=== PATIENT | male | born 1955 | race Caucasian/White ===

== ENCOUNTER 2024-06-29 16:42 | Outpatient (OUT) | payer MEDICARE, SELFPAY ==
[2024-06-29 17:14] LABS: Basophils Absolute Auto 0.1 10^3/uL (0.0-0.1); Basophils Percent Auto 0.6 % (0.2-2.0); Eosinophils Absolute Auto 0.4 10^3/uL (0.0-0.7); Eosinophils Percent Auto 3.9 % (0.9-7.0); Hematocrit 40.7 % (42.0-54.0); Hemoglobin 14.2 g/dL (14.0-18.0); Immature Granulocytes Abs Auto 0.02 10^3/uL (0.00-0.03); Immature Granulocytes Pct Auto 0.2 % (0.0-0.5); Lymphocytes Absolute Auto 2.8 10^3/uL (1.2-3.8); Lymphocytes Percent Auto 25.8 % (20.5-60.0); Mean Corpuscular HGB Conc 34.9 g/dL (29.9-35.2); Mean Corpuscular Hemoglobin 30.3 pg (25.9-34.0); Mean Platelet Volume 8.9 fL (9.5-13.5); Monocytes Absolute Auto 0.5 10^3/uL (0.3-0.8); Monocytes Percent Auto 4.5 % (1.7-12.0); Neutrophils Absolute Auto 7.1 10^3/uL (1.4-6.5); Platelet Count 277 10^3/uL (150-450); Red Blood Count 4.68 10^6/uL (4.70-6.10); Red Cell Distribution Width 13.3 % (11.0-15.0); White Blood Count 10.9 10^3/uL (4.0-11.0)
[2024-06-29 17:24] LABS: Estimated Average Glucose 151 mg/dL; Glycohemoglobin A1C 6.9 % (4.5-6.2)
[2024-06-29 17:35] LABS: Alanine Aminotransferase 19 U/L (16-63); Albumin Level 3.6 g/dL (3.4-5.0); Alkaline Phosphatase 122 U/L (46-116); Anion Gap 9.5; Aspartate Amino Transferase 17 U/L (15-37); BUN Creatinine Ratio 10.7; Bilirubin Total 1.1 mg/dL (0.2-1.0); Calcium 9.4 mg/dL (8.5-10.1); Carbon Dioxide 29.4 mmol/L (21.0-32.0); Chloride 103 mmol/L (98-107); Chol HDL Ratio 4.5; Cholesterol 199 mg/dL (<=200); Estimated GFR (African America >60 (>=60); Estimated GFR (Non-African Ame >60 (>=60); Globulin 3.6 g/dL; Glucose 140 mg/dL (74-106); HDL Cholesterol 44 mg/dL (40-60); Sodium 139 mmol/L (136-145); Total Protein 7.2 g/dL (6.4-8.2); Triglycerides 153 mg/dL (<=150); VLDL CHOLESTEROL 30.6 mg/dL
[2024-06-29 17:59] LABS: Prostate Specific Antigen Scrn 0.59 ng/mL (<=4.00)
[2024-06-29 18:04] LABS: Potassium 2.9 mmol/L (3.5-5.1)
== END 2024-06-29 16:43 | disposition home or self-care (01) ==
PROVIDERS: PCP Family Medicine; Visit Provider Family Medicine
DX: Z01.89 Encounter for other specified special examinations (principal)
CPT/HCPCS: 36415; 80053; 80061; 83036; 85025; G0103

== ENCOUNTER 2024-09-17 17:38 | Emergency (ER) | payer MEDICARE, SELFPAY ==
[2024-09-17] VITALS (8 sets, daily range): BP systolic 148–192; BP diastolic 89–107; PULSE 81–98; TEMP 36.9; O2SAT 96–98; BMI 29.8
--- NOTE | 2024-09-17 17:56 | ECG_ITS ---
[facility] Test Date: 2024-09-17 Pat Name: ESTEFANY SMALL Department: Room: - Gender: Male Inspector Outside Production: : 1955 Requested By: 0929 Order Number: [id number] Reading MD: CASS BOWLING Measurements Intervals Gurley Rate: 82 P: 7 MA: 166 QRS: -6 QRSD: 114 T: 10 QT: 412 QTc: 451 Interpretive Statements 1100 Sinus rhythm 1102 Sinus arrhythmia [address] depression inferiorly 9150 abnormal ECG Electronically Signed On 09-18-2024 6:59:40 EST by CASS BOWLING
--- NOTE | 2024-09-17 17:56 | XR_ITS ---
The [address] [address] Patient Name: ESTEFANY SMALL MRN: [id number] date: 1955 Sex: M Assigned Patient Location: ER Current Patient Location: ED.MAIN Accession/Order Number: [id number] Exam Date: 09/17/2024 18:02 Report Date: 09/17/2024 19:51 At the request of: SHIVAM DUGGAN Procedure: XR chest 1V EXAM: XR chest 1V REASON FOR EXAM: Male, 69 years, Cough. TECHNIQUE: A single AP view of the chest is performed. COMPARISON: None. FINDINGS: There is minimal linear atelectasis or scar at the left lung base. The right lung is clear. Normal pleura. Normal size heart. Normal mediastinum and mae. Normal visualized pulmonary arteries. Normal visualized aortic arch and descending thoracic aorta. Normal visualized thoracic spine. Normal visualized ribs, clavicles, and shoulders. There is no demonstrated abnormality of the visualized soft tissue structures of the upper abdomen. XR/XR chest 1V IMPRESSION: Minimal left basilar atelectasis or scar. Otherwise, no acute process. Electronically authenticated by: NAIMA DILL Date: 09/17/2024 19:51
--- NOTE | 2024-09-17 17:57 | ED.GENADUL1 ---
HPI HPI - General Adult General Chief complaint: Upper Respiratory Infection Stated complaint: Upper Respiratory Infection Time Seen by Provider: 09/17/24 17:39 Source: patient Mode of arrival: walk-in History of Present Illness HPI narrative: Patient is a 69-year-old male with a history of diabetes who presents to the emergency department for cough, chest congestion over the last 4 days. He states he called his doctor's office and a Z-Joseph was called in for him but he does not feel he is getting any better. He has not had any objective fevers, vomiting or diarrhea. He denies any reyna chest pain. He has had some sputum production but no hemoptysis. He states that he used to be on inhalers for his breathing but no longer takes them. No sick contacts in the home. Related Data Home Medications ?Medication ?Instructions ?Recorded ?Confirmed azithromycin 250 mg tablet 250 mg PO DAILY 09/17/24 09/17/24 clopidogrel 75 mg tablet 75 mg PO DAILY 09/17/24 09/17/24 gabapentin 400 mg capsule 400 mg PO TID 09/17/24 09/17/24 insulin degludec 200 unit/mL (3 30 unit subcut QPM 09/17/24 09/17/24 mL) subcutaneous pen (Tresiba FlexTouch U-200 insulin) losartan 25 mg tablet 25 mg PO DAILY 09/17/24 09/17/24 Previous Rx's ?Medication ?Instructions ?Recorded albuterol sulfate 90 mcg/actuation 2 inh inhalation Q4H PRN shortness 09/17/24 aerosol inhaler of breath or wheezing #8.5 grams benzonatate 200 mg capsule 200 mg PO TID PRN cough #14 caps 09/17/24 doxycycline hyclate 100 mg tablet 100 mg PO BID 10 days #20 tabs 09/17/24 prednisone 20 mg tablet 60 mg (3 x 20 mg) PO DAILY 3 days 09/17/24 #9 tabs Allergies Allergy/AdvReac Type Severity Reaction Status Date / Time No Known Drug Allergies Allergy Verified 09/17/24 17:49 Opioid HPI Opioid Management Most Recent Opioid Data: No Data to Display Review of Systems ROS Constitutional Reports: chills; Denies: fever Ears, nose, mouth, and throat Reports: nasal congestion; Denies: throat pain Cardiovascular Denies: chest pain Respiratory Reports: cough, wheezing, change in phlegm color and chest congestion; Denies: shortness of breath or coughing up blood Gastrointestinal Denies: abdominal pain, nausea or vomiting Musculoskeletal Denies: back pain Integumentary/Breast Denies: rash Neurological Denies: numbness in extremities or weakness in extremities Hematologic/Lymphatic Denies: easy bruising or easy bleeding Exam Constitutional Vital Signs, click to edit/add: Last Vital Signs Temp 98.4 F 09/17/24 17:44 Pulse 85 09/17/24 18:40 Resp 13 09/17/24 18:40 BP 148/89 H 09/17/24 19:09 Pulse Ox 96 09/17/24 18:44 O2 Del Method Room Air 09/17/24 18:44 Course Vital Signs Vital signs: Vital Signs Temperature 98.4 F 09/17/24 17:44 Pulse Rate 98 H 09/17/24 17:44 Respiratory Rate 16 09/17/24 17:44 Blood Pressure 192/107 H 09/17/24 17:44 Pulse Oximetry 98 09/17/24 17:44 Oxygen Delivery Method Room Air 09/17/24 17:44 Temperature 98.4 F 09/17/24 17:44 Pulse Rate 85 09/17/24 18:40 Respiratory Rate 13 09/17/24 18:40 Blood Pressure 148/89 H 09/17/24 19:09 Pulse Oximetry 96 09/17/24 18:44 Oxygen Delivery Method Room Air 09/17/24 18:44 Medical Decision Making MDM Narrative Medical decision making narrative: Laboratory studies reviewed and noted within normal limits, respiratory swabs are negative. Patient with controlled blood sugar in the ER, discussed a short course of steroids and diet management for blood sugar at home. Patient does take insulin at nighttime. Chest x-ray is unremarkable. He was given a breathing treatment and Solu-Medrol in the ER. Discharged home with doxycycline, Tessalon Perles, albuterol inhaler and prednisone. Follow-up with PCP and return to the ER if symptoms change or worsen SHARED APC VISIT, PHYSICIAN ATTESTATION: Wyxv-vp-tqly I performed a substantive part of the MDM during the patient?s E/M visit. I personally evaluated and examined the patient. I personally made or approved the documented management plan and acknowledge its risk of complications. Medical Records Medical records reviewed: Yes I reviewed the patient's medical records Lab Data Lab results reviewed: Yes I reviewed the patient's lab results Labs: Lab Results 09/17/24 Range/Units 18:15 WBC 9.3 (4.0-11.0) 10^3/uL RBC 4.97 (4.70-6.10) 10^6/uL Hgb 14.6 (14.0-18.0) g/dL Hct 42.1 (42.0-54.0) % MCV 84.7 (80.0-94.0) fL MCH 29.4 (25.9-34.0) pg MCHC 34.7 (29.9-35.2) g/dL RDW 12.2 (11.0-15.0) % Plt Count 214 (150-450) 10^3/uL MPV 9.0 L (9.5-13.5) fL Neut % (Auto) 67.4 (43.0-75.0) % Lymph % (Auto) 25.9 (20.5-60.0) % [place] % (Auto) 5.3 (1.7-12.0) % Eos % (Auto) 1.0 (0.9-7.0) % Baso % (Auto) 0.2 (0.2-2.0) % Neut # (Auto) 6.3 (1.4-6.5) 10^3/uL Lymph # (Auto) 2.4 (1.2-3.8) 10^3/uL [place] # (Auto) 0.5 (0.3-0.8) 10^3/uL Eos # (Auto) 0.1 (0.0-0.7) 10^3/uL Baso # (Auto) 0.0 (0.0-0.1) 10^3/uL Abs Immat Gran (auto) 0.02 (0.00-0.03) 10^3/uL Imm/Tot Granulo (auto) 0.2 (0.0-0.5) % Sodium 139 (136-145) mmol/L Potassium 3.2 L (3.5-5.1) mmol/L Chloride 102 (98-107) mmol/L Carbon Dioxide 26.6 (21.0-32.0) mmol/L Anion Gap 13.6 BUN 17.0 (7.0-18.0) mg/dL Creatinine 1.02 (0.70-1.30) mg/dL Est GFR ( Amer) >60 (>=60 mL/min/1.73m^2) Est GFR (Non-Af Amer) >60 (>=60 mL/min/1.73m^2) BUN/Creatinine Ratio 16.7 Glucose 92 (74-106) mg/dL Lactate 1.0 (0.4-2.0) mmol/L Calcium 8.8 (8.5-10.1) mg/dL Total Bilirubin 0.8 (0.2-1.0) mg/dL AST 21 (15-37) U/L ALT 24 (16-63) U/L Alkaline Phosphatase 119 H (46-116) U/L Troponin I High Sens 25.1 (4.0-76.1) pg/mL NT-Pro-B Natriuret Pep 570.0 (<=900.0) pg/mL Total Protein 7.1 (6.4-8.2) g/dL Albumin 3.3 L (3.4-5.0) g/dL Globulin 3.8 g/dL Albumin/Globulin Ratio 0.9 Influenza Type A Ag Negative Influenza Type B Ag Negative SARS-CoV-2 Ag (CV2AG) Negative (NEGATIVE) Imaging Data Chest x-ray: Attestation: I have reviewed the pertinent imaging results. ECG Data Attestation: I personally reviewed and interpreted this ECG as follows: (Normal sinus rhythm at a rate of 82, sinus arrhythmia with no acute ST elevation. EKG reviewed by attending physician) Discharge Plan Discharge Chief Complaint: Upper Respiratory Infection Clinical Impression: Upper respiratory infection Patient Disposition: Home, Self-Care Time of Disposition Decision: 19:47 Condition: Good Prescriptions / Home Meds: New prednisone 20 mg tablet 60 mg PO DAILY 3 Days Qty: 9 0RF albuterol sulfate 90 mcg/actuation HFA aerosol inhaler 2 inh inhalation Q4H PRN (Reason: shortness of breath or wheezing) Qty: 8.5 0RF doxycycline hyclate 100 mg tablet 100 mg PO BID 10 Days Qty: 20 0RF benzonatate 200 mg capsule 200 mg PO TID PRN (Reason: cough) Qty: 14 0RF No Action azithromycin 250 mg tablet 250 mg PO DAILY clopidogrel 75 mg tablet 75 mg PO DAILY gabapentin 400 mg capsule 400 mg PO TID insulin degludec [Tresiba FlexTouch U-200] 200 unit/mL (3 mL) insulin pen 30 unit SUBCUT QPM losartan 25 mg tablet 25 mg PO DAILY Print Language: Israeli Instructions: Upper Respiratory Infection (ED), Wheezing (ED) Referrals: KALEY MCCOY [Primary Care Provider] - 1 week
[2024-09-17] MEDS: METHYLPREDNISOLONE SOD SUCC PF 125 MG/2 ML VIAL IVP (18:17)
[2024-09-17] MEDS: ALBUTEROL SULFATE 2.5 MG/3 ML VIAL NEB IH (18:29)
[2024-09-17 18:30] LABS: Basophils Percent Auto 0.2 % (0.2-2.0); Eosinophils Absolute Auto 0.1 10^3/uL (0.0-0.7); Hematocrit 42.1 % (42.0-54.0); Hemoglobin 14.6 g/dL (14.0-18.0); Immature Granulocytes Abs Auto 0.02 10^3/uL (0.00-0.03); Immature Granulocytes Pct Auto 0.2 % (0.0-0.5); Lymphocytes Absolute Auto 2.4 10^3/uL (1.2-3.8); Lymphocytes Percent Auto 25.9 % (20.5-60.0); Mean Corpuscular HGB Conc 34.7 g/dL (29.9-35.2); Mean Corpuscular Hemoglobin 29.4 pg (25.9-34.0); Mean Corpuscular Volume 84.7 fL (80.0-94.0); Monocytes Absolute Auto 0.5 10^3/uL (0.3-0.8); Monocytes Percent Auto 5.3 % (1.7-12.0); Neutrophils Absolute Auto 6.3 10^3/uL (1.4-6.5); Neutrophils Percent Auto 67.4 % (43.0-75.0); Platelet Count 214 10^3/uL (150-450); Red Blood Count 4.97 10^6/uL (4.70-6.10); Red Cell Distribution Width 12.2 % (11.0-15.0); White Blood Count 9.3 10^3/uL (4.0-11.0)
[2024-09-17 18:41] LABS: Influenza Virus A Antigen Negative; Influenza Virus B Antigen Negative; Internal Control Within Normal Limits; SARS-CoV-2 Ag NEGATIVE (NEGATIVE)
[2024-09-17 18:54] LABS: Alanine Aminotransferase 24 U/L (16-63); Albumin Globulin Ratio 0.9; Albumin Level 3.3 g/dL (3.4-5.0); Alkaline Phosphatase 119 U/L (46-116); Anion Gap 13.6; Aspartate Amino Transferase 21 U/L (15-37); BUN Creatinine Ratio 16.7; Bilirubin Total 0.8 mg/dL (0.2-1.0); Calcium 8.8 mg/dL (8.5-10.1); Carbon Dioxide 26.6 mmol/L (21.0-32.0); Chloride 102 mmol/L (98-107); Estimated GFR (African America >60 (>=60 mL/min/1.73m^2); Estimated GFR (Non-African Ame >60 (>=60 mL/min/1.73m^2); Globulin 3.8 g/dL; Glucose 92 mg/dL (74-106); Potassium 3.2 mmol/L (3.5-5.1); Sodium 139 mmol/L (136-145); Total Protein 7.1 g/dL (6.4-8.2); Troponin I High Sensitivity 25.1 pg/mL (4.0-76.1)
== END 2024-09-17 20:00 | disposition home or self-care (01) ==
PROVIDERS: Physician Assistant; Emergency Provider Emergency Medicine; PCP Family Medicine
DX: J06.9 Acute upper respiratory infection, unspecified (principal); E11.9 Type 2 diabetes mellitus without complications; Z79.4 Long term (current) use of insulin
CPT/HCPCS: 36415; 71045; 80053; 83605; 83880; 84484; 85025; 87804; 87811; 93005; 94640; 96374; 99285; J2919

== ENCOUNTER 2024-11-30 16:37 | Outpatient (OUT) | payer MEDICARE, SELFPAY ==
[2024-11-30 17:34] LABS: Thyroid Stimulating Hormone 1.011 uIU/mL (0.358-3.740)
[2024-12-02 02:08] LABS: Vitamin B12 1185 pg/mL (232-1245)
[2024-12-02 16:09] LABS: Albumin 3.5 g/dL (2.9-4.4); Alpha-1-Globulin 0.3 g/dL (0.0-0.4); Alpha-2-Globulin 0.8 g/dL (0.4-1.0); Gamma Globulin 0.8 g/dL (0.4-1.8); Protein, Total 6.8 g/dL (6.0-8.5)
== END 2024-11-30 16:38 | disposition home or self-care (01) ==
LOC: LAB 16:50
PROVIDERS: PCP Family Medicine; Visit Provider Psychiatry & Neurology Neurology
DX: G60.9 Hereditary and idiopathic neuropathy, unspecified (principal)
CPT/HCPCS: 36415; 82607; 82746; 84155; 84165; 84443

== ENCOUNTER 2025-07-23 11:04 | Outpatient (OUT) | payer MEDICARE, SELFPAY ==
--- OUTSIDE RECORDS SUMMARY | 2025-07-22 16:57 | XMS_ITS | Patient Health Record ---
Author Organization [facility] in [place] Address [address] [place] [address] Care Team Providers Care Glaze Carrier Name Role Phone Wilber Ariza DO Primary Care Provider Unavail able Reason For Referral No Information Plan Of Treatment No Information Insurance Providers Payer Name Payer Address Payer Phone Subscriber Number Group Number Insured Name Patient Relationship to Insured Coverage Start Date Coverage End Date SELF PAY ON PATIENT DEMOGRAPHICS Michael Morales - patient is the [id number]/12/2012
--- OUTSIDE RECORDS SUMMARY | 2025-07-22 16:57 | XMS_ITS | Clinical Summary ---
Author Organization [employer] [facility] Address [id number] [address] [place] [address] Care Team Providers Care Associate Professor Of Biblical Studies Name Role Phone Lalo Marshall DO Primary Care Provider [phone] Allergies Active AllergyReactionsCriticalityNoted IgjpDoztiklsVmmrjvirojCyjv33/03/2025 Other Reaction(s): Suicidal ideation Medications MedicationSigDispense QuantityRefillsLast FilledStart DateEnd DateStatus ibuprofen (ADVIL,MOTRIN) 800 mg tablet Take 1 tablet (800 mg total) by mouth every 8 (eight) hours as needed.Active omeprazole (PriLOSEC OTC) 20 mg tablet,delayed release (DR/EC) Take 1 tablet (20 mg total) by mouth as needed.Active aspirin 81 mg Take 325 mg by mouth daily. Active tiZANidine (ZANAFLEX) 4 mg capsule Take 1 capsule (4 mg total) by mouth as needed in the morning and 1 capsule (4 mg total) as needed at noon and 1 capsule (4 mg total) as needed in the evening. Active insulin degludec (TRESIBA FLEXTOUCH U-200) 200 unit/mL (3 mL) insulin pen Inject 50 Units under the skin in the morning.Active HYDROcodone-acetaminophen (NORCO) 7.5-325 mg per tablet Take 2 tablets by mouth every 6 (six) hours as needed.Active clopidogrel (PLAVIX) 75 mg tablet Take 1 tablet (75 mg total) by mouth in the morning.Active albuterol (PROVENTIL HFA;VENTOLIN HFA) 90 mcg/actuation inhaler Inhale 2 puffs every 6 (six) hours as needed for wheezing.Active aspirin 325 mg EC tablet Take 1 tablet (325 mg total) by mouth in the morning.Active gabapentin (NEURONTIN) 100 MG tablet Take 2 tablets (200 mg total) by mouth nightly.5Active potassium chloride (KLOR-CON M 20) 20 MEQ CR tablet Take 1 tablet (20 mEq total) by mouth in the morning.5Active losartan (COZAAR) 25 mg tablet Indications:Primary hypertensionTake 1 tablet (25 mg total) by mouth nightly. 90 tablet 5Active ezetimibe (ZETIA) 10 mg tablet Indications:Coronary artery disease with history of percutaneous transluminal angioplasty (PTCA)Take 1 tablet (10 mg total) by mouth in the morning. 90 tablet 5Active losartan (COZAAR) 25 mg tablet Take 0.5 tablets (12.5 mg total) by mouth nightly.07/06/2025Discontinued (Reorder) ezetimibe (ZETIA) 10 mg tablet Take 1 tablet (10 mg total) by mouth in the morning. 90 tablet Discontinued Active Problems ProblemNoted DateDiagnosed DateCoronary artery disease with history of percutaneous transluminal angioplasty (PTCA)01/01/2025Generalized abdominal pain 02/21/2021erumen debris on tympanic membrane of both ears07/28/2019Middle ear effusion, hpmsphrun55/17/2019Dysfunction of both eustachian tubes01/14/2019 Bilateral hearing loss01/14/2019 Encounters DateTypeDepartmentCare PcrxXcmxlazfwdj58/07/2025 2:00 PM EDTOffice Visit [facility] [address] [place] [phone] Roxanna Diop MD Coronary artery disease with history of percutaneous transluminal angioplasty (PTCA) (Primary Dx); Primary phoiczsfgbul15/07/3764Itghjq70/06/2025Telephone [facility] [address] [place] [phone] Sandra Langston MA from Last 3 Months Family History Medical HistoryRelationNameCommentsHeart diseaseBrotherHeart attackFatherHeart diseaseFatherStrokeMotherHeart diseaseSisterRelationNameStatusCommentsBrother AliveFatherDeceasedMotherDeceasedSisterAlive Social History Tobacco UseTypesPacks/DayYears UsedDateSmoking Tobacco: FormerSmokeless Tobacco: Never Comments:2009 quit Alcohol UseStandard Drinks/WeekCommentsNever0 (1 standard drink = 0.6 oz pure alcohol)AUDIT-CAnswerDate RecordedFrequency of Alcohol ConsumptionNever 01/14/2019Average Number of DrinksNot on file01/14/2019Frequency of Binge DrinkingNot on file01/14/2019ChildcareAnswerDate RecordedChildcareUnknown 03/11/2019EmploymentAnswerDate PnueeickCommpqhbyvDpcetrx40/12/2019Hunger ScreeningAnswerDate RecordedWithin the past 12 months we worried whether our food would run out before we got money to buy more.Never True07/06/2025Within the past 12 months the food we bought just didn't last and we didn't have money to get more.Never True07/06/2025Purpose - LifeAnswerDate RecordedPurpose and direction in fvdyEjjlkmr48/11/2021ex and Gender InformationValueDate Recorded Sex Assigned at BirthNot on fileLegal YxcKrmv9905/05/2015 11:51 AM EDTGender IdentityNot on fileSexual OrientationNot on file Last Filed Vital Signs Vital SignReadingTime TakenCommentsBlood Nyiiybmz708/5569807/06/2025 1:52 PM EDT Fnctz713507/06/2025 1:52 PM YTTUrjrtngtghs94.1 ??C (97 ??F)02/21/2021 12:11 PM EDT Respiratory Wnkx007802/21/2021 1:08 PM EDTOxygen Pgthnswnbq27%07/06/2025 1:52 PM EDTInhaled Oxygen Concentration--Umywzp10 kg (194 lb)07/06/2025 1:52 PM EDT Mmdecv237.2 cm (5' 7 )07/06/2025 1:52 PM EDTBody Mass Index30.381 1:52 PM EDT Plan of Treatment DateTypeDepartmentCare Team (Latest Contact Info)Scwqdcabyaw60/27/2025 2:00 PM EDTAppointment [facility] [address] [place] [phone] Cirilo Banegas MD [address] [place] [address] Health MaintenanceDue DateLast DoneCommentsDiabetic Ophthalmology Exam1955 Statin Use: Ukacndavgpethd1954Statin Use: Hhmnffot1954epression Ipntojhnl59/17/1966Adult BMI Follow Up Plan02/14/1972Diabetic Foot Exam 02/14/1972DTaP,Tdap and Td Vaccines (1 - Tdap)1973Zoster (Shingles) Vaccine (1 of 2)02/14/2004Abdominal Aortic Aneurysm (AAA) Dmyhwi5602/13/2019Fall Risk Ilasmtpua35/17/2019COVID-19 Vaccine ( season)2025 10/10/2021, 12/05/2020Influenza Hslgnif2805/31/2025dult BMI Iqllkxhqo30/07/2026 07/06/2025Tobacco Xairqziyr55 Medical Devices Not on file Insurance Care Teams Team MemberRelationshipSpecialtyStart DateEnd Date Lalo Marshall DO [facility]10/01/19
--- OUTSIDE RECORDS SUMMARY | 2025-07-22 16:57 | XMS_ITS | Clinical Summary ---
Author Organization [facility] Address [address] [facility] [place] [address] Care Team Providers Care Resident Care Technician Name Role Phone Carla Moon DO Unavailable [phone] Kaelyn Good SECURITY CLERK Unavailable [phone] Lalo Marshall MD Primary Care Provider [phone] Allergies Active AllergyReactionsCriticalityNoted YhylSqyfgmicPeepxcuuejRyzd98/03/2025 Other Reaction(s): Suicidal ideation Insulin Aspart (Human Analog) (Yeast)GkrzaYflu84/17/2025 Chest pain Medications MedicationSigDispense QuantityRefillsLast FilledStart DateEnd DateStatus HYDROcodone-acetaminophen (Terrell) 7.5-325 MG tablet Take 1 tablet by mouth in the morning and 1 tablet before bedtime.05/09/2023 Active aspirin 81 MG EC tablet Take 1 tablet by mouth Daily05/09/2023ctive clopidogrel (Plavix) 75 MG tablet Take 1 tablet by mouth Daily05/09/2023ctive cyclobenzaprine (Flexeril) 10 MG tablet Take 1 tablet by mouth in the morning and 1 tablet in the evening and 1 tablet before bedtime.05/09/2023ctive ibuprofen 800 MG tablet 05/09/2023ctive losartan (Cozaar) 25 MG tablet Take 1 tablet by mouth Daily05/09/2023ctive fluticasone (Flonase) 50 MCG/ACT nasal spray Indications:ETD (Eustachian tube dysfunction), bilateralAdminister 2 sprays into each nostril Daily Shake gently. Before first use, prime pump. After use, clean tip and replace cap. 16 g 1104Active gabapentin (Neurontin) 400 MG capsule Take 600 mg by mouth in the morning and 600 mg in the evening and 600 mg before bedtime.Active Cariprazine HCl (Vraylar) 1.5 MG capsule Take by mouthActive insulin degludec (Tresiba FlexTouch) 200 UNIT/ML injection Indications:Type 2 diabetes mellitus with other circulatory complications (HCC) Inject 50 Units under the skin at bedtime 22.5 mL 5Active ezetimibe (Zetia) 10 MG tablet Take 10 mg by mouth in the morning.5Active Xdemvy 0.25 % solution Administer 1 drop into affected eye(s) in the morning and 1 drop before bedtime. 5Active potassium chloride CR (Klor-Con M20) 20 MEQ ER tablet Take 20 mEq by mouth in the morning.5Active Active Problems ProblemNoted DateDiagnosed DateMixed hearing loss, gduumxbeu99/19/2024ETD (Eustachian tube dysfunction), lybwlnpfn17/19/2024Foreign body of both ears 03/18/2024rthritis of left hand3Carpal tunnel fpkfanjr57/11/2023 Bilateral hearing loss01/14/2019Mixed getsjwpllnfwkq83/28/2015Primary pfdbeslultry73/15/2014S/P coronary artery stent yeitqpghx96/29/2013Coronary onmfueamnfkwvpz94/28/2013Heart zfggtly7311/19/2012 Immunizations ImmunizationAdministration DatesNext DueJanssen EDUP-WeF-687/08/2021Pfizer Purple Cap SARS-CoV-2 Aboitbcmhpg67/11/2022 Family History Medical HistoryRelationNameCommentsSkin cancerBrotherx 6, 1 decHeart disease FatherDiabetesMotherMelanomaNeg HxRelationNameStatusCommentsBrotherx 6, 1 dec Daughterx 1AliveFatherDeceasedMotherDeceasedSonx 1Alive Social History Tobacco UseTypesPacks/DayYears UsedDateSmoking Tobacco: FormerCigarettesQuit: 2000 Tobacco Cessation:Counseling Given: Not Answered Alcohol UseStandard Drinks/WeekCommentsNot Currently0 (1 standard drink = 0.6 oz pure alcohol)15 years cleanSex and Gender InformationValueDate RecordedSex Assigned at BirthNot on fileLegal VhtAjda5312/12/2022 7:05 PM EDTGender Identity Not on fileSexual OrientationNot on file Last Filed Vital Signs Vital SignReadingTime TakenCommentsBlood Ibilbuzv987/9007 2:13 PM EDT Njstl086304/12/2025 2:13 PM EDTTemperature--Respiratory Ksbc419804/12/2025 2:13 PM EDTOxygen Zswsggyxgf23%04/12/2025 2:13 PM EDTInhaled Oxygen Concentration-- Gqmzav15.6 kg (202 lb)04/12/2025 2:13 PM YYKEcfain072.2 cm (5' 7 )04/12/2025 2:13 PM EDTBody Mass Index31.6407 2:13 PM EDT Plan of Treatment DateTypeDepartmentCare Team (Latest Contact Info)Kbmxeibroga84/28/2025 1:40 PM EDTOffice Visit [facility] [address] [place] [phone] Claudia Ferreira MD [address] [place] [address] 10/11/2025 2:00 PM ESTOffice Visit [facility] [address] [place] [address] Garo Barbour MD [address] [place] [address] 01/11/2026 2:35 PM EDTOffice Visit [facility] [address] [place] [address] Jessica Sheehan APRN-FIRST AID OFFICER [address] [place] [address] Health MaintenanceDue DateLast DoneCommentsCT Yrojmuydfijd1955Colonoscopy 4Colorectal Cancer Bjhnauycv1954FIT-DNA1954FIT1955 FOBT1955 1670Afnunuvjtifta1954Pneumococcal Vaccine: 65+ Years (1 of 1 - PCV)02/14/2004Influenza Vaccine (#1)2025 Medical Devices ImplantedTypeAreaManufacturerDevice IdentifierShelf Expiration DateModel / Serial / [id number] Implanted:Qty: 11StentN/A: Heart Insurance Care Teams Team MemberRelationshipSpecialtyStart DateEnd Date Lalo Marshall MD [address] [facility] [address] PCP - GeneralFamily Ariwjgwn87/22/25 Carla Moon DO [address] [place] [address] Referring PhysicianNeurolog10/13/24 Kaelyn Good NP [address] [place] [address] Nurse PractitionerNeurolog10/13/24
--- OUTSIDE RECORDS SUMMARY | 2025-07-22 16:58 | XMS_ITS | CCD ---
Author Organization [facility] CliniSypa Care Team Providers Care Banquet Houseperson Name Role Phone PHYSICIAN, DEFAULT Unavailable Unavailable PHYSICIAN, DEFAULT Unavailable Unavailable HOUSE, LALO Unavailable Unavailable TRISHA, DR CARTER White Consulting Unavailabl e TRISHA, DR CARTER White Attending Unavailabl e TRISHA, DR CARTER White Admitting Unavailabl e HOUSE, DR ROCHE Primary Care Unavailable [facility], MARCIO Consulting Unavailable HOUSE, DR ROCHE Primary Care Unavailable HOUSE, DR ROCHE Consulting Unavailable HOUSE, DR ROCHE Attending Unavailable HOUSE, DR ROCHE Admitting Unavailable House Lalo SAMUELS Primary Care Provider Nicole Moon DO Unavailable Florentino CLINICAL REHAB SPECIALIST, Kaelyn Unavailable [phone] House Lalo MOLINA Primary Care Provider House Lalo MOLINA Primary Care Provider Florentino CLINICAL REHAB SPECIALIST, Kaelyn Unavailable GARO BARBOUR Attending Unavailable NICOLE MOON Attending Unavailable CRISTINO MALDONADO Referring Unavailable SHIVAM SHEEHAN Attending Unavailable GARO BARBOUR Attending Unavailable GARO BARBOUR Referring Unavailable KAELYN GOOD Attending Unavailable NICOLE MOON Referring Unavailable ULYSSES OVERTON Attending Unavailable KATHY GARCAI Attending Unavailable HOUSE, LALO Osorio Referring Unavailable HOUSE, LALO Osorio Primary Care Unavailable KATHY GARCIA Attending Unavailable KATHY GARCIA Referring Unavailable HOUSE, LALO Osorio Primary Care Unavailable ROXANNA DIOP Attending Unavailable HOUSE, LALO Osorio Referring Unavailable HOUSE, LALO Osorio Primary Care Unavailable HOUSE, LALO Osorio Primary Care Unavailable HOUSE, DO LALO Osorio Attending Unavailable HOUSE, LALO Osorio Primary Care Unavailable HOUSE, DO LALO Osorio Attending Unavailable HOUSE, LALO Osorio Primary Care Unavailable HOUSE, DO LALO Osorio Attending Unavailable HOUSE, LALO Osorio Primary Care Unavailable HOUSE, DO LALO Osorio Attending Unavailable Allergies Allergy ClassificationReported Allergen(s)Allergy TypeDate of OnsetReaction(s) Facility (1 source)53305,00; Translations: [50946,00]Propensity to adverse reactions (disorder)87-66-8353Fmf [facility] Repository (19 sources)DULoxetine; Translations: [DULOXETINE]Drug Ypnmqgu98-49-6746[facility] (3 sources)insulin aspart, humanDrug Acyxrnk47-52-6820XonooRUFO Healthcare Medications Current Medications MedicationDrug Class(es)DatesSig (Normalized)Sig (Original)acetaminophen 325 mg / HYDROcodone bitartrate 7.5 mg oral tablet (20 sources)Opioid AgonistStart: 81-05-3047jcwt 1 tablet by mouth in the morning HYDROcodone-acetaminophen (Rolla) 7.5-325 MG tablet Take 1 tablet by mouth in the morning and 1 tablet before bedtime. 05/09/2023 Activetake 2 tablets by mouth every six hours as neededHYDROcodone-acetaminophen (NORCO) 7.5-325 mg per tablet Take 2 tablets by mouth every 6 (six) hoursas needed. [id number] 200 actuat albuterol 0.09 mg/actuat metered dose inhaler (7 sources)beta2-Adrenergic Agonisttake 2 puff(s) by inhalation every six hours as needed for wheezingalbuterol (PROVENTIL HFA;VENTOLIN HFA) 90 mcg/actuation inhaler Inhale 2 puffs every 6 (six) hours as needed for wheezing. Activeaspirin 81 mg delayed release oral tablet (20 sources)Platelet Aggregation Inhibitor, Nonsteroidal Anti-inflammatory Drug Start: 89-43-9454nccr 1 tablet by mouth once dailyaspirin 81 MG EC tablet Take 1 tablet by mouth Daily 05/09/2023 Activetake 1 tablet by mouth in the morning aspirin 325 mg EC tablet Take 1 tablet (325 mg total) by mouth in the morning. Activetake 325 mg by mouth once dailyaspirin 81 mg Take 325 mg by mouth daily. Activecariprazine 1.5 mg oral capsule (9 sources)Atypical AntipsychoticCariprazine HCl (Vraylar) 1.5 MG capsule Take by mouth Activeclopidogrel 75 mg oral tablet (20 sources)P2Y12 Platelet InhibitorStart: 11-08-6719mfvz 1 tablet by mouth once dailyclopidogrel (Plavix) 75 MG tablet Take 1 tablet by mouth Daily 05/09/2023 Activecyclobenzaprine hydrochloride 10 mg oral tablet (17 sources)Muscle RelaxantStart: 54-90-9164bqqu 1 tablet by mouth in the morning, then take 1 tablet by mouth in the evening, then take 1 tablet by mouth at bedtimecyclobenzaprine (Flexeril) 10 MG tablet Take 1 tablet by mouth in the morning and 1 tablet in the evening and 1 tablet before bedtime. 05/09/2023 Activeezetimibe 10 mg oral tablet (8 sources)Dietary Cholesterol Absorption InhibitorStart: 01-01-2025 End: 28-94-6326lebk 1 tablet by mouth in the morningezetimibe (ZETIA) 10 mg tablet Indications: Coronary artery disease with history of percutaneous tra nsluminal angioplasty (PTCA) Take 1 tablet (10 mg total) by mouth in the morning. 90 tablet 3 07/06/2025 Activefluticasone propionate 0.05 mg/actuat metered dose nasal spray (16 sources)CorticosteroidStart: 03-18-2024 End: 61-37-6322lnfi 2 spray(s) nasal route once dailyfluticasone (Flonase) 50 MCG/ACT nasal spray Indications: ETD (Eustachian tube dysfunction), bilateral Administer 2 sprays into each nostril Daily Shake gently. Before first use, prime pump. After use, clean tip and replace cap. 16 g 11 03/18/2024 Active gabapentin 100 mg oral capsule (19 sources)Anti-epileptic AgentStart: 60-87-7746hhhz 2 tablets by mouth once dailygabapentin (NEURONTIN) 100 MG tablet Take 2 tablets (200 mg total) by mouth nightly. 12/14/2024 ActiveStart: 50-92-1842ncne 1 tablet by mouth three times dailygabapentin (NEURONTIN) 600 mg tablet Take 1 tablet (600 mg total) by mouth 3 (three) times a day. 12/14/2024 Activegabapentin (Neurontin) 400 MG capsule Take 600 mg by mouth in the morning and 600 mg in the eveningand 600 mg before bedtime. Activetake 1 capsule by mouth in the morning, then take 1 capsule by mouth in the evening, then take 1 capsule by mouth at bedtimegabapentin (Neurontin) 400 MG capsule Take 400 mg by mouth in the morning and 400 mg in the eveningand 400 mg before bedtime. Activeibuprofen 800 mg oral tablet (20 sources)Nonsteroidal Anti-inflammatory DrugStart: 12-60-7525egmbnyvtc 800 MG tablet 05/09/2023 Activetake 1 tablet by mouth every eight hours as needed ibuprofen (ADVIL,MOTRIN) 800 mg tablet Take 1 tablet (800 mg total) by mouth every 8 (eight) hours as needed. Active3 ml insulin degludec 200 unt/ml pen injector (20 sources)Insulin AnalogStart: 12-14-2024 End: 70-80-2752svyvntf degludec (Tresiba FlexTouch) 200 UNIT/ML injection Indications: Type 2 diabetes mellitus with other circulatory complications (HCC) Inject 50 Units under the skin at bedtime 22.5 mL 12/14/2024 ActiveStart: 10-08-2024 End: 49-63-9164txgwew 60 [IU] by subcutaneous injection once daily at bedtime Tresiba FlexTouch 200 UNIT/ML injection Indications: Type 2 diabetes mellitus with other circulatory complications INJECT 60 UNITS SUBCUTANEOUSLY EVERY DAY AT BEDTIME 36 mL 1 10/08/2024 12/14/2024 Discontinued (Reorder)insulin degludec (TRESIBA FLEXTOUCH U-200) 200 unit/mL (3 mL) insulin pen Inject 60 Units under theskin in the morning. Activelosartan potassium 25 mg oral tablet (20 sources)Angiotensin 2 Receptor BlockerStart: 59-12-9788tfka 1 tablet by mouth once dailylosartan (COZAAR) 25 mg tablet Indications: Primary hypertension Take 1 tablet (25 mg total) by mouth nightly. 90 tablet 07/06/2025 ActiveStart: 01-82-9951eqxw 1 tablet by mouth once dailylosartan (Cozaar) 25 MG tablet Take 1 tablet by mouth Daily 05/09/2023 Active End: 49-11-2076gtty 0.5 tablet by mouth once dailylosartan (COZAAR) 25 mg tablet Take 0.5 tablets (12.5 mg total) by mouth nightly. 07/06/2025 Discontinued (Reorder)omeprazole 20 mg delayed release oral tablet (7 sources)Proton Pump Inhibitoromeprazole (PriLOSEC OTC) 20 mg tablet,delayed release (DR/EC) Take 1 tablet (20 mg total) by mouthas needed. Active microencapsulated potassium chloride 20 meq extended release oral tablet (7 sources)Start: 06-49-4330utfr 1 tablet by mouth in the morningpotassium chloride (KLOR-CON M 20) 20 MEQ CR tablet Take 1 tablet (20 mEq total) by mouth in the morning. 10/10/2024 ActivetiZANidine 4 mg oral capsule (7 sources)Central alpha-2 Adrenergic AgonisttiZANidine (ZANAFLEX) 4 mg capsule Take 1 capsule (4 mg total) by mouth as needed in the morning and 1 capsule (4 mg total) as needed at noon and 1 capsule (4 mg total) as needed in the evening. ActiveXdemvy 0.25 % solution (3 sources)Start: 00-37-9484zfcu 1 drop(s) into the eye(s) in the morningXdemvy 0.25 % solution Administer 1 drop into affected eye(s) in the morning and 1 drop before bedtime. 12/17/2024 Active Completed/Discontinued Medications MedicationDrug Class(es)DatesSig (Normalized)Sig (Original)DULoxetine 30 mg delayed release oral capsule (8 sources)Serotonin and Norepinephrine Reuptake InhibitorStart: 10-14-2024 End: 18-34-4122GFPzvkqnvb (Cymbalta) [address] capsule Indications: Idiopathic peripheral neuropathy 1 po daily for2 weeks then bid 60 capsule 2 10/14/2024 11/30/2024 Discontinued (Side effects)Start: 44-37-4954TYDfipztue (Cymbalta) [address] capsule Indications: Idiopathic peripheral neuropathy 1 po daily for2 weeks then bid 60 capsule 2 10/12/2024 Activemetoprolol tartrate 25 mg oral tablet (4 sources)beta-Adrenergic Peyton End: 91-53-0897sodo 1 tablet by mouth once dailymetoprolol tartrate (LOPRESSOR) 25 mg tablet Take 1 tablet (25 mg total) by mouth nightly. 01/01/2025 Discontinued (Therapy completed)omega-3 acid ethyl esters (senior living) 1000 mg oral capsule (4 sources) End: 95-45-6748gqfue-3 acid ethyl esters (LOVAZA) 1 gram capsule Take 1 capsule (1 g total) by mouth in the morning. 01/01/2025 Discontinued (Therapy completed) rosuvastatin calcium 5 mg oral tablet (4 sources)HMG-CoA Reductase InhibitorStart: 01-24-2016 End: 84-57-7694atqe 1 tablet by mouth in the morningrosuvastatin (CRESTOR) 5 mg tablet Take 1 tablet (5 mg total) by mouth in the morning. 01/24/2016 01/01/2025 Discontinued (Therapy completed) Problems Active Problems Problem ClassificationProblemDateDocumented DateEpisodic/Chronic Administrative/social admission (2 sources)Patient encounter status; Translations: [Dietary counseling and surveillance]66-56-0654IlvmlrjxSfkpqiue reactions (2 sources)Atopic dermatitis; Translations: [Other atopic dermatitis]01-12-2025 ChronicCoronary atherosclerosis and other heart disease (20 sources)Atherosclerotic heart disease of [place] coronary artery without angina pectoris; Translations: [Coronary atherosclerosis]Onset: 12-25-2012 18-38-1864FysjebaArjmcozi mellitus with complications (3 sources)Polyneuropathy due to type 2 diabetes mellitus; Translations: [Type 2 diabetes mellitus with diabetic polyneuropathy]43-83-8489KzoqdioYjodvjhu mellitus without complication (4 sources)Type 2 diabetes mellitus without complications; Translations: [TYPE 2 DM WITHOUT COMPLICATIONS]Onset: 26-77-1578JhlfswtLupprquew of lipid metabolism (19 sources)Mixed hyperlipidemia; Translations: [Mixed hyperlipidemia]Onset: 869534-15-7021AybpoxbOqqnqylhf hypertension (20 sources)Essential (primary) hypertension; Translations: [Essential hypertension]Onset: 715725-40-9102WjzwopsTjbbf and electrolyte disorders (1 source)Dehydration; Translations: [DEHYDRATION]Onset: 76-33-8468Fytdulrm Nutritional deficiencies (2 sources)Vitamin D deficiency; Translations: [Vitamin D deficiency, unspecified]37-46-2993QtjxzusFwbvkblonqumrf (17 sources)Primary osteoarthritis, left hand; Translations: [Arthropathy, unspecified, hand]Onset: 302351-46-0166FwfkisgOwndm aftercare (1 source)emt intermediate (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; Translations: [USP CURRENT USE OF ASPIRIN]Onset: 86-69-6346HouzmaxaGivoo aftercare (1 source)Other joint terminal attack controller (current) drug therapy; Translations: [OTH EEO OFFICER CURRENT DRUG THERAPY]Onset: 86-04-7994VixvjfygElyid aftercare (2 sources)Long-term current use of insulin; Translations: [[facility] (current) use of insulin]27-65-1900JxbanpclIgxsb and ill-defined heart disease (17 sources)Heart disease; Translations: [Heart disease, unspecified]Onset: 715151-08-9651SxedpdxGkeca and unspecified benign neoplasm (2 sources)Melanocytic nevus of upper limb; Translations: [Melanocytic nevi of unspecified upper limb, including shoulder]83-42-9933EgnofqwcXjddu and unspecified benign neoplasm (2 sources)Melanocytic nevus of trunk; Translations: [Melanocytic nevi of trunk] 79-69-6739ObswqpqwIsvsf circulatory disease (2 sources)Spider nevus; Translations: [Nevus, non-neoplastic]10-06-5383Oinxzijj Other connective tissue disease (1 source)Inflammatory neuropathy ; Translations: [Neuralgia and neuritis, unspecified]39-42-3471SulataqcXfstt ear and sense organ disorders (20 sources)Bilateral hearing loss; Translations: [Unspecified hearing loss, bilateral]Onset: 636553-97-9997NseprzaXzwtw ear and sense organ disorders (16 sources)Mixed conductive and sensorineural hearing loss, bilateral; Translations: [Mixed conductive and sensorineural hearing loss, bilateral]Onset: 114395-29-3750OemjdwdImzbh lower respiratory disease (3 sources)Dyspnea; Translations: [Shortness of breath]87-31-6200YpddftztArcas nervous system disorders (17 sources)Carpal tunnel syndrome; Translations: [Carpal tunnel syndrome, unspecified upper limb]Onset: 642801-82-2399KoxdgboBokqa nervous system disorders (4 sources)Idiopathic peripheral neuropathy; Translations: [Hereditary and idiopathic neuropathy, unspecified]95-63-6289LvnswxiGycvs nervous system disorders (2 sources)Numbness and tingling sensation of skin; Translations: [Anesthesia of skin]88-61-6576JneogxltXvmkm nutritional; endocrine; and metabolic disorders (4 sources)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; Translations: [Obesity due to disruption of RQ9Gqkdnmxd, unspecified class, unspecified whether serious comorbidity present]35-29-5766BufecttBmvcd skin disorders (2 sources)Lentiginosis; Translations: [Other melanin hyperpigmentation] 85-93-8151ErhiortnVzyrk skin disorders (2 sources)Seborrheic keratosis; Translations: [Other seborrheic keratosis] 88-64-7924PfcfkzzqDamxl skin disorders (2 sources)Actinic keratosis; Translations: [Actinic keratosis]01-12-2025 EpisodicResidual codes; unclassified (11 sources)Obstructive sleep apnea syndrome; Translations: [Obstructive sleep apnea (adult) (pediatric)]14-28-3516PcvpmbyDpqstxwozryt (1 source)New PatientOnset: 01-01-2025 Past or Other Problems Problem ClassificationProblemDateDocumented DateEpisodic/ChronicAbdominal pain (11 sources)Unspecified abdominal pain; Translations: [Generalized abdominal pain]Onset: 12-26-6112IjlavswyUitdkdkafa associated with dizziness or vertigo (1 source)DizzinessOnset: 50-85-0118RruwvzuwUdnazscz atherosclerosis and other heart disease (1 source)Coronary angioplasty status; Translations: [Coronary angioplasty status]Onset: 71-60-7281DwxrqizmSgnba ear and sense organ disorders (7 sources)Excessive cerumen in ear canal ; Translations: [Impacted cerumen, bilateral]Onset: 090667-34-3510IhatdxohHrvnx injuries and conditions due to external causes (16 sources)Foreign body in ear; Translations: [Foreign body in right ear, initial encounter]Onset: 320093-16-7976PfotzlkjBhmwp lower respiratory disease (1 source)Shortness of breath; Translations: [Shortness of breath]Onset: 58-86-5553EunraigjXsblnq media and related conditions (20 sources)Dysfunction of bilateral eustachian tubes; Translations: [Unspecified Eustachian tube disorder, bilateral]Onset: 931442-04-6915 Episodic Results Test NameValueInterpretationReference RangeFacilityControlled Substances Agreementson 48-49-1444Gzgqidjjzu Substances Agreements [id number]#1.00[facility] Glucose (Bld) [Mass/Vol]Ordered By: Damari Baxter on 16-00-8359Glgslgy Blood, FVC833 mg/dLNOKY HealthcareLaboratory - Hematology and Cell countson 04-12-2025 HbA1c (Bld) [Mass fraction]6.8 %[facility] CenterNo Panel InformationOrdered By: Damari Baxter on 52-23-5757FNJK HealthcareNo Panel Informationon 73-61-9644GTCC HealthcareOutside Recordson 43-51-7090Uyszbmm Records [id number]#1.00[facility] HospitalPOCT EKGon 26-35-6858FebTcooog Health SystemOutside Recordson 04-15-8997Vbcjkga [id number]#1.00OTC[facility] THYROID STIM HORMONEon 45-34-6068IVG Qn1.011 m[IU]/[facility] CLINISYNCNOKY HealthcareOutside Recordson 75-22-8872Tbvpmae Records [id number]#1.00[facility] HospitalRad - Other Radiology Reporton 40-51-1941Kum - Other Radiology Report [id number]#1.00[facility] HospitalCBC AUTO DIFFon 63-63-6365WGJF #0.0 103/ulNormal0.0-0.1The [facility] HospitalComment on above:Performed By: #### CBC ####[facility] [address] [place], [place] [address]Rm.Yilan ChangBasophils/100 WBC (Bld)0.4 %Normal 0.2-2.0The [facility] HospitalComment on above:Performed By: #### CBC ####[facility] [address] [place], [place] [address]Dr.Yilan ChangEO # 0.1 103/ulNormal0.0-0.7The [facility] HospitalComment on above:Performed By: #### CBC ####[facility] [address] [place], [place] [address]Dr. Yilan ChangEosinophils/100 WBC (Bld)1.1 %Normal0.9-7.0[facility] Comment on above:Performed By: #### CBC ####[facility] [address] [place], [place] [address]Dr.Yilan ChangErythrocyte distribution width (RBC) [Ratio]12.5 %Swlmdm05.0-15.0The [facility] HospitalComment on above: Performed By: #### CBC ####[facility] [address] [place], [place] [address]Dr.Yilan ChangHematocrit (Bld) [Volume fraction]49.2 % Iheofe24.0-54.0[facility] HospitalComment on above:Performed By: #### CBC ####[facility] Ykgzvqi[address] [place], [place] [address]Dr. Yilan ChangHemoglobin (Bld) [Mass/Vol]17.6 g/nVKiioiy31.0-18.0[facility] HospitalComment on above:Performed By: #### CBC ####[facility] [address] [place], [place] [address]Dr.Yilan ChangIG #0.02 10e3/ulNormal0.00-0.03The [facility] HospitalComment on above:Performed By: #### CBC ####[facility] [address] [place], [place] [address]Dr. Yilan ChangIG %0.3 %Normal0.0-0.5The [facility] HospitalComment on above:Performed By: #### CBC ####[facility] [address] [place] [address]Dr.Ranjith StoverLYMPH #2.8 103/ulNormal1.2-3.8[facility] Comment on above:Performed By: #### CBC ####[facility] [address] [place], [place] [address]Dr.Ranjith StoverLymphocytes/100 WBC (Bld)39.6 %Moluur78.5-60.0[facility] HospitalComment on above:Performed By: #### CBC ####[facility] [address]trc[address] [place], [place] [address]Dr. Ranjith ChangMANUAL DIFF REQNONormalThe [facility] HospitalComment on above: Performed By: #### CBC ####[facility] K[address] [place], [place] [address]Dr.Ranjith StoverMCH (RBC) [Entitic mass]29.7 pgNormal 25.9-34.0The [facility] HospitalComment on above:Performed By: #### CBC ####[facility] [address] [place], [place] [address]Dr. Ranjith StoverMCHC (RBC) [Mass/Vol]35.8 g/dLCritically high29.9-35.2The [facility] HospitalComment on above:Performed By: #### CBC ####[facility] [address] [place], [place] [address]Dr.Ranjith StoverMCV (RBC) [Entitic vol]83.0 yFSfzjgq39.0-94.0The [facility] HospitalComment on above: Performed By: #### CBC ####[facility] [address] [place], [place] [address]Dr.Ranjith StoverMONO #0.4 103/ulNormal0.3-0.8The [facility] HospitalComment on above:Performed By: #### CBC ####[facility] [address]clzb[address] [place], [place] [address]Dr.Ranjith ChangMonocytes/100 WBC (Bld)6.3 %Normal1.7-12.0[facility] HospitalComment on above:Performed By: #### CBC ####[facility] [address] [place] [address]Dr.Ranjith StoverNEUT #3.7 103/ulNormal1.4-6.5The [facility] HospitalComment on above:Performed By: #### CBC ####[facility] [address] [place], [place] [address]Dr.Ranjith StoverNeutrophils/100 WBC (Bld)52.3 %Normal 43.0-75.0The [facility] HospitalComment on above:Performed By: #### CBC ####[facility] [address] [place], [place] [address]Dr. Ranjith StoverPlatelet mean volume (Bld) [Entitic vol]8.9 fLCritically low9.5-13.5 The [facility] HospitalComment on above:Performed By: #### CBC ####[facility] [address] [place], [place] [address]Dr.Ranjith SpkwjREA590 103/ftAcigff869-742Xlt [facility] HospitalComment on above:Performed By: #### CBC ####[facility] [address] [place], [place] [address]Dr. Ranjith ChangRBC5.93 106/ulNormal4.70-6.10The [facility] HospitalComment on above: Performed By: #### CBC ####[facility] [address] [place], [place] [address]Dr.Ranjith StoverWBC7.0 103/ulNormal4.0-11.0The [facility] HospitalComment on above:Performed By: #### CBC ####[facility] [address] [place], [place] [address]Dr.Ranjith ChangCT ABD/PELV W CONon 27-25-1704HS ABD/PELV W CONEXAMINATION: CT ABD/PELV W CON HISTORY: GENERALIZED ABDOMINAL PAIN COMPARISON: None. TECHNIQUE: Axial CT images were obtained of the abdomen and pelvis with intravenous contrast. Multiplanar reconstructions were performed. Dose reduction techniques were achieved by using automated exposure control and/or adjustment of mA and/or kV according to patient size and/or use of iterative reconstruction technique. ABDOMEN/PELVIS FINDINGS: Lower Chest: Unremarkable. Liver: Normal enhancement and contour. Biliary/Gallbladder: Unremarkable. Pancreas: Unremarkable. Spleen: Multiple punctate calcifications are present in the spleen, likely due to remote granulomatous disease. Adrenal Glands: Unremarkable. Kidneys: A punctate nonobstructive calculus is present in the right kidney. There are a couple tiny cysts present in the right kidney as well. Gastrointestinal/Peritoneum: No acute abnormality. The appendix is unremarkable. No free air or free fluid. Vascular: Mild scattered atherosclerotic calcifications are present. There is an area of focal ectasia in the infrarenal aorta measuring 2.6 cm. Lymph Nodes: No enlarged lymph nodes by CT size criteria. Pelvic Organs: Unremarkable. Bladder: Unremarkable. Bones: No acute osseous abnormality. Soft tissues: There is a small fat-containing left inguinal hernia. IMPRESSION: 1. No acute abnormality of the abdomen and pelvis. 2. Punctate nonobstructive calculus in the right kidney. 3. Small fat-containing left inguinal hernia. Electronically authenticated by: MARCIO HILL Date: 2022-11-14 13:28Summa HealthLACTATE/LACTIC ACIDon 13-12-4592Bfhbxuq [Moles/Vol]2.0 mmol/L Critically high0.4-1.9The [facility] Hospitalment on above:Performed By: #### LACT ####[facility] [address] [place] [address]Dr. Ranjith StoverLIPASEon 87-36-9744Szfqlm [Catalytic activity/Vol]44.0 U/L Critically low73.0-393.0The [facility] HospitalComment on above:Performed By: #### HSTROPN, CMP, LIPA #### [facility] [address] [address] [address] Ranjith StoverPROF 14(COMP METB)on 65-10-9938Tlifucl [Mass/Vol]3.0 g/dL Critically low3.4-5.0The [facility] HospitalComment on above:Performed By: #### HSTROPN, CMP, LIPA #### [facility] [address] [address] [address] Ranjith StoverAlbumin/Globulin [Mass ratio]0.9 {ratio}NormalThe Cleveland [facility] HospitalComment on above:Performed By: #### HSTROPN, CMP, LIPA #### [facility] [address] [address] [address] Ranjith HerreraP [Catalytic activity/Vol]139 U/LCritically ezmq14-299Fpt [facility] HospitalComment on above:Performed By: #### HSTROPN, CMP, LIPA #### [facility] [address] [address] [address] Ranjith HerreraT [Catalytic activity/Vol]37 U/YBdyxeg28-10Rkz [facility] HospitalComment on above:Performed By: #### HSTROPN, CMP, LIPA #### [facility] [address] [place] [address] Dr. Ranjith StoverAnion gap [Moles/Vol]12.4 mmol/LNormalThe [facility] Comment on above:Performed By: #### HSTROPN, CMP, LIPA #### [facility] [address] [place] [address] Dr. Ranjith StoverAST [Catalytic activity/Vol]26 U/TPxseqe42-51Von [facility] HospitalComment on above:Performed By: #### HSTROPN, CMP, LIPA #### [facility] [address] [place] [address] Dr. Ranjith StoverBilirubin [Mass/Vol]0.7 mg/dLNormal0.2-1.0The [facility] Comment on above:Performed By: #### HSTROPN, CMP, LIPA #### [facility] [address] [place] [address] Dr. Ranjith StoverCalcium [Mass/Vol]8.6 mg/dLNormal8.5-10.1[facility] Comment on above:Performed By: #### HSTROPN, CMP, LIPA #### [facility] [address] [place] [address] Dr. Ranjith StoverChloride [Moles/Vol]103 mmol/NVfipmv40-820Npv [facility] Comment on above:Performed By: #### HSTROPN, CMP, LIPA #### [facility] [address] [address] [address] Ranjith StoverCO2 [Moles/Vol]27.9 mmol/NUoxrkc60.0-32.0The [facility] Comment on above:Performed By: #### HSTROPN, CMP, LIPA #### [facility] [address] [place] [address] Dr. Ranjith StoverCreatinine [Mass/Vol]0.99 mg/dLNormal0.70-1.30The [facility] HospitalComment on above:Performed By: #### HSTROPN, CMP, LIPA #### [facility] [address] [address] [address] Ranjith JamesGFR-AF NIGERIEN>60Normal>=60The [facility] HospitalComment on above:Performed By: #### HSTROPN, CMP, LIPA #### [facility] [address] [place] [address] Dr. Ranjith JamesGFR-NON AF NIGERIEN>60Normal>=60The [facility] HospitalComment on above:Performed By: #### HSTROPN, CMP, LIPA #### [facility] [address] [place] [address] Dr. Ranjith StoverGlobulin (S) [Mass/Vol]3.5 g/dLNormalThe [facility] HospitalComment on above:Performed By: #### HSTROPN, CMP, LIPA #### [facility] [address] [place] [address] Dr. Ranjith StoverGlucose [Mass/Vol]154 mg/dLCritically dkde12-524Ffz [facility] HospitalComment on above:Performed By: #### HSTROPN, CMP, LIPA #### [facility] [address] [place] [address] Dr. Ranjith StoverPotassium [Moles/Vol]3.2 mmol/LCritically low3.5-5.1The [facility] HospitalComment on above:Performed By: #### HSTROPN, CMP, LIPA #### [facility] [address] [address] [address] Ranjith StoverProtein [Mass/Vol]6.5 g/dLNormal6.4-8.2[facility] Comment on above:Performed By: #### HSTROPN, CMP, LIPA #### [facility] [address] [address] [address] Ranjith StoverSodium [Moles/Vol]140 mmol/YLvbzlj777-149Kkl [facility] Comment on above:Performed By: #### HSTROPN, CMP, LIPA #### [facility] [address] [address] [address] Ranjith StoverUrea nitrogen [Mass/Vol]22.0 mg/dLCritically high7.0-18.0[facility] HospitalComment on above:Performed By: #### HSTROPN, CMP, LIPA #### [facility] [address] [place] [address] Dr. Ranjith Romo nitrogen/Creatinine [Mass ratio]22.0 mg/mgNoMercy Health St. Elizabeth Youngstown HospitalComment on above:Performed By: #### HSTROPN, CMP, LIPA #### [facility] [address] [place] [address] Dr. Ranjith StoverPROTIMEon 31-27-8517CUP Coag (PPP) [Relative time]1.08 {INR} NormalSt. Vincent HospitalComment on above:Performed By: #### PT, PTT #### [facility] [address] [place] [address] Dr. Ranjith Hines GUIDELINESSEE BELOWSumma HealthComment on above:Result Comment: DESIRED INR: 2.0 - 3.0 CONDITIONS NOT LISTED BELOW 2.5 - 3.5 FOR PROSTHETIC HEART VALVE REPLACEMENT 2.5 - 3.5 RECURRENT THROMBOSIS Performed By: #### PT, PTT #### [facility] [address] [place] [address] Dr. Ranjith StoverPT Coag (PPP) [Time]11.4 sNormal9.0-11.6The [facility] Comment on above:Performed By: #### PT, PTT #### [facility] [address] [place] [address] Dr. Ranjith Claros [id number] Coag (Bld) [Time]28.5 kYmervg62.3-36.2St. [facility] HospitalComment on above:Performed By: #### PT, PTT #### [facility] [address] [place] [address] Dr. Ranjith Robison, HIGH SENSITIVITYon [id number] pg/mLNormal 4.0-76.1St. [facility] HospitalComment on above:Result Comment: CUT-OFF POINTS HAVE BEEN ESTABLISHED BASED ON THE FOURTH UNIVERSAL DEFINITIONS OF MYOCARDIAL INFARCTION. THE UPPER REFERENCE LIMIT (URL) OF TROPONIN, DEFINED THE 99TH PERCENTILE OF cTnI DISTRIBUTION IN A REFERENCE POPULATION, HAS BEEN CONFIRMED THE DECISION THRESHOLD FOR IN DIAGNOSIS.Performed By: #### HSTROPN, CMP, LIPA #### [facility] [address] [place] [address] Dr. Ranjith Chan AUTO DIFFon [id number] #0.1 103/ulNormal0.0-0.1St. [facility] HospitalComment on above:Performed By: #### CBC #### [facility] [address] [place] [address] Dr. Ranjith StoverBasophils/100 WBC (Bld)0.6 %Normal0.2-2.0[facility] Comment on above:Performed By: #### CBC #### [facility] [address] [place] [address] Dr. Ranjith Dutta #0.4 103/ulNormal0.0-0.7The [facility] HospitalComment on above: Performed By: #### CBC #### [facility] [address] [place] [address] Dr. Ranjith Jamesosinophils/100 WBC (Bld)3.4 %Normal0.9-7.0[facility] Comment on above:Performed By: #### CBC #### [facility] [address] [place] [address] Dr. Ranjith Jamesrythrocyte distribution width (RBC) [Ratio]12.6 %Lgwzwu56.0-15.[address] [facility] Hospitalment on above:Performed By: #### CBC #### [facility] [address] [place] [address] Dr. Ranjith StoverHematocrit (Bld) [Volume fraction]46.7 %Ttzbww48.0-54.0The [facility] Hospitalment on above:Performed By: #### CBC #### [facility] [address] [place] [address] Dr. Ranjith StoverHemoglobin (Bld) [Mass/Vol]15.7 g/yOQwtdei86.0-18.0The [facility] HospitalComment on above:Performed By: #### CBC #### [facility] [address] [place] [address] Dr. Ranjith Cardenas #0.05 10e3/ulCritically high0.00-0.03The [facility] Comment on above:Performed By: #### CBC #### [facility] [address] [place] [address] Dr. Ranjith Cardenas %0.4 %Normal0.0-0.5The [facility] on above: Performed By: #### CBC #### [facility] [address] [place] [address] Dr. Ranjith GarciaH #2.6 103/ulNormal1.2-3.8The [facility] Hospitalment on above:Performed By: #### CBC #### [facility] [address] [place] [address] Dr. Ranjith Allenmphocytes/100 WBC (Bld)20.5 %Aozdzm05.5-60.0The [facility] Hospitalment on above:Performed By: #### CBC #### [facility] [address] [place] [address] Dr. Ranjith HunterUAL DIFF REQNONormalThe [facility] HospitalComment on above: Performed By: #### CBC #### [facility] [address] [address] [address] Ranjith Kilpatrick (RBC) [Entitic mass]29.3 sdMduvhk94.9-34.0The [facility] HospitalComment on above:Performed By: #### CBC #### [facility] [address] [place] [address] Dr. Ranjith Kilpatrick (RBC) [Mass/Vol]33.6 g/wOFhncyv85.9-35.2The [facility] HospitalComment on above:Performed By: #### CBC #### [facility] [address] [place] [address] Dr. Ranjith Kilpatrick (RBC) [Entitic vol]87.3 cKHybtcd42.0-94.0The [facility] HospitalComment on above:Performed By: #### CBC #### [facility] [address] [place] [address] Dr. Ranjith Mishra #0.5 103/ulNormal0.3-0.8The [facility] HospitalComment on above:Performed By: #### CBC #### [facility] [address] [place] [address] Dr. Ranjith Taylorocytes/100 WBC (Bld)4.0 %Normal1.7-12.0[facility] Comment on above:Performed By: #### CBC #### [facility] [address] [place] [address] Dr. Ranjith VaughanUT #8.9 103/ulCritically high1.4-6.5The [facility] Comment on above:Performed By: #### CBC #### [facility] [address] [place] [address] Dr. Ranjith Vaughanutrophils/100 WBC (Bld)71.1 %Lncwgg60.0-75.0The [facility] HospitalComment on above:Performed By: #### CBC #### [facility] [address] [place] [address] Dr. Ranjith Armstronglet mean volume (Bld) [Entitic vol]8.7 fLCritically low 9.5-13.5The [facility] HospitalComment on above:Performed By: #### CBC #### [facility] [address] [address] [address] Ranjith StoverPLT256 103/dlYvbmuc240-302Svs [facility] HospitalComment on above: Performed By: #### CBC #### [facility] [address] [address] [address] Ranjith StoverRBC5.35 106/ulNormal4.70-6.10The [facility] HospitalComment on above:Performed By: #### CBC #### [facility] [address] [address] [address] Ranjith StoverWBC12.6 103/ulCritically high4.0-11.0The [facility] HospitalComment on above:Performed By: #### CBC #### [facility] [address] [address] [address] Ranjith StoverGLYCOHEMOGLOBIN A1Con 42-51-5162LSL RECOMMENDATIONADA THERAPEUTIC TARGET 6.0 - 7.0 ACTION SUGGESTED > 7.0NoMercy Health St. Elizabeth Young[facility] HospitalComment on above:Performed By: #### A1C #### [facility] [address] [address] [address] Ranjith StoverGlucose [Mass/Vol]280 mg/dLNoMercy Health St. Elizabeth Young[facility] HospitalCompaul [facility]liver [facility] on above:Performed By: #### A1C #### [facility] [address] [address] [address] Ranjith StoverHbA1c (Bld) [Mass fraction]11.4 %Critically high<=6.0The [facility] HospitalComment on above:Performed By: #### A1C #### [facility] [address] [address] [address] Ranjith StoverMICROALBUMIN, RAND URon 25-25-0863sGGD6.8 mg/LNormal<=30.0The [facility] HospitalComment on above:Performed By: #### MALBR ####[facility] [address] [address]. Ranjith StoverPROF 14(COMP METB)on 63-66-3493Ineykzm [Mass/Vol]3.7 g/dLNormal3.4-5.0The [facility] Comment on above:Performed By: #### CMP #### [facility] [address] [place] [address] Dr. Ranjith StoverAlbumin/Globulin [Mass ratio]1.0 {ratio}NormalThe [facility] HospitalComment on above:Performed By: #### CMP #### [facility] [address] [place] [address] Dr. Ranjith HerreraP [Catalytic activity/Vol]167 U/LCritically mnzu00-107Rzy [facility] HospitalComment on above:Performed By: #### CMP #### [facility] [address] [place] [address] Dr. Ranjith HerreraT [Catalytic activity/Vol]40 U/UOmaxgh85-46Hvk [facility] HospitalComment on above:Performed By: #### CMP #### [facility] [address] [place] [address] Dr. Ranjith Benavides gap [Moles/Vol]11.6 mmol/LNormalThe [facility] Comment on above:Performed By: #### CMP #### [facility] [address] [place] [address] Dr. Ranjith StoverAST [Catalytic activity/Vol]24 U/VUwdiwv66-83Pag [facility] HospitalComment on above:Performed By: #### CMP #### [facility] [address] [place] [address] Dr. Ranjith StoverBilirubin [Mass/Vol]1.0 mg/dLNormal0.2-1.3The [facility] Comment on above:Performed By: #### CMP #### [facility] [address] [place] [address] Dr. Ranjith StoverCalcium [Mass/Vol]9.4 mg/dLNormal8.5-10.1The [facility] Comment on above:Performed By: #### CMP #### [facility] [address] [place] [address] Dr. Ranjith StovreChloride [Moles/Vol]99 mmol/NStubrm96-750XisSt. Vincent Hospital Comment on above:Performed By: #### CMP #### [facility] [address] [address] [address] Ranjith StoverCO2 [Moles/Vol]29.3 mmol/HWebyys42.0-30.0The [facility] Comment on above:Performed By: #### CMP #### [facility] [address] [address] [address] Ranjith StoverCreatinine [Mass/Vol]0.74 mg/dLNormal0.66-1.25The [facility] HospitalComment on above:Performed By: #### CMP #### [facility] [address] [place] [address] Dr. Ranjith JamesGFR-AF NIGERIEN>60Normal>=60The [facility] HospitalComment on above:Performed By: #### CMP #### [facility] [address] [address] [address] Ranjith JamesGFR-NON AF NIGERIEN>60Normal>=60The [facility] HospitalComment on above:Performed By: #### CMP #### [facility] [address] [address] [address] Ranjith StoverGlobulin (S) [Mass/Vol]3.8 g/dLNormalThMetroHealth Main Campus Medical CenterComment on above:Performed By: #### CMP #### [facility] [address] [address] [address] Ranjith StoverGlucose [Mass/Vol]295 mg/dLCritically qwor97-036Lrw [facility] HospitalComment on above:Performed By: #### CMP #### [facility] [address] [address] [address] Ranjith StoverPotassium [Moles/Vol]3.9 mmol/LNormal3.4-5.0The [facility] Comment on above:Performed By: #### CMP #### [facility] [address] [address] [address] Ranjith StoverProtein [Mass/Vol]7.5 g/dLNormal6.1-8.2[facility] Comment on above:Performed By: #### CMP #### [facility] [address] [place], [place] [address] Dr. Ranjith StoverSodium [Moles/Vol]136 mmol/LCritically tfd471-101Bjb [facility] HospitalComment on above:Performed By: #### CMP #### [facility] [address] [address] [address] Ranjith StoverUrea nitrogen [Mass/Vol]9.0 mg/dLNormal7.0-18.0The [facility] HospitalComment on above:Performed By: #### CMP #### [facility] [address] [address] [address] Ranjith StoverUrea nitrogen/Creatinine [Mass ratio]12.2 mg/mgNormalThe [facility] HospitalComment on above:Performed By: #### CMP #### [facility] [address] [address] [address] Ranjith Stover Vital Signs Date TimeVital SignValuePerforming JoflzqdhfQjvnutyb17-85-2599 13:52-0400Body snjroe012.2 cmRoxanna Diop MD Work Phone: [phone]10-07-2025 13:52-0400Body mass index (BMI) [Ratio]30.38 kg/g2DfgqtRoxanna Diop MD Work Phone: [phone] [place], [place] [address]10-07-2025 13:52-0400Body gtnejn18 kgRoxanna Diop MD Work Phone: [phone]10-07-2025 13:52-0400Diastolic blood mywzbchm693 mm[Hg]Roxanna Diop MD Work Phone: [phone]10-07-2025 13:52-0400Heart rate 84 /minRoxanna Diop MD Work Phone: [facility]10-07-2025 13:52-7985KrI1% (BldA) [Mass fraction]99 %Roxanna Diop MD Work Phone: [facility]10-07-2025 13:52-0400Systolic blood mm[Hg]Roxanna Diop MD Work Phone: [facility]07-14-2025 14:13-0400Body ddaaxe227.2 Kristine Barbour MD Work Phone: [facility] CenterSbszfogqfg74-88-7634 14:13-0400Body mass index (BMI) [Ratio]31.64 kg/l8AxdllGaro Barbour MD Work Phone: [facility] CenterTtisksmkeo00-03-7412 14:13-0400Body sssphe38.63 kgGaro Barbour MD Work Phone: [phone] CenterWpqefgophw30-94-3541 14:13-0400Diastolic blood ovnofanj85 mm[Hg]Garo Barbour MD Work Phone: [phone] [place], [place] [address]Bbcabnofoh93-77-8609 14:13-0400Heart rate78 /min Garo Barbour MD Work Phone: [phone] [place], [place] [address]Gkfhzlahin56-10-2737 14:13-0400Respiratory rate18 /minGaro Barbour MD Work Phone: [phone] [place], [place] [address]Lhaiwvgxey55-98-6332 14:13-6450OhI9% (BldA) [Mass fraction]99 %Garo Barbour MD Work Phone: [facility] CenterTjgfreuouu42-13-6341 14:13-0400Systolic blood thxvhzno382 mm[Hg]Garo Barbour MD Work Phone: [facility] CenterFfyedgwgzl80-62-7721 13:36-0400Body xuutds695.2 Benji Garcia MD Work Phone: [facility]04-04-2025 13:36-0400Body mass index (BMI) [Ratio]31.95 kg/f7AulazyKathy Garcia MD Work Phone: [facility]04-04-2025 13:36-0400Body ryeqkd53.53 Jewel Garcia MD Work Phone: [facility]04-04-2025 13:36-0400Diastolic blood yddavmlq16 mm[Hg]Kathy Garcia MD Work Phone: [facility]04-04-2025 13:36-0400Heart rate 89 /minKathy Garcia MD Work Phone: [facility]04-04-2025 13:36-3656YtK9% (BldA) [Mass fraction]97 %Kathy Garcia MD Work Phone: [facility]04-04-2025 13:36-0400Systolic blood jcflkihs620 mm[Hg]Kathy Garcia MD Work Phone: [facility]03-03-2025 15:17-0500Body .2 cmAbeatriz Good CLINICAL REHAB SPECIALIST Work Phone: [employer], IncFulton Medical Center- FultonNahjauklnr50-56-9961 15:17-0500Body mass index (BMI) [Ratio]31.95 kg/y5AmqfwsKaelyn Good CLINICAL REHAB SPECIALIST Work Phone: [employer], IncFulton Medical Center- FultonOsphauqrwu40-35-5077 15:17-0500Body upoorl54.53 kgKaelyn Good CLINICAL REHAB SPECIALIST Work Phone: [employer], IncFulton Medical Center- FultonQwzwaicuet85-35-6871 15:17-0500Diastolic blood mm[Hg]Kaelyn Good CLINICAL REHAB SPECIALIST Work Phone: [employer], IncFulton Medical Center- FultonWjfujkvwic89-78-8634 15:17-0500Systolic blood yuruhikh063 mm[Hg]Kaelyn Good CLINICAL REHAB SPECIALIST Work Phone: NOFulton Medical Center- FultonPlkmqqzqgw38-85-8431 14:56-0500Body ieheuv783.2 cmNicole Red DO Work Phone: noFulton Medical Center- FultonQzeiftujjz77-41-7722 14:56-0500Body mass index (BMI) [Ratio]31.89 kg/x6Ujkbfw Red DO Work Phone: [employer], IncFulton Medical Center- FultonByeakozaoy05-39-9242 14:56-0500Body edgyjp91.35 kgNicole Red DO Work Phone: noFulton Medical Center- FultonPdwtpsaygj08-92-9795 14:56-0500Diastolic blood beoeuwzl72 mm[Hg]Nicole Moon DO Work Phone: noFulton Medical Center- FultonIujjtctgab19-33-6337 14:56-0500Heart rate88 /min Nicole Moon DO Work Phone: noFulton Medical Center- FultonJutgtslpan80-82-4584 14:56-0320GxD4% (BldA) [Mass fraction]96 %francheska Moon DO Work Phone: noFulton [facility] Center- FultonUmcghvegoc02-27-2161 14:56-0500Systolic blood ogvztegr102 mm[Hg]Nicole Moon DO Work Phone: noFulton [facility] Center- FultonVsyrkzbejc74-91-2914 14:05-0500Body etihyl858.2 cmAnthomary ann Rusher DPM Work Phone: noFulton Medical Center- FultonVgjepbavqm00-70-3620 14:05-0500Body mass index (BMI) [Ratio]27.88 kg/l4Ckoeesp Rusher DPM Work Phone: noFulton [facility] Center- FultonWxbxwzmyuw85-96-7752 14:05-0500Body fxwuoi44.74 kgAnthony Rusher DPM Work Phone: noKY Healthcare Encounters Encounter DateEncounter TypeCare ProviderFacilityStart: 07-06-2025 End: 02-94-6997Wtesfq outpatient visit 25 minutesRoxanna Diop MD Work Phone: [facility] CardiologyComment on above: Coronary artery disease with history of percutaneous transluminal angioplasty (PTCA) (Primary Dx); Primary hypertensionStart: 07-06-2025 End: 76-45-6478qwzhpaqobePLIHE BOUMEGOUASPJavier Washington Hospitaltart: 07-05-2025 End: 86-69-9027Qsgrupnkc encounterJematty Langston [facility] CENTERJavier Physicians CardiologyStart: 48-96-4888hpflgvibogFZNGHPF P HOUSEFacility:[facility] Start: 04-12-2025 End: 88-33-8399Lysqya Honorio Barbour MD Work Phone: [facility] ENDOCRINOLOGYStart: 04-12-2025 End: 25-64-3576Hotcap flowsheetGaro Barbour MD Work Phone: [facility] ENDOCRINOLOGYStart: 04-12-2025 End: 02-61-3858whxmqgidnpNCNSH F SABBAGHNot AvailableStart: 04-12-2025 End: 51-58-2538Idbinq outpatient visit 25 minutesGaro Barbour MD Work Phone: [facility] ENDOCRINOLOGYComment on above:Type 2 diabetes mellitus with hyperglycemia, with long-term current use of insulin (HCC) (Primary Dx); Encounter for dietary consultation; Vitamin D deficiency; Hyperlipemia, mixed ; Insulin long-term use (HCC); Primary hypertensionStart: 69-64-3924jvvkybxrlrRCRFDFY P ARCADEFacility:[facility] ClinicStart: 01-19-2025 End: 85-46-9883qgmelqxnloOGUQVW D [facility] Hospitaltart: 01-14-2025 End: 19-58-5720Opmssqaoo encounterPamela [facility] Physicians CardiologyStart: 01-12-2025 End: 35-53-7740Tywmhq outpatient new 45 minutesNatalie A Felter SUPPLIER DEVELOPMENT MANAGER-OCCUPATIONAL THERAPIST Work Phone: noms [facility] DERMComment on above:Melanocytic nevus of upper extremity, unspecified laterality (Primary Dx); Melanocytic nevus of trunk; Other atopic dermatitis; Capillary angioma; Lentigines; Seborrheic keratosis; Actinic keratosisStart: 01-12-2025 End: 38-44-4973swzvcbqlevLMMXFYJ A FELTERNot AvailableStart: 01-12-2025 End: 68-18-4925Kipzfi flowsheetNatalie A Felter SUPPLIER DEVELOPMENT MANAGER-OCCUPATIONAL THERAPIST Work Phone: noms [facility] DERMStart: 01-12-2025 End: 63-76-4650Gzqxdt flowsheetNatalie A Felter SUPPLIER DEVELOPMENT MANAGER-OCCUPATIONAL THERAPIST Work Phone: noms [facility] DERMStart: 01-01-2025 End: 91-71-1892Vqntfw outpatient new 45 minutesKathy Garcia MD Work Phone: [facility] CardiologyComment on above: Coronary artery disease with history of percutaneous transluminal angioplasty (PTCA) (Primary Dx); Shortness of breathStart: 01-01-2025 End: 22-30-9187cvhbnlmdhhVSUXEA D GRANDSierra Vista Hospitalricky Dayton HospitalStart: 12-31-2024 End: 31-88-8908Zdrudwozi encounterSandra Delgado [facility]ITALPro[facility]ica Physicians CardiologyStart: 12-18-2024 End: 60-63-0529Bbuql abstractingScanberkshire medical center Provider ExternalCentral Vermont Medical CenterMedica Physicians CardiologyStart: 12-14-2024 End: 28-63-9344pfsuictvflOUJNP F SABBAGHNot AvailableStart: 11-30-2024 End: 16-93-6879xfmbmxvwybFKKYFZ GILLMORNot AvailableStart: 11-30-2024 End: 14-10-8745Lrskdi outpatient visit 25 minutesKaelyn Good NP Work Phone: aNA BELLEVUEComment on above:ANIYA (obstructive sleep apnea) (Primary Dx); Idiopathic peripheral neuropathy; 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, unspecified class, unspecified whether serious comorbidity presentStart: 11-30-2024 End: 60-34-7848Jgmsfc flowsGideon Good CLINICAL REHAB SPECIALIST Work Phone: aNA BELLEVUEStart: 11-30-2024 End: 15-34-6733Qptyny Leticia Good CLINICAL REHAB SPECIALIST Work Phone: aNA BELLEVUEStart: 11-30-2024 End: 55-29-0499Ihpfczguj Result EncounterNicole Red DO Work Phone: [facility] External Department UnsolicitedStart: 11-26-2024 End: 63-66-4980Mwrfejmvi encounterGracy [facility]evnport [facility] Start: 57-34-7442jlfjwvrxsrKDRHUXC P HOUSEFacility:[facility] ClinicStart: 11-02-2024 End: 24-54-7812kpjrsmtsvkKYSEX SABBAGHNot AvailableStart: 10-30-2024 End: 23-88-1095Mupzyso encounter procedureNicole Red DO Work Phone: ana BELLEVUEComment on above:ANIYA (obstructive sleep apnea) (Primary Dx)Start: 10-29-2024 End: 55-72-4553Zshugzas SupportNoms Bsr Neuro TechnicanSIVA BELLEVUEComment on above:ANIYA (obstructive sleep apnea)Start: 10-12-2024 End: 86-33-5858Yeddkt outpatient new 45 minutesNicole Red DO Work Phone: ana BELLEVUEComment on above:ANIYA (obstructive sleep apnea) (Primary Dx); Idiopathic peripheral neuropathy; Numbness and tingling; 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, unspecified class, unspecified whether serious comorbidity presentStart: 10-12-2024 End: 66-05-3943yfsutbufpyUHHBGM DANNERNot AvailableStart: 10-12-2024 End: 29-72-6034Gvawnp flowsheetNicole Red DO Work Phone: ana BELLEVUEStart: 10-12-2024 End: 29-47-3853Owcybm flowsheetNicole Red DO Work Phone: ana BELLEVUEStart: 65-62-6941mcajkgkgkkYCZZLYF P ARCADE Facility:[facility] ClinicStart: 04-28-2024 End: 44-08-0387wrpmzzmiqbCMDFMM H TIMMISNot AvailableStart: 11-11-2023 End: 72-86-9133Owhhpj outpatient visit [address] Work Phone: NODO FH PODIATRYComment on above:Diabetic polyneuropathy associated with type 2 diabetes mellitus (CMS/HCC) (Primary Dx); NeuritisStart: 11-14-2022 End: 42-81-4435vbzzksolfgMX STEPHEN G REINECKFacility:J6Xmchj: 01-15-2022 End: 37-17-4968qucjnzvgmqIT CHARLES HOUSEFacility:E8Ejjkz: 09-18-2018 End: 27-87-8754Nzgbmzb encounter procedureDEFAULT PHYSICIANFacility:[facility] Procedures DateProcedureProcedure DetailPerforming ClinicianStart: 87-94-7844Adruko-up visitFollow-upMANEL BOUMEGOUASStart: 55-11-9207Dqio bld gluc mntr dev cleared fda spec home useChaparromajose Cortes K[address] SAMUELS Work Phone: Start: 54-85-8658POLPUWYABWL SKIN LESIONNatalie Tania Sheehan SUPPLIER DEVELOPMENT MANAGER-OCCUPATIONAL THERAPIST Work Phone: Start: 77-03-5932Nlv routine ecg w/least 12 lds w/i&r Kathy Garcia MD Work Phone: Start: 68-83-7182YMR THYROID STIM HORMONENicole Red DO Work Phone: Start: 28-62-2087YLR screeningDR CARTER RICO Comment on above:Performed By: #### PSAD #### [facility] [address] [place] [address] Dr. Ranjith Michelleart: 42-93-3229Kbkcuui of placement of stent for coronary artery diseaseS/P coronary artery stent placementSapmson Street DPM Work Phone: Plan of Treatment DateCare ActivityDetailAuthorStart: 82-51-1320Wgdwg BMI ScreeningAdult BMI ScreeningProMagruder Memorial Hospitalca Health SystemStart: 81-58-1355Igqdgqu ScreeningTobacco ScreeningMercy Health West Hospitalca Health SystemStart: 68-98-2007Xppjy BMI ScreeningAdult BMI ScreeningProMedica Health SystemStart: 01-11-2026 End: 89-25-1366Fiaeviw encounter dwywqoffg15/14/2026 2:35 PM EDT Office Visit [facility] [address] [place] [address] Shivam Sheehan APRN-OCCUPATIONAL THERAPIST [address] [place] [address] [facility] SWS DERMStart: 39-20-3991Hgcfy BMI ScreeningAdult BMI ScreeningProMagruder Memorial Hospitalca Health SystemStart: 27-59-6282Izrfzaa ScreeningTobacco ScreeningCleveland Clinic [facility] SystemStart: 10-11-2025 End: 47-95-1417Jmqdcss encounter brnmcknev75/12/2026 2:00 PM EST Office Visit [facility] [address] [place] [phone] Garo Barbour MD [address] [place] [address] [facility] ENDOCRINOLOGYStart: 07-26-2025 End: 96-33-5165Xabmxwr encounter aehkmhosx09/27/2025 2:00 PM EDT Appointment [facility] [address] [place] [phone] Kathy Garcia MD [address] [place] [place] [address] [facility]ovascularStart: 07-06-2025 End: 05-63-6686Dpjqpme encounter kdapzjuax42/07/2025 2:00 PM EDT Office Visit [facility] [address] [place] [address] Roxanna Diop MD [address] [place] [address] [facility] CardiologyStart: 49-01-1759CBIHX-19 Vaccine ( season)COVID-19 Vaccine ( season)[facility] SystemStart: 66-11-0540Iarxhwpcz vaccinationCleveland Clinic [facility] SystemStart: 04-12-2025 End: 118705-nqqxzmyfrffdyq D3 [Mass/volume] in Serum or PlasmaVitamin D 25 hydroxy Total Lab Routine Type 2 diabetes mellitus with hyperglycemia, with long-term current use of insulin (HCC) Expected: 04/12/2025 (Approximate), Expires: 04/12/2026[facility] HealthcareComment on above:Expected: 04/12/2025 (Approximate), Expires: 04/12/2026Start: 04-12-2025 End: 45-75-7889M-peptideC-peptide Lab Routine Type 2 diabetes mellitus with hyperglycemia, with long-term current use of insulin (HCC) Expected: 04/12/2025 (Approximate), Expires: 04/12/2026[facility] Work Phone: Comment on above:Expected: 04/12/2025 (Approximate), Expires: 04/12/2026Start: 04-12-2025 End: 41-10-0775Tvqyx 1996 panel - Serum or PlasmaLipid panel Lab Routine Type 2 diabetes mellitus with hyperglycemia, with long-term current use of insulin (HCC) Expected: 04/12/2025 (Approximate), Expires: 04/12/2026[facility] Comment on above:Expected: 04/12/2025 (Approximate), Expires: 04/12/2026Start: 04-12-2025 End: 32-75-4182Pddeygxdyssc/Creatinine panel in random UrineMicroalbumin / creatinine urine ratio Lab Routine Type 2 diabetes mellitus with hyperglycemia, withlong-term current use of insulin (HCC) Expected: 04/12/2025 (Approximate), Expires: 04/12/2026[facility] HealthcareComment on above:Expected: 04/12/2025 (Approximate), Expires: 04/12/2026Start: 04-12-2025 End: 90-16-6149Magcm function panelRenal function panel Lab Routine Type 2 diabetes mellitus with hyperglycemia, with long-term current use of insulin (HCC) Expected: 04/12/2025 (Approximate), Expires: 04/12/2026[facility] Comment on above:Expected: 04/12/2025 (Approximate), Expires: 04/12/2026Start: 04-12-2025 End: 89-46-8807Ehrunbf encounter vklanwaop98/14/2025 1:50 PM EDT Office Visit [facility] [address] [place] [phone] Grao Barbour MD [address] [place] [address] [facility] ENDOCRINOLOGYStart: 03-02-2025 End: 92-12-8590Sjkwflq encounter xkubggxcr68/03/2025 3:40 PM EDT Office Visit [facility] [address] [place] [address] Kaelyn Good NP [address] [place], [place] SIVA MABRYtart: 01-19-2025 End: 66-47-2744Hqfiyjt encounter vgxiqodcn75/22/2025 11:45 AM EDT Appointment [facility] [address] [place] [phone] Kathy Garcia MD [address] [place] [place] [address] [facility] ImagingStart: 01-19-2025 End: 61-30-7275Wesytuw encounter procedureProSt. [facility] - Stress ImagingStart: 01-19-2025 End: 66-55-7085Djpsavk encounter procedureProSt. [facility] - CardiovascularStart: 01-12-2025 End: 97-52-9523Qoygpxn encounter procedureNOMS SWS DERMComment on above:Arrived Start: 01-08-2025 End: 97-78-1511GT Heart Perfusion W stress and W radionuclide IVNuc stress [facility] Routine Coronary Artery Disease With History Of Percutaneous Transluminal Angioplasty (Ptca) Shortness of breath Expected: 01/08/2025, Expires: 01/01/2026[facility] SystemComment on above:Expected: 01/08/2025, Expires: 01/01/2026Start: 01-01-2025 End: 04-65-4827Mdug complete W/O contrastEcho complete W/O contrast Echocardiography Routine Coronary Artery Disease With History Of Percutaneous Transluminal Angioplasty (Ptca) Shortness of breath Expected: 01/01/2025, Expires: 01/01/2026[facility] Work Phone: Comment on above:Expected: 01/01/2025, Expires: 01/01/2026Start: 01-01-2025 End: 93-41-5007Yjbhlxu encounter tlsmyqghd92/04/2025 1:45 PM EDT Office Visit [facility] [address] [place] [address] Kathy Garcia MD [address] [place] [address] [facility] CardiologyStart: 11-30-2024 End: 10-89-5416Bfwxfup encounter sqofhonzv04/03/2025 3:00 PM EST Office Visit [facility] [address] [facility] [place] [address] Kaelyn Good NP [address] [place] SIVA MABRYtart: 10-29-2024 End: 78-50-6720Zhbtdfnf Sdertka7110/29/2024 3:45 PM EST Clinical Support [facility] [address] [place] [phone] aNA [place] Start: 10-12-2024 End: 28-75-2684Gutaqio encounter /13/2025 3:00 PM EST Office Visit [facility] [address] [facility] [place] [phone] Nicole Moon DO [address] [place], [place] [phone] Michaelle CHARLTONComment on above:ArrivedStart: 10-12-2024 End: 36-02-6428Keffgzrkp (Vitamin B12) [Mass/volume] in Serum or PlasmaVitamin B12 Lab Routine Idiopathic peripheral neuropathy Expected: 10/12/2024 (Approximate), Expires: 10/12/2025N[facility] HealthcareComment on above:Expected: 10/12/2024 (Approximate), Expires: 10/12/2025Start: 10-12-2024 End: 72-68-5251Fbdhih [Mass/volume] in Serum or PlasmaFolate Lab Routine Idiopathic peripheral neuropathy Expected: 10/12/2024 (Approximate), Expires: 10/12/2025[facility] HealthcareComment on above:Expected: 10/12/2024 (Approximate), Expires: 10/12/2025Start: 10-12-2024 End: 95-30-9525Znvi sleep testLeonard Morse Hospitale sleep test Sleep Center Routine ANIYA (obstructive sleep apnea) Expected: 10/12/2024 (Approximate), Expires: 10/12/2025[facility] Work Phone: comment on above:Expected: 10/12/2024 (Approximate), Expires: 10/12/2025Start: 10-12-2024 End: 49-95-1081Pmvdsjb electrophoresis, serumProtein electrophoresis, serum Lab Routine Idiopathic peripheral neuropathy Expected: 10/12/2024 (Approximate), Expires: 10/12/2025[facility] HealthcareComment on above:Expected: 10/12/2024 (Approximate), Expires: 10/12/2025Start: 10-12-2024 End: 79-54-3236Rlnyzgesdsj [Units/volume] in Serum or PlasmaTSH Lab Routine Idiopathic peripheral neuropathy Expected: 10/12/2024 (Approximate), Expires: 10/12/2025[facility] HealthcareComment on above:Expected: 10/12/2024 (Approximate), Expires: 10/12/2025Start: 49-01-2821Vufdecvow vaccinationInfluenza Vaccine [facility] SystemStart: 26-63-8131Pkxxcchdq aortic aneurysm screening Abdominal Aortic Aneurysm (AAA) ScreenProAshtabula County Medical Center SystemStart: 2019 Fall Risk ScreeningFall Risk ScreeningProAshtabula County Medical Center SystemStart: 02-14-2004 Administration of varicella zoster vaccineZoster (Shingles) Vaccine (1 of 2) [facility] SystemStart: 62-53-6873Ncypctvptzkn Vaccine: 65+ Years (1 of 1 - PCV)Pneumococcal Vaccine: 65+ Years (1 of 1 - PCV)[facility] HealthcareStart: 70-64-1024NUvR,Tdap and Td Vaccines (1 - Tdap)DTaP,Tdap and Td Vaccines (1 - Tdap)[facility] SystemStart: 62-57-2866Ezzjm BMI Follow Up PlanAdult BMI Follow Up PlanCleveland Clinic [facility] SystemStart: 70-41-7000Bgzsm BMI ScreeningAdult BMI ScreeningCleveland Clinic [facility] SystemStart: 69-58-0161Bhyhtbubvv Screening Depression ScreeningCleveland Clinic [facility] General SystemStart: 36-84-7971Pjqjcoo Screening Tobacco ScreeningCleveland Clinic [facility] General SystemStart: 52-39-6062Vsojymodc for malignant neoplasm of colonACADIA HEALTHCARE HealthcareStart: 90-50-9976Ixdhje Use: Cardiovascular Statin Use[facility]Las [facility] Routine ANIYA (obstructive sleep apnea) 11/05/2024 3:40 PM [facility] Healthcare Work Phone: [facility] sleep testLas [facility]as sleep test [facility] Routine ANIYA (obstructive sleep apnea) Ordered: 01/05/2025[facility] Work Phone: comment on above:Ordered: 01/05/2025 Immunizations Immunization DateImmunizationNotesCare BukbibnkIwymbaiv45-15-1632Adzala Purple Cap SARS-CoV-2 VaccinationGaro Barbour MD Work Phone: [facility] CenterAoanaqjxoz72-80-2042Azcpuvc UTYT-YdP-1Mgrqk Sabbagh MD Work Phone: [facility] Payers DatePayer CategoryPayerPolicy [id number] IndemnityMEDICAL MUTUAL Member Subscriber Plan / Payer (Effective 2019-Present) Name: Jono Morales LMember ID: [id number] Relation to Subscriber: Self Name: Jono Morales Payer ID: Not on file Type: Not on file Address: [place] [id number] 2019Medicare [id number] [id number] 1961 [id number] 2.16.840.1.167868.3.579.2.647 [id number] 2.16.840.1.684499.3.57[id number] 2..840.1.522459.3.57[id number] 2..840.1.669671.3.57[id number] 2..840.1.906346.3.57[id number] 2..840.1.790284.3.57[id number] 2..840.1.039207.3.57[id number] 2.16.840.1.236295.3.57[id number] 2.16.840.1.226614.3.57[id number] 2.16.840.1.412400.3.57[id number] 2.16.840.1.091066.3.579.[id number] 2.16.840.1.500948.3.57[id number] 2.16.840.1.273632.3.579.[id number] 2.16.840.1.858957.3.57[id number] 2.16.840.1.651565.3.57[id number] 2..840.1.373249.3.57[id number] 2.16.840.1.859344.3.57[id number] 2.16.840.1.630378.3.579.2.718Unknown Social History DateTypeDetailFacilityStart: 02-21-2021 End: 83-33-4231Ipuzwlh smoking status NHISEx-smokerNOMS Healthcare End: 13-97-8068Zqhpumo of tobacco useCurrent smokerNOMS Healthcare End: 12-99-1936Umspncq of tobacco useCigarette SmokerNOMS HealthcareStart: 11-11-2023 End: 30-83-9614Laknvcm intakeLifetime non-drinker (finding)[facility] HealthcareStart: 11-10-2020 End: 16-62-1770Pozmeuu of Social functionNOKY HealthcareStart: 11-10-2020 End: 59-90-6375Krirzzf use panelNOKY HealthcareStart: 45-57-7144Zbz Assigned At BirthNot on fileNOKY HealthcareStart: 04-28-2024 End: 78-34-1868Zudpyimrc beverage intakeEx-drinker (finding)[facility] Start: 58-69-0526Jwuriiv Nrifdil29 years cleanNOKY HealthcareStart: 02-21-2021 Tobacco use and exposureSmokeless tobacco non-userProMedica Health System Frequency of Alcohol ConsumptionNeverC[facility] Clinic [facility] SystemStart: 02-21-2021 Tobacco Cvwgtoi6702 quitCleveland Clinic [facility] SystemStart: 90-95-3719YfaFpxo (finding)[facility] Clinical Notes 11-11-2023 to 07-19-2025 Note Date & HgwyUlauCkzzmhpf72-09-4410 Note From: LALO MCCOY DO To: [facility] Clinical Pool ([place]); Sent: 07/19/2025 07:31:50 EDT Subject: FW: Medication Management Due Date/Time: 07/19/2025 10:30:00 EDT Caller Name: JONO MORALES; Caller Number: H From: [id number] To: LALO MCCOY DO Sent: July 17, 2025 9:30:05 AM CDT Subject: Medication Management Due: July 18, 2025 12:27:35 AM CDT On Hold Pending Signature Drug: gabapentin (gabapentin 100 mg oral capsule), TAKE 2 CAPSULES BY MOUTH DAILY Quantity: 60 cap(s) Days Supply: 30 Refills: 0 Substitutions Allowed Notes from Pharmacy: Dispensed Drug: gabapentin (gabapentin 100 mg oral capsule), TAKE 2 CAPSULES BY MOUTH DAILY Quantity: 60 cap(s) Days Supply: 30 Refills: 0 Substitutions Allowed Notes from Pharmacy: From: Fiordaliza Blankenship To: [id number] Sent: 07/19/2025 08:27:27 EDT Subject: FW: Medication Management Not Approved: proposed to provider gabapentin (gabapentin 100 mg capsule) TAKE 2 CAPSULES BY MOUTH DAILY Qty: 60 cap(s) Days Supply: 30 Refills: 0 Substitutions Allowed Route To Pharmacy - [id number] Signed by Pattie [facility]10-07-2025 History of Present illness Narrative* Manel Boumegouas, MD - 07/06/2025 2:00 PM EDT Jono Morales Date of visit: 07/06/2025 Date of : 1955 Age: 70 y.o. Patient Active Problem List Diagnosis Middle ear effusion, bilateral Dysfunction of both eustachian tubes Bilateral hearing loss Cerumen debris on tympanic membrane of both ears Generalized abdominal pain Coronary artery disease with history of percutaneous transluminal angioplasty (PTCA) Allergies Allergen Reactions Duloxetine Other Reaction(s): Suicidal ideation Current Outpatient Medications Medication Sig Dispense Refill albuterol (PROVENTIL HFA;VENTOLIN HFA) 90 mcg/actuation inhaler Inhale 2 puffs every 6 (six) hours as needed for wheezing. aspirin 325 mg EC tablet Take 1 tablet (325 mg total) by mouth in the morning. clopidogrel (PLAVIX) 75 mg tablet Take 1 tablet (75 mg total) by mouth in the morning. gabapentin (NEURONTIN) 100 MG tablet Take 2 tablets (200 mg total) by mouth nightly. HYDROcodone-acetaminophen (NORCO) 7.5-325 mg per tablet Take 2 tablets by mouth every 6 (six) hoursas needed. ibuprofen (ADVIL,MOTRIN) 800 mg tablet Take 1 tablet (800 mg total) by mouth every 8 (eight) hours as needed. insulin degludec (TRESIBA FLEXTOUCH U-200) 200 unit/mL (3 mL) insulin pen Inject 50 Units under theskin in the morning. omeprazole (PriLOSEC OTC) 20 mg tablet,delayed release (DR/EC) Take 1 tablet (20 mg total) by mouthas needed. tiZANidine (ZANAFLEX) 4 mg capsule Take 1 capsule (4 mg total) by mouth as needed in the morning and 1 capsule (4 mg total) as needed at noon and 1 capsule (4 mg total) as needed in the evening. aspirin 81 mg Take 325 mg by mouth daily. (Patient not taking: Reported on 07/06/2025) ezetimibe (ZETIA) 10 mg tablet Take 1 tablet (10 mg total) by mouth in the morning. 90 tablet 3 losartan (COZAAR) 25 mg tablet Take 1 tablet (25 mg total) by mouth nightly. 90 tablet 0 potassium chloride (KLOR-CON M 20) 20 MEQ CR tablet Take 1 tablet (20 mEq total) by mouth in the morning. (Patient not taking: Reported on 07/06/2025) No current facility-administered medications for this visit. Chief Complaint Patient presents with Follow-up OV F/U 6 MO ECHO, STRESS NOT DONE DT COST L/S MARCELLE MARTINEZ W/PT History of Present Illness 70-year-old male here in follow-up. He was last seen by Dr. Garcia. Note reviewed. He does have extensive coronary artery disease with 11 stent previously 1 of his procedures was complicated with RCA dissection he has diabetes uncontrolled hypertension. He has a relatively low functional capacity for age he does walk his dog every day it is less than half a mile he denies chest pain but he does have some shortness of breath, A stress test and an echocardiogram were ordered last visit but he did not do any of those because of cost/insurance issues Past Medical History: Diagnosis Date Arthritis Cardiovascular disease Coronary artery disease Dental disease upper and lower dentures Depression Diabetes mellitus ([facility] Diabetes mellitus type 2, controlled ([facility]) GERD (gastroesophageal reflux disease) Hypertension Obesity Shortness of breath Visual impairment glasses No data recorded No data recorded No data recorded Past Surgical History: Procedure Laterality Date CARDIAC SURGERY 11 stents COLONOSCOPY N/A 02/21/2021 Performed by Abraham Pedersen MD at [facility] HEMORROIDECTOMY HERNIA REPAIR RELEASE CARPAL TUNNEL Left 10/07/2019 Performed by Olu Yen DO at [facility] SKIN SURGERY Family History Problem Relation Age of Onset Stroke Mother Heart disease Father Heart attack Father Heart disease Sister Heart disease Brother Social History Socioeconomic History Marital status: Spouse name: Not on file Number of children: Not on file Years of education: Not on file Highest education level: Not on file Occupational History Not on file Tobacco Use Smoking status: Former Smokeless tobacco: Never Tobacco comments: 2009 quit Vaping Use Vaping status: Never Used Substance and Sexual Activity Alcohol use: Never Drug use: Never Sexual activity: Defer Partners: Female Other Topics Concern Coffee Not Asked Tea Not Asked Carbonated Beverages Not Asked Chocolate Not Asked Caffeine Use Yes Social History Narrative Not on file Social Drivers of Health Financial Resource Strain: Not on file Food Insecurity: No Food Insecurity (07/06/2025) Hunger Screening Food Insecurity - Worry: Never True Food Insecurity - Inability: Never True Transportation Needs: Not on file Physical Activity: Not on file Stress: Not on file Social Connections: Not on file Interpersonal Safety: Not on file Housing Instability: Not on file Review of Systems Review of Systems Constitutional: Negative. HENT: Negative. Eyes: Negative. Cardiovascular: Negative. Respiratory: Negative. Endocrine: Negative. Hematologic/Lymphatic: Bruises/bleeds easily. Skin: Negative. Musculoskeletal: Negative. Gastrointestinal: Negative. Genitourinary: Negative. Neurological: Positive for light-headedness. Psychiatric/Behavioral: Positive for depression. Allergic/Immunologic: Negative. Vascular: Negative. CARDIOVASCULAR: Please review HPI. Physical Examination General appearance: Alert, oriented and cooperative. In no acute distress. Skin: Warm and dry to touch. Head: Normocephalic, without obvious abnormality, atraumatic. Ears, Nose, Mouth, Throat: Throat clear without erythema or exudate. Dentition intact. Eyes: Conjunctivae unremarkable, EOM intact. Neck: No JVD, No carotid bruit. Neck supple, trachea midline. Respiratory: Clear to auscultation bilaterally, no use of accessory muscles. Cardiovascular: RRR with normal S1 and S2 with no murmurs. Gastrointestinal: Soft, non-tender. Bowel sounds normal. Musculoskeletal: No peripheral edema. Neurologic: Oriented to time, person and place, affect appropriate. No focal/major motor defects noted. Psychiatric: Appropriate mood, memory and judgement. VITAL SIGNS: BP (!) 164/100 Pulse 84 Ht 170.2 cm (5' 7 ) Wt 88 kg (194 lb) SpO2 99% BMI 30.38 kg/m Orders Placed or Reconciled This Encounter Medications losartan (COZAAR) 25 mg tablet Sig: Take 1 tablet (25 mg total) by mouth nightly. Dispense: 90 tablet Refill: 0 ezetimibe (ZETIA) 10 mg tablet Sig: Take 1 tablet (10 mg total) by mouth in the morning. Dispense: 90 tablet Refill: 3 Medications Discontinued During This Encounter Medication Reason losartan (COZAAR) 25 mg tablet Reorder ezetimibe (ZETIA) 10 mg tablet IMPRESSIONS/PLAN 1. Coronary artery disease with history of percutaneous transluminal angioplasty (PTCA) - ezetimibe (ZETIA) 10 mg tablet; Take 1 tablet (10 mg total) by mouth in the morning. Dispense: 90tablet; Refill: 3 2. Primary hypertension - losartan (COZAAR) 25 mg tablet; Take 1 tablet (25 mg total) by mouth nightly. Dispense: 90 tablet; Refill: 0 CAD status post PCI of RCA 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 Prior LAD stents. [facility] 12/14/13 with nonobstructiveresidual disease. 11 total stents. Previous angina was different sites of chest pain/pressure. Exertional dyspnea, chronic Hypertension primary DM 2 not on insulin Statin intolerance Prior history of noncompliance He has a uncontrolled essential hypertension his only taking 12.5 mg of losartan. He does not like to take medications after a lot of talking agreed to increase the dose to 25 mg daily which I do notthink is enough to control his blood pressure Per chart review extensive talk last visit about ezetimibe, he agreed and he is not taking it. I did recommended it too , although it does not have mortality benefit and it wont get him near his LDL goal, but he agreed to try it. PSC K9 inhibitor is not an option for him because of his insurance unfortunately Both stress test and echocardiogram not done reportedly he has a insurance issues and he could not afford the cost. He has no angina he has probable diastolic dysfunction and he is not overtly fluid overloaded, I did not appreciate any murmur on exam, we will manage his symptoms without testing - ROXANNA DIOP MD 07/06/25 2:22 PM TODAYS ORDERS No orders of the defined types were placed in this encounter. FOLLOW UP Return in about 6 months (around 01/04/2026). PCP: LALO MCCOY DO Referring Physician: Lalo Mccoy DO [id number] [place] [address] [facility] Miscellaneous Notes* Telephone Encounter - Sandra Langston MA - 07/05/2025 10:59 AM EDT Left message for patient to remind them to bring their most current medication list with them to their appointment. documented [facility] Telephone encounter Note* Telephone Encounter - Sandra Langston MA - 07/05/2025 10:59 AM EDT Left message for patient to remind them to bring their most current medication list with them to their appointment. [facility] NoteEntered by LALO MCCOY DO on June 14, 2025 13:51:53 EDT From: LALO MCCOY DO To: [id number] Sent: 06/14/2025 13:51:53 EDT Subject: Medication Management Approved Order:gabapentin (gabapentin 100 mg oral capsule) TAKE 2 CAPSULES BY MOUTH DAILY Qty: 60 EA Days Supply: 0 Refills: 0 Substitutions Allowed Route To Pharmacy - [id number] Signed by LALO MCCOY DO Cancelled: Discontinue:gabapentin (gabapentin 100 mg oral tablet) Signed by LALO MCCOY DO From: [id number] To: LALO MCCOY DO Sent: June 14, 2025 11:43:44 AM CDT Subject: Medication Management Due: June 15, 2025 11:43:44 AM CDT Originally Prescribed Drug: Drug: gabapentin (Gabarone 100 mg oral tablet), 2 tab(s) Oral Daily Quantity: 60 tab(s) Days Supply: 0 Refills: 0 Substitutions Allowed Notes from Pharmacy: On Hold Pending Signature Preferred Alternative Drug: gabapentin (gabapentin 100 mg oral capsule), TAKE 2 CAPSULES BY MOUTH DAILY Quantity: 60 EA Days Supply: 0 Refills: 0 Substitutions [id number] NoteEntered by LALO MCCOY DO on April 19, 2025 13:17:26 EDT From: LALO MCCOY DO To: [facility] Sent: 04/19/2025 13:17:26 EDT Subject: Medication Management Submitted: Complete:ibuprofen (ibuprofen 800 mg oral tablet) Signed by LALO MCCOY DO 04/19/2025 13:17:00 EDT Approved with modifications: ibuprofen (ibuprofen 800 mg tablet) TAKE 1 TABLET BY MOUTH THREE TIMES DAILY Qty: 90 tab(s) Days Supply: 30 Refills: 1 Substitutions Allowed Route To Pharmacy - [facility] From: [facility] To: LALO MCCOY DO Sent: April 19, 2025 11:07:02 AM CDT Subject: Medication Management Due: April 20, 2025 12:03:58 AM CDT On Hold Pending Signature Drug: ibuprofen (ibuprofen 800 mg oral tablet), 1 tab(s) Oral TID Quantity: 90 tab(s) Days Supply: 0 Refills: 0 Substitutions Allowed Notes from Pharmacy: Dispensed Drug: ibuprofen (ibuprofen 800 mg oral tablet), TAKE 1 TABLET BY MOUTH THREE TIMES DAILY Quantity: 90 tab(s) Days Supply: 30 Refills: 1 Substitutions [id number] History of Present illness Narrative* Garo Barbour MD - 04/12/2025 1:50 PM EDT Jono Morales is a 70 y.o. male No ref. provider found presents with chief complaint of Diabetes and Follow-up HPI: Interim History: 03/2025 Followup visit on 04/12/2025 for type 2 diabetes. A1c 6.8, BG 238 He is on Tresiba 50. Interim History: 11/2024 Followup visit on 12/14/2024 for type 2 diabetes. A1c 7.7, BG 137. He is on Tresiba 60, he lost his due to cancer, he is doing his insulin more consistently, not doing any other medication other than Tresiba. Interim History: 08/2022. Followup visit on 09/20/2022 for type 2 diabetes. A1c 14, BG 348. He is on Tresiba 60, off glimepiride 4 mg bid, did not start actos , H 10 units once only at dinner Interim History: 11/2021. Followup visit on 12/25/2021 for type 2 diabetes. A1c > 13.1, BG 377. He is on Tresiba 60, off glimepiride 4 mg bid, did not start actos unable to afford Interim History: 05/2021. Followup visit on 06/26/2021 for type 2 diabetes. A1c >14.1, BG 555. He is on Tresiba 60, off glimepiride 4 mg bid, did not start actos, yet, had neurothpahy Interim History: 11/2020. Followup visit on 12/22/2020 for type 2 diabetes. A1c 12.1. He is on Tresiba 60, glimepiride 4 mg bid, did not start actos, yet, had neurothpahy Interim History: 08/2020. Followup visit on 09/06/2020 for type 2 diabetes. A1c 10. He is on Tresiba 60, glimepiride 4 mg bid,did not start actos, yet, had neurothpahy and will start him on cymbalta Interim History: 05/2020. Followup visit on 06/15/2020 for type 2 diabetes. A1c 13.8. He is on Tresiba 50, glimepiride 4 mg bid Interim History: 02/2020. Followup visit on 03/17/2020 for type 2 diabetes. A1c greater than 14. He is on Tresiba 50 and he is off glimepiride, off metformin, cannot tolerate it, cannot afford Janumet or Januvia, so mainly Tresiba and he missed once or twice a week. Interim History: 10/2019. Follow-up visit of 11/04/2019. A1c in the office greater than 14, blood sugar 290. He is on Lantus 50 and Janumet only once a day. He did not start the Humalog due to unable to afford and he is not following his diet according to his family. Interim History: 06/2019. Followup visit on 07/15/2019 for type 2 diabetes. A1c in the office is 7.9. Blood sugars 362. Currently, he is on Tresiba, but wants to change 50 since he has a lot of sample and we stopped his glimepiride and started him on Humalog 8,10,12 plus Janumet he is 150/1000 once a day. He is off glimepiride and he think his numbers is getting better. He has a lot of sample of Lantus and Humalog from his friend. Interim History 03/18: Followup visit on 03/11/2019 or type 2 diabetes. Blood sugar 252. He is on Tresiba 50, and Janumet only samples using once a day; supposed to use twice a day. Glimepiride 4 mg twice a day. [facility], and I will send prescription for him. Interim History 01/16: Followup visit on 01/07/2019 for type 2 diabetes. A1c in the office is 9.6, blood sugar 254. He is currently on Tresiba 50 units at bedtime. Janumet mainly does it once a day, supposed to be twice a day. Glimepiride 4 mg once a day, supposed to be twice a day. He will be on Medicare insurance at the beginning of this coming January. Interim history: 09/2018 Follow-up visit 10/28/2018 for type 2 diabetes. A1c still above 14 and blood sugar 297. He is on Tresiba 50 units. Cannot afford meal insulin. Januvia 100 mg once a day. He started back on metformin 500 twice a day. Interim History: 07/17 Followup visit on 07/23/18 for type 2 diabetes, A1c greater than 14 still, blood sugars 420. He is currently on Tresiba 28, and Humalog as needed sliding scale, Januvia 100. Interim History: 06/17 Followup visit on 06/11/18 for type 2 diabetes, and blood sugars in the hospital 534. He is off his NovoLog due to making his chest pain. He is only on Tresiba 28 units, off Januvia since 4 days. He unable to take metformin due to GI symptoms. Albumin over creatinine 28, vitamin D 10.8, C-peptide 6.4. HPI: 04/16 New patient sent from Dr. Tmo Mccoy for uncontrolled diabetes, A1c of 14 in January and in the office today again 14. Blood sugar is 453. Kidney function within normal limits. BUN 14, creatinine 0.5, total cholesterol 187, HDL 28, LDL 90. He is on Januvia 100 mg and Tresiba 22 units daily, unable to afford Invokana he states. He has coronary artery disease with multiple stents, also hasskin breaks in his feet. Due for eye exam. No retinopathy or eye problem from diabetes so far. SUBJECTIVE: MEDICATIONS: Current Outpatient Medications Medication Instructions aspirin 81 MG EC tablet 1 tablet, Daily Cariprazine HCl (Vraylar) 1.5 MG capsule Take by mouth clopidogrel (Plavix) 75 MG tablet 1 tablet, Daily cyclobenzaprine (Flexeril) 10 MG tablet 1 tablet, 3 times daily ezetimibe (ZETIA) 10 mg, Daily RT fluticasone (Flonase) 50 MCG/ACT nasal spray 2 sprays, Each Nostril, Daily, Shake gently. Before first use, prime pump. After use, clean tip and replace cap. gabapentin (NEURONTIN) 600 mg, 3 times daily HYDROcodone-acetaminophen (Rolla) 7.5-325 MG tablet 1 tablet, 2 times daily ibuprofen 800 MG tablet losartan (Cozaar) 25 MG tablet 1 tablet, Daily potassium chloride CR (Klor-Con M20) 20 MEQ ER tablet 20 mEq, Daily RT Tresiba FlexTouch 50 Units, Subcutaneous, Nightly Xdemvy 0.25 % solution 1 drop, 2 times daily ALLERGIES: Allergies Allergen Reactions Duloxetine Other Reaction(s): Suicidal ideation Novolog [Insulin Aspart (Human Analog)] Other Chest pain Past Medical History: Diagnosis Date Coronary artery disease Diabetes (HCC) Dietary counseling and surveillance Essential (primary) hypertension Hyperlipidemia Hypertension emt intermediate (current) use of insulin (HCC) Pneumonia Type 2 diabetes mellitus with other circulatory complications (HCC) Vitamin D deficiency Past Surgical History: Procedure Laterality Date ANGIOPLASTY with stent x 11 CARPAL TUNNEL RELEASE Left 10/07/2019 Dr Yen DENTAL SURGERY all teeth removed HEMORRHOIDECTOMY HERNIA REPAIR abdominal REVIEW OF SYMPTOMS: 14 POINT OF SYSTEM REVIEWED AND NEGATIVE OBJECTIVE: Constitutional: Afebrile @ home; no weakness or night sweats SKIN: No change in skin color; no itching, rash or lesions; no hair loss; HEENT: No HAs or injury; no dizziness; No difficulty with vision; no eye pain, discharge or lesions; no hearing loss or difficulty; no nasal discharge, NECK: No pain, limitation of motion, lumps or swollen glands RESP: No cough, wheezing or difficulty breathing. No CP with breathing; CARDIO: No CP , SOB or fatigue, No edema, palpitations or dyspnea with exertion GI: No N/V/D or abd. pain; good appetite with no recent change. No heart burn, liver or gallbladderdisease; no rectal bleeding or pain : No urinary pain , frequency or odor. MUSCULOSKELETAL: No muscle pain or cramps; no extremity weakness.No joint pain, stiffness, swellingor limitation of movement NEUROLOGY: No H/O seizures, stroke or fainting. No weakness, tremors. Hematology: No bleeding problems or excessive bruising ENDOCRINE: No increase in hunger, thirst or urination; admits compliance to medical management plan Feet: numbness tingling yes , ulcers or skin break no Lab Results Component Value Date HGBA1C 6.8 04/12/2025 HGBA1C 7.7 12/14/2024 Lab Results Component Value Date GLU 238 04/12/2025 GLU 137 12/14/2024 GLU 330 (H) 10/01/2019 Visit Vitals BP 120/90 Pulse 78 Resp 18 Ht 5' 7 Wt 202 lb SpO2 99% BMI 31.64 kg/m Smoking Status Former BSA 2.08 m ASSESSMENT AND PLAN: Assessment/Plan Diagnoses and all orders for this visit: Type 2 diabetes mellitus with hyperglycemia, with long-term current use of insulin (HCC) - POCT glucose manually resulted - POCT glycosylated hemoglobin (Hb A1C) docked device - C-peptide; Future - Vitamin D 25 hydroxy Total; Future - Microalbumin / creatinine urine ratio; Future - Lipid panel; Future - Renal function panel; Future C/o His Tresiba to to 50 units, we will see him in 6 months with new lab. Encounter for dietary consultation Vitamin D deficiency Hyperlipemia, mixed Insulin long-term use (HCC) Primary hypertension Follow up in about 6 months (around 10/13/2025). documented in this encounterMineral Area Regional Medical [id number] NoteEntered by LALO MCCOY DO on January 18, 2025 07:36:06 EDT From: LALO MCCOY DO To: [facility] Sent: 01/18/2025 07:36:06 EDT Subject: Medication Management Submitted: Complete:clopidogrel (clopidogrel 75 mg oral tablet) Signed by LALO MCCOY DO 01/18/2025 07:36:00 EDT Approved with modifications: clopidogrel (clopidogrel 75 mg tablet) TAKE 1 TABLET BY MOUTH DAILY Qty: 90 tab(s) Days Supply: 90 Refills: 1 Substitutions Allowed Route To Pharmacy - [facility] From: [facility] To: NADINELALO Jo MOLINA Sent: January 16, 2025 1:16:15 PM CDT Subject: Medication Management Due: January 17, 2025 12:21:19 AM CDT On Hold Pending Signature Drug: clopidogrel (clopidogrel 75 mg oral tablet), take 1 tablet by mouth once daily Quantity: 90 tab(s) Days Supply: 0 Refills: 0 Substitutions Allowed Notes from Pharmacy: Dispensed Drug: clopidogrel (clopidogrel 75 mg oral tablet), TAKE 1 TABLET BY MOUTH DAILY Quantity: 90 tab(s) Days Supply: 90 Refills: 1 Substitutions [id number] Miscellaneous Notes* Telephone Encounter - Jillian Varner RN - 01/14/2025 10:42 AM EDT Received p/c from pt. States will have to postpone LCTME/ Echo d/t affordability. Informed pt maybe could do one or the other or set -up a payment plan. Informed that testing is needed w/ CAD HX to sort out symptoms. Pt provided w/ central scheduling phone number to change times [facility] Telephone encounter Note* Telephone Encounter - Jillian Varner RN - 01/14/2025 10:42 AM EDT Received p/c from pt. States will have to postpone LCTME/ Echo d/t affordability. Informed pt maybe could do one or the other or set -up a payment plan. Informed that testing is needed w/ CAD HX to sort out symptoms. Pt provided w/ central scheduling phone number to change times [facility] [id number] History of Present illness Narrative* Shivam Sheehan, SUPPLIER DEVELOPMENT MANAGER-OCCUPATIONAL THERAPIST - 01/12/2025 2:40 PM EDT Skin Check Location: Patient requests a skin examination from the waist up Dermatologic history: history of Actinic Keratosis Last visit: 6 months ago New patient Rash Location: hands Duration: 8 years Severity: mild Quality: itchy Modifying Factors: none Associated symptoms: dry skin, rash is not present today Treatments tried: topical steriods (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 Medical release form signed by patient. Wears gloves at work. All pertinent medical history, medications, and allergies were reviewed. General Exam: alert, oriented to person, place, and time, normal affect, well appearing Unaccompanied A complete skin exam was offered, pt declined. Areas not examined despite medical recommendation: From the waist down Scalp, Examined Head, Face Examined Neck Examined Chest Examined Back Examined Abdomen Examined Right arm Examined Left arm Examined Hands Examined Digits,nails: Examined Lymphatics: Skin Exam 1. MELANOCYTIC NEVUS OF UPPER EXTREMITY, UNSPECIFIED LATERALITY Right Arm Scattered benign appearing, regular brown to light brown melanocytic papules and macules with similar morphology Counseled regarding these benign growths. Rarely, a nevus can develop into malignant melanoma, so any changing nevi should be promptly re-evaluated. 2. MELANOCYTIC NEVUS OF TRUNK Torso - Posterior (Back) Scattered benign appearing, regular brown to light brown melanocytic papules and macules with similar morphology Counseled regarding these benign growths. Rarely, a nevus can develop into malignant melanoma, so any changing nevi should be promptly re-evaluated. 3. OTHER ATOPIC DERMATITIS Left Hand - Anterior, Right Hand - Anterior No Scaly erythematous plaques +/- dyspigmentation, lichenification, excoriations. Clear today. Diagnosis based on clinical description. Discussed that atopic dermatitis is a chronic condition that can be controlled but not cured. Encouraged daily moisturizing aquaphor and gentle cleansers to prevent flares, moisturizer and cleanser handout provided to patient. Offer same day appointment when rash is present, biopsy is in reserve. 4. CAPILLARY ANGIOMA Generalized Scattered haines-red papule(s). The patient was informed that angiomas are benign growths on the the skin. No treatment is necessary. 5. LENTIGINES Generalized Scattered briggs macules in sun-exposed areas. The patient was informed that lentigines are benign pigmented lesions that occur on sun-exposed andsun-damaged skin. No treatment is necessary. Recommended regular use of broad spectrum sunscreen SPF 30 or higher 6. SEBORRHEIC KERATOSIS Generalized Stuck on verrucous, briggs-brown papules and plaques. Patient was counseled regarding these benign growths. Removal is normally not necessary, but they may be removed if they are symptomatic or for cosmetic reasons. 7. ACTINIC KERATOSIS (3) Left Moravian, Right Forehead, Right Zygomatic Area Erythematous scaly papules Patient was counseled regarding these sun-induced growths that can develop into squamous cell carcinoma if left untreated. Discussed treatment with cryotherapy. It was emphasized that any treated lesions that fail to resolve should be re- evaluated. Cryotherapy performed today; see procedure note Diagnosis: Actinic keratosis Indication: Precancerous Location: see skin exam Consent: Verbal consent was obtained and risks were discussed, including, but not limited to risks of scarring, darker or postal inspector pigmentary changes, recurrence, incomplete removal and infection. Method: Liquid nitrogen was used to treat the lesion(s) with two 5-10 second freeze-thaw cycles. Number of lesions treated: 3 Post-procedure instructions: Instructions were given orally and in writing. The office will be contacted if the lesion fails to resolve despite treatment, or if a side effect develops such as abnormal crusting, scabbing, redness or tenderness Cryotherapy, skin lesion - Left Moravian, Right Forehead, Right Zygomatic Area Next Visit: Recommended yearly skin exams documented in this encounterMineral Area Regional Medical [id number] History of Present illness Narrative* Kathy Garcia MD - 01/01/2025 1:45 PM EDT Jono Morales Date of visit: 01/01/2025 Date of : 1955 Age: 69 y.o. Patient Active Problem List Diagnosis Middle ear effusion, bilateral Dysfunction of both eustachian tubes Bilateral hearing loss Cerumen debris on tympanic membrane of both ears Generalized abdominal pain Coronary artery disease with history of percutaneous transluminal angioplasty (PTCA) Allergies Allergen Reactions Duloxetine Other Reaction(s): Suicidal ideation Current Outpatient Medications Medication Sig Dispense Refill albuterol (PROVENTIL HFA;VENTOLIN HFA) 90 mcg/actuation inhaler Inhale 2 puffs every 6 (six) hours as needed for wheezing. aspirin 325 mg EC tablet Take 1 tablet (325 mg total) by mouth in the morning. clopidogrel (PLAVIX) 75 mg tablet Take 1 tablet (75 mg total) by mouth in the morning. gabapentin (NEURONTIN) 600 mg tablet Take 1 tablet (600 mg total) by mouth 3 (three) times a day. HYDROcodone-acetaminophen (NORCO) 7.5-325 mg per tablet Take 2 tablets by mouth every 6 (six) hoursas needed. ibuprofen (ADVIL,MOTRIN) 800 mg tablet Take 1 tablet (800 mg total) by mouth every 8 (eight) hours as needed. insulin degludec (TRESIBA FLEXTOUCH U-200) 200 unit/mL (3 mL) insulin pen Inject 60 Units under theskin in the morning. losartan (COZAAR) 25 mg tablet Take 0.5 tablets (12.5 mg total) by mouth nightly. omeprazole (PriLOSEC OTC) 20 mg tablet,delayed release (DR/EC) Take 1 tablet (20 mg total) by mouthas needed. potassium chloride (KLOR-CON M 20) 20 MEQ CR tablet Take 1 tablet (20 mEq total) by mouth in the morning. tiZANidine (ZANAFLEX) 4 mg capsule Take 1 capsule (4 mg total) by mouth 3 (three) times a day as needed. aspirin 81 mg Take 325 mg by mouth daily. ezetimibe (ZETIA) 10 mg tablet Take 1 tablet (10 mg total) by mouth in the morning. 90 tablet 3 No current facility-administered medications for this visit. 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 He was a gentleman who had a complicated cardiac history including intervention in the RCA complicated by dissection. He was 11 total stents. He has been doing well over the last decade, however. His anginal symptom previously with chest pain and pressure. He was not having any chest pain or pressure of any sort now. He does have some chronic shortness of breath when he pushes himself and dyspnea on exertion. This has not substantially changed. No orthopnea. No PND. No regular dizziness or lightheadedness. He had does not check his blood pressure at home. He was not on statins due to intolerance in the past including myalgias. He was not willing to retry this. He was not tried anything else from a lipid standpoint that he knows of. He has been maintained on dual antiplatelet therapy. Past Medical History: Diagnosis Date Arthritis Cardiovascular disease Coronary artery disease Dental disease upper and lower dentures Depression Diabetes mellitus [place] Diabetes mellitus type 2, controlled ([facility] GERD (gastroesophageal reflux disease) Hypertension Obesity Shortness of breath Visual impairment glasses No data recorded No data recorded No data recorded Past Surgical History: Procedure Laterality Date CARDIAC SURGERY 11 stents COLONOSCOPY N/A 02/21/2021 Performed by Abraham Pedersen MD at [facility] HEMORROIDECTOMY HERNIA REPAIR RELEASE CARPAL TUNNEL Left 10/07/2019 Performed by Olu Yen DO at [facility] SKIN SURGERY Family History Problem Relation Age of Onset Stroke Mother Heart disease Father Heart attack Father Heart disease Sister Heart disease Brother Social History Socioeconomic History Marital status: Spouse name: Not on file Number of children: Not on file Years of education: Not on file Highest education level: Not on file Occupational History Not on file Tobacco Use Smoking status: Former Smokeless tobacco: Never Tobacco comments: 2009 quit Vaping Use Vaping status: Never Used Substance and Sexual Activity Alcohol use: Never Drug use: Never Sexual activity: Defer Partners: Female Other Topics Concern Coffee Not Asked Tea Not Asked Carbonated Beverages Not Asked Chocolate Not Asked Caffeine Use Yes Social History Narrative Not on file Social Drivers of Health Financial Resource Strain: Not on file Food Insecurity: No Food Insecurity (01/01/2025) Hunger Screening Food Insecurity - Worry: Never True Food Insecurity - Inability: Never True Transportation Needs: Not on file Physical Activity: Not on file Stress: Not on file Social Connections: Not on file Interpersonal Safety: Not on file Housing Instability: Not on file Review of Systems Review of Systems Constitutional: Positive for malaise/fatigue. HENT: Negative. Eyes: Negative. Respiratory: Negative. Hematologic/Lymphatic: Bruises/bleeds easily. Skin: Negative. Musculoskeletal: Negative. Gastrointestinal: Negative. Neurological: Positive for loss of balance. Psychiatric/Behavioral: Negative. Allergic/Immunologic: Negative. CARDIOVASCULAR: Please review HPI. Physical Examination General appearance: Alert, oriented and cooperative. In no acute distress. Skin: Warm and dry to touch. Head: Normocephalic, without obvious abnormality, atraumatic. Ears, Nose, Mouth, Throat: Throat clear without erythema or exudate. Dentition intact. Eyes: Conjunctivae unremarkable, EOM intact. Neck: No JVD, No carotid bruit. Neck supple, trachea midline. Respiratory: Clear to auscultation bilaterally, no use of accessory muscles. Cardiovascular: RRR with normal S1 and S2 with no murmurs. Gastrointestinal: Soft, non-tender. Bowel sounds normal. Musculoskeletal: No peripheral edema. Neurologic: Oriented to time, person and place, affect appropriate. No focal/major motor defects noted. Psychiatric: Appropriate mood, memory and judgement. VITAL SIGNS: BP 138/80 (BP Site: Left Arm, BP Postition: Sitting) Pulse 89 Ht 170.2 cm (5' 7 ) Wt 92.5 kg (204 lb) SpO2 97% BMI 31.95 kg/m Orders Placed or Reconciled This Encounter Medications aspirin 325 mg EC tablet Sig: Take 1 tablet (325 mg total) by mouth in the morning. gabapentin (NEURONTIN) 600 mg tablet Sig: Take 1 tablet (600 mg total) by mouth 3 (three) times a day. potassium chloride (KLOR-CON M 20) 20 MEQ CR tablet Sig: Take 1 tablet (20 mEq total) by mouth in the morning. ezetimibe (ZETIA) 10 mg tablet Sig: Take 1 tablet (10 mg total) by mouth in the morning. Dispense: 90 tablet Refill: 3 Medications Discontinued During This Encounter Medication Reason rosuvastatin (CRESTOR) 5 mg tablet Therapy completed omega-3 acid ethyl esters (LOVAZA) 1 gram capsule Therapy completed metoprolol tartrate (LOPRESSOR) 25 mg tablet Therapy completed IMPRESSIONS/PLAN 1. Coronary artery disease with history of percutaneous transluminal angioplasty (PTCA) - Ambulatory referral to Cardiology (Non[facility]) - POCT EKG - Echo complete W/O contrast; Future - Nuc stress Lexiscan; Future 2. Shortness of breath - Echo complete W/O contrast; Future - Nuc stress Lexiscan; Future Impression CAD. History of PCI of RCA 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 Prior LAD stents. [facility] 12/14/13 with nonobstructiveresidual disease. 11 total stents. Previous angina was different sites of chest pain/pressure. Hypertension primary DM SOB, chronic Statin intolerance LDL 142 last year Plan EKG today NSR with no significant ST T wave changes With regards to his lipids, he was not been on a statin for some time and he was unwilling to try this again. I told him there is data for zetia and PCSK9 inhibitors/Inclisiran. I do not think he would be willing to try an injectable agent but he is willing to try Zetia after some discussion. We went over that has an excellent side effect profile and it was well tolerated. He was unlikely to get his LDL near goal but certainly better than not being on anything. He has some chronic shortness of breath which I suspect is more deconditioning than anything. Givenhis extensive history, however I am going to repeat an echocardiogram on him as well as get a Lexiscan stress test. If these are unremarkable, I would follow him expectantly. I have asked him to check his blood pressure regularly at home, he very well may need to switch to a combination agent including ARB/thiazide. He is hesitant to make medication changes. We will get the testing and have him follow up routinely unless there is a significant finding TODAYS ORDERS Orders Placed This Encounter Procedures Nuc stress Lexiscan POCT EKG Echo complete W/O contrast FOLLOW UP Return in about 6 months (around 07/03/2025). PCP: LALO MCCOY DO Referring Physician: Lalo Mccoy DO [address] [place] [address] [facility] Miscellaneous Notes* Telephone Encounter - Sandra Delgado CMA - 12/31/2024 11:09 AM EDT Called patient to remind them to bring their most current copy of their medication list with them to their appt. Patient verbalizes understanding. documented in this [facility]25 Telephone encounter Note* Telephone Encounter - Sandra Delgado CMA - 12/31/2024 11:09 AM EDT Called patient to remind them to bring their most current copy of their medication list with them to their appt. Patient verbalizes understanding. [facility] [id number] Note From: Sandra Orozco LPN ([facility] Clinical Pool ([facility])) To: LALO MCCOY DO; Sent: 12/02/2024 08:18:30 EST Subject: Med change Caller Name: JONO MORALES; Caller Number: H Pt called lvm stating that he did see Neurology and was suggested to increase his Gabapentin to help with his Neuropathy, was told by Neurology to contact PCP to have medication increased From: LALO MCCOY DO To: [facility] Clinical [place] ([facility]); Sent: 12/02/2024 09:11:29 EST Subject: RE: Med change Caller Name: JONO MORALES; Caller Number: H on 400 tid now. so i guess we go to 600mg po tid #90 NR proposal sent to Dr Mccoy, pt made aware new rx will be [facility] 11-26-2024 Miscellaneous Notes* Telephone Encounter - Gracy Villa - 11/26/2024 12:55 PM EST 11/26 LMOM TO SCHEDULE NEW PATIENT APPT documented in this encounterMer[facility] HospitalKle[facility] [id number] Telephone encounter Note* Telephone Encounter - Gracy Villa - 11/26/2024 12:55 PM EST 11/26 LMOM TO SCHEDULE NEW PATIENT [facility] [id number] History of Present illness Narrative* Nicole Moon DO - 10/30/2024 10:30 AM EST Images from the original note were not included. Reason for Appointment: HST Patient: Jono Morales : 1955 Reason for Home Sleep Study: Sleep disturbances Ordering Physician: Dr. Nicole Moon Director Operating Room: Yue Khan Pick-up Comments: Procedure was explained to the patient who expressed understanding. Patient was instructed how to use device and informed to return completed questionnaire with device tomorrow morning...... 11/02/24 Director Operating Room: Nicolle Porter CMA Drop-Off Comments: Patient returned HST device. Study data was successfully uploaded and completed questionnaire was imported to patient's chart....... 11/02/24 Resulting Physician: SANDY Patino DO Impression: Mild ANIYA may benefit from CPAP titration versus auto PAP treatment at 5-15 cm of water documented in this [facility]01-30-2025 History of Present illness Narrative* Yue Khan - 10/29/2024 3:45 PM EST Reason for Appointment: HST Patient: Jono Morales : 1955 Reason for Home Sleep Study: Sleep disturbances Ordering Physician: Dr. Nicole Moon Director Operating Room: Yue Khan Pick-up Comments: Procedure was explained to the patient who expressed understanding. Patient was instructed how to use device and informed to return completed questionnaire with device tomorrow morning...... 10/29/24 Director Operating Room: Chris GLEZ(Chey) Drop-Off Comments: Patient returned HST device. Study data was successfully uploaded and completed questionnaire was imported to patient's chart....... Resulting Physician: SANDY Patino DO Impression: mild ANIYA recommend Auto PAP at 5-15 cmH20 documented in this [facility]01-13-2025 History of Present illness Narrative* Nicole Moon DO - 10/12/2024 3:00 PM EST Images from the original note were not included. Chief Complaint Patient presents with hand and foot pain Subjective Jono Morales, 69 y.o., male new patient for bilateral hand and foot pain at the request of Dr Cristino Maldonado DPM HPI Patient is refusing to complete EMG, would like to discuss other options. The patient states that his symptoms started about 2 years ago. His pain started in his feet and then around 6 months later his hands started to hurt. He has pain in bilat feet and the pain is movingup slightly past his ankle. This is worse on the right. He has numbness and tingling. He states that he feels off balance. He denies pain in his arms. He states that his hands are sensitive to touch.He states that his hands and feet are always cold. He is able to feel warm and cold. The patient has type 2 diabetes. He states that he does not check his blood sugar. He is on insulin. He had his blood work done and his sugar was 140. He thinks his HgbA1c was 6.5 He has been as highas 11 in the past. He is following some of a diabetic diet. He has not had any recent falls. He has not had any loss of control of bowel or bladder. He has not had any hypotensive or ups and downs. He states that he does not want to do an EMG. He had one a few years ago. He did not complete it. HE states that he has sleep apnea. Past Medical History: Diagnosis Date Coronary artery disease (CMS/HCC) Diabetes (CMS/HCC) Hyperlipidemia (CMS/HCC) Hypertension (CMS/HCC) Pneumonia Past Surgical History: Procedure Laterality Date ANGIOPLASTY with stent x 11 CARPAL TUNNEL RELEASE Left 10/07/2019 Dr Yen DENTAL SURGERY all teeth removed HEMORRHOIDECTOMY HERNIA REPAIR Family History Problem Relation Name Age of Onset Diabetes Mother Heart disease Father Social History Tobacco Use Smoking status: Former Current packs/day: 0.00 Types: Cigarettes Quit date: 2000 Years since quittin.0 Smokeless tobacco: Not on file Substance Use Topics Alcohol use: Not Currently Comment: 15 years clean Allergies: Patient has no known allergies. General: No fever or chills HEENT: No nasal congestion or runny nose Pulmonary: No shortness of breath or cough Cardiovascular: No chest pain or palpitations GI: No nausea or vomiting : No dysuria or hematuria Musculoskeletal: No new aches or pains or muscle weakness Infectious: no recurrent fevers or infections Dermatologic: No rashes or skin lesions Neurologic: No new headaches or dizziness Vitals: 10/12/24 1456 BP: (!) 136/92 Pulse: 88 SpO2: 96% Body mass index is 31.89 kg/m . weight: 203 lb 9.6 oz The patient was counseled to monitor their blood pressure and to follow up with PCP regarding the same. Neurologic exam: General: Normal body habitus, cooperative, pleasant Mental status: Awake, alert to person, place and time. Recent and remote memory are intact. Attention and concentration are normal. Fund of knowledge is appropriate for level of education. HEENT: NC/AT Cranial nerves: CN II: Visual chavira full to confrontation. No loss of vision CN III, IV, : pupils equal round and reactive to light. Extraocular movements intact. No ptosis present. CN V: Facial sensation is normal. CN VII: Full and symmetric facial movement. CN VIII: Hearing is normal CN IX and X: Palate elevates symmetrically. CN XI: Shoulder shrug is normal bilaterally. CN XII: Tongue is midline without atrophy or fasciculation. Speech: Clear and fluent no aphasia or dysarthria Pronator drift: Negative bilateral upper extremity Coordination: Intact, no signs of dysmetria Good finger to nose and rapid alternating movements Sensory: Sensation is intact to light, temperature and vibratory touch throughout four extremities. Pinprick and vibratory are decreased in a stocking distribution Motor: LUE 5/5 RUE 5/5 LLE 5/5 RLE 5/5 Tone: Physiologic, no tremor, bradykinesia or rigidity DTR: Bilateral Biceps 2/4 Bilateral BR 2/4 Bilateral Patellar 1/4 No spasticity Gait: Normal to casual gait but cannot do tandem gait Romberg's Mildly positive Review and summary of old records: Assessment/Plan Diagnoses and all orders for this visit: ANIYA (obstructive sleep apnea) - Home sleep test; Future Idiopathic peripheral neuropathy - DULoxetine (Cymbalta) [address] capsule; 1 po daily for 2 weeks then bid - Vitamin B12; Future - TSH; Future - Folate; Future - Protein electrophoresis, serum; Future Numbness and tingling 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 Patient refuses to do an EMG as he has had 1 in the past and it was too uncomfortable for him. Stated he did not complete it. I did explain to him that I can not definitively diagnose the neuropathy nor any other contributing factors such as an entrapment neuropathy unless he does the testing and he understands this and still refuses the EMG. Patient is already on Neurontin 400 mg 3 times daily. He is on Rolla which he does not feel is helping. We will go ahead and add in some Cymbalta and work up to 60 mg a day and see if that will help with his discomfort. He was counseled he needs to be very aggressive with the diabetic diet, proper exercise and weight loss. Patient has a previous history of obstructive sleep apnea but was unable to tolerate the CPAP machine. He states this was 15-20 years ago. We will go ahead and get a home sleep study to see how bad his apnea is and then decide if he needs a treatment after that. I am hopeful that new were machines and mass would be more comfortable for him. Patient does have underlying obesity and is not checking his sugars and he needs to try to lose weight and be in control of his sugars. Plan Patient refused EMG and he understands that I can not give him a more definitive diagnosis without it Lab work to look for causes of neuropathy Continue the gabapentin 400 mg 3 times a day Add in Cymbalta 30 mg daily for the next week or 2 and then can go up to twice a day Home sleep study to assess for severity of sleep apnea Be aggressive with diet exercise and diabetes control The patient was counseled on proper sleep hygiene and adequate hours of sleep. The patient was counseled on the risks of stroke, [place], and sudden with ANIYA, along with the need for compliance with the CPAP/BiPAP treatment. The diagnosis was all discussed with the patient. All questions were answered and they agreed with the treatment plan. Patient will call if there are any new issues or questions. Pt has been fully educated on their diagnosis, treatment options, follow up plan, and return instructions Return to clinic: 2 months documented in this encounterMineral Area Regional Medical [id number] Note From: LALO MCCOY DO To: [facility] Clinical Pool ([facility]); Sent: 09/08/2024 15:11:22 EST Subject: FW: Medication Management Due Date/Time: 09/09/2024 12:59:00 EST Caller Name: JONO MORALES; Caller Number: H From: [id number] To: LALO MCCOY DO Sent: September 08, 2024 11:59:47 AM TAPPER BIT Subject: Medication Management Due: September 09, 2024 12:09:00 AM TAPPER BIT On Hold Pending Signature Drug: gabapentin (gabapentin 400 mg oral capsule), 1 cap(s) Oral TID Quantity: 120 cap(s) Days Supply: 0 Refills: 0 Substitutions Allowed Notes from Pharmacy: Dispensed Drug: gabapentin (gabapentin 400 mg oral capsule), TAKE 1 CAPSULE BY MOUTH THREE TIMES DAILY Quantity: 120 cap(s) Days Supply: 40 Refills: 0 Substitutions Allowed Notes from Pharmacy: From: Fiordaliza Cordova To: [id number] Sent: 09/09/2024 09:19:46 EST Subject: FW: Medication Management Not Approved: proposed to provider gabapentin (gabapentin 400 mg capsule) TAKE 1 CAPSULE BY MOUTH THREE TIMES DAILY Qty: 120 cap(s) Days Supply: 40 Refills: 0 Substitutions Allowed Route To Pharmacy - [id number] Signed by Tasha [facility]02-12-2024 History of Present illness Narrative* Sampson Street DPM - 11/11/2023 2:00 PM EST Images from the original note were not included. Subjective Patient ID: Jasen Morales is a 68 y.o. male who presents for Nail Care ( Jasen Morales is a 68yo male patient presents for nail care. Pt relates Metanx has helped with his neuropathy. Dr. Mccoy BS 250 A1C SS 11.5). HPI This is an established patient who returns to clinic for follow up evaluation of Metanx therapy. Overall patient notes improvement with Metanx. Still has some burning sensations mostly on the right foot. Review of Systems Constitutional: Negative for activity change and appetite change. Respiratory: Negative for chest tightness and shortness of breath. Cardiovascular: Negative for chest pain. Endocrine: Negative for cold intolerance and heat intolerance. Musculoskeletal: Positive for arthralgias and gait problem. Skin: Negative for color change and wound. Allergic/Immunologic: Negative for immunocompromised state. Neurological: Positive for numbness. Negative for weakness. Hematological: Does not bruise/bleed easily. Psychiatric/Behavioral: Negative for agitation and behavioral problems. Medications Current Outpatient Medications: aspirin 81 MG EC tablet, Take 1 tablet by mouth in the morning., Disp: , Rfl: clopidogrel (Plavix) 75 MG tablet, Take 1 tablet by mouth in the morning., Disp: , Rfl: cyclobenzaprine (Flexeril) 10 MG tablet, Take 1 tablet by mouth in the morning and 1 tablet in the evening and 1 tablet before bedtime., Disp: , Rfl: HYDROcodone-acetaminophen (Rolla) 7.5-325 MG tablet, Take 1 tablet by mouth in the morning and 1 tablet before bedtime., Disp: , Rfl: ibuprofen 800 MG tablet, Take 1 tablet 3 times a day by oral route as needed., Disp: , Rfl: losartan (Cozaar) 25 MG tablet, Take 1 tablet by mouth in the morning., Disp: , Rfl: Tresiba FlexTouch 200 UNIT/ML injection, INJECT 60 UNITS SUBCUTANEOUSLY ONCE A DAY AT BEDTIME, Disp: , Rfl: Allergies Patient has no known allergies. Past Surgical History Past Surgical History: Procedure Laterality Date ANGIOPLASTY with stent x 11 CARPAL TUNNEL RELEASE Left 10/07/2019 Dr Yen HEMORRHOIDECTOMY HERNIA REPAIR Family History Family History Problem Relation Name Age of Onset Diabetes Mother Heart disease Father Objective Physical Exam Constitutional: General: He is not in acute distress. Appearance: He is obese. Cardiovascular: Comments: DP pulse: 1/4 PT pulse: 1/4 Skin temperature is warm to cool bilaterally Edema: Mild nonpitting edema bilateral lower extremities. Hemosiderin deposition to the anterior legs bilaterally. Pulmonary: Effort: Pulmonary effort is normal. No respiratory distress. Musculoskeletal: Cervical back: Neck supple. No rigidity. Comments: Pedal deformities: Pes planus morphology. Able to perform a double heel rise test bilaterally. Ankle dorsiflexion 0 degrees with the knee extended, flexed bilaterally. Mild hammertoe contractures bilaterally. Skin: Capillary Refill: Capillary refill takes 2 to 3 seconds. Comments: No significant lesions. Mild clinical mycosis bilaterally. Neurological: Mental Status: He is alert. Comments: Protective sensation intact at 5/10 pedal sites Vibratory sensation diminished at the 1st MTP bilaterally. Negative Tinel sign with percussion of the tibial nerves, superficial peroneal nerves, common peroneal nerves, deep peroneal nerves bilaterally. Negative straight leg raise test bilaterally. Psychiatric: Mood and Affect: Mood normal. Behavior: Behavior normal. Assessment/Plan ICD-10-CM 1. Diabetic polyneuropathy associated with type 2 diabetes mellitus (CMS/HCC) E11.42 2. Neuritis M79.2 Patient examined and evaluated. Overall he is made significant strides with Metanx therapy. At thistime I recommend that he continue the Metanx. Stressed the role of diet in diabetic control. Recommended whole food plant Centered diet. Discourage processed food consumption. Provided him with multiple resources regarding this recommendation. For now I will see him back as needed. This note was created with the assistance of a speech recognition program. While intending to generate a timely document that accurately reflects the content of the visit, no guarantee can be provided that every grammatical or spelling mistake has been or will be identified or corrected. Thank you for your understanding. 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, unspecified class, unspecified whether serious comorbidity present documented [facility] this encounter [facility]* Diagnosis ANIYA (obstructive sleep apnea) Obstructive sleep apnea (adult) (pediatric) documented in this encounter [facility]* Diagnosis ANIYA (obstructive sleep apnea)- Primary Obstructive sleep apnea (adult) (pediatric) Idiopathic peripheral neuropathy Unspecified hereditary and idiopathic peripheral neuropathy 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, unspecified class, unspecified whether serious comorbidity present documented [facility] this encounter [facility]* Diagnosis Coronary artery disease with history of percutaneous transluminal angioplasty (PTCA)- Primary Shortness of breath [facility] Diagnosis ANIYA (obstructive sleep apnea)- Primary Obstructive sleep apnea (adult) (pediatric) documented in this encounter [facility]* Diagnosis Melanocytic nevus of upper extremity, unspecified laterality- Primary Melanocytic nevus of trunk Benign neoplasm of skin of trunk, except scrotum Other atopic dermatitis Capillary angioma Nevus, non-neoplastic Lentigines Seborrheic keratosis Actinic keratosis documented in this encounter [facility]* Diagnosis Type 2 diabetes mellitus with hyperglycemia, with long-term current use of insulin (HCC)- Primary Encounter for dietary consultation Vitamin D deficiency Hyperlipemia, mixed Mixed hyperlipidemia Insulin long-term use (HCC) Encounter for long-term (current) use of insulin Primary hypertension Unspecified essential hypertension documented [facility] encounter [facility]* Diagnosis Coronary artery disease with history of percutaneous transluminal angioplasty (PTCA)- Primary Primary hypertension Unspecified essential hypertension documented in this encounter [facility] SystemInstructionsNot on filedocumented in this encounter [facility] SystemInstructionsNot on filedocumented in this encounter [facility] SystemInstructionsNot on filedocumented in this encounter [facility] SystemInstructionsNot on filedocumented in this encounter [facility] SystemInstructionsNot on filedocumented in this encounter [facility] SystemReason for visit Narrative* Other Medical (Routine) - ClosedSpecialtyDiagnoses / ProceduresReferred By ContactReferred To Contact Sleep Medicine / Osteopathic Medicine Diagnoses ANIYA (obstructive sleep apnea) Procedures Home sleep test Nicole Moon DO [address] [place] [address] Phone: tel: fax: Referral IDStatusReasonStart DateExpiration DateVisits RequestedVisits [id number] [facility] Summary Purpose Family History No Family History Records FoundNo Family History Records FoundNo Family History Records FoundNo Family History Records FoundNo Family History Records Found Advance Directives No Advanced Directives Records FoundNo Advanced Directives Records FoundNo Advanced Directives Records FoundNo Advanced Directives Records FoundNo Advanced Directives Records Found Additional Source Comments (unrecognized sect ion and content) No Status Records FoundNo Status Records FoundNo Status Records FoundNo Status Records FoundNo Status Records Found INFORMATION SOURCE (unrecogn ized section and content) DATE CREATED AUTHOR 09/21/2018 [facility] DATE CREATED AUTHOR AUTHOR'S ORGANIZ ATION 11/17/2022 [facility] DATE CREATED AUTHOR AUTHOR'S ORGANIZ ATION 04/16/2025 [facility] DATE CREATED AUTHOR AUTHOR'S ORGANIZ ATION 07/09/2025 [facility] DATE CREATED AUTHOR AUTHOR'S ORGANIZ ATION 07/19/2025 [facility] Reason for Visit (unrecogniz ed section and content) ReasonCommentsNail Paty Morales is a 68yo male patient presents for nail care. Pt relates Metanx has helped with hisneuropathy. Dr. cMcoy BS 250 A1C SS 11.5ReasonCommentshand and foot painSpecialtyDiagnoses / ProceduresReferred By ContactReferred To ContactNeurology Diagnoses Pain in left foot Pain in right foot Type 2 diabetes mellitus with other diabetic neurological complication (CMS/HCC) Plantar fascial fibromatosis Procedures KS NEEDLE EMG EA EXTREMTY W/PARASPINL AREA COMPLETE [place] NERVE CONDUCTION STUDIES 9-10 STUDIES Cristino Maldonado MD [address] [facility] [place] [address] Phone: tel: fax: Boby Betancourt MD [address] [place] [address] Phone: tel: fax: Referral IDStatusReasonStart DateExpiration DateVisits RequestedVisits [id number] Consult and Treat /[id number] Pain/Foot PainSleep ApneaReasonComments New PatientNP REFERRAL DR BrownSpecialtyDiagnoses / ProceduresReferred By ContactReferred To ContactCardiology Diagnoses Coronary artery disease with history of percutaneous transluminal angioplasty (PTCA) Lalo Mccoy, [address] [place] [address] Phone: tel: fax: Bertin Srinivasan MD [address] [address] Phone: tel: fax: Referral IDStatusReasonStart DateExpiration DateVisits RequestedVisits [id number] Review Specialty Services Required /[id number]ShstahpnCofiwingBidqwk-xzIsxhtn CommentsFollow-upOV F/U 6 MO ECHO, STRESS NOT DONE DT COST L/S MAS, SCHED W/PT Care Teams (unrecognized sec tion and content) Team MemberRelationshipSpecialtyStart DateEnd Lalo Mccoy MD [address] [place] [address] PCP - GeneralFamily Fflkytzo09/11/23Team MemberRelationshipSpecialtyStart Date End Date Lalo Mccoy MD [address] [place] [address] PCP - GeneralFamily Bqjtszjx55/11/23Team MemberRelationshipSpecialtyStart Date End Date Lalo Mccoy MD [address] [place] [address] PCP - GeneralFamily Ndhqqfbs15/11/23Team MemberRelationshipSpecialtyStart Date End Lalo Mccoy MD [address] [place] [address] PCP - GeneralFamily Hwgthuyz81/11/23 Nicole Moon DO [address] [place] [address] Referring PhysicianNeurolog10/13/24 Kaelyn Good NP [address] [place], [place] Nurse PractitionerNeurolog10/13/24Team MemberRelationshipSpecialtyStart DateEnd Lalo Mccoy DO PCP - GeneralFamily Medicine10/01/19Team MemberRelationshipSpecialtyStart End Lalo Mccoy MD [address] [place] [address] PCP - GeneralFamily Vhfassmr01/11/23 Nicole Moon DO [address] [place] [address] Referring PhysicianNeurolog10/13/24 Kaelyn Good NP [address] [place], [place] Nurse PractitionerNeurolog10/13/24Team MemberRelationshipSpecialtyStart DateEnd Lalo Mccoy MD [address] [place] [address] PCP - GeneralFamily Feaxvlig37/11/23 Nicole Moon DO [address] [place] [address] Referring PhysicianNeurolog10/13/24 Kaelyn Good NP [address] [place], [place] Nurse PractitionerNeurolog10/13/24Team MemberRelationshipSpecialtyStart Lalo Hughes DO PCP - GeneralFamily Medicine10/01/19Team MemberRelationshipSpecialtyStart Lalo Hughes DO PCP - GeneralFamily Medicine10/01/19Team MemberRelationshipSpecialtyStart Lalo Hughes MD [address] [place] [address] PCP - GeneralFamily Kkpvlrwv39/11/23 Nicole Moon DO [address] [place] [address] Referring PhysicianNeurolog10/13/24 Kaelyn Good NP [address] [place], [place] Nurse PractitionerNeurolog10/13/24Team MemberRelationshipSpecialtyStLalo Ambrose MD [address] [place] [address] PCP - GeneralFamily Zlftoptz14/11/23 Nicole Moon DO [address] [place] [address] Referring PhysicianNeurolog10/13/24 Kaelyn Good NP [address] [place], [place] Nurse PractitionerNeurolog10/13/24Team MemberRelationshipSpecialtyStart Date[facility] Lalo Mccoy MD [address] [place] [address] PCP - GeneralFamily Xwpgmjpa55/11/23 Nicole Moon DO [address] [place] [address] Referring PhysicianNeurolog10/13/24 Kaelyn Good NP [address] Nurse PractitionerNeurolog10/13/24Team MemberRelationshipSpecialtyStart Date[facility] Lalo Bhagat DO PCP - GeneralFamily Medicine10/01/19Team MemberRelationshipSpecialtyStart DateLalo Rai MD [address] [place] [address] PCP - GeneralFamily Tkipcsqe34/11/23 Nicole Moon DO [address] [place] [address] Referring PhysicianNeurolog10/13/24 Kaelyn Good NP [address] [place] [address] Nurse PractitionerNeurology1//25Team MemberRelationshipSpecialtyStart DateEnd Date Lalo Mccoy MD [address] [place] [address] PCP - GeneralFamily Ozxnpzli03/11/23 Nicole Moon DO [address] [place] [address] Referring PhysicianNeurolog10/13/24 Kaelyn Good NP [address] [place] [address] Nurse PractitionerNeurolog10/13/24Te MemberRelationshipSpecialtyStart DateEnd Date Lalo Mccoy DO PCP - GeneralFamily Medicine10/01/19Team MemberRelationshipSpecialtyStart DateEnd Lalo Bhagat DO PCP - Generalmily Medicine10/01/19 FOR RECORDS PERTAINING TO PATIENTS WHO ARE OR HAVE BEEN ENROLLED IN A CHEMICAL DEPENDENCY/SUBSTANCEABUSE PROGRAM, SOME INFORMATION MAY BE OMITTED. This clinical summary was aggregated from multiple sources. Caution should be exercised in using it in the provision of clinical care. This summary normalizes information from multiple sources, and as a consequence, information in this document may materially change the coding, format and clinical context of patient data. In addition, data may be omitted in some cases. CLINICAL DECISIONS SHOULD BE BASED ON THE PRIMARY CLINICAL RECORDS. [employer] provides no warranty or guarantee of the accuracy or completeness of information in this document.
--- OUTSIDE RECORDS SUMMARY | 2025-07-22 16:58 | XMS_ITS | Clinical Summary ---
Author Organization [facility] Address [address] [place] [address] Care Team Providers Care Tree And Shrub Technician Name Role Phone House Sr., Lalo MOLINA Primary Care Provider + Vignesh Lemuel Correia DO Unavailable [phone] Allergies No known active allergies Medications MedicationSigDispense QuantityRefillsLast FilledStart DateEnd DateStatus VITAMIN B COMPLEX ORAL Take by mouth once daily.Active MULTI-VITAMIN ORAL Take by mouth once daily.Active LORazepam (ATIVAN) 0.5 mg tab Take 0.25 mg by mouth at bedtime as needed.Active aspirin, enteric coated 81 mg EC tablet Take 1 tablet by mouth once daily. 90 tablet ctive Blood Pressure Monitor kit 1 Kit once daily. 1 Kit ctive metoprolol succinate ER (TOPROL XL) 50 mg 24 hr tablet Take 1 tablet by mouth daily at bedtime. 90 tablet ctive HYDROCODONE/ACETAMINOPHEN (NORCO ORAL) Take by mouth as needed.Active metFORMIN (GLUCOPHAGE) 500 mg tablet Take 500 mg by mouth daily with breakfast.Active ibuprofen (MOTRIN) 800 mg tablet Take 800 mg by mouth as needed.Active losartan (COZAAR) 50 mg tablet Take 1 tablet by mouth once daily. 90 tablet ctive Additional Information Patient taking differently: 25 mgORAL DAILY, Reported on 01/24/2016 methylPREDNISolone (MEDROL DOSE-PACK) 4 mg Dose-Pack Take by mouth once daily. As Instructed per packageActive rosuvastatin (CRESTOR) 5 mg tablet Take 1 tablet by mouth daily at bedtime. 90 tablet Active amLODIPine (NORVASC) 2.5 mg tablet Take 1 tablet by mouth once daily. 90 tablet Active Active Problems ProblemNoted DateDiagnosed DateIron deficiency anemia due to sideropenic xqgujngjf50/28/2015Mixed tbtojppwgshwpc19/28/2015Coronary artery disease involving paskenta coronary artery of paskenta heart without angina pectoris 09/26/2015OSA (obstructive sleep apnea)12/14/20131975XWQULXA92/15/2014 Overview (12/14/2013): 58M w/ cardiac risk factors of HLD, HTN, obesity (BMI 36), CAD (7 stents) last CHAN to mid/proximal RCA 11/2012, PVD, FHx cardiac disease (CAD, mother, and father [place] age 39, sister, brother), past smoker (1ppd x10y, quit 1997), admitted 12/11/13 for chest pain similar to previous angina, HTN urgency. Rule out recurrent CAD. Primary egpoclptnxch47/15/2014HLD (hyperlipidemia)12/12/2013 Overview (12/14/2013): - continue crestor 5 mg daily (has had intolerance to higher doses in past with muscle aches/pains) CAD (coronary artery disease)07/28/2013 Overview (12/14/2013): - CAD s/p 7 stents - first stent 2008 [facility] x1, subsequent multiple repeat Cs wo intervention (OSH records pending) - 12/17/2012 ([place], [place]) had 2 RCA stents + 4 overlapping stents d/t dissection in proximal RCA ([place], [place]). S/P coronary artery stent /29/2013Metabolic wfjgedlv30/29/2013 Resolved Problems ProblemNoted DateDiagnosed DateResolved DateUnstable agemcx05 Overview (12/14/2013): - no cardiac sx after RCA stent x6 in 11/2012 until 3-4w ago - 3-4w h/o developed exertional retrosternal chest heaviness/pressure similar to CP prior to past stents, improves w/ rest, but relatively constant, 2-3/10, a/w SOB, - 3-4w h/o progressive fatigue/weakness/SOB over past 3-4 weeks, worst over past several days - progressive SOB now with 1 flight of stairs or 200 yards, ankle swelling b/l at end of day, +2-3 pillow orthopnea (past 2 years), +PND (few weeks). - 314 AM, noted worsening retrosternal CP 10/10 with exertion at work, new radiation to jaw and both shoulders/arms (L>R), a/w worsened SOB, diaphoresis, lightheadedness - VSS (BP 114/83, SpO2 97-99) upon transfer to OSH where given SL NTG, ASA, O2, pain moderately improved. - EKG -ve, Antoinette -ve - CXR no acute cardiopulmonary disease, mild scarring vs atelectasis in lateral left lung base. - repeat EKG at [facility] -ve for acute ischemic changes Plan - continue ASA, plavix, heparin gtt, metoprolol, captopril and statin - Titrate captopril for better BP control - [facility] on 12/14 DVT htpmyxkzkhi37 Overview (12/13/2013): - therapeutic heparin Xvajvmypghrp90 Family History Medical HistoryRelationCommentsCoronary Artery DiseaseBrother 6HeartBrother 7 CancerBrother 8Coronary Artery DiseaseFatherHeartFatherdied at age 39 with mi Coronary Artery DiseaseMotherstrokeDiabetesMotherStrokeMotherCoronary Artery DiseaseSister 5HeartSister 6RelationStatusCommentsBrother 1Deceased (Age 52) cancerBrother 2AliveBrother 3AliveBrother 4AliveBrother 5AliveBrother 6Brother 7 Brother 8FatherDeceased (Age 39)MIMotherDeceased (Age 76)strokesSister 1Alive Sister 2AliveSister 3AliveSister 4AliveSister 5Sister 6 Social History Tobacco UseTypesPacks/DayYears UsedDateSmoking Tobacco: BjojzuQegdtircvp228 07/28/1972 - 07/28/1998Alcohol UseStandard Drinks/WeekCommentsNo0 (1 standard drink = 0.6 oz pure alcohol)Sex and Gender InformationValueDate RecordedSex Assigned at BirthNot on fileLegal BspWlai8212/11/2013 12:23 PM EDTGender Identity Not on fileSexual OrientationNot on fileOccupationIndustryJob Start DateJob 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 electricianNot on fileNot on fileNot on file Last Filed Vital Signs Vital SignReadingTime TakenCommentsBlood Usizbkof151/9301/24/2016 10:40 AM EDT Vmpge513701/24/2016 10:40 AM HHUBimgzksbqdc37.4 ??C (97.5 ??F)01/24/2016 10:40 AM EDTRespiratory Oeaw197101/24/2016 10:40 AM EDTOxygen Nzvngohizx18%01/24/2016 10:40 AM EDTInhaled Oxygen Concentration--Wzaggr563.5 kg (237 lb)01/24/2016 10:40 AM DJZXzvmad396.2 cm (5' 7 )01/24/2016 10:40 AM EDTBody Mass Index37.12001/24/2016 10:40 AM EDT Plan of Treatment Health MaintenanceDue DateLast DoneCommentsAbdominal Aortic Aneurysm Screening 4Anxiety Gvxsirjpx37/17/1972Depression Oaqwumbnv56/17/1972Hepatitis C Fauhhrxjz86/17/1972DTaP,Tdap,Td Vaccine (1 - Tdap)1973CT Colonography 1999Cologuard (FIT-DNA)02/13/19995352Llyrjwbsqaf39/17/1999Colorectal Cancer Mfwpdqohs49/17/1999Fecal Occult Blood02/13/19995245Veoxgxvzusypf88/17/1999 Pneumococcal Vaccine: 50+ (1 of 1 - PCV)02/14/2004Shingrix Vaccine (1 of 2) 02/14/2004Diabetes Dvzpeksoj01, 12/13/2013, 12/12/2013, Additional history existsLipid Xykdkjfey76dvance Directive Zvcxuxidtq71/01/2025ovid-19 Vaccine (1 - 2024- season)2025Influenza Vaccine (#1)2025RSV Vaccine (1 - 1-dose 75+ series)2029 Procedures Procedure NamePriorityDate/TimeAssociated DiagnosisCommentsBASIC METABOLIC PANEL Mjwblkh49/ 5:04 AM EDT LIPID PANEL, UPTKNGZYrutabd61/15/2014 5:31 AM EDT from Last 3 Months or Most Recently Relevant to Health Maintenance Results * BASIC METABOLIC PNL (12/14/2013 5:04 AM EDT)ComponentValueRef RangeTest Method Analysis TimePerformed AtPathologist BckewwojvRazzpso8524 - 100 mg/dL[facility] VRWSBSQRUDFXM9743 - 25 mg/dLTHE [facility] Creatinine0.710.70 - 1.40 mg/dL[facility] FRBOLAQWHETzjucc099460 - 146 mmol/LCMERCY [facility] LABORATORYPotassium3.83.5 - 5.0 mmol/L [facility] IJASITKZSVZnhazgpe24522 - 110 mmol/LCMERCY HEALTH [facility]IRFIELD [facility] IVEIGSZFTTHE81779 - 32 mmol/LCMERCY HEALTH FAIRFIELD [facility]ITAL LABORATORYAnion Mvr428 - 15 mmol/LCMERCY [facility]ALTH [facility]IRFIELD [facility] LABORATORYCalcium9.48.5 - 10.5 mg/dLTHE [facility] LABORATORYSpecimen (Source)Anatomical Location / Laterality Collection Method / VolumeCollection TimeReceived TimeBlood specimen (specimen)BLOOD SPECIMEN / Swcpylm2712/14/2013 5:04 AM EDT12/14/2013 5:05 AM EDT Narrative Authorizing ProviderResult TypeResult StatusRichard A KrasuskiLABORATORYFinal ResultPerforming OrganizationAddressCity/State/ZIP CodePhone Number [facility] [address] [address] * (ABNORMAL) LIPID PANEL BASIC (12/12/2013 5:31 AM EDT)ComponentValueRef Range Test MethodAnalysis TimePerformed AtPathologist CdnatbzgvIericrldmbrx897(H)30 - 149 mg/dLTHE [facility] LABORATORYCholesterol, Fprnb195(H)100 - 199 mg/dLTHE [facility] LABORATORYHDL Jqyuapjuyqy10(L)>45 mg/dLTHE [facility] LABORATORYVLDL Ltugypotmxe360 - 40 mg/dLTHE [facility] LABORATORYLDL Cholesterol, Vtxokwqrol135(H)60 - 129 mg/dLTHE [facility] LABORATORYFasting TimeUnknownhrsTHE [facility] LABORATORYTC:HDL Ratio 6.45(H)1.00 - 5.00[facility] LABORATORYLDL:HDL Ratio4.30(H)0.50 - 3.55[facility] LABORATORYNon HDL Pfmnfqszbct355(H)90 - 159 mg/dL [facility] LABORATORYSpecimen (Source)Anatomical Location / LateralityCollection Method / VolumeCollection TimeReceived Time12/12/2013 5:31 AM EDT12/12/2013 5:35 AM EDT Narrative Authorizing ProviderResult TypeResult StatusRichard A KrasuskiLABORATORYFinal ResultPerforming OrganizationAddressCity/State/ZIP CodePhone Number [facility] [address] [place] [address] from Last 3 Months or Most Recently Relevant to Health Maintenance Insurance Care Teams Team MemberRelationshipSpecialtyStart DateEnd Lalo Marshall Sr., DO PCP - GeneralFamily Rmxnnltc67/22/13 Lemuel Medellin DO Primary Staff PhysicianCardiology12/16/18
--- OUTSIDE RECORDS SUMMARY | 2025-07-23 11:06 | XMS_ITS | Clinical Summary ---
Author Organization [facility] Address [address] [place] [address] Care Team Providers Care It Auditor Name Role Phone House Sr., Lalo MOLINA Primary Care Provider + Vignesh Lemuel Correia DO Unavailable [phone] Allergies No known active allergies Medications [...] DateDiagnosed DateIron deficiency anemia due to sideropenic jqzhwolfc02/28/2015Mixed iaezvwxgyovxli56/28/2015Coronary artery disease involving alutiiq coronary artery of alutiiq heart without angina pectoris 09/26/2015OSA (obstructive sleep apnea)12/14/20139223EKMWNHS82/15/2014 Overview (12/14/2013): 58M w/ cardiac risk factors of HLD, HTN, obesity (BMI 36), CAD (7 stents) last CHAN to mid/proximal RCA 11/2012, PVD, FHx cardiac disease (CAD, mother, and father [place] age 39, sister, brother), past smoker (1ppd x10y, quit 1997), admitted 12/11/13 for chest pain similar to previous angina, HTN urgency. Rule out recurrent CAD. Primary qkjrfopqmftl13/15/2014HLD (hyperlipidemia)12/12/2013 Overview (12/14/2013): - continue crestor 5 mg daily (has had intolerance to higher doses in past with muscle aches/pains) CAD (coronary artery disease)07/28/2013 Overview (12/14/2013): - CAD s/p 7 stents - first stent 2008 [facility] x1, subsequent multiple repeat Cs wo intervention (OSH records pending) - 12/17/2012 ([place], [place]) had 2 RCA stents + 4 overlapping stents d/t dissection in proximal RCA ([place], [place]). S/P coronary artery stent uzzcfpral82/29/2013Metabolic ubeyeamz51/29/2013 Resolved Problems ProblemNoted DateDiagnosed DateResolved DateUnstable ntnctu53 Overview (12/14/2013): - no cardiac sx after [...] Titrate captopril for better BP control - [facility] on 12/14 DVT azauakdlvix79 Overview (12/13/2013): - therapeutic heparin Nhyzwrbehhbb75 Family History Medical HistoryRelationCommentsCoronary Artery DiseaseBrother 6HeartBrother 7 CancerBrother 8Coronary Artery DiseaseFatherHeartFatherdied at age 39 with mi Coronary Artery DiseaseMotherstrokeDiabetesMotherStrokeMotherCoronary Artery DiseaseSister 5HeartSister 6RelationStatusCommentsBrother 1Deceased (Age 52) cancerBrother 2AliveBrother 3AliveBrother 4AliveBrother 5AliveBrother 6Brother 7 Brother 8FatherDeceased (Age 39)MIMotherDeceased (Age 76)strokesSister 1Alive Sister 2AliveSister 3AliveSister 4AliveSister 5Sister 6 Social History Tobacco UseTypesPacks/DayYears UsedDateSmoking Tobacco: XxzfhyRjdxruxdpy675 07/28/1972 - 07/28/1998Alcohol UseStandard Drinks/WeekCommentsNo0 (1 standard drink = 0.6 oz pure alcohol)Sex and Gender InformationValueDate RecordedSex Assigned at BirthNot on fileLegal UsyUepq6912/11/2013 12:23 PM EDTGender Identity Not on fileSexual OrientationNot on fileOccupationIndustryJob Start DateJob 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 electricianNot on fileNot on fileNot on file Last Filed Vital Signs Vital SignReadingTime TakenCommentsBlood Eofqyrct506/9301/24/2016 10:40 AM EDT Xjpsi485301/24/2016 10:40 AM SFBWvmowxwkxvd22.4 ??C (97.5 ??F)01/24/2016 10:40 AM EDTRespiratory Jlzx643601/24/2016 10:40 AM EDTOxygen Vtrwyowkkk99%01/24/2016 10:40 AM EDTInhaled Oxygen Concentration--Obllst154.5 kg (237 lb)01/24/2016 10:40 AM AHNRlwqba276.2 cm (5' 7 )01/24/2016 10:40 AM EDTBody Mass Index37.12001/24/2016 10:40 AM EDT Plan of Treatment Health MaintenanceDue DateLast DoneCommentsAbdominal Aortic Aneurysm Screening 4Anxiety Ykmmprycm00/17/1972Depression Oimbgfrfd71/17/1972Hepatitis C Ytpsmxsoy54/17/1972DTaP,Tdap,Td Vaccine (1 - Tdap)1973CT Colonography 1999Cologuard (FIT-DNA)02/13/19995560Ovypixwieho19/17/1999Colorectal Cancer Ebmhkpjbq84/17/1999Fecal Occult Blood02/13/19990940Jsxfclfncodfn58/17/1999 Pneumococcal Vaccine: 50+ (1 of 1 - PCV)02/14/2004Shingrix Vaccine (1 of 2) 02/14/2004Diabetes Ezemcfstb20, 12/13/2013, 12/12/2013, Additional history existsLipid Gckezfeaw22dvance Directive Hnygfznqmd56/01/2025ovid-19 Vaccine (1 - 2024- season)2025Influenza Vaccine (#1)2025RSV Vaccine (1 - 1-dose 75+ series)2029 Procedures Procedure NamePriorityDate/TimeAssociated DiagnosisCommentsBASIC METABOLIC PANEL Tmnsyka28/ 5:04 AM EDT LIPID PANEL, LJCZPYBBbnpgbi68/15/2014 5:31 AM EDT from Last 3 Months or Most Recently Relevant to Health Maintenance Results * BASIC METABOLIC PNL (12/14/2013 5:04 AM EDT)ComponentValueRef RangeTest Method Analysis TimePerformed AtPathologist TpszoxzetZfpniat8485 - 100 mg/dL[facility] CVXFBZGUMGDMZ7486 - 25 mg/dLAD[facility] Creatinine0.710.70 - 1.40 mg/dLAD[facility] HQTJEYFNLEGifyfk449186 - 146 mmol/LCHOLZER HOSPITAL LABORATORYPotassium3.83.5 - 5.0 mmol/L [facility] JTHFCRKCWSAsbduefe54499 - 110 mmol/LCHOLZER [facility] QPFZAPMIEDJG35420 - 32 mmol/LCHOLZER HOSPITAL LABORATORYAnion Myf870 - 15 mmol/LCHOLZER HOSPITAL LABORATORYCalcium9.48.5 - 10.5 mg/dLAD[facility] LABORATORYSpecimen (Source)Anatomical Location / Laterality Collection Method / VolumeCollection TimeReceived TimeBlood specimen (specimen)BLOOD SPECIMEN / Rgqxauy6012/14/2013 5:04 AM EDT12/14/2013 5:05 AM EDT Narrative Authorizing ProviderResult TypeResult StatusRichard A KrasuskiLABORATORYFinal ResultPerforming OrganizationAddressCity/State/ZIP CodePhone Number [facility] [address] [place] [address] * (ABNORMAL) LIPID PANEL BASIC (12/12/2013 5:31 AM EDT)ComponentValueRef Range Test MethodAnalysis TimePerformed AtPathologist XigndgshiViwmlpgiieox602(H)30 - 149 mg/dLAD[facility] LABORATORYCholesterol, Vxmoa280(H)100 - 199 mg/dLAD[facility] LABORATORYHDL Zqfwputrauj55(L)>45 mg/dLAD[facility] LABORATORYVLDL Qnqvcdjiyhq381 - 40 mg/dLAD[facility] LABORATORYLDL Cholesterol, Qnehwliync001(H)60 - 129 mg/dLAD[facility]ET[facility] LABORATORYFasting TimeUnknownhrsAD[facility] LABORATORYTC:HDL Ratio 6.45(H)1.00 - 5.00[facility] LABORATORYLDL:HDL Ratio4.30(H)0.50 - 3.55[facility] LABORATORYNon HDL Ddzeacbdtqp029(H)90 - 159 mg/dL [facility] LABORATORYSpecimen (Source)Anatomical Location / LateralityCollection Method / VolumeCollection TimeReceived Time12/12/2013 5:31 AM EDT12/12/2013 5:35 AM EDT Narrative Authorizing ProviderResult TypeResult StatusRichard A KrasuskiLABORATORYFinal ResultPerforming OrganizationAddressCity/State/ZIP CodePhone Number [facility] [address] [place] [address] from Last 3 Months or Most Recently Relevant to Health Maintenance Insurance Care Teams Team MemberRelationshipSpecialtyStart DateEnd Lalo Marshall Sr., DO PCP - GeneralFamily Aaqellgq71/22/13 Lemuel Medellin DO Primary Staff PhysicianCardiology12/16/18
--- OUTSIDE RECORDS SUMMARY | 2025-07-23 11:06 | XMS_ITS | Clinical Summary ---
Author Organization [facility] Address [id number] [address] [place] [address] Care Team Providers Care Human Resources Project Coordinator Name Role Phone Lalo Marshall DO Primary Care Provider [phone] Allergies Active AllergyReactionsCriticalityNoted BcrfZryschiwXfvnjpmftoTzzr60/03/2025 Other Reaction(s): Suicidal ideation Medications MedicationSigDispense QuantityRefillsLast [...] tympanic membrane of both ears07/28/2019Middle ear effusion, rlxyesmiu87/17/2019Dysfunction of both eustachian tubes01/14/2019 Bilateral hearing loss01/14/2019 Encounters DateTypeDepartmentCare EltwYhxjqpnxmgs71/07/2025 2:00 PM EDTOffice Visit [facility] [address] [place] [phone] Roxanna Diop MD Coronary artery disease with history of percutaneous transluminal angioplasty (PTCA) (Primary Dx); Primary fgchbwfpkusw65/07/3777Pvbclv83/06/2025Telephone [facility] [address] [place] [phone] Sandra Langston MA from Last 3 Months Family History Medical HistoryRelationNameCommentsHeart diseaseBrotherHeart attackFatherHeart diseaseFatherStrokeMotherHeart diseaseSisterRelationNameStatusCommentsBrother AliveFatherDeceasedMotherDeceasedSisterAlive Social History Tobacco UseTypesPacks/DayYears UsedDateSmoking Tobacco: FormerSmokeless Tobacco: Never Comments:2009 quit Alcohol UseStandard Drinks/WeekCommentsNever0 (1 standard drink = 0.6 oz pure alcohol)AUDIT-CAnswerDate RecordedFrequency of Alcohol ConsumptionNever 01/14/2019Average Number of DrinksNot on file01/14/2019Frequency of Binge DrinkingNot on file01/14/2019ChildcareAnswerDate RecordedChildcareUnknown 03/11/2019EmploymentAnswerDate PmzscfiiXctzdarhwaXqtqrbg25/12/2019Hunger ScreeningAnswerDate RecordedWithin the past 12 months we worried whether our food would run out before we got money to buy more.Never True07/06/2025Within the past 12 months the food we bought just didn't last and we didn't have money to get more.Never True07/06/2025Purpose - LifeAnswerDate RecordedPurpose and direction in upqqLwvetip76/11/2021ex and Gender InformationValueDate Recorded Sex Assigned at BirthNot on fileLegal IgiAnsk8905/05/2015 11:51 AM EDTGender IdentityNot on fileSexual OrientationNot on file Last Filed Vital Signs Vital SignReadingTime TakenCommentsBlood Kvaxfaxw293/5977007/06/2025 1:52 PM EDT Jixcn498807/06/2025 1:52 PM ZRVMkfcrqkgxof14.1 ??C (97 ??F)02/21/2021 12:11 PM EDT Respiratory Ymgn173802/21/2021 1:08 PM EDTOxygen Rkvhnwwjcr31%07/06/2025 1:52 PM EDTInhaled Oxygen Concentration--Hoclxi05 kg (194 lb)07/06/2025 1:52 PM EDT Zkotpc085.2 cm (5' 7 )07/06/2025 1:52 PM EDTBody Mass Index30.381 1:52 PM EDT Plan of Treatment DateTypeDepartmentCare Team (Latest Contact Info)Ocphunaaspx48/27/2025 2:00 PM EDTAppointment [facility] [place] [address] [place] [phone] Cirilo Banegas MD [address] [place] [address] Health MaintenanceDue DateLast DoneCommentsDiabetic Ophthalmology Exam1954 Statin Use: Admpgatoqdwxkr1954Statin Use: Xckfguhq1954epression Tfpwsuzbw31/17/1966Adult BMI Follow Up Plan02/14/1972Diabetic Foot Exam 02/14/1972DTaP,Tdap and Td Vaccines (1 - Tdap)1973Zoster (Shingles) Vaccine (1 of 2)02/14/2004Abdominal Aortic Aneurysm (AAA) Abdzkw9202/13/2019Fall Risk Psufgxrov24/17/2019COVID-19 Vaccine ( season)2025 10/10/2021, 12/05/2020Influenza Ptveaqh5005/31/2025dult BMI Sxmhmcqjr69/07/2026 07/06/2025Tobacco Vcrwdapmj28 Medical Devices Not on file Insurance Care Teams Team MemberRelationshipSpecialtyStart DateEnd Date Lalo Marshall DO [facility]10/01/19
--- OUTSIDE RECORDS SUMMARY | 2025-07-23 11:06 | XMS_ITS | Clinical Summary ---
Author Organization [facility] Address [address] [place] [address] Care Team Providers Care Professional Sports Scout Name Role Phone Carla Moon DO Unavailable Kaelyn Good STUDIO TECHNICIAN VIDEO OPERATOR Unavailable [phone] Lalo Marshall MD Primary Care Provider [phone] Allergies Active AllergyReactionsCriticalityNoted KdtmJvzfrjkwZqieggpjpyEmsj94/03/2025 Other Reaction(s): Suicidal ideation Insulin Aspart (Human Analog) (Yeast)DlsetLjqq28/17/2025 Chest pain Medications MedicationSigDispense QuantityRefillsLast FilledStart DateEnd DateStatus HYDROcodone-acetaminophen ([place]) 7.5-325 MG tablet Take 1 tablet by [...] Active Problems ProblemNoted DateDiagnosed DateMixed hearing loss, yblniomda65/19/2024ETD (Eustachian tube dysfunction), wmipdyzfa33/19/2024Foreign body of both ears 03/18/2024rthritis of left hand3Carpal tunnel jkrxdyvo79/11/2023 Bilateral hearing loss01/14/2019Mixed xnyvrwvahphaab94/28/2015Primary myyggotoqytx48/15/2014S/P coronary artery stent plyfvtqkh31/29/2013Coronary zaswdyuwfmhwaxi79/28/2013Heart qlkgday5111/19/2012 Immunizations ImmunizationAdministration DatesNext DueJanssen ABAK-DyA-453/08/2021Pfizer Purple Cap SARS-CoV-2 Gupvhutmuzz40/11/2022 Family History Medical HistoryRelationNameCommentsSkin cancerBrotherx 6, 1 decHeart disease FatherDiabetesMotherMelanomaNeg HxRelationNameStatusCommentsBrotherx 6, 1 dec Daughterx 1AliveFatherDeceasedMotherDeceasedSonx 1Alive Social History Tobacco UseTypesPacks/DayYears UsedDateSmoking Tobacco: FormerCigarettesQuit: 2000 Tobacco Cessation:Counseling Given: Not Answered Alcohol UseStandard Drinks/WeekCommentsNot Currently0 (1 standard drink = 0.6 oz pure alcohol)15 years cleanSex and Gender InformationValueDate RecordedSex Assigned at BirthNot on fileLegal YtyPxxp7212/12/2022 7:05 PM EDTGender Identity Not on fileSexual OrientationNot on file Last Filed Vital Signs Vital SignReadingTime TakenCommentsBlood Mgfgzbgl248/9007 2:13 PM EDT Jlfwk015704/12/2025 2:13 PM EDTTemperature--Respiratory Xvkn390404/12/2025 2:13 PM EDTOxygen Kmzjvtqqcz89%04/12/2025 2:13 PM EDTInhaled Oxygen Concentration-- Znyzkw66.6 kg (202 lb)04/12/2025 2:13 PM RJWHgzgsg622.2 cm (5' 7 )04/12/2025 2:13 PM EDTBody Mass Index31.6407 2:13 PM EDT Plan of Treatment DateTypeDepartmentCare Team (Latest Contact Info)Rslvneupfqc95/28/2025 1:40 PM EDTOffice Visit [facility] [address] [place] [id number] Claudia Ferreira MD [address] [place] [address] 10/11/2025 2:00 PM ESTOffice Visit [facility] [address] [place] [address] Garo Barbour MD [address] [place] [address] 01/11/2026 2:35 PM EDTOffice Visit [facility] [address] [place] [address] Jessica Sheehan APRN-BARREL FINISHER [address] [place] [address] Health MaintenanceDue DateLast DoneCommentsCT Xqgtmgfplisr1954Colonoscopy 4Colorectal Cancer Bweznaaoy1954FIT-DNA1954FIT1954 FOBT1954 9981Ghehqwbbzpbte1954Pneumococcal Vaccine: 65+ Years (1 of 1 - PCV)02/14/2004Influenza Vaccine (#1)2025 Medical Devices ImplantedTypeAreaManufacturerDevice IdentifierShelf Expiration DateModel / Serial / [id number] Implanted:Qty: 11StentN/A: Heart Insurance Care Teams Team MemberRelationshipSpecialtyStart DateEnd Date Lalo Marshall MD [address] [place] [address] PCP - GeneralFamily Xueelmwc42/22/25 Carla Moon DO [address] [place] [address] Referring PhysicianNeurolog10/13/24 Kaelyn Good NP [address] [place] [address] Nurse PractitionerNeurolog10/13/24
--- OUTSIDE RECORDS SUMMARY | 2025-07-23 11:12 | XMS_ITS | CCD ---
Author Organization [facility]iniSyn[facility] Care Team Providers Care Branch Account Executive Name Role Phone PHYSICIAN, DEFAULT Unavailable Unavailable PHYSICIAN, DEFAULT Unavailable Unavailable HOUSE, LALO Unavailable Unavailable TRISHA, DR CARTER White Consulting Unavailabl e TRISHA, DR CARTER White Attending Unavailabl e TRISHA, DR CARTER White Admitting Unavailabl e HOUSE, DR ROCHE Primary Care Unavailable [facility], MARCIO Consulting Unavailable HOUSE, DR ROCHE Primary Care Unavailable HOUSE, DR ROCHE Consulting Unavailable HOUSE, DR ROCHE Attending Unavailable HOUSE, DR ROCHE Admitting Unavailable House Lalo SAMUELS Primary Care Provider Nicole Moon DO Unavailable Florentino FOUR CORNER STAYER MACHINE OPERATOR, Kaelyn Unavailable [phone] House Lalo MOLINA Primary Care Provider House Lalo MOLINA Primary Care Provider Florentino FOUR CORNER STAYER MACHINE OPERATOR, Kaelyn Unavailable GARO BARBOUR Attending Unavailable NICOLE MOON Attending Unavailable CRISTINO MALDONADO Referring Unavailable SHIVAM SHEEHAN Attending Unavailable GARO BARBOUR Attending Unavailable GARO BARBOUR Referring Unavailable KAELYN GOOD Attending Unavailable NICOLE MOON Referring Unavailable ULYSSES OVERTON Attending Unavailable KATHY GARCIA Attending Unavailable HOUSE, LALO Osorio Referring Unavailable [...] ClassificationReported Allergen(s)Allergy TypeDate of OnsetReaction(s) Facility (1 source)98734,00; Translations: [45113,00]Propensity to adverse reactions (disorder)17-40-7037Jxa [facility] Repository (19 sources)DULoxetine; Translations: [DULOXETINE]Drug Duydzda08-28-6084DQRF Healthcare (3 sources)insulin aspart, humanDrug Mzoduea80-21-7951EahtiGLVA Healthcare Medications Current Medications MedicationDrug Class(es)DatesSig (Normalized)Sig (Original)acetaminophen 325 mg / HYDROcodone bitartrate 7.5 mg oral tablet (20 sources)Opioid AgonistStart: 40-91-0053jcmc 1 tablet by mouth in the morning HYDROcodone-acetaminophen ([place]) 7.5-325 MG tablet Take 1 tablet by mouth in the morning and 1 tablet before bedtime. 05/09/2023 Activetake 2 tablets by mouth every six hours as neededHYDROcodone-acetaminophen ([place]) 7.5-325 mg per tablet Take 2 tablets by mouth every 6 (six) hoursas needed. Onhmlcxud313756 200 actuat albuterol 0.09 mg/actuat metered dose inhaler (7 sources)beta2-Adrenergic Agonisttake 2 puff(s) by inhalation every six hours as needed for wheezingalbuterol (PROVENTIL HFA;VENTOLIN HFA) 90 mcg/actuation inhaler Inhale 2 puffs every 6 (six) hours as needed for wheezing. Activeaspirin 81 mg delayed release oral tablet (20 sources)Platelet Aggregation Inhibitor, Nonsteroidal Anti-inflammatory Drug Start: 37-50-7127quzr 1 tablet by mouth once dailyaspirin 81 [...] mg oral tablet (20 sources)P2Y12 Platelet InhibitorStart: 76-98-2577lxre 1 tablet by mouth once dailyclopidogrel (Plavix) 75 MG tablet Take 1 tablet by mouth Daily 05/09/2023 Activecyclobenzaprine hydrochloride 10 mg oral tablet (17 sources)Muscle RelaxantStart: 25-46-1657laft 1 tablet by mouth in the morning, then take 1 tablet by mouth in the evening, then take 1 tablet by mouth at bedtimecyclobenzaprine (Flexeril) 10 MG tablet Take 1 tablet by mouth in the morning and 1 tablet in the evening and 1 tablet before bedtime. 05/09/2023 Activeezetimibe 10 mg oral tablet (8 sources)Dietary Cholesterol Absorption InhibitorStart: 01-01-2025 End: 27-48-2502zxqt 1 tablet by mouth in the morningezetimibe (ZETIA) 10 mg tablet Indications: Coronary artery disease with history of percutaneous tra nsluminal angioplasty (PTCA) Take 1 tablet (10 mg total) by mouth in the morning. 90 tablet 3 07/06/2025 Activefluticasone propionate 0.05 mg/actuat metered dose nasal spray (16 sources)CorticosteroidStart: 03-18-2024 End: 99-35-9988zfgi 2 spray(s) nasal route once dailyfluticasone (Flonase) 50 MCG/ACT nasal spray Indications: ETD (Eustachian tube dysfunction), bilateral Administer 2 sprays into each nostril Daily Shake gently. Before first use, prime pump. After use, clean tip and replace cap. 16 g 11 03/18/2024 Active gabapentin 100 mg oral capsule (19 sources)Anti-epileptic AgentStart: 42-50-3572qfsi 2 tablets by mouth once dailygabapentin (NEURONTIN) 100 MG tablet Take 2 tablets (200 mg total) by mouth nightly. 12/14/2024 ActiveStart: 16-12-5351bibq 1 tablet by mouth three times dailygabapentin [...] mg oral tablet (20 sources)Nonsteroidal Anti-inflammatory DrugStart: 51-85-5273hknzykqap 800 MG tablet 05/09/2023 Activetake 1 tablet by mouth every eight hours as needed ibuprofen (ADVIL,MOTRIN) 800 mg tablet Take 1 tablet (800 mg total) by mouth every 8 (eight) hours as needed. Active3 ml insulin degludec 200 unt/ml pen injector (20 sources)Insulin AnalogStart: 12-14-2024 End: 22-29-2956fswonme degludec (Tresiba FlexTouch) 200 UNIT/ML injection Indications: Type 2 diabetes mellitus with other circulatory complications (HCC) Inject 50 Units under the skin at bedtime 22.5 mL 12/14/2024 ActiveStart: 10-08-2024 End: 40-96-6753tdvyss 60 [IU] by subcutaneous injection once daily [...] oral tablet (20 sources)Angiotensin 2 Receptor BlockerStart: 39-16-9001wdsb 1 tablet by mouth once dailylosartan (COZAAR) 25 mg tablet Indications: Primary hypertension Take 1 tablet (25 mg total) by mouth nightly. 90 tablet 07/06/2025 ActiveStart: 03-40-3752uiwz 1 tablet by mouth once dailylosartan (Cozaar) 25 MG tablet Take 1 tablet by mouth Daily 05/09/2023 Active End: 07-93-3278noic 0.5 tablet by mouth once dailylosartan (COZAAR) 25 mg tablet Take 0.5 tablets (12.5 mg total) by mouth nightly. 07/06/2025 Discontinued (Reorder)omeprazole 20 mg delayed release oral tablet (7 sources)Proton Pump Inhibitoromeprazole (PriLOSEC OTC) 20 mg tablet,delayed release (DR/EC) Take 1 tablet (20 mg total) by mouthas needed. Active microencapsulated potassium chloride 20 meq extended release oral tablet (7 sources)Start: 09-47-1887guao 1 tablet by mouth in the morningpotassium [...] evening. ActiveXdemvy 0.25 % solution (3 sources)Start: 39-00-4698zrzj 1 drop(s) into the eye(s) in the morningXdemvy 0.25 % solution Administer 1 drop into affected eye(s) in the morning and 1 drop before bedtime. 12/17/2024 Active Completed/Discontinued Medications MedicationDrug Class(es)DatesSig (Normalized)Sig (Original)DULoxetine 30 mg delayed release oral capsule (8 sources)Serotonin and Norepinephrine Reuptake InhibitorStart: 10-14-2024 End: 76-24-8229KHKyuqxsxv (Cymbalta) [address] capsule Indications: Idiopathic peripheral neuropathy 1 po daily for2 weeks then bid 60 capsule 2 10/14/2024 11/30/2024 Discontinued (Side effects)Start: 17-98-2656NLBleknlnn (Cymbalta) [address] capsule Indications: Idiopathic peripheral neuropathy 1 po daily for2 weeks then bid 60 capsule 2 10/12/2024 Activemetoprolol tartrate 25 mg oral tablet (4 sources)beta-Adrenergic Peyton End: 43-65-4406ihta 1 tablet by mouth once dailymetoprolol tartrate (LOPRESSOR) 25 mg tablet Take 1 tablet (25 mg total) by mouth nightly. 01/01/2025 Discontinued (Therapy completed)omega-3 acid ethyl esters (mcc) 1000 mg oral capsule (4 sources) End: 80-06-4199hxida-3 acid ethyl esters (LOVAZA) 1 gram capsule Take 1 capsule (1 g total) by mouth in the morning. 01/01/2025 Discontinued (Therapy completed) rosuvastatin calcium 5 mg oral tablet (4 sources)HMG-CoA Reductase InhibitorStart: 01-24-2016 End: 41-62-7318lmwt 1 tablet by mouth in the morningrosuvastatin (CRESTOR) 5 mg tablet Take 1 tablet (5 mg total) by mouth in the morning. 01/24/2016 01/01/2025 Discontinued (Therapy completed) Problems Active Problems Problem ClassificationProblemDateDocumented DateEpisodic/Chronic Administrative/social admission (2 sources)Patient encounter status; Translations: [Dietary counseling and surveillance]99-66-7668ZvcbhzraDfymyekg reactions (2 sources)Atopic dermatitis; Translations: [Other atopic dermatitis]01-12-2025 ChronicCoronary atherosclerosis and other heart disease (20 sources)Atherosclerotic heart disease of [place] coronary artery without angina pectoris; Translations: [Coronary atherosclerosis]Onset: 12-25-2012 39-40-4909LjrgrgqKstvpxwh mellitus with complications (3 sources)Polyneuropathy due to type 2 diabetes mellitus; Translations: [Type 2 diabetes mellitus with diabetic polyneuropathy]69-86-7084VplffxrNanhbejz mellitus without complication (4 sources)Type 2 diabetes mellitus without complications; Translations: [TYPE 2 DM WITHOUT COMPLICATIONS]Onset: 52-92-9128SkrxhrqPvdrlrswx of lipid metabolism (19 sources)Mixed hyperlipidemia; Translations: [Mixed hyperlipidemia]Onset: 650336-03-4816OmclkviUzpynjtfy hypertension (20 sources)Essential (primary) hypertension; Translations: [Essential hypertension]Onset: 508827-36-2378NlrgymqSrtvg and electrolyte disorders (1 source)Dehydration; Translations: [DEHYDRATION]Onset: 14-47-1794Zpatmbtl Nutritional deficiencies (2 sources)Vitamin D deficiency; Translations: [Vitamin D deficiency, unspecified]12-44-7333DhwbxegHojadqrzrwmlhy (17 sources)Primary osteoarthritis, left hand; Translations: [Arthropathy, unspecified, hand]Onset: 881652-70-1207KpnzlvhPldia aftercare (1 source)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; Translations: [NURSING HOME CURRENT USE OF ASPIRIN]Onset: 71-96-9512PlhlflwmFeqgt aftercare (1 source)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; Translations: [OTH MEDICAL PRACTICE MANAGER CURRENT DRUG THERAPY]Onset: 46-32-5733NqwnsgtmEbsga aftercare (2 sources)Long-term current use of insulin; Translations: [residential (current) use of insulin]26-51-8742JypuvenpPsyjv and ill-defined heart disease (17 sources)Heart disease; Translations: [Heart disease, unspecified]Onset: 465048-05-4357YnlgveyBxdls and unspecified benign neoplasm (2 sources)Melanocytic nevus of upper limb; Translations: [Melanocytic nevi of unspecified upper limb, including shoulder]39-72-0098WjgwbdzcNxjrx and unspecified benign neoplasm (2 sources)Melanocytic nevus of trunk; Translations: [Melanocytic nevi of trunk] 73-40-8945YmnuewglUeyie circulatory disease (2 sources)Spider nevus; Translations: [Nevus, non-neoplastic]91-79-0499Oemtigie Other connective tissue disease (1 source)Inflammatory neuropathy ; Translations: [Neuralgia and neuritis, unspecified]05-62-0571UfkmteetYurel ear and sense organ disorders (20 sources)Bilateral hearing loss; Translations: [Unspecified hearing loss, bilateral]Onset: 409215-46-8166BnmmxgzVniat ear and sense organ disorders (16 sources)Mixed conductive and sensorineural hearing loss, bilateral; Translations: [Mixed conductive and sensorineural hearing loss, bilateral]Onset: 593202-34-4928VuqjqfrTgxau lower respiratory disease (3 sources)Dyspnea; Translations: [Shortness of breath]05-02-5280QlcifzzqMhttj nervous system disorders (17 sources)Carpal tunnel syndrome; Translations: [Carpal tunnel syndrome, unspecified upper limb]Onset: 317892-60-1444XgpmccpIzxuw nervous system disorders (4 sources)Idiopathic peripheral neuropathy; Translations: [Hereditary and idiopathic neuropathy, unspecified]35-79-3305OixotkaEljbe nervous system disorders (2 sources)Numbness and tingling sensation of skin; Translations: [Anesthesia of skin]04-77-8972AwtdxmhnEwxrk nutritional; endocrine; and metabolic disorders (4 sources)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; Translations: [Obesity due to disruption of YW0Dneujiuw, unspecified class, unspecified whether serious comorbidity present]52-35-2677KdstgtxMojoh skin disorders (2 sources)Lentiginosis; Translations: [Other melanin hyperpigmentation] 37-42-3045JincpkprLetvv skin disorders (2 sources)Seborrheic keratosis; Translations: [Other seborrheic keratosis] 93-50-9049IjkydlqpVxotw skin disorders (2 sources)Actinic keratosis; Translations: [Actinic keratosis]01-12-2025 EpisodicResidual codes; unclassified (11 sources)Obstructive sleep apnea syndrome; Translations: [Obstructive sleep apnea (adult) (pediatric)]49-62-2941GgtwmoxJhrhpcdwzmdq (1 source)New PatientOnset: 01-01-2025 Past or Other Problems Problem ClassificationProblemDateDocumented DateEpisodic/ChronicAbdominal pain (11 sources)Unspecified abdominal pain; Translations: [Generalized abdominal pain]Onset: 36-12-3804YnjoxzigQycrmrdrps associated with dizziness or vertigo (1 source)DizzinessOnset: 85-31-6779AdfvpyszDnqhwpwu atherosclerosis and other heart disease (1 source)Coronary angioplasty status; Translations: [Coronary angioplasty status]Onset: 54-36-1224UhwipfvjRuimz ear and sense organ disorders (7 sources)Excessive cerumen in ear canal ; Translations: [Impacted cerumen, bilateral]Onset: 236904-46-9534ZckzmaqrFiyom injuries and conditions due to external causes (16 sources)Foreign body in ear; Translations: [Foreign body in right ear, initial encounter]Onset: 409257-12-8313EfkalmgrOzqre lower respiratory disease (1 source)Shortness of breath; Translations: [Shortness of breath]Onset: 50-88-5187WwpystciDjmvxj media and related conditions (20 sources)Dysfunction of bilateral eustachian tubes; Translations: [Unspecified Eustachian tube disorder, bilateral]Onset: 796358-78-7410 Episodic Results Test NameValueInterpretationReference RangeFacilityControlled Substances Agreementson 72-12-8525Drdzsnujal Substances Agreements [id number]#1.00[facility] Glucose (Bld) [Mass/Vol]Ordered By: Damari Baxter on 63-09-2069Vttrxht Blood, OVB218 mg/dLNOWI HealthcareLaboratory - Hematology and Cell countson 04-12-2025 HbA1c (Bld) [Mass fraction]6.8 %[facility]No Panel InformationOrdered By: Damari Baxter on 54-03-2945TSBK HealthcareNo Panel Informationon 47-22-9693FBGR HealthcareOutside Recordson 27-57-3527Sctjwdx Records [id number]#1.00[facility] HospitalPOCT EKGon 99-33-6635PacFfzeak Health SystemOutside Recordson 96-51-7913Audpkdj [id number]#1.00OTAdena [facility] THYROID STIM HORMONEon 04-37-6080IBE Qn1.011 m[IU]/[facility] CLINISYNCNOWI HealthcareOutside Recordson 19-57-0505Koftzuz Records [id number]#1.00[facility] HospitalRad - Other Radiology Reporton 68-35-2575Geo - Other Radiology Report [id number]#1.00[facility] HospitalCBC AUTO DIFFon 57-92-7834USFF #0.0 103/ulNormal0.0-0.1The [facility] MiamisburgComment on above:Performed By: #### CBC ####[facility] [address] [place], [place] [address]Xq.Yilan ChangBasophils/100 WBC (Bld)0.4 %Normal 0.2-2.0The [facility] MiamisburgComment on above:Performed By: #### CBC ####[facility] V[address] [place], [place] [address]Dr.Yilan ChangEO # 0.1 103/ulNormal0.0-0.7The [facility] MiamisburgComment on above:Performed By: #### CBC ####[facility] By[address] [place], [place] [address]Dr. Yilan ChangEosinophils/100 WBC (Bld)1.1 %Normal0.9-7.0The [facility] Comment on above:Performed By: #### CBC ####[facility] [address]vwthup[address] [place], [place] [address]Dr.Yilan ChangErythrocyte distribution width (RBC) [Ratio]12.5 %Yvjlxb51.0-15.0The [facility] MiamisburgComment on above: Performed By: #### CBC ####[facility] Z[address]fr[address] [place], [place] [address]Dr.Yilan ChangHematocrit (Bld) [Volume fraction]49.2 % Tzjlsu39.0-54.0The [facility] MiamisburgComment on above:Performed By: #### CBC ####[facility] [address] [place], [place] [address]Dr. Yilan ChangHemoglobin (Bld) [Mass/Vol]17.6 g/xMLbwwlj87.0-18.0The [facility]amisburgComment on above:Performed By: #### CBC ####[facility] [address]eks[address] [place], [place] [address]Dr.Yilan ChangIG #0.02 10e3/ulNormal0.00-0.03The [facility] MiamisburgComment on above:Performed By: #### CBC ####[facility] Ehdlffymuc[address] [place], [place] [address]Dr. Yilan ChangIG %0.3 %Normal0.0-0.5The [facility] MiamisburgComment on above:Performed By: #### CBC ####[facility] [address] [place] [address]Dr.Ranjith StoverLYMPH #2.8 103/ulNormal1.2-3.8The [facility] Comment on above:Performed By: #### CBC ####[facility] [address]uf[address]aia[address] [place], [place] [address]Dr.Ranjith StoverLymphocytes/100 WBC (Bld)39.6 %Bhvqlm00.5-60.0The [facility] MiamisburgComment on above:Performed By: #### CBC ####[facility] [address]cl[address]bcn[address] [place], [place] [address]Dr. Ranjith ChangMANUAL DIFF REQNONormalThe [facility] MiamisburgComment on above: Performed By: #### CBC ####[facility] [address]veakq[address] [place], [place] [address]Dr.Ranjith StoverMCH (RBC) [Entitic mass]29.7 pgNormal 25.9-34.0The [facility] MiamisburgComment on above:Performed By: #### CBC ####[facility] [address]zkt[address]vl[address] [place], [place] [address]Dr. Ranjith StoverMCHC (RBC) [Mass/Vol]35.8 g/dLCritically high29.9-35.2The [facility]amisburgComment on above:Performed By: #### CBC ####[facility] [address] [place], [place] [address]Dr.Ranjith StoverMCV (RBC) [Entitic vol]83.0 rGEljovv23.0-94.0The [facility] MiamisburgComment on above: Performed By: #### CBC ####[facility] [address] [place], [place] [address]Dr.Ranjith StoverMONO #0.4 103/ulNormal0.3-0.8The [facility] MiamisburgComment on above:Performed By: #### CBC ####[facility] [address]ftiv[address] [place], [place] [address]Dr.Ranjith ChangMonocytes/100 WBC (Bld)6.3 %Normal1.7-12.0The [facility] MiamisburgComment on above:Performed By: #### CBC ####[facility] [address] [place] [address]Dr.Ranjith StoverNEUT #3.7 103/ulNormal1.4-6.5The [facility] HospitalComment on above:Performed By: #### CBC ####[facility] [address] [place], [place] [address]Dr.Ranjith StoverNeutrophils/100 WBC (Bld)52.3 %Normal 43.0-75.0The [facility] HospitalComment on above:Performed By: #### CBC ####[facility] [address]igm[address] [place], [place] [address]Dr. Ranjith StoverPlatelet mean volume (Bld) [Entitic vol]8.9 fLCritically low9.5-13.5 The [facility] HospitalComment on above:Performed By: #### CBC ####[facility] [address] [place], [place] [address]Dr.Ranjith LsdrvTRS571 103/jeZbedhp523-070Dgq [facility] HospitalComment on above:Performed By: #### CBC ####[facility] [address]is[address]orqe[address] [place], [place] [address]Dr. Ranjith ChangRBC5.93 106/ulNormal4.70-6.10The [facility]amisburgComment on above: Performed By: #### CBC ####[facility] [address] [place], [place] [address]Dr.Ranjith StoverWBC7.0 103/ulNormal4.0-11.0The [facility]amisburgComment on above:Performed By: #### CBC ####[facility] [address] [place], [place] [address]Dr.Ranjith ChangCT ABD/PELV W CONon 60-63-3942VY ABD/PELV W CONEXAMINATION: CT ABD/PELV W CON [...] Electronically authenticated by: MARCIO HILL Date: 2022-11-14 13:28[facility] HospitalLACTATE/LACTIC ACIDon 37-27-5899Gspyxkl [Moles/Vol]2.0 mmol/L Critically high0.4-1.9The [facility] Hospitalment on above:Performed By: #### LACT ####[facility] [address] [place] [address]Dr. Ranjith StoverLIPASEon 22-81-9567Dsvign [Catalytic activity/Vol]44.0 U/L Critically low73.0-393.0The [facility]amisburgComment on above:Performed By: #### HSTROPN, CMP, LIPA #### [facility] [address] [address] [address] Ranjith StoverPROF 14(COMP METB)on 80-48-1383Urhdufh [Mass/Vol]3.0 g/dL Critically low3.4-5.0The [facility]amisburgComment on above:Performed By: #### HSTROPN, CMP, LIPA #### [facility] [address] [address] [address] Ranjith StoverAlbumin/Globulin [Mass ratio]0.9 {ratio}NormalThe [facility]amisburgComment on above:Performed By: #### HSTROPN, CMP, LIPA #### [facility] [address] [address] [address] Ranjith HerreraP [Catalytic activity/Vol]139 U/LCritically cryl67-811Btk [facility]burgComment on above:Performed By: #### HSTROPN, CMP, LIPA #### [facility] [address] [address] [address] Ranjith HerreraT [Catalytic activity/Vol]37 U/XVxzsoj09-34Vvh [facility]burgComment on above:Performed By: #### HSTROPN, CMP, LIPA #### [facility] [address] [place] [address] Dr. Ranjith StoverAnion gap [Moles/Vol]12.4 mmol/LNormalThe [facility] Comment on above:Performed By: #### HSTROPN, CMP, LIPA #### [facility] [address] [place] [address] Dr. Ranjith StoverAST [Catalytic activity/Vol]26 U/OQutadt34-15Mpk [facility]burgComment on above:Performed By: #### HSTROPN, CMP, LIPA #### [facility] [address] [place] [address] Dr. Ranjith StoverBilirubin [Mass/Vol]0.7 mg/dLNormal0.2-1.0The [facility] Comment on above:Performed By: #### HSTROPN, CMP, LIPA #### [facility] [address] [place] [address] Dr. Ranjith StoverCalcium [Mass/Vol]8.6 mg/dLNormal8.5-10.1[facility] [place] Comment on above:Performed By: #### HSTROPN, CMP, LIPA #### [facility] [address] [place] [address] Dr. Ranjith StoverChloride [Moles/Vol]103 mmol/VLavwuz48-721Tow [facility] Comment on above:Performed By: #### HSTROPN, CMP, LIPA #### [facility] [address] [address] [address] Ranjith StoverCO2 [Moles/Vol]27.9 mmol/TGehjzw08.0-32.0The [facility] Comment on above:Performed By: #### HSTROPN, CMP, LIPA #### [facility] [address] [place] [address] Dr. Ranjith StoverCreatinine [Mass/Vol]0.99 mg/dLNormal0.70-1.30The [facility]burgComment on above:Performed By: #### HSTROPN, CMP, LIPA #### [facility] [address] [address] [address] Ranjith JamesGFR-AF PALAUAN>60Normal>=60The [facility]amisburgComment on above:Performed By: #### HSTROPN, CMP, LIPA #### [facility] [address] [place] [address] Dr. Ranjith JamesGFR-NON AF PALAUAN>60Normal>=60The [facility]burgComment on above:Performed By: #### HSTROPN, CMP, LIPA #### [facility] [address] [place] [address] Dr. Ranjith StoverGlobulin (S) [Mass/Vol]3.5 g/dLNormalThe [facility]burgComment on above:Performed By: #### HSTROPN, CMP, LIPA #### [facility] [address] [place] [address] Dr. Ranjith StoverGlucose [Mass/Vol]154 mg/dLCritically snib95-502Qiz [facility]burgComment on above:Performed By: #### HSTROPN, CMP, LIPA #### [facility] [address] [place] [address] Dr. Ranjith StoverPotassium [Moles/Vol]3.2 mmol/LCritically low3.5-5.1The [facility]burgComment on above:Performed By: #### HSTROPN, CMP, LIPA #### [facility] [address] [address] [address] Ranjith StoverProtein [Mass/Vol]6.5 g/dLNormal6.4-8.2[facility] [place] Comment on above:Performed By: #### HSTROPN, CMP, LIPA #### [facility] [address] [address] [address] Ranjith StoverSodium [Moles/Vol]140 mmol/NQjqsam417-199Uwr [facility] Comment on above:Performed By: #### HSTROPN, CMP, LIPA #### [facility] [address] [address] [address] Ranjith StoverUrea nitrogen [Mass/Vol]22.0 mg/dLCritically high7.0-18.0[facility] [place]Comment on above:Performed By: #### HSTROPN, CMP, LIPA #### [facility] [address] [place] [address] Dr. Ranjith Romo nitrogen/Creatinine [Mass ratio]22.0 mg/mgNoGeorgetown Behavioral HospitalComment on above:Performed By: #### HSTROPN, CMP, LIPA #### [facility] [address] [place] [address] Dr. Ranjith StoverPROTIMEon 04-90-2945HHZ Coag (PPP) [Relative time]1.08 {INR} NormalKing'S Daughters Medical Center OhioComment on above:Performed By: #### PT, PTT #### [facility] [address] [place] [address] Dr. Ranjith Hines GUIDELINESSEE BELOWCleveland Clinic Medina HospitalComment on above:Result Comment: DESIRED INR: 2.0 - 3.0 CONDITIONS NOT LISTED BELOW 2.5 - 3.5 FOR PROSTHETIC HEART VALVE REPLACEMENT 2.5 - 3.5 RECURRENT THROMBOSIS Performed By: #### PT, PTT #### [facility] [address] [place] [address] Dr. Ranjith StoverPT Coag (PPP) [Time]11.4 sNormal9.0-11.6The [facility] Comment on above:Performed By: #### PT, PTT #### [facility] [address] [place] [address] Dr. Ranjith Claros 38-34-1972cZOX Coag (Bld) [Time]28.5 cAalzyb00.3-36.2King[facility] Center OhioComment on above:Performed By: #### PT, PTT #### [facility] [address] [place] [address] Dr. Ranjith Robison, HIGH SENSITIVITYon 53-74-0708AGSERC2.6 pg/mLNormal 4.0-76.1King[facility] Center OhioComment on above:Result Comment: CUT-OFF POINTS HAVE BEEN ESTABLISHED BASED ON THE FOURTH UNIVERSAL DEFINITIONS OF MYOCARDIAL INFARCTION. THE UPPER REFERENCE LIMIT (URL) OF TROPONIN, DEFINED THE 99TH PERCENTILE OF cTnI DISTRIBUTION IN A REFERENCE POPULATION, HAS BEEN CONFIRMED THE DECISION THRESHOLD FOR CT DIAGNOSIS.Performed By: #### HSTROPN, CMP, LIPA #### [facility] [address] [place] [address] Dr. Ranjith Chan AUTO DIFFon 34-30-3493VDRU #0.1 103/ulNormal0.0-0.1King[facility] Center OhioComment on above:Performed By: #### CBC #### [facility] [address] [place] [address] Dr. Ranjith StoverBasophils/100 WBC (Bld)0.6 %Normal0.2-2.0[facility] [place] Comment on above:Performed By: #### CBC #### [facility] [address] [place] [address] Dr. Ranjith Dutta #0.4 103/ulNormal0.0-0.7The [facility] on above: Performed By: #### CBC #### [facility] [address] [place] [address] Dr. Ranjith Jamesosinophils/100 WBC (Bld)3.4 %Normal0.9-7.0[facility] [place] Comment on above:Performed By: #### CBC #### [facility] [address] [place] [address] Dr. Ranjith Jamesrythrocyte distribution width (RBC) [Ratio]12.6 %Awovgv96.0-15.0 The [facility] Orrville Hospitalment on above:Performed By: #### CBC #### [facility] [address] [place] [address] Dr. Ranjith StoverHematocrit (Bld) [Volume fraction]46.7 %Fmqnjt48.0-54.0The [facility] Hospitalment on above:Performed By: #### CBC #### [facility] [address] [place] [address] Dr. Ranjith StoverHemoglobin (Bld) [Mass/Vol]15.7 g/lQQvkplh40.0-18.0The [facility]burgComment on above:Performed By: #### CBC #### [facility] [address] [place] [address] Dr. Ranjith Cardenas #0.05 10e3/ulCritically high0.00-0.03The [facility] Comment on above:Performed By: #### CBC #### [facility] [address] [place] [address] Dr. Ranjith Cardenas %0.4 %Normal0.0-0.5The [facility] on above: Performed By: #### CBC #### [facility] [address] [place] [address] Dr. Ranjith GarciaH #2.6 103/ulNormal1.2-3.8The [facility] Hospitalment on above:Performed By: #### CBC #### [facility] [address] [place] [address] Dr. Ranjith Allenmphocytes/100 WBC (Bld)20.5 %Jvrogi06.5-60.0The [facility] Hospitalment on above:Performed By: #### CBC #### [facility] [address] [place] [address] Dr. Ranjith HunterUAL DIFF REQNONormalThe [facility]burgComment on above: Performed By: #### CBC #### [facility] [address] [address] [address] Ranjith Kilpatrick (RBC) [Entitic mass]29.3 yyEcctus38.9-34.0The [facility]burgComment on above:Performed By: #### CBC #### [facility] [address] [place] [address] Dr. Ranjith Kilpatrick (RBC) [Mass/Vol]33.6 g/hQHqpikt92.9-35.2The [facility]burgComment on above:Performed By: #### CBC #### [facility] [address] [place] [address] Dr. Ranjith Kilpatrick (RBC) [Entitic vol]87.3 cSWxandl72.0-94.0The [facility]burgComment on above:Performed By: #### CBC #### [facility] [address] [place] [address] Dr. Ranjith Mishra #0.5 103/ulNormal0.3-0.8The [facility]burgComment on above:Performed By: #### CBC #### [facility] [address] [place] [address] Dr. Ranjith Taylorocytes/100 WBC (Bld)4.0 %Normal1.7-12.0[facility] [place] Comment on above:Performed By: #### CBC #### [facility] [address] [place] [address] Dr. Ranjith VaughanUT #8.9 103/ulCritically high1.4-6.5The [facility] Comment on above:Performed By: #### CBC #### [facility] [address] [place] [address] Dr. Ranjith Vaughanutrophils/100 WBC (Bld)71.1 %Vartir05.0-75.0The [facility]burgComment on above:Performed By: #### CBC #### [facility] [address] [place] [address] Dr. Ranjith Armstronglet mean volume (Bld) [Entitic vol]8.7 fLCritically low 9.5-13.5The Anderson HospitalComment on above:Performed By: #### CBC #### [facility] [address] [address] [address] Ranjith StovrePLT256 103/qtFuttjt773-172Egc [facility]burgComment on above: Performed By: #### CBC #### [facility] [address] [address] [address] Ranjith StoverRBC5.35 106/ulNormal4.70-6.10The [facility]burgComment on above:Performed By: #### CBC #### [facility] [address] [address] [address] Ranjith StoverWBC12.6 103/ulCritically high4.0-11.0The [facility]burgComment on above:Performed By: #### CBC #### [facility] [address] [address] [address] Ranjith StoverGLYCOHEMOGLOBIN A1Con 16-26-0784XAS RECOMMENDATIONADA THERAPEUTIC TARGET 6.0 - 7.0 ACTION SUGGESTED > 7.0NoGeorgetown Behavioral HospitalComment on above:Performed By: #### A1C #### [facility] [address] [address] [address] Ranjith StoverGlucose [Mass/Vol]280 mg/dLNoGeorgetown Behavioral HospitalCommemorial healthcare on above:Performed By: #### A1C #### [facility] [address] [address] [address] Ranjith StoverHbA1c (Bld) [Mass fraction]11.4 %Critically high<=6.0The [facility]burgComment on above:Performed By: #### A1C #### [facility] [address] [address] [address] Ranjith StoverMICROALBUMIN, RAND URon 87-25-8038nNHF8.8 mg/LNormal<=30.0The [facility]burgComment on above:Performed By: #### MALBR ####[facility] [address] [address]Dr. Ranjith StoverPROF 14(COMP METB)on 22-78-3839Aeokecz [Mass/Vol]3.7 g/dLNormal3.4-5.0The [facility] Comment on above:Performed By: #### CMP #### [facility] [address] [place] [address] Dr. Ranjith StoverAlbumin/Globulin [Mass ratio]1.0 {ratio}NormalThe [facility]burgComment on above:Performed By: #### CMP #### [facility] [address] [place] [address] Dr. Ranjith HerreraP [Catalytic activity/Vol]167 U/LCritically ljnb75-210Jco [facility]burgComment on above:Performed By: #### CMP #### [facility] [address] [place] [address] Dr. Ranjith HerreraT [Catalytic activity/Vol]40 U/VYvzpwv36-66Kfg [facility]burgComment on above:Performed By: #### CMP #### [facility] [address] [place] [address] Dr. Ranjith Benavides gap [Moles/Vol]11.6 mmol/LNormalThe [facility] Comment on above:Performed By: #### CMP #### [facility] [address] [place] [address] Dr. Ranjith StoverAST [Catalytic activity/Vol]24 U/KYbtfde96-33Vev [facility]burgComment on above:Performed By: #### CMP #### [facility] [address] [place] [address] Dr. Ranjith StoverBilirubin [Mass/Vol]1.0 mg/dLNormal0.2-1.3The [facility] Comment on above:Performed By: #### CMP #### [facility] [address] [place] [address] Dr. Ranjith StoverCalcium [Mass/Vol]9.4 mg/dLNormal8.5-10.1The [facility] Comment on above:Performed By: #### CMP #### [facility] [address] [place] [address] Dr. Ranjith StoverChloride [Moles/Vol]99 mmol/LZgxkoi74-082LxvKing'S Daughters Medical Center [place] Comment on above:Performed By: #### CMP #### [facility] [address] [address] [address] Ranjith StoverCO2 [Moles/Vol]29.3 mmol/EWcsutj46.0-30.0The [facility] Comment on above:Performed By: #### CMP #### [facility] [address] [address] [address] Ranjith StoverCreatinine [Mass/Vol]0.74 mg/dLNormal0.66-1.25The [facility]burgComment on above:Performed By: #### CMP #### [facility] [address] [place] [address] Dr. Ranjith JamesGFR-AF PALAUAN>60Normal>=60The [facility]burgComment on above:Performed By: #### CMP #### [facility] [address] [address] [address] Ranjith JamesGFR-NON AF PALAUAN>60Normal>=60The [facility]burgComment on above:Performed By: #### CMP #### [facility] [address] [address] [address] Ranjith StoverGlobulin (S) [Mass/Vol]3.8 g/dLNormalThNorwalk Memorial HospitalComment on above:Performed By: #### CMP #### [facility] [address] [address] [address] Ranjith StoverGlucose [Mass/Vol]295 mg/dLCritically yspe17-374Hmn [facility]burgComment on above:Performed By: #### CMP #### [facility] [address] [address] [address] Ranjith StoverPotassium [Moles/Vol]3.9 mmol/LNormal3.4-5.0The [facility] Comment on above:Performed By: #### CMP #### [facility] [address] [address] [address] Ranjith StoverProtein [Mass/Vol]7.5 g/dLNormal6.1-8.2[facility] [place] Comment on above:Performed By: #### CMP #### [facility] [address] [place], [place] [address] Dr. Ranjith StoverSodium [Moles/Vol]136 mmol/LCritically ytx052-141Dzo [facility]burgComment on above:Performed By: #### CMP #### [facility] [address] [address] [address] Ranjith StoverUrea nitrogen [Mass/Vol]9.0 mg/dLNormal7.0-18.0The [facility]burgComment on above:Performed By: #### CMP #### [facility] [address] [address] [address] Ranjith StoverUrea nitrogen/Creatinine [Mass ratio]12.2 mg/mgNormalThe [facility]burgComment on above:Performed By: #### CMP #### [facility] [address] [address] [address] Ranjith Stover Vital Signs Date TimeVital SignValuePerforming OovmhogzvAmdztjov94-87-9358 13:52-0400Body bcyqjc134.2 cmRoxanna Diop MD Work Phone: [phone]10-07-2025 13:52-0400Body mass index (BMI) [Ratio]30.38 kg/v9QokbuRoxanna Diop MD Work Phone: [phone] [place], [place] [address]10-07-2025 13:52-0400Body xmyeob80 kgRoxanna Diop MD Work Phone: [phone]10-07-2025 13:52-0400Diastolic blood unhdkibd860 mm[Hg]Roxanna Diop MD Work Phone: [phone]10-07-2025 13:52-0400Heart rate 84 /minRoxanna Diop MD Work Phone: [facility]10-07-2025 13:52-0430UqV1% (BldA) [Mass fraction]99 %Roxanna Diop MD Work Phone: [facility]10-07-2025 13:52-0400Systolic blood evjetynp165 mm[Hg]Roxanna Diop MD Work Phone: [facility]07-14-2025 14:13-0400Body .2 Kristine Barbour MD Work Phone: [facility] HospitalAbkqoadsev86-51-9540 14:13-0400Body mass index (BMI) [Ratio]31.64 kg/s9EofweGaro Barbour MD Work Phone: [facility] HospitalKvbojexwhh03-22-0707 14:13-0400Body usyajm39.63 kgGaro Barbour MD Work Phone: [phone] HospitalTpuiodtkyw06-78-6143 14:13-0400Diastolic blood ckmkifnm18 mm[Hg]Garo Barbour MD Work Phone: [phone] [place], [place] [address]Oowsruhwwb96-45-0892 14:13-0400Heart rate78 /min Garo Barbour MD Work Phone: [phone] [place], [place] [address]Erbzxxjocz31-04-7339 14:13-0400Respiratory rate18 /minGaro Barbour MD Work Phone: [phone] [place], [place] [address]Jvpletsrun85-62-3641 14:13-3866BjD0% (BldA) [Mass fraction]99 %Garo Barbour MD Work Phone: [facility] HospitalFvghnnvjdp56-36-0400 14:13-0400Systolic blood afpggqdd857 mm[Hg]Garo Barbour MD Work Phone: [facility] HospitalOcmuyfvhfi15-37-7800 13:36-0400Body oezbgu907.2 Benji Garcia MD Work Phone: [facility]04-04-2025 13:36-0400Body mass index (BMI) [Ratio]31.95 kg/d9NtqemdKathy Garcia MD Work Phone: [facility]04-04-2025 13:36-0400Body lawnjx05.53 Jewel Garcia MD Work Phone: [facility]04-04-2025 13:36-0400Diastolic blood mm[Hg]Kathy Garcia MD Work Phone: [facility]04-04-2025 13:36-0400Heart rate 89 /minKathy Garcia MD Work Phone: [facility]04-04-2025 13:36-7433IiM8% (BldA) [Mass fraction]97 %Kathy Garcia MD Work Phone: [facility]04-04-2025 13:36-0400Systolic blood ezqsevcx914 mm[Hg]Kathy Garcia MD Work Phone: [facility]03-03-2025 15:17-0500Body .2 cmAbeatriz Godo FOUR CORNER STAYER MACHINE OPERATOR Work Phone: iPinYouI-70 Community HospitalMmvxjueelw29-52-6287 15:17-0500Body mass index (BMI) [Ratio]31.95 kg/i5OxtmkcKaelyn Good FOUR CORNER STAYER MACHINE OPERATOR Work Phone: iPinYouI[facility] HospitalNilzkmlsdm82-46-6739 15:17-0500Body ngcuwm09.53 kgKaelyn Good FOUR CORNER STAYER MACHINE OPERATOR Work Phone: iPinYouI-[facility] HospitalUwgzgceuhy21-74-9123 15:17-0500Diastolic blood xanaxrsa02 mm[Hg]Kaelyn Good FOUR CORNER STAYER MACHINE OPERATOR Work Phone: iPinYouI-70 Community HospitalOgejdallpz41-89-2456 15:17-0500Systolic blood ssszuakg659 mm[Hg]Kaelyn Good FOUR CORNER STAYER MACHINE OPERATOR Work Phone: NOI-[facility] HospitalOtrnazaewd64-30-4740 14:56-0500Body odofpl477.2 cmNicole Red DO Work Phone: noI-70 Community HospitalXrhezvttlt14-49-4574 14:56-0500Body mass index (BMI) [Ratio]31.89 kg/m4Dhagxb Red DO Work Phone: iPinYouI-70 Community HospitalHhbfsvurrz27-00-9630 14:56-0500Body .35 kgNicole Red DO Work Phone: noI-[facility] Community HospitalZvijxahbfr36-27-4231 14:56-0500Diastolic blood pxnjmwus11 mm[Hg]Nicole Moon DO Work Phone: noI-[facility] Community HospitalFbwhbntiem85-01-6720 14:56-0500Heart rate88 /min Nicole Moon DO Work Phone: noI-70 Community HospitalPlbagbtxwt18-48-3147 14:56-7469PzJ4% (BldA) [Mass fraction]96 %francheska Moon DO Work Phone: noI-[facility] HospitalTkzxnhvase48-15-0558 14:56-0500Systolic blood xcecgqfy338 mm[Hg]Nicole Moon DO Work Phone: noI-[facility] Community HospitalCczmomsyqa32-71-0207 14:05-0500Body .2 cmAnthomary ann Rusher DPM Work Phone: noI-[facility] Community HospitalCgjflnkpqy80-10-2030 14:05-0500Body mass index (BMI) [Ratio]27.88 kg/b0Umckfqk Rusher DPM Work Phone: noI-[facility] Community HospitalTjxaaejiuh24-62-8367 14:05-0500Body nfjxyp35.74 kgAnthony Rusher DPM Work Phone: no[facility] Encounters Encounter DateEncounter TypeCare ProviderFacilityStart: 07-06-2025 End: 53-60-0462Uzavko outpatient visit 25 minutesRoxanna Diop MD Work Phone: [facility] CardiologyComment on above: Coronary artery disease with history of percutaneous transluminal angioplasty (PTCA) (Primary Dx); Primary hypertensionStart: 07-06-2025 End: 71-68-6685hvaqpbgupmVBGNX BOUMEGOUASPJavier Ranch[facility] Springs Medical Centertart: 07-05-2025 End: 44-13-5253Kfrkogwqv encounterJematty Langston [facility] CENTERJavier Physicians CardiologyStart: 95-53-7393ncfjregngpXQCYBDV P HOUSEFacility:[facility] Start: 04-12-2025 End: 23-51-0717Kkqpwu Honorio Barbour MD Work Phone: noms ENDOCRINOLOGYStart: 04-12-2025 End: 74-85-6574Akggps flowsheetGaro Barbour MD Work Phone: noms ENDOCRINOLOGYStart: 04-12-2025 End: 21-11-4735iwicwneefcTQTBX F SABBAGHNot AvailableStart: 04-12-2025 End: 32-21-2811Wcvyzr outpatient visit 25 minutesGaro Barbour MD Work Phone: noms ENDOCRINOLOGYComment on above:Type 2 diabetes mellitus with hyperglycemia, with long-term current use of insulin (HCC) (Primary Dx); Encounter for dietary consultation; Vitamin D deficiency; Hyperlipemia, mixed ; Insulin long-term use (HCC); Primary hypertensionStart: 09-19-4606soeccdjjaeBLUSEHK P PLYMOUTHFacility:[facility] ClinicStart: 01-19-2025 End: 71-18-0173cbsomveaizVAKVNA D [facility] Hospitaltart: 01-14-2025 End: 64-78-8837Kjbnptuad encounterPamela [facility] Physicians CardiologyStart: 01-12-2025 End: 01-40-5130Oypfeh outpatient new 45 minutesNatalie A Felter TELEVISION WRITER-SALESPERSON [employer] Work Phone: noms [facility] DERMComment on above:Melanocytic nevus of upper extremity, unspecified laterality (Primary Dx); Melanocytic nevus of trunk; Other atopic dermatitis; Capillary angioma; Lentigines; Seborrheic keratosis; Actinic keratosisStart: 01-12-2025 End: 12-05-6621xwzicovsweCNCUCCS A FELTERNot AvailableStart: 01-12-2025 End: 97-47-8808Msdhxh flowsheetNatalie A Felter TELEVISION WRITER-SALESPERSON [employer] Work Phone: noms [facility] DERMStart: 01-12-2025 End: 11-98-7928Aszret flowsheetNatalie A Felter TELEVISION WRITER-SALESPERSON [employer] Work Phone: noms SWS DERMStart: 01-01-2025 End: 56-36-5970Cysljb outpatient new 45 minutesKathy Garcia MD Work Phone: [facility] CardiologyComment on above: Coronary artery disease with history of percutaneous transluminal angioplasty (PTCA) (Primary Dx); Shortness of breathStart: 01-01-2025 End: 57-15-2924xzhndvtbqcWJHLQH D GRANDKern Valleyricky Island Park HospitalStart: 12-31-2024 End: 14-23-6265Gyzuornta encounterSandra Delgado [facility] AMERICAProMedica Physicians CardiologyStart: 12-18-2024 End: 25-39-9575Ouqwh abstractingScantufts medical center Provider ExternalRockingham Memorial HospitalMedica Physicians CardiologyStart: 12-14-2024 End: 80-60-1812fuepwgasnnUTYTA F SABBAGHNot AvailableStart: 11-30-2024 End: 94-34-4159hhtwslordyZCGLXI GILLMORNot AvailableStart: 11-30-2024 End: 08-48-2704Lcrqaw outpatient visit 25 minutesKaelyn Good NP Work Phone: aNA BELLEVUEComment on above:ANIYA (obstructive sleep apnea) (Primary Dx); Idiopathic peripheral neuropathy; 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, unspecified class, unspecified whether serious comorbidity presentStart: 11-30-2024 End: 72-12-8825Avnbau flowsGideon Good FOUR CORNER STAYER MACHINE OPERATOR Work Phone: aNA BELLEVUEStart: 11-30-2024 End: 71-46-7992Hpvjhv Leticia Good FOUR CORNER STAYER MACHINE OPERATOR Work Phone: aNA BELLEVUEStart: 11-30-2024 End: 88-11-7051Awhmlulpw Result EncounterNicole Red DO Work Phone: [facility] External Department UnsolicitedStart: 11-26-2024 End: 12-02-6173Crqbjklsn encounterGracy Davenport [facility] Start: 97-29-0515piyvxdjsivWKGGBTD P HOUSEFacility:[facility] ClinicStart: 11-02-2024 End: 38-66-2577twmjemdvsfOUZQD SABBAGHNot AvailableStart: 10-30-2024 End: 85-80-0330Ntfamjd encounter procedureNicole Red DO Work Phone: ana BELLEVUEComment on above:ANIYA (obstructive sleep apnea) (Primary Dx)Start: 10-29-2024 End: 16-02-3970Ijekgfep SupportNoms Bsr Neuro TechnicanSIVA BELLEVUEComment on above:ANIYA (obstructive sleep apnea)Start: 10-12-2024 End: 20-26-7624Ymhjog outpatient new 45 minutesNicole Red DO Work Phone: ana BELLEVUEComment on above:ANIYA (obstructive sleep apnea) (Primary Dx); Idiopathic peripheral neuropathy; Numbness and tingling; 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, unspecified class, unspecified whether serious comorbidity presentStart: 10-12-2024 End: 64-89-6429dlwwwmcadpAVRCDW DANNERNot AvailableStart: 10-12-2024 End: 24-58-4103Bdiozk flowsheetNicole Red DO Work Phone: ana BELLEVUEStart: 10-12-2024 End: 60-47-0146Rvwfpe flowsheetNicole Red DO Work Phone: ana BELLEVUEStart: 89-91-1869gesfvdbmcfCPVIDVM P PLYMOUTH Facility:[facility] ClinicStart: 04-28-2024 End: 84-42-4358rjcpzbkevdDKXPXY H TIMMISNot AvailableStart: 11-11-2023 End: 60-50-7542Hbsqkz outpatient visit [address]PM Work Phone: [facility] PODIATRYComment on above:Diabetic polyneuropathy associated with type 2 diabetes mellitus (CMS/HCC) (Primary Dx); NeuritisStart: 11-14-2022 End: 06-34-8720lncknvonesHL STEPHEN G REINECKFacility:I0Enaqg: 01-15-2022 End: 66-23-9837zxlrccdotsWL CHARLES HOUSEFacility:D9Eianw: 09-18-2018 End: 52-27-1516Btgmrcj encounter procedureDEFAULT PHYSICIANFacility:[facility] Procedures DateProcedureProcedure DetailPerforming ClinicianStart: 20-25-5809Bbehlw-up visitFollow-upMANEL BOUMEGOUASStart: 47-22-6402Xqcm bld gluc mntr dev cleared fda spec home useChaparromajose [address]es [address] SAMUELS Work Phone: Start: 36-31-2841UBMZYWRJVEK SKIN LESIONNatalie Tania Sheehan TELEVISION WRITER-SALESPERSON [employer] Work Phone: Start: 91-89-3638Bkp routine ecg w/least 12 lds w/i&r Kathy Garcia MD Work Phone: Start: 60-31-9088RNZ THYROID STIM HORMONENicole Red DO Work Phone: Start: 72-53-7405DRO screeningDR CARTER RICO Comment on above:Performed By: #### PSAD #### [facility] [address] [place] [address] Dr. Ranjith Michelleart: 97-71-8855Ovdfwdo of placement of stent for coronary artery diseaseS/P coronary artery stent placementSampson Street DPM Work Phone: Plan of Treatment DateCare ActivityDetailAuthorStart: 66-89-8826Xsxau BMI ScreeningAdult BMI ScreeningProMercy Health Anderson Hospitalca Health SystemStart: 76-58-1402Fthdanc ScreeningTobacco ScreeningLima Memorial Hospitalca Health SystemStart: 82-34-9704Vncdy BMI ScreeningAdult BMI ScreeningProMedica Health SystemStart: 01-11-2026 End: 75-66-0359Owwbquv encounter owcjhzglt36/14/2026 2:35 PM EDT Office Visit [facility] [address] [place] [address] Shivam Sheehan APRN-SALESPERSON [employer] [address] [place] [address] [facility] SWS DERMStart: 32-41-4393Wxigr BMI ScreeningAdult BMI ScreeningProMercy Health Anderson Hospitalca Health SystemStart: 02-72-8523Wwviomz ScreeningTobacco ScreeningWayne Hospital SystemStart: 10-11-2025 End: 37-87-7230Qnesami encounter wayuqooff19/12/2026 2:00 PM EST Office Visit [facility] [address] [place] [phone] Garo Barbour MD [address] [place] [address] [facility] ENDOCRINOLOGYStart: 07-26-2025 End: 12-24-2453Tbshiln encounter oghatuzti59/27/2025 2:00 PM EDT Appointment [facility] - Cardi[facility] [address] [place] [id number] Kathy Garcia MD [address] [place] [address] [facility] - CardiovascularStart: 07-06-2025 End: 61-75-3825Ltlosgd encounter jntlbekqh24/07/2025 2:00 PM EDT Office Visit [facility] [address] [place] [address] Roxanna Diop MD [address] [place] [address] [facility] CardiologyStart: 48-62-8111VQUCA-19 Vaccine ( season)COVID-19 Vaccine ( season)[facility] SystemStart: 93-69-9466Hhmndspuv vaccinationWayne Hospital SystemStart: 04-12-2025 End: 576245-ltjbdnocmtcoru D3 [Mass/volume] in Serum or PlasmaVitamin D 25 hydroxy Total Lab Routine Type 2 diabetes mellitus with hyperglycemia, with long-term current use of insulin (HCC) Expected: 04/12/2025 (Approximate), Expires: 04/12/2026N[facility] HealthcareComment on above:Expected: 04/12/2025 (Approximate), Expires: 04/12/2026Start: 04-12-2025 End: 23-25-0502X-peptideC-peptide Lab Routine Type 2 diabetes mellitus with hyperglycemia, with long-term current use of insulin (HCC) Expected: 04/12/2025 (Approximate), Expires: 04/12/2026[facility] Work Phone: Comment on above:Expected: 04/12/2025 (Approximate), Expires: 04/12/2026Start: 04-12-2025 End: 67-10-2796Niepn 1996 panel - Serum or PlasmaLipid panel Lab Routine Type 2 diabetes mellitus with hyperglycemia, with long-term current use of insulin (HCC) Expected: 04/12/2025 (Approximate), Expires: 04/12/2026[facility] Comment on above:Expected: 04/12/2025 (Approximate), Expires: 04/12/2026Start: 04-12-2025 End: 18-21-4507Xgrxfvngives/Creatinine panel in random UrineMicroalbumin / creatinine urine ratio Lab Routine Type 2 diabetes mellitus with hyperglycemia, withlong-term current use of insulin (HCC) Expected: 04/12/2025 (Approximate), Expires: 04/12/2026[facility] HealthcareComment on above:Expected: 04/12/2025 (Approximate), Expires: 04/12/2026Start: 04-12-2025 End: 25-10-3153Aqkpp function panelRenal function panel Lab Routine Type 2 diabetes mellitus with hyperglycemia, with long-term current use of insulin (HCC) Expected: 04/12/2025 (Approximate), Expires: 04/12/2026[facility] Comment on above:Expected: 04/12/2025 (Approximate), Expires: 04/12/2026Start: 04-12-2025 End: 63-25-6799Zykdwae encounter swphlitvb09/14/2025 1:50 PM EDT Office Visit [facility] [address] [place] [phone] Garo Barbour MD [address] [place] [address] [facility]YStart: 03-02-2025 End: 95-50-3565Ytjrjju encounter vgzsqdrie99/03/2025 3:40 PM EDT Office Visit [facility] [address] [place] [address] Kaelyn Good NP [address] [place], [place] SIVA MABRYtart: 01-19-2025 End: 64-74-4858Vwxnwnp encounter djjqmrofi51/22/2025 11:45 AM EDT Appointment [facility] [address] [place] [phone] Kathy Garcia MD [address] [place] [address] [facility] - Stress ImagingStart: 01-19-2025 End: 21-28-3128Zqhscrs encounter procedureProPremier Health [facility] - Stress ImagingStart: 01-19-2025 End: 86-79-8140Tfsubnp encounter procedureProPremier Health [facility] - CardiovascularStart: 01-12-2025 End: 96-98-0176Menvcam encounter procedureNOMS SWS DERMComment on above:Arrived Start: 01-08-2025 End: 11-73-6369SX Heart Perfusion W stress and W radionuclide IVNuc stress Lexiscan Cardiac Services Routine Coronary Artery Disease With History Of Percutaneous Transluminal Angioplasty (Ptca) Shortness of breath Expected: 01/08/2025, Expires: 01/01/2026Wayne Hospital SystemComment on above:Expected: 01/08/2025, Expires: 01/01/2026Start: 01-01-2025 End: 07-34-5498Avfb complete W/O contrastEcho complete W/O contrast Echocardiography Routine Coronary Artery Disease With History Of Percutaneous Transluminal Angioplasty (Ptca) Shortness of breath Expected: 01/01/2025, Expires: 01/01/2026[facility] Work Phone: Comment on above:Expected: 01/01/2025, Expires: 01/01/2026Start: 01-01-2025 End: 29-45-6202Sssitey encounter limosgjbs99/04/2025 1:45 PM EDT Office Visit [facility] [address] [place] [address] Kathy Garcia MD [address] [place] [address] [facility] CardiologyStart: 11-30-2024 End: 58-34-5509Sdjoswt encounter gtlksurcd92/03/2025 3:00 PM EST Office Visit [facility] [address] [place] [phone] Kaelyn Good NP [address] [place] SIVA MABRYtart: 10-29-2024 End: 03-79-6653Yuuskdmb Qouyyux0110/29/2024 3:45 PM EST Clinical Support [facility] [address] [place] [phone] aNA [place] Start: 10-12-2024 End: 44-46-3168Lmlcteh encounter exjshscsr81/13/2025 3:00 PM EST Office Visit [facility] [address] [place] [phone] Nicole Moon DO [address] [place], [place] [id number] Michaelle CHARLTONComment on above:ArrivedStart: 10-12-2024 End: 73-52-6518Jcxlqyeqo (Vitamin B12) [Mass/volume] in Serum or PlasmaVitamin B12 Lab Routine Idiopathic peripheral neuropathy Expected: 10/12/2024 (Approximate), Expires: 10/12/2025NOMS HealthcareComment on above:Expected: 10/12/2024 (Approximate), Expires: 10/12/2025Start: 10-12-2024 End: 85-00-2537Gihrnz [Mass/volume] in Serum or PlasmaFolate Lab Routine Idiopathic peripheral neuropathy Expected: 10/12/2024 (Approximate), Expires: 10/12/2025[facility] HealthcareComment on above:Expected: 10/12/2024 (Approximate), Expires: 10/12/2025Start: 10-12-2024 End: 82-56-4256Sfvi sleep testCape Cod And The Islands Mental Health Centere sleep test Sleep Center Routine ANIYA (obstructive sleep apnea) Expected: 10/12/2024 (Approximate), Expires: 10/12/2025[facility] Work Phone: comment on above:Expected: 10/12/2024 (Approximate), Expires: 10/12/2025Start: 10-12-2024 End: 01-50-7710Fcodewq electrophoresis, serumProtein electrophoresis, serum Lab Routine Idiopathic peripheral neuropathy Expected: 10/12/2024 (Approximate), Expires: 10/12/2025[facility] HealthcareComment on above:Expected: 10/12/2024 (Approximate), Expires: 10/12/2025Start: 10-12-2024 End: 77-27-2657Gchspabzfbq [Units/volume] in Serum or PlasmaTSH Lab Routine Idiopathic peripheral neuropathy Expected: 10/12/2024 (Approximate), Expires: 10/12/2025[facility] HealthcareComment on above:Expected: 10/12/2024 (Approximate), Expires: 10/12/2025Start: 39-50-6992Cztivrdnc vaccinationInfluenza Vaccine [facility] SystemStart: 09-75-6698Dmnudmjnz aortic aneurysm screening Abdominal Aortic Aneurysm (AAA) ScreenProSelect Medical Specialty Hospital - Cleveland-Fair[facility] SystemStart: 2019 Fall Risk ScreeningFall Risk ScreeningProSelect Medical Specialty Hospital - [facility] SystemStart: 02-14-2004 Administration of varicella zoster vaccineZoster (Shingles) Vaccine (1 of 2) [facility] SystemStart: 37-87-5344Hahhwqkczjou Vaccine: 65+ Years (1 of 1 - PCV)Pneumococcal Vaccine: 65+ Years (1 of 1 - PCV)[facility] HealthcareStart: 67-13-1677PBeR,Tdap and Td Vaccines (1 - Tdap)DTaP,Tdap and Td Vaccines (1 - Tdap)[facility] SystemStart: 97-04-5217Ffjod BMI Follow Up PlanAdult BMI Follow Up PlanWayne Hospital SystemStart: 43-42-8119Pbnsb BMI ScreeningAdult BMI ScreeningWayne Hospital SystemStart: 74-81-2186Zjllefbnqe Screening Depression ScreeningWayne Hospital SystemStart: 77-54-2429Hmkjpwp Screening Tobacco ScreeningWayne Hospital SystemStart: 27-08-0660Kudffmkjy for malignant neoplasm of colonST. MARK'S HOSPITAL HealthcareStart: 03-77-4877Zyfbog Use: Cardiovascular Statin Use: CardiovascularAs[facility] sleep testUrich sleep test Sleep Center Routine ANIYA (obstructive sleep apnea) 11/05/2024 3:40 PM [facility] Healthcare Work Phone: [facility] Centerk sleep testUrich sleep test Sleep Center Routine ANIYA (obstructive sleep apnea) Ordered: 01/05/2025[facility] Work Phone: comment on above:Ordered: 01/05/2025 Immunizations Immunization DateImmunizationNotesCare QdamtcdpCttkpjlh58-03-2873Vrjwte Purple Cap SARS-CoV-2 VaccinationGaro Barbour MD Work Phone: [facility] HospitalNojzhvqulv91-68-8426Iawqmzw MAXS-AkZ-4Mfljk Sabbagh MD Work Phone: [facility] Payers DatePayer CategoryPayerPolicy [id number] IndemnityMEDICAL MUTUAL Member Subscriber Plan / Payer (Effective 2019-Present) Name: Jono Morales LMember ID: [id number] Relation to Subscriber: Self Name: Jono Morales Payer ID: Not on file Type: Not on file Address: [place] [id number] 2019Medicare [id number] [id number] 1961 [id number] 2.16.840.1.983285.3.579.2.647 [id number] 2.16.840.1.321288.3.57[id number] 2..840.1.200251.3.57[id number] 2..840.1.786434.3.57[id number] 2..840.1.671815.3.57[id number] 2..840.1.963296.3.57[id number] 2..840.1.168368.3.579.[id number] 2.16.840.1.400336.3.57[id number] 2.16.840.1.608646.3.579.[id number] 2.16.840.1.688853.3.579.2.[id number] 2.16.840.1.743205.3.57[id number] 2.16.840.1.170106.3.579.[id number] 2.16.840.1.152608.3.579.[id number] 2.16.840.1.055303.3.579.[id number] 2.16.840.1.430510.3.57[id number] 2..840.1.974792.3.579.[id number] 2.16.840.1.520751.3.579.2.[id number] 2.16.840.1.109519.3.579.2.718Unknown Social History DateTypeDetailFacilityStart: 02-21-2021 End: 23-63-0957Xlhmmmj smoking status NHISEx-smokerNOMS Healthcare End: 35-54-3655Bqmnnuc of tobacco useCurrent smokerNOMS Healthcare End: 89-35-0606Axzfajs of tobacco useCigarette SmokerNOMS HealthcareStart: 11-11-2023 End: 06-45-9475Ooesnpd intakeLifetime non-drinker (finding)[facility] HealthcareStart: 11-10-2020 End: 60-04-9502Vcrrfbf of Social functionNOWI HealthcareStart: 11-10-2020 End: 25-38-0402Zmajdin use panelNOWI HealthcareStart: 31-15-1365Bnq Assigned At BirthNot on fileNOWI HealthcareStart: 04-28-2024 End: 55-65-8271Hukxxffze beverage intakeEx-drinker (finding)[facility] Start: 74-46-9818Jblshct Exovzob66 years cleanNOWI HealthcareStart: 02-21-2021 Tobacco use and exposureSmokeless tobacco non-userProMedica Health System Frequency of Alcohol ConsumptionNeverWayne Hospital SystemStart: 02-21-2021 Tobacco Tgoxcli0242 quitWayne Hospital SystemStart: 49-78-2121TpdThhu (finding)[facility] Clinical Notes 11-11-2023 to 07-19-2025 Note Date & WjckRvgzMxgvdcga93-09-8090 Note From: LALO MCCOY DO To: [facility] Clinical Pool ([facility]); Sent: 07/19/2025 07:31:50 EDT Subject: FW: Medication Management Due Date/Time: 07/19/2025 10:30:00 EDT Caller Name: JONO MORALES; Caller Number: H From: [employer] [id number] To: LALO MCCOY DO Sent: July [...] Notes from Pharmacy: From: Fiordaliza Blankenship To: [employer] [facility] Sent: 07/19/2025 08:27:27 EDT Subject: FW: Medication Management Not Approved: proposed to provider gabapentin (gabapentin 100 mg capsule) TAKE 2 CAPSULES BY MOUTH DAILY Qty: 60 cap(s) Days Supply: 30 Refills: 0 Substitutions Allowed Route To Pharmacy - [employer] [facility] Signed by Pattie [facility]10-07-2025 History of Present illness Narrative* Manel Boumegouas, [...] upper and lower dentures Depression Diabetes mellitus ([facility]) Diabetes mellitus type 2, controlled ([facility]) GERD (gastroesophageal reflux disease) Hypertension Obesity Shortness of breath Visual impairment glasses No data recorded No data recorded No data recorded Past Surgical History: Procedure Laterality Date CARDIAC SURGERY 11 stents COLONOSCOPY N/A 02/21/2021 Performed by Abraham Pedersen MD at [facility] HEMORROIDECTOMY HERNIA REPAIR RELEASE CARPAL TUNNEL Left 10/07/2019 Performed by Olu Yen DO at [facility] SKIN SURGERY Family History Problem Relation Age [...] RCA 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 Prior LAD stents. [facility] 12/14/13 with nonobstructiveresidual disease. 11 total [...] DO Referring Physician: Lalo Mccoy DO [address] [place] [address] documented in this encounterHolzer Health System10-06-2025 Miscellaneous Notes* Telephone Encounter - Sandra Langston MA - 07/05/2025 10:59 AM EDT Left message for patient to remind them to bring their most current medication list with them to their appointment. documented in this encounterHolzer Health System10-06-2025 Telephone encounter Note* Telephone Encounter - Sandra Langston MA - 07/05/2025 10:59 AM EDT Left message for patient to remind them to bring their most current medication list with them to their appointment. [facility]09-15-2025 NoteEntered by LALO MCCOY DO on June 14, 2025 13:51:53 EDT From: LALO MCCOY DO To: [employer] [facility] Sent: 06/14/2025 13:51:53 EDT Subject: Medication Management Approved Order:gabapentin (gabapentin 100 mg oral capsule) TAKE 2 CAPSULES BY MOUTH DAILY Qty: 60 EA Days Supply: 0 Refills: 0 Substitutions Allowed Route To Pharmacy - [employer] [facility] Signed by LALO MCCOY DO Cancelled: Discontinue:gabapentin (gabapentin 100 mg oral tablet) Signed by LALO MCCOY DO From: [employer] [facility] To: LALO MCCOY DO Sent: June [...] 0 Refills: 0 Substitutions Allowed [facility] NoteEntered by LALO MCCOY DO on April 19, 2025 13:17:26 EDT From: LALO MCCOY DO To: [employer] [facility] Sent: 04/19/2025 13:17:26 EDT Subject: Medication Management Submitted: Complete:ibuprofen (ibuprofen 800 mg oral tablet) Signed by LALO MCCOY DO 04/19/2025 13:17:00 EDT Approved with modifications: ibuprofen (ibuprofen 800 mg tablet) TAKE 1 TABLET BY MOUTH THREE TIMES DAILY Qty: 90 tab(s) Days Supply: 30 Refills: 1 Substitutions Allowed Route To Pharmacy - [employer] [facility] From: [employer] [facility] To: LALO MCCOY DO Sent: April [...] Refills: 1 Substitutions Allowed [id number] History of Present illness Narrative* Garo Barbour [...] twice a day. [facility], and I will send prescription for [...] HPI: 04/16 New patient sent from Dr. 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 documented in this encounterWashington County Memorial HospitalRfjirzlqeu81-92-5720 NoteEntered by LALO MCCOY DO on January 18, 2025 07:36:06 EDT From: LALO MCCOY DO To: [employer] [facility] Sent: 01/18/2025 07:36:06 EDT Subject: Medication Management Submitted: Complete:clopidogrel (clopidogrel 75 mg oral tablet) Signed by LALO MCCOY DO 01/18/2025 07:36:00 EDT Approved with modifications: clopidogrel (clopidogrel 75 mg tablet) TAKE 1 TABLET BY MOUTH DAILY Qty: 90 tab(s) Days Supply: 90 Refills: 1 Substitutions Allowed Route To Pharmacy - [employer] [facility] From: [employer] [employer] [facility] To: NADINELALO Jo MOLINA Sent: [...] Refills: 1 Substitutions Allowed Notes from Pharmacy[id number] Miscellaneous Notes* Telephone Encounter - Jillian Varner [...] number to change times documented in this encounterHolzer Health System04-17-2025 Telephone encounter Note* Telephone Encounter - Jillian [...] central scheduling phone number to change times [facility] [employer] Oiqkow75-80-4122 History of Present illness Narrative* Shivam Sheehan, TELEVISION WRITER-SALESPERSON [employer] - 01/12/2025 2:40 PM EDT Skin Check Location: Patient requests a skin examination from the waist up Dermatologic history: history of Actinic Keratosis Last visit: 6 months ago New patient Rash Location: hands Duration: 8 years Severity: mild Quality: itchy Modifying Factors: none Associated symptoms: dry skin, rash is not present today Treatments tried: topical steriods (unable to tell this television writer the names of topicals) and patient reports steroid shots work(last shot 6 months ago) Current treatments: Patient was seen at [facility]. Medical release form signed by patient. [...] cosmetic reasons. 7. ACTINIC KERATOSIS (3) Left Mormon, Right Forehead, Right Zygomatic Area Erythematous scaly [...] limited to risks of scarring, darker or players club representative pigmentary changes, recurrence, incomplete removal and infection. 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 Dizziness History of Present [...] upper and lower dentures Depression Diabetes mellitus ([facility]) Diabetes mellitus type 2, controlled ([facility]) GERD (gastroesophageal reflux disease) Hypertension Obesity Shortness of breath Visual impairment glasses No data recorded No data recorded No data recorded Past Surgical History: Procedure Laterality Date CARDIAC SURGERY 11 stents COLONOSCOPY N/A 02/21/2021 Performed by Abraham Pedersen MD at [facility] HEMORROIDECTOMY HERNIA REPAIR RELEASE CARPAL TUNNEL Left 10/07/2019 Performed by Olu Yen DO at [facility] SK[facility] SURG[facility] Family History Problem Relation Age [...] RCA 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 Prior LAD stents. [facility] 12/14/13 with nonobstructiveresidual disease. 11 total [...] MCCOY DO Referring Physician: Lalo Mccoy DO [address] [place] [address] documented in this encounterHolzer Health System04-03-2025 Miscellaneous Notes* Telephone Encounter - Sandra Delgado CMA - 12/31/2024 11:09 AM EDT Called patient to remind them to bring their most current copy of their medication list with them to their appt. Patient verbalizes understanding. documented in this encounterHolzer Health System04-03-2025 Telephone encounter Note* Telephone Encounter - Sandra Delgado CMA - 12/31/2024 11:09 AM EDT Called patient to remind them to bring their most current copy of their medication list with them to their appt. Patient verbalizes understanding. [facility] CenterDFine Qtsbxj29-00-1642 Note From: Sandra Orozco LPN ([facility] Clinical Pool ([facility])) To: LALO MCCOY DO; Sent: 12/02/2024 08:18:30 EST Subject: Med change Caller Name: JONO MORALES; Caller Number: H Pt called lvm stating that he did see Neurology and was suggested to increase his Gabapentin to help with his Neuropathy, was told by Neurology to contact PCP to have medication increased From: LALO MCCOY DO To: [facility] Clinical [place] ([facility]); Sent: 12/02/2024 09:11:29 EST Subject: RE: Med change Caller Name: JONO MORALES; Caller Number: H on 400 tid now. so i guess we go to 600mg po tid #90 NR proposal sent to Dr Mccoy, pt made aware new rx will be [facility] 11-26-2024 Miscellaneous Notes* Telephone Encounter - Gracy Villa - 11/26/2024 12:55 PM EST 11/26 LMOM TO SCHEDULE NEW PATIENT APPT documented in this encounterLima Memorial HospitalCureVac [facility] Medical CenterGboxvf58-98-3540 Telephone encounter Note* Telephone Encounter - Gracy Villa - 11/26/2024 12:55 PM EST 11/26 LMOM TO SCHEDULE NEW PATIENT [facility]PT [facility] Cposvr59-16-0360 History of Present illness Narrative* Nicole Moon DO - 10/30/2024 10:30 AM EST Images from the original note were not included. Reason for Appointment: HST Patient: Jono Morales : 1955 Reason for Home Sleep Study: Sleep disturbances Ordering Physician: Dr. Nicole Moon Lead Cashier: Yue Khan Pick-up Comments: Procedure was explained to the patient who expressed understanding. Patient was instructed how to use device and informed to return completed questionnaire with device tomorrow morning...... 11/02/24 Lead Cashier: Nicolle Porter CMA Drop-Off Comments: Patient returned HST device. Study data was successfully uploaded and completed questionnaire was imported to patient's chart....... 11/02/24 Resulting Physician: SANDY Patino DO Impression: Mild ANIYA may benefit from CPAP titration versus auto PAP treatment at 5-15 cm of water documented in this [facility]01-30-2025 History of Present illness Narrative* Yue Khan - 10/29/2024 3:45 PM EST Reason for Appointment: HST Patient: Jono Morales : 1955 Reason for Home Sleep Study: Sleep disturbances Ordering Physician: Dr. Nicole Moon Lead Cashier: Yue Khan Pick-up Comments: Procedure was explained to the patient who expressed understanding. Patient was instructed how to use device and informed to return completed questionnaire with device tomorrow morning...... 10/29/24 Lead Cashier: Chris GLEZ(Chey) Drop-Off Comments: Patient returned HST device. Study data was successfully uploaded and completed questionnaire was imported to patient's chart....... Resulting Physician: SANDY Patino DO Impression: mild ANIYA recommend Auto PAP at 5-15 cmH20 documented in this [facility]01-13-2025 History of Present illness Narrative* Nicole Moon [...] mg 3 times daily. He is on [place] which he does not feel is helping. 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 Subject: Medication Management Due: September 09, 2024 12:09:00 AM CAR WORKER On Hold Pending Signature Drug: gabapentin (gabapentin 400 mg oral capsule), 1 cap(s) Oral TID Quantity: 120 cap(s) Days Supply: 0 Refills: 0 Substitutions Allowed Notes from Pharmacy: Dispensed Drug: gabapentin (gabapentin 400 mg oral capsule), TAKE 1 CAPSULE BY MOUTH THREE TIMES DAILY Quantity: 120 cap(s) Days Supply: 40 Refills: 0 Substitutions Allowed Notes from Pharmacy: From: Fiordaliza Cordova To: [employer] [facility] Sent: 09/09/2024 09:19:46 EST Subject: FW: Medication Management Not Approved: proposed to provider gabapentin (gabapentin 400 mg capsule) TAKE 1 CAPSULE BY MOUTH THREE TIMES DAILY Qty: 120 cap(s) Days Supply: 40 Refills: 0 Substitutions Allowed Route To Pharmacy - [employer] [facility] Signed by Tasha [facility]02-12-2024 History of Present illness Narrative* [address] [...] tablet before bedtime., Disp: , Rfl: HYDROcodone-acetaminophen ([place]) 7.5-325 MG tablet, Take 1 tablet by [...] Unspecified essential hypertension documented in this encounter [facility] HealthcareEvaluation note* Diagnosis Coronary artery disease [...] Nicole Moon DO [address] [place] [address] Phone: tel: fax: Referral IDStatusReasonStart DateExpiration DateVisits RequestedVisits [id number] [facility] Summary Purpose Family History No [...] and content) DATE CREATED AUTHOR 09/21/2018 [facility] DATE CREATED AUTHOR AUTHOR'S ORGANIZ ATION 11/17/2022 [facility] DATE CREATED AUTHOR AUTHOR'S ORGANIZ ATION 04/16/2025 [facility] DATE CREATED AUTHOR AUTHOR'S ORGANIZ ATION 07/09/2025 [facility] DATE CREATED AUTHOR AUTHOR'S ORGANIZ ATION 07/19/2025 [facility] Reason for Visit (unrecogniz ed section and content) ReasonCommentsNail Paty Morales is a 68yo male patient presents for nail care. Pt relates [employer] has helped with hisneuropathy. Dr. Mccoy BS 250 A1C SS 11.5ReasonCommentshand and foot painSpecialtyDiagnoses / ProceduresReferred By ContactReferred To ContactNeurology Diagnoses Pain in left foot Pain in right foot Type 2 diabetes mellitus with other diabetic neurological complication (CMS/HCC) Plantar fascial fibromatosis Procedures AR NEEDLE EMG EA EXTREMTY W/PARASPINL AREA COMPLETE AR NERVE CONDUCTION STUDIES 9-10 STUDIES Cristino Maldonado MD [address] [facility] [address] Phone: tel: fax: Boby Betancourt MD [address] [place] [address] Phone: tel: fax: Referral IDStatusReasonStart DateExpiration DateVisits RequestedVisits [id number] Consult and Treat /[id number] Pain/Foot PainSleep ApneaReasonComments New PatientNP REFERRAL DR BrownSpecialtyDiagnoses / ProceduresReferred By ContactReferred To ContactCardiology Diagnoses Coronary artery disease with history of percutaneous transluminal angioplasty (PTCA) Lalo Mccoy, [address] [place] [address] Phone: tel: fax: Bertin Srinivasan MD [address] [address] Phone: tel: fax: Referral IDStatusReasonStart DateExpiration DateVisits RequestedVisits [id number] Review Specialty Services Required /[id number]WqvtcidpBeejuetoOcsrnr-htLuwndp CommentsFollow-upOV F/U 6 MO ECHO, STRESS NOT DONE DT COST L/S MAS, SCHED W/PT Care Teams (unrecognized sec tion and content) Team MemberRelationshipSpecialtyStart DateEnd Lalo Mccoy MD [address] [place] [address] PCP - GeneralFamily Ludjqfqe71/11/23Team MemberRelationshipSpecialtyStart Date End Date Lalo Mccoy MD [address] [place] [address] PCP - GeneralFamily Nqaourqo99/11/23Team MemberRelationshipSpecialtyStart Date End Date Lalo Mccoy MD [address] [place] [address] PCP - GeneralFamily Rhgjumei58/11/23Team MemberRelationshipSpecialtyStart Date End Lalo Mccoy MD [address] [place] [address] PCP - GeneralFamily Zqwqtgfr73/11/23 Nicole Moon DO [address] [place] [address] Referring PhysicianNeurolog10/13/24 Kaelyn Good NP [address] [place], [place] Nurse PractitionerNeurolog10/13/24Team MemberRelationshipSpecialtyStart DateEnd Lalo Mccoy DO PCP - GeneralFamily Medicine10/01/19Team MemberRelationshipSpecialtyStart End Lalo Mccoy MD [address] [place] [address] PCP - GeneralFamily Efbrxpns54/11/23 Nicole Moon DO [address] [place] [address] Referring PhysicianNeurolog10/13/24 Kaelyn Good NP [address] [place], [place] Nurse PractitionerNeurolog10/13/24Team MemberRelationshipSpecialtyStart DateEnd Lalo Mccoy MD [address] [place] [address] PCP - GeneralFamily Qoeadiwl53/11/23 Nicole Moon DO [address] [place] [address] Referring PhysicianNeurolog10/13/24 Kaelyn Good NP [address] [place], [place] Nurse PractitionerNeurolog10/13/24Team MemberRelationshipSpecialtyStart Lalo Hughes DO PCP - GeneralFamily Medicine10/01/19Team MemberRelationshipSpecialtyStart Lalo Hughes DO PCP - GeneralFamily Medicine10/01/19Team MemberRelationshipSpecialtyStart Lalo Hughes MD [address] [place] [address] PCP - GeneralFamily Qjqvkfpm20/11/23 Nicole Moon DO [address] [place] [address] Referring PhysicianNeurolog10/13/24 Kaelyn Good NP [address] [place] Nurse PractitionerNeurolog10/13/24Team MemberRelationshipSpecialtyStLalo Ambrose MD [address] [place] [address] PCP - GeneralFamily Qmflgmmf53/11/23 Nicole Moon DO [address] [place] [address] Referring PhysicianNeurolog10/13/24 Kaelyn Good NP [address] [place], [place] Nurse PractitionerNeurolog10/13/24Team MemberRelationshipSpecialtyStart Date[facility] MD [address] [place] [address] PCP - GeneralFamily Kcprvjde94/11/23 Nicole Moon DO [address] [place] [address] Referring PhysicianNeurolog10/13/24 Kaelyn Good NP [address] Nurse PractitionerNeurolog10/13/24Team MemberRelationshipSpecialtyStart Date[facility] PCP - GeneralFamily Medicine10/01/19Team MemberRelationshipSpecialtyStart DateLalo Rai MD [address] [place] [address] PCP - GeneralFamily Qutovfzq42/11/23 Nicole Moon DO [address] [place] [address] Referring PhysicianNeurolog10/13/24 Kaelyn Good NP [address] [place] [address] Nurse PractitionerNeurology1//25Team MemberRelationshipSpecialtyStart DateEnd Date Lalo Mccoy MD [address] [place] [address] PCP - GeneralFamily Ioozklqv33/11/23 Nicole Moon DO [address] [place] [address] Referring PhysicianNeurolog10/13/24 Kaelyn Good NP [address] [place] [address] Nurse PractitionerNeurolog10/13/24Te MemberRelationshipSpecialtyStart DateEnd Date Lalo Mccoy [...] BE BASED ON THE PRIMARY CLINICAL RECORDS. [facility] [employer] provides no warranty or guarantee of the accuracy or completeness of information in this document.
[2025-07-23 11:37] LABS: Hematocrit 43.7 % (42.0-54.0); Hemoglobin 15.5 g/dL (14.0-18.0); Immature Granulocytes Abs Auto 0.06 10^3/uL (0.00-0.03); Immature Granulocytes Pct Auto 0.4 % (0.0-0.5); Lymphocytes Absolute Auto 3.1 10^3/uL (1.2-3.8); Mean Corpuscular HGB Conc 35.5 g/dL (29.9-35.2); Mean Corpuscular Hemoglobin 31.4 pg (25.9-34.0); Mean Corpuscular Volume 88.6 fL (80.0-94.0); Platelet Count 239 10^3/uL (150-450); Red Blood Count 4.93 10^6/uL (4.70-6.10); White Blood Count 14.4 10^3/uL (4.0-11.0)
[2025-07-23 12:29] LABS: Alanine Aminotransferase 30 U/L (16-63); Albumin Globulin Ratio 1.1; Albumin Level 3.4 g/dL (3.4-5.0); Alkaline Phosphatase 133 U/L (46-116); Anion Gap 14.2; Aspartate Amino Transferase 11 U/L (15-37); Blood Urea Nitrogen 19.0 mg/dL (7.0-18.0); Calcium 9.2 mg/dL (8.5-10.1); Carbon Dioxide 24.9 mmol/L (21.0-32.0); Chloride 102 mmol/L (98-107); Cholesterol 163 mg/dL (<=200); Estimated GFR (African America >60 (>=60 mL/min/1.73m^2); Estimated GFR (Non-African Ame >60 (>=60 mL/min/1.73m^2); Globulin 3.2 g/dL; Glucose 105 mg/dL (74-106); HDL Cholesterol 52 mg/dL (40-60); Potassium 4.1 mmol/L (3.5-5.1); Sodium 137 mmol/L (136-145); Total Protein 6.6 g/dL (6.4-8.2); Triglycerides 142 mg/dL (<=150); VLDL CHOLESTEROL 28.4 mg/dL
== END 2025-07-23 11:05 | disposition home or self-care (01) ==
LOC: LAB 11:04
PROVIDERS: PCP Family Medicine; Visit Provider Family Medicine
DX: Z12.5 Encounter for screening for malignant neoplasm of prostate (principal); Z01.89 Encounter for other specified special examinations; I25.10 Atherosclerotic heart disease of native coronary artery without angina pectoris; Z98.61 Coronary angioplasty status; F32.A Depression, unspecified; E11.9 Type 2 diabetes mellitus without complications; I10 Essential (primary) hypertension; G62.9 Polyneuropathy, unspecified
CPT/HCPCS: 36415; 80053; 80061; 83036; 85025; G0103

== ENCOUNTER 2025-08-25 11:37 | Outpatient (OUT) | payer MEDICARE, SELFPAY ==
--- OUTSIDE RECORDS SUMMARY | 2025-08-16 15:48 | XMS_ITS | Continuity of Care Document ---
Author Organization [facility] Address Unknown Care Team Providers Care Soft Drink Powder Mixer Name Role Phone KALEY MCCOY Primary Care Physician Encounter [facility] [id number] Date(s): 08/16/25 - 08/16/[address] [address] Discharge Disposition: Home Attending Physician: KALEY MCCOY DO Admitting Physician: KALEY MCCOY DO Encounter Type: OP Allergies, Adverse Reactions, Alerts SubstanceCriticalitySeverityReactionReaction SeverityStatusDULoxetineHigh criticalitySevereSuicidal ideationActive Treatment Plan Future Appointments Future Scheduled Tests Laboratory* Hemoglobin A1c Standard 07/21/25 * Comprehensive Metabolic Panel Standard 07/21/25 * Lipid Panel Standard 07/21/25 * PSA Screen 07/21/25 * PSA Screen 02/16/25 * CBC w/ Auto Diff 07/21/25 Radiology* MRI Face Neck Orbit w/o Contrast 08/11/25 Medications acetaminophen-hydrocodone 325 mg-7.5 mg oral tablet 1 tab(s), Oral, TID, # 90 tab(s), 0 Refill(s), Pharmacy: [facility], 1 tab(s) Oral TID, 175, cm, 05/27/25 14:00:00 EDT, Height, 88.9, kg, 05/27/25 14:12:00 EDT, Weight Dosing Start Date: 05/27/25 Status: Ordered Medication Dispense Status: Completed Quantity: 90.0 Unit: tab(s) Total Allowed Fills: 1 Fills Dispensed: 0 Indications: Polyneuropathy, unspecified; aspirin 81 mg oral delayed release tablet 1 tab(s) ( 81 mg ), PO, Daily, # 30 tab(s), 11 Refill(s) Start Date: 05/09/23 Status: Ordered Medication Dispense Status: Completed Quantity: 30.0 Unit: tab(s) Total Allowed Fills: 12 Fills Dispensed: 0 Indications: Atherosclerotic heart disease of [place] coronary artery without angina pectoris; clopidogrel 75 mg oral tablet 1 tab(s), Oral, Daily, # 90 tab(s), 1 Refill(s), Pharmacy: [facility], 1 tab(s) Oral Daily, 175, cm, 05/27/25 14:00:00 EDT, Height, 88.9, kg, 05/27/25 14:12:00 EDT, Weight Dosing Start Date: 07/19/25 Status: Ordered Medication Dispense Status: Completed Quantity: 90.0 Unit: tab(s) Total Allowed Fills: 2 Fills Dispensed: 0 Detrol LA 4 mg oral capsule, extended release 1 cap(s) ( 4 mg ), Oral, Daily, # 30 cap(s), 2 Refill(s), Pharmacy: [facility], 1 cap(s) Oral Daily, 175, cm, 08/04/25 15:21:00 EST, Height, 87, kg, 08/04/25 15:30:00 EST, Weight Dosing Start Date: 08/04/25 Status: Ordered Medication Dispense Status: Completed Quantity: 30.0 Unit: cap(s) Total Allowed Fills: 3 Fills Dispensed: 0 gabapentin 100 mg oral capsule 2 cap(s) ( 200 mg ), Oral, Daily, Instructions: TAKE 2 CAPSULES BY MOUTH DAILY, # 60 cap(s), 0 Refill(s), Pharmacy: [facility], 2 cap(s) Oral Daily,x30 day(s),Instr:TAKE 2 CAPSULES BYMOUTH DAILY, 175, cm, 05/27/25 14:00:00 EDT, Height, 88.9, kg, 05/27/25 14:12:00 EDT, Weight Dosing Start Date: 07/19/25 Stop Date: 08/18/25 Status: Ordered Medication Dispense Status: Completed Quantity: 60.0 Unit: cap(s) Total Allowed Fills: 1 Fills Dispensed: 0 ibuprofen 800 mg oral tablet 1 tab(s), Oral, TID, # 90 tab(s), 1 Refill(s), Pharmacy: [facility], 1 tab(s) Oral TID, 175, cm, 05/27/25 14:00:00 EDT, Height, 88.9, kg, 05/27/25 14:12:00 EDT, Weight Dosing Start Date: 08/02/25 Status: Ordered Medication Dispense Status: Completed Quantity: 90.0 Unit: tab(s) Total Allowed Fills: 2 Fills Dispensed: 0 losartan 25 mg oral tablet See Instructions, Instructions: take 1 tablet by mouth once daily, # 90 tab(s), 1 Refill(s), Pharmacy: [facility], take 1 tablet by mouth once daily, 175, cm, 07/07/24 15:52:00 EDT, Height, 92.4, kg, 07/07/24 15:57:00 EDT, Weight Dosing Start Date: 07/21/24 Status: Ordered Medication Dispense Status: Completed Quantity: 90.0 Unit: tab(s) Total Allowed Fills: 2 Fills Dispensed: 0 tadalafil 20 mg oral tablet 1 tab(s) ( 20 mg ), Oral, Daily, # 10 tab(s), 2 Refill(s), Pharmacy: [facility], 1 tab(s) Oral Daily, 175, cm, 02/23/25 14:19:00 EDT, Height, 89.7, kg, 02/23/25 14:30:00 EDT, Weight Dosing Start Date: 02/23/25 Status: Ordered Medication Dispense Status: Completed Quantity: 10.0 Unit: tab(s) Total Allowed Fills: 3 Fills Dispensed: 0 Trileptal 150 mg oral tablet 1 tab(s) ( 150 mg ), Oral, BID, # 60 tab(s), 1 Refill(s), Pharmacy: [facility], 1 tab(s) Oral BID, 175, cm, 08/04/25 15:21:00 EST, Height, 87, kg, 08/04/25 15:30:00 EST, Weight Dosing Start Date: 08/04/25 Status: Ordered Medication Dispense Status: Completed Quantity: 60.0 Unit: tab(s) Total Allowed Fills: 2 Fills Dispensed: 0 Indications: Trigeminal neuralgia; Problem List ConditionConfirmationCourseEffective DatesStatusHealth StatusInformantAllergic blepharitisConfirmedActiveAtaxiaConfirmedActiveBronchitisConfirmedActiveChronic serous otitis mediaConfirmedActiveCAD (coronary artery disease)ConfirmedActive DepressionConfirmedActiveDiabetesConfirmedActiveErectile dysfunctionConfirmed ActiveHypertensionConfirmedActiveHypokalemiaConfirmedActiveMetatarsalgia ConfirmedActiveMood disorderConfirmedActiveNeuropathyConfirmedActiveSecond degree burn of legConfirmedActiveCoronary angioplasty statusConfirmedActive Subungual hematoma of toenail of right footConfirmedActiveSuicidal ideation ConfirmedActiveTrigeminal neuralgiaConfirmedActiveUrinary urgencyConfirmedActive Urinary incontinenceConfirmedActive Social History Social History TypeResponseTobaccoFormer tobacco user Tobacco Use:. SexSex RepresentationMale (finding) Patient Care team information Care Team Personnel Name: KALEY MCCOY DO Position: [facility] Physician Acute/ED/Clinic/Care Member Role: Primary Care Physician [address]: [address] [place] [address] Telecom: Care Team Related Persons Name: INES DRAKE Insurance Providers Guarantor name: ESTEFANY CHASE [place] [email or web address] Plan Information #: 1 Payer: MEDICARE Payer Identifier: NA Member Number: [id number] Group Number: NA Subscriber Identifier: [id number] Relationship to Subscriber: self Coverage Type: MEDICARE Coverage Verification Date: 25 Telecom: [phone] Address: [facility] [id number] [place] [address]
--- NOTE | 2025-08-25 11:40 | MR_ITS ---
The [address] [address] Patient Name: ESTEFANY SMALL MRN: [id number] date: 1955 Sex: M Assigned Patient Location: MRI Current Patient Location: MRI Accession/Order Number: [id number] Exam Date: 08/25/2025 11:50 Report Date: 08/25/2025 13:38 At the request of: KALEY MCCOY Procedure: MR TMJ wo con MR TMJ wo con 08/25/2025 1:05 PM SIGN AND SYMPTOMS: ^Trigeminal Neuralgia , Jaw Pain, Joint Pain PROTOCOL: Multiplanar multisequence MR images of the temporal mandibular joints without IV contrast COMPARISON: None. FINDINGS: Extra axial spaces: Age appropriate. Hemorrhage: None. Ventricular system: Within normal limits. Basal cisterns: Within normal limits and not effaced. Cerebral parenchyma: The visualized brain parenchyma demonstrates infarcts in the thalamus bilaterally. Midline shift: None.. Cerebellum: There is a remote lacunar infarct in the right cerebellar folia. Brainstem: Within normal limits. OTHER: Calvarium: Normal marrow signal. Vascular system: Satisfactory flow voids within the anterior and posterior circulation. Visualized Paranasal sinuses: Mild polypoid mucosal thickening is noted in the right maxillary sinus. Visualized Orbits: Within normal limits. Visualized upper cervical spine: Within normal limits. Sella and skull base: Within normal limits. Temporal mandibular joints: There is slight anterior subluxation of the head of the mandibular condyle bilaterally without anterior dislocation. There is also mild anterior translation of the disc ultrasound open-mouth views with successful recapture on closed mouth views. Minimal subcortical edema is noted along the head of the mandibular ramus bilaterally suggesting mild degenerative changes in the temporomandibular joints. MR/MR TMJ wo con IMPRESSION: No acute pathology. Mild degenerative changes are noted in the temporomandibular joints as above. There is slight anterior subluxation (normal physiologic movement) of the head of the mandibular condyle bilaterally without anterior dislocation. There is also mild anterior translation of the disc (normal physiologic movement) on open-mouth views with successful recapture on closed mouth views. Remote lacunar infarcts are noted in the thalami bilaterally and right cerebellar folia. If there is ongoing clinical concern for trigeminal neuralgia, follow-up with contrast-enhanced MRI of the brain with cranial nerve V protocol is recommended. Impression dictated by: Mika Matthew M.D. 08/25/2025 1:38 PM Dictation Location: [place] [address] Electronically authenticated by: [id number] Date: 08/25/2025 13:38
--- OUTSIDE RECORDS SUMMARY | 2025-08-25 11:40 | XMS_ITS | CCD ---
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 By: #### HSTROPN, CMP, LIPA #### [facility] [address] [place] [address] Dr. Ranjith StoverBilirubin [Mass/Vol]0.7 mg/dLNormal0.2-1.0[facility] Comment on above:Performed By: #### HSTROPN, CMP, LIPA #### [facility] [address] [place] [address] Dr. Ranjith StoverCalcium [Mass/Vol]8.6 mg/dLNormal8.5-10.1[facility] Comment on above:Performed By: #### HSTROPN, CMP, LIPA #### [facility] [address] [place] [address] Dr. Ranjith StoverChloride [Moles/Vol]103 mmol/EDjutex03-341Zaa [facility] Comment on above:Performed By: #### HSTROPN, CMP, LIPA #### [facility] [address] [place] [address] Dr. Ranjith StoverCO2 [Moles/Vol]27.9 mmol/UKagcxu32.0-32.0The [facility] Comment on above:Performed By: #### HSTROPN, CMP, LIPA #### [facility] [address] [place] [address] Dr. Ranjith StoverCreatinine [Mass/Vol]0.99 mg/dLNormal0.70-1.30The [place] [facility] HospitalComment on above:Performed By: #### HSTROPN, CMP, LIPA #### [facility] [address] [place] [address] Dr. Ranjith Guzmán-AF [place]ONG [place]ER>60Normal>=60The [place] [facility] HospitalComment on above:Performed By: #### HSTROPN, CMP, LIPA #### [facility] [address] [place] [address] Dr. Ranjith JamesGFR-NON AF [place]ER>60Normal>=60The [place] [facility] HospitalComment on above:Performed By: #### HSTROPN, CMP, LIPA #### [facility] [address] [place] [address] Dr. Ranjith StoverGlobulin (S) [Mass/Vol]3.5 g/dLNormalThe [place] [facility] HospitalComment on above:Performed By: #### HSTROPN, CMP, LIPA #### [facility] [address] [place] [address] Dr. Ranjith StoverGlucose [Mass/Vol]154 mg/dLCritically hqkv57-527Zdv [facility] HospitalComment on above:Performed By: #### HSTROPN, CMP, LIPA #### [facility] [address] [place] [address] Dr. Ranjith StoverPotassium [Moles/Vol]3.2 mmol/LCritically low3.5-5.1The [place] [facility] HospitalComment on above:Performed By: #### HSTROPN, CMP, LIPA #### [facility] [address] [place] [address] Dr. Ranjith StoverProtein [Mass/Vol]6.5 g/dLNormal6.4-8.2The [facility] Comment on above:Performed By: #### HSTROPN, CMP, LIPA #### [facility] [address] [place] [address] Dr. Ranjith StoverSodium [Moles/Vol]140 mmol/NPotdcg376-289Kgx [facility] Comment on above:Performed By: #### HSTROPN, CMP, LIPA #### [facility] [address] [address] [address] Ranjith Romo nitrogen [Mass/Vol]22.0 mg/dLCritically high7.0-18.0The [place] [facility] HospitalComment on above:Performed By: #### HSTROPN, CMP, LIPA #### [facility] [address] [place] [address] Dr. Ranjith Romo nitrogen/Creatinine [Mass ratio]22.0 mg/mgNoWestern Reserve HospitalComment on above:Performed By: #### HSTROPN, CMP, LIPA #### [facility] [address] [place] [address] Dr. Ranjith StoverPROTIMEon 48-50-8151KSQ Coag (PPP) [Relative time]1.08 {INR} NormalThe [place] [facility] HospitalComment on above:Performed By: #### PT, PTT #### [facility] [address] [place] [address] Dr. Ranjith Hines GUIDELINESSEE BELOWSt. Mary's Medical CenterComment on above:Result Comment: DESIRED INR: 2.0 - 3.0 CONDITIONS NOT LISTED BELOW 2.5 - 3.5 FOR PROSTHETIC HEART VALVE REPLACEMENT 2.5 - 3.5 RECURRENT THROMBOSIS Performed By: #### PT, PTT #### [facility] [address] [place] [address] Dr. Ranjith StoverPT Coag (PPP) [Time]11.4 sNormal9.0-11.6The [facility] Comment on above:Performed By: #### PT, PTT #### [facility] [address] [place] [address] Dr. Ranjith Claros 35-01-2329zWSF Coag (Bld) [Time]28.5 oVmsmyl96.3-36.2The [place] [facility] HospitalComment on above:Performed By: #### PT, PTT #### [facility] [address] [place] [address] Dr. Ranjith Robison, [facility] SENSITIVITYon 45-37-9948EVNHBJ2.6 pg/mLNormal 4.0-76.1The [place] [facility] HospitalComment on above:Result Comment: CUT-OFF POINTS HAVE BEEN ESTABLISHED BASED ON THE FOURTH UNIVERSAL DEFINITIONS OF MYOCARDIAL INFARCTION. THE UPPER REFERENCE LIMIT (URL) OF TROPONIN, DEFINED THE 99TH PERCENTILE OF cTnI DISTRIBUTION IN A REFERENCE POPULATION, HAS BEEN CONFIRMED THE DECISION THRESHOLD FOR CT DIAGNOSIS.Performed By: #### HSTROPN, CMP, LIPA #### [facility] [address] [place] [address] Dr. Ranjith Chan AUTO DIFFon 30-91-7094PFYZ #0.1 103/ulNormal0.0-0.1The [place] [facility] HospitalComment on above:Performed By: #### CBC #### [facility] [address] [place] [address] Dr. Ranjith StoverBasophils/100 WBC (Bld)0.6 %Normal0.2-2.0[facility] Comment on above:Performed By: #### CBC #### [facility] [address] [place] [address] Dr. Ranjith Dutta #0.4 103/ulNormal0.0-0.7The [place] [facility] HospitalComment on above: Performed By: #### CBC #### [facility] [address] [place] [address] Dr. Ranjith Jamesosinophils/100 WBC (Bld)3.4 %Normal0.9-7.0The [facility] Comment on above:Performed By: #### CBC #### [facility] [address] [place] [address] Dr. Ranjith Jamesrythrocyte distribution width (RBC) [Ratio]12.6 %Tsyqyk01.0-15.0 The [place] [facility] HospitalComment on above:Performed By: #### CBC #### [facility] [address] [place] [address] Dr. Ranjith StoverHematocrit (Bld) [Volume fraction]46.7 %Jrvtps69.0-54.0The [place] [facility] HospitalComment on above:Performed By: #### CBC #### [facility] [address] [address] [address] Ranjith StoverHemoglobin (Bld) [Mass/Vol]15.7 g/dUCtviwd40.0-18.0The [place] [facility] HospitalComment on above:Performed By: #### CBC #### [facility] [address] [address] [address] Ranjith Cardenas #0.05 10e3/ulCritically high0.00-0.03The [facility] Comment on above:Performed By: #### CBC #### [facility] [address] [place] [address] Dr. Ranjith Cardenas %0.4 %Normal0.0-0.5The [place] [facility] HospitalComment on above: Performed By: #### CBC #### [facility] [address] [place] [address] Dr. Ranjith López #2.6 103/ulNormal1.2-3.8The [place] [facility] HospitalComment on above:Performed By: #### CBC #### [facility] [address] [place] [address] Dr. Ranjith Bertrandhocytes/100 WBC (Bld)20.5 %Uelibk78.5-60.0The [place] [facility] HospitalComment on above:Performed By: #### CBC #### [facility] [address] [place] [address] Dr. Ranjith HunterUAL DIFF REQNONormalThe [place] [facility]ing HospitalComment on above: Performed By: #### CBC #### [facility] [address] [place] [address] Dr. Ranjith Kilpatrick (RBC) [Entitic mass]29.3 fzQhvckg76.9-34.0The [place] [facility] HospitalComment on above:Performed By: #### CBC #### [facility] [address] [place] [address] Dr. Ranjith Kilpatrick (RBC) [Mass/Vol]33.6 g/uNSfucus87.9-35.2The [place] [facility] HospitalComment on above:Performed By: #### CBC #### [facility] [address] [address] [address] Ranjith KilpatrickV (RBC) [Entitic vol]87.3 mYZdfhle32.0-94.0The [place] [facility] HospitalComment on above:Performed By: #### CBC #### [facility] [address] [place] [address] Dr. Ranjith Mishra #0.5 103/ulNormal0.3-0.8The [place] [facility] HospitalComment on above:Performed By: #### CBC #### [facility] [address] [place] [address] Dr. Ranjith Taylorocytes/100 WBC (Bld)4.0 %Normal1.7-12.0[facility] Comment on above:Performed By: #### CBC #### [facility] [address] [place] [address] Dr. Ranjith Cheek #8.9 103/ulCritically high1.4-6.5The [facility] Comment on above:Performed By: #### CBC #### [facility] [address] [place] [address] Dr. Ranjith Wanutrophils/100 WBC (Bld)71.1 %Zpqeet21.0-75.0The [place] [facility] HospitalComment on above:Performed By: #### CBC #### [facility] [address] [place] [address] Dr. Ranjith Pyle mean volume (Bld) [Entitic vol]8.7 fLCritically low 9.5-13.5The [place] [facility] HospitalComment on above:Performed By: #### CBC #### [facility] [address] [place] [address] Dr. Ranjith StoverPLT256 103/mrBsxhao407-915Sga [place] [facility] HospitalComment on above: Performed By: #### CBC #### [facility] [address] [place] [address] Dr. Ranjith StoverRBC5.35 106/ulNormal4.70-6.10The [place] [facility] HospitalComment on above:Performed By: #### CBC #### [facility] [address] [address] [address] Ranjith StoverWBC12.6 103/ulCritically high4.0-11.0The [place] [facility] HospitalComment on above:Performed By: #### CBC #### [facility] [address] [address] [address] Ranjith StoverGLYCOHEMOGLOBIN A1Con 50-53-4668RCG RECOMMENDATIONADA THERAPEUTIC TARGET 6.0 - 7.0 ACTION SUGGESTED > 7.0NormSt. Rita's HospitalComment on above:Performed By: #### A1C #### [facility] [address] [address] [address] Ranjith StoverGlucose [Mass/Vol]280 mg/dLNormSt. Rita's HospitalComment on above:Performed By: #### A1C #### [facility] [address] [address] [address] Ranjith StoverHbA1c (Bld) [Mass fraction]11.4 %Critically high<=6.0The [place] [facility] HospitalComment on above:Performed By: #### A1C #### [facility] [address] [address] [address] Ranjith LozanoROALBUMIN, RAND URon 35-00-3019dUUY8.8 mg/LNormal<=30.0The [place] [facility] HospitalComment on above:Performed By: #### MALBR ####[facility] [address] [address]. Ranjith StoverPROF 14(COMP METB)on 56-58-1284Uwvxhsu [Mass/Vol]3.7 g/dLNormal3.4-5.0The [facility] Comment on above:Performed By: #### CMP #### [facility] [address] [address] [address] Ranjith StoverAlbumin/Globulin [Mass ratio]1.0 {ratio}NormalThe [place] [facility] HospitalComment on above:Performed By: #### CMP #### [facility] [address] [address] [address] Ranjith HerreraP [Catalytic activity/Vol]167 U/LCritically dwnx75-267Hnq [facility] HospitalComment on above:Performed By: #### CMP #### [facility] [address] [address] [address] Ranjith Alcocer [Catalytic activity/Vol]40 U/HHpgomj12-98Uxv [facility] HospitalComment on above:Performed By: #### CMP #### [facility] [address] [address] [address] Ranjith Thompsonon gap [Moles/Vol]11.6 mmol/LNormalA[facility] Comment on above:Performed By: #### CMP #### [facility] [address] [address] [address] Ranjith StoverAST [Catalytic activity/Vol]24 U/UWkpzvq50-79Imh [facility] HospitalComment on above:Performed By: #### CMP #### [facility] [address] [address] [address] Ranjith StoverBilirubin [Mass/Vol]1.0 mg/dLNormal0.2-1.3TMercy Health [facility] Comment on above:Performed By: #### CMP #### [facility] [address] [address] [address] Ranjith StoverCalcium [Mass/Vol]9.4 mg/dLNormal8.5-10.1[facility] Comment on above:Performed By: #### CMP #### [facility] [address] [address] [address] Ranjith StoverChloride [Moles/Vol]99 mmol/WRjlzvj75-252Ueh [facility] Comment on above:Performed By: #### CMP #### [facility] [address] [address] [address] Ranjith StoverCO2 [Moles/Vol]29.3 mmol/STxlssq34.0-30.0[facility] Comment on above:Performed By: #### CMP #### [facility] [address] [address] [address] Ranjith StoverCreatinine [Mass/Vol]0.74 mg/dLNormal0.66-1.25The [place] [facility] HospitalComment on above:Performed By: #### CMP #### [facility] [address] [address] [address] Ranjith JamesGFR-AF [place]ER>60Normal>=60The [place] [facility] HospitalComment on above:Performed By: #### CMP #### [facility] [address] [address] [address] Ranjith JaemsGFR-NON AF [place]ER>60Normal>=60The [place] [facility] HospitalComment on above:Performed By: #### CMP #### [facility] [address] [address] [address] Ranjith StoverGlobulin (S) [Mass/Vol]3.8 g/dLNormalThUniversity Hospitals Health SystemComment on above:Performed By: #### CMP #### [facility] [address] [address] [address] Ranjith StoverGlucose [Mass/Vol]295 mg/dLCritically dzfj97-972Pvr [facility] on above:Performed By: #### CMP #### [facility] [address] [address] [address] Ranjith StoverPotassium [Moles/Vol]3.9 mmol/LNormal3.4-5.0The [facility] Comment on above:Performed By: #### CMP #### [facility] [address] [address] [address] Ranjith StoverProtein [Mass/Vol]7.5 g/dLNormal6.1-8.2The [facility] Comment on above:Performed By: #### CMP #### [facility] [address] [address] [address] Ranjith StoverSodium [Moles/Vol]136 mmol/LCritically vow983-436Qhj [facility] on above:Performed By: #### CMP #### [facility] [address] [address] [address] Ranjith StoverUrea nitrogen [Mass/Vol]9.0 mg/dLNormal7.0-18.0The [place] [facility] HospitalComment on above:Performed By: #### CMP #### [facility] [address] [place], [place] [address] Dr. Ranjith StoverUrea nitrogen/Creatinine [Mass ratio]12.2 mg/mgSt. Mary's Medical CenterComment on above:Performed By: #### CMP #### [facility] [address] [place], [place] [address] Dr. Ranjith Stover Vital Signs Date TimeVital SignValuePerforming AudkkoktbFmendgxf81-66-1742 13:42-0400Body .2 cmUlysses Overton MD Work Phone: [phone] [place], [place] 5954010-28-2025 13:42-0400Body mass index (BMI) [Ratio]29.76 kg/x1NpsvjwUlysses Overton MD Work Phone: [phone] [place], [place] 5954010-28-2025 13:42-0400Body gvygvo82.18 kgUlysses Overton MD Work Phone: [phone] [place], [place] 5954010-28-2025 13:42-0400Diastolic blood kjefjase98 mm[Hg]Ulysses Overton MD Work Phone: [phone] [place], [place] 5954010-28-2025 13:42-0400Heart rate87 /min Ulysses Overton MD Work Phone: [phone] [place], [place] 5954010-28-2025 13:42-0400Systolic blood zwmrriys622 mm[Hg]Ulysses Overton MD Work Phone: [phone] [place], [place] 5954010-07-2025 13:52-0400Body .2 cmRoxanna Diop MD Work Phone: [phone] [place], [place] 6484310-07-2025 13:52-0400Body mass index (BMI) [Ratio]30.38 kg/e2JbntpRoxanna Diop MD Work Phone: [phone] IntelligenceT[facility]10-07-2025 13:52-0400Body xorobg28 kgRoxanna Diop MD Work Phone: [phone] IntelligenceToledo Hospital10-07-2025 13:52-0400Diastolic blood texdpaai367 mm[Hg]Roxanna Diop MD Work Phone: [phone] [place], [place] [address]484310-07-2025 13:52-0400Heart rate 84 /minRoxanna Diop MD Work Phone: [phone]10-07-2025 13:52-1115QyD7% (BldA) [Mass fraction]99 %Roxanna Diop MD Work Phone: [phone] [place], [place] [address]484310-07-2025 13:52-0400Systolic blood uqdfktpy445 mm[Hg]Roxanna Diop MD Work Phone: [phone]07-14-2025 14:13-0400Body avugap422.2 Kristine Barbour MD Work Phone: [phone]07-14-2025 14:13-0400Body mass index (BMI) [Ratio]31.64 kg/j2YkwjtGaro Barbour MD Work Phone: [phone] [place], [place] [address]Gdzoajvdui93-31-0194 14:13-0400Body ehrjoz88.63 kgGaro Barbour MD Work Phone: [phone] [place], [place] [address]Zpqfvozyya38-69-4398 14:13-0400Diastolic blood mumfasal14 mm[Hg]Garo Barbour MD Work Phone: [phone] [place], [place] [address]Bigswcvxcb39-13-3559 14:13-0400Heart rate78 /min Garo Barbour MD Work Phone: [phone] [place], [place] [address]Iwipjbpczn27-98-7641 14:13-0400Respiratory rate18 /minGaro Barbour MD Work Phone: [phone] [place], [place] [address]Sxgtyhztmp64-83-1485 14:13-6124HoG5% (BldA) [Mass fraction]99 %Garo Barbour MD Work Phone: [phone] [place], [place] [address]Gpuyvhzffy98-99-7983 14:13-0400Systolic blood xjemyoto951 mm[Hg]Garo Barbour MD Work Phone: NOCox MonettEekfohyoxu75-67-5534 13:36-0400Body .2 Benji Garcia MD Work Phone: [facility]04-04-2025 13:36-0400Body mass index (BMI) [Ratio]31.95 kg/o8FcyffiKathy Garcia MD Work Phone: [facility]04-04-2025 13:36-0400Body slqagw59.53 kgKathy Garcia MD Work Phone: [facility]04-04-2025 13:36-0400Diastolic blood ivaopepx17 mm[Hg]Kathy Garcia MD Work Phone: [facility]04-04-2025 13:36-0400Heart rate 89 /minKathy Garcia MD Work Phone: [facility]04-04-2025 13:36-1435YeA7% (BldA) [Mass fraction]97 %Kathy Garcia MD Work Phone: [facility]04-04-2025 13:36-0400Systolic blood tirxezmy834 mm[Hg]Kathy Garcia MD Work Phone: [facility]03-03-2025 15:17-0500Body wlwoyw636.2 cmAbeatriz Good VICTORIAN LITERATURE PROFESSOR Work Phone: noCox MonettIesndxuxkz91-15-9346 15:17-0500Body mass index (BMI) [Ratio]31.95 kg/s6MnttpaKaelyn Good VICTORIAN LITERATURE PROFESSOR Work Phone: NOCox MonettZmpaacczzp05-76-1246 15:17-0500Body empfzp63.53 kgKaelyn Good VICTORIAN LITERATURE PROFESSOR Work Phone: noCox MonettUyxvthcudj31-17-5291 15:17-0500Diastolic blood hmykonwv39 mm[Hg]Kaelyn Good VICTORIAN LITERATURE PROFESSOR Work Phone: noCox MonettMcxlqettyn51-73-2113 15:17-0500Systolic blood rmkkeisj717 mm[Hg]Kaelyn Good VICTORIAN LITERATURE PROFESSOR Work Phone: noMS Tgnsnepmrc54-42-7802 14:56-0500Body oqmsgv841.2 cmNicole Red DO Work Phone: [facility] HealthLqrwfwsqdd50-48-9683 14:56-0500Body mass index (BMI) [Ratio]31.89 kg/m8Qqokxn Red DO Work Phone: [facility] HealthJnqazlcpga65-01-3087 14:56-0500Body aeoeqi98.35 kgNicole Red DO Work Phone: [facility] HealthLjalpmadgp49-73-5730 14:56-0500Diastolic blood hlgxrhiu20 mm[Hg] Red DO Work Phone: [facility] HealthLpcourekwi18-83-8044 14:56-0500Heart rate88 /min Red DO Work Phone: [facility] HealthCkypycipvx89-67-5784 14:56-0299JeE1% (BldA) [Mass fraction]96 % Red DO Work Phone: [facility] HealthWvppgrsppu13-77-1875 14:56-0500Systolic blood zvtlexld618 mm[Hg] Red DO Work Phone: noCox MonettRcmwdttbgy63-79-4517 14:05-0500Body .2 cmAnthony Rusher DPM Work Phone: NOCox MonettXykgkbgvln21-38-5540 14:05-0500Body mass index (BMI) [Ratio]27.88 kg/q8Txdlmei Rusher DPM Work Phone: [facility] HealthYnmwnnadjo95-41-6055 14:05-0500Body .74 kgAnthony Rusher DPM Work Phone: [facility] Healthcare Encounters Encounter DateEncounter TypeCare ProviderFacilityStart: 08-04-2025 End: 23-70-6262vdkzefidpsXV CHARLES P HOUSEFacility:[facility] ClinicStart: 07-27-2025 End: 80-50-3378Loztey kevheetUlysses Overton MD Work Phone: noms [facility] OtolaryngologyStart: 07-27-2025 End: 27-58-4892Owlodm Yara Overton MD Work Phone: NOKU Joseph OtolaryngologyStart: 07-27-2025 End: 87-03-5435mmcwhbotocOWIYKI H TIMMISNot AvailableStart: 07-27-2025 End: 26-68-2714Ngsxfw outpatient visit 25 minutesUlysses Overton MD Work Phone: noms Joseph OtolaryngologyComment on above:ETD (Eustachian tube dysfunction), left (Primary Dx); Referred otalgia of both earsStart: 07-06-2025 End: 52-30-7557Dyspli outpatient visit 25 minutesRoxanna Diop MD Work Phone: [facility] CardiologyComment on above: Coronary artery disease with history of percutaneous transluminal angioplasty (PTCA) (Primary Dx); Primary hypertensionStart: 07-06-2025 End: 54-89-8270nrfktmrmdpEDNFP [facility] HOSPITALSPProtestant Hospitaltart: 07-05-2025 End: 41-85-6957Xgvmtrmdd encounterJematty Bernstein [facility] Physicians CardiologyStart: 06-66-7489fscrtlddfsVSYBPAM P HOUSEFacility:[facility] Start: 04-12-2025 End: 55-29-8869Zydwfa Honorio Barbour MD Work Phone: noms ENDOCRINOLOGYStart: 04-12-2025 End: 33-25-7218Uekgft flowsMaryana Barbour MD Work Phone: noms ENDOCRINOLOGYStart: 04-12-2025 End: 75-61-3770xbimfxjhnaHBNKX F SABBAGHNot AvailableStart: 04-12-2025 End: 71-85-9410Sxpfny outpatient visit 25 minutesGaro Barbour MD Work Phone: noms ENDOCRINOLOGYComment on above:Type 2 diabetes mellitus with hyperglycemia, with long-term current use of insulin (HCC) (Primary Dx); Encounter for dietary consultation; Vitamin D deficiency; Hyperlipemia, mixed ; Insulin long-term use (HCC); Primary hypertensionStart: 89-42-8579xbnazwugtmFDZMLBD P QUAKERTOWNFacility:[facility] ClinicStart: 01-19-2025 End: 45-36-6113ukrtwxwrzxXFJGULVencor Hospitaltart: 01-14-2025 End: 47-74-3268Iultzunkp encounterJillian Varner [facility] [place] [facility] CardiologyStart: 01-12-2025 End: 64-36-5257Uruuan outpatient new 45 minutesNatalie A Felter CUT OUT AND MARKING MACHINE OPERATOR-WARP HAULER Work Phone: noms [facility] DERMComment on above:Melanocytic nevus of upper extremity, unspecified laterality (Primary Dx); Melanocytic nevus of trunk; Other atopic dermatitis; Capillary angioma; Lentigines; Seborrheic keratosis; Actinic keratosisStart: 01-12-2025 End: 36-34-7086itnvbxjlyuXLPHVRO A FELTERNot AvailableStart: 01-12-2025 End: 01-71-0798Nihawa flowsheetNatalie A Felter CUT OUT AND MARKING MACHINE OPERATOR-WARP HAULER Work Phone: noms [facility] DERMStart: 01-12-2025 End: 24-57-7112Sanydm flowsheetNatalie A Felter CUT OUT AND MARKING MACHINE OPERATOR-WARP HAULER Work Phone: noms [facility] DERMStart: 01-01-2025 End: 33-06-5476Oeheit outpatient new 45 minutesRobert America Garcia MD Work Phone: [facility] CardiologyComment on above: Coronary artery disease with history of percutaneous transluminal angioplasty (PTCA) (Primary Dx); Shortness of breathStart: 01-01-2025 End: 80-59-6270hfrclpzsxfOQVELJVencor Hospitaltart: 12-31-2024 End: 73-35-1456Xdazyyqaq encounterSandra Delgado CMAGifford Medical CenterMedica Physicians CardiologyStart: 12-18-2024 End: 31-16-7771Bixtm abstractingScanning Provider ExternalProMedica Physicians CardiologyStart: 12-14-2024 End: 51-33-4393jlrgpemdsySKAOV F SABBAGHNot AvailableStart: 11-30-2024 End: 19-05-2914fnunssjgnsRPCCUV GILLMORNot AvailableStart: 11-30-2024 End: 82-39-5512Kbkgun outpatient visit 25 minutesKaelyn Good VICTORIAN LITERATURE PROFESSOR Work Phone: aNA BELLEVUEComment on above:ANIYA (obstructive sleep apnea) (Primary Dx); Idiopathic peripheral neuropathy; 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, unspecified class, unspecified whether serious comorbidity presentStart: 11-30-2024 End: 66-63-2073Kjauuy Leticia Good VICTORIAN LITERATURE PROFESSOR Work Phone: aNA BELLEVUEStart: 11-30-2024 End: 00-24-3669Hlzjdr Leticia Good VICTORIAN LITERATURE PROFESSOR Work Phone: ana BELLEVUEStart: 11-30-2024 End: 02-58-2522Kecirulsu Result EncounterNicole Rde DO Work Phone: [facility] External Department UnsolicitedStart: 11-26-2024 End: 96-09-2571Tqvxznrgc encounterGracy [facility]en[facility] Start: 65-30-1335kqdzrmznmiWH CHARLES P HOUSEFacility:[facility] ClinicStart: 11-02-2024 End: 47-98-5929gwnayyaeacNHSGTQ DANNERNot AvailableStart: 10-30-2024 End: 36-16-9294Qtwckpy encounter procedureNicole Red DO Work Phone: aNA BELLEVUEComment on above:ANIYA (obstructive sleep apnea) (Primary Dx)Start: 10-29-2024 End: 12-86-6766Kmqubljv SupportNoms Bsr Neuro TechnicanANA BELLEVUEComment on above:ANIYA (obstructive sleep apnea)Start: 10-12-2024 End: 83-52-9478Hmzirb outpatient new 45 minutesNicole Red DO Work Phone: aNA BELLEVUEComment on above:ANIYA (obstructive sleep apnea) (Primary Dx); Idiopathic peripheral neuropathy; Numbness and tingling; 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, unspecified class, unspecified whether serious comorbidity presentStart: 10-12-2024 End: 84-38-3934vmilwphhntIXPUPH DANNERNot AvailableStart: 10-12-2024 End: 76-07-5821Hmpkwu flowsheetNicole Red DO Work Phone: aNA BELLEVUEStart: 10-12-2024 End: 87-53-4889Rbclpy flowsheetNicole Red DO Work Phone: aNA BELLEVUEStart: 85-72-8289hegfojrwrgABMODNR P [place] Facility:[facility] ClinicStart: 11-11-2023 End: 05-99-5832Bfyezh outpatient visit [address]PM Work Phone: [facility] PODIATRYComment on above:Diabetic polyneuropathy associated with type 2 diabetes mellitus (CMS/HCC) (Primary Dx); NeuritisStart: 11-14-2022 End: 30-19-1586yboldgyrzeVD CARTER RICOFacility:M0Xvscy: 01-15-2022 End: 98-75-7029mgznilvheyZXDawood MCCOYFacility:M8Gqxcx: 09-18-2018 End: 31-12-5431Cjlzipg encounter procedureDEFAULT PHYSICIANFacility:[facility] Procedures DateProcedureProcedure DetailPerforming ClinicianStart: 57-26-4054Zqxlzv-up visitFollow-upMANEL BOUMEGOUASStart: 27-76-9326Xzlo bld gluc mntr dev cleared fda spec home useGaro Barbour MD Work Phone: Start: 92-93-9719MCELWCBTILH SKIN LESIONNatalie A Felter CUT OUT AND MARKING MACHINE OPERATOR-WARP HAULER Work Phone: Start: 50-39-3842Fam routine ecg w/least 12 lds w/i&r Kathy Garcia MD Work Phone: Start: 92-79-0646KOO THYROID STIM HORMONENicole Red DO Work Phone: Start: 91-41-6104XZO screeningDR CARTER RICO Comment on above:Performed By: #### PSAD #### [facility] [address] [place] [address] Dr. Ranjith StoverStart: 80-58-8637Frywqmk of placement of stent for coronary artery diseaseS/P coronary artery stent placementSampson Street DPM Work Phone: Plan of Treatment DateCare ActivityDetailAuthorStart: 87-55-6223Zinoz BMI ScreeningAdult BMI ScreeningProBryan [facility]field [facility] Hospital Health SystemStart: 92-95-4863Yggkfbm ScreeningTobacco ScreeningProBryan [facility]field [facility] Hospital Health SystemStart: 31-02-6975Saiau BMI ScreeningAdult BMI ScreeningProSelect [facility] SystemStart: 01-11-2026 End: 61-02-6996Ppuhuio encounter procedureNOMS SWS DERMStart: 81-56-7822Flokd BMI ScreeningAdult BMI ScreeningProBryan Whitfield Memorial Hospital Health SystemStart: 92-29-4611Vorsqop ScreeningTobacco ScreeningProBryan [facility]field [facility] Hospital Health SystemStart: 10-11-2025 End: 49-22-6653Dsqvvcm encounter procedureNOMS SH ENDOCRINOLOGYStart: 07-26-2025 End: 62-19-8917Wzrpqax encounter frlvadjki95/27/2025 2:00 PM EDT Appointment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 ([facility])) To: LALO MCCOY DO; Sent: 12/02/2024 08:18:30 EST Subject: Med change Caller Name: JONO MORALES; Caller Number: H Pt called lvm stating that he did see Neurology and was suggested to increase his Gabapentin to help with his Neuropathy, was told by Neurology to contact PCP to have medication increased From: LALO MCCOY DO To: [facility] Clinical [place] ([facility]); Sent: 12/02/2024 09:11:29 EST Subject: RE: Med change Caller Name: JONO MORALES; Caller Number: H on 400 tid now. so i guess we go to 600mg po tid #[address] NR proposal sent to Dr Mccoy, pt made aware new rx will be [facility] 11-26-2024 Miscellaneous Notes* Telephone Encounter - Gracy Villa - 11/26/2024 12:55 PM EST 11/26 LMOM TO SCHEDULE NEW PATIENT APPT documented in this encounterMercy Health Clermont HospitalThinkGrid Mclaren [id number] Telephone encounter Note* Telephone Encounter - Gracy Villa - 11/26/2024 12:55 PM EST 11/26 LMOM TO SCHEDULE NEW PATIENT [facility]PT [facility] [id number] History of Present illness Narrative* Nicole Moon DO - 10/30/2024 10:30 AM EST Images from the original note were not included. Reason for Appointment: HST Patient: Jono Morales : 1955 Reason for Home Sleep Study: Sleep disturbances Ordering Physician: Dr. Nicole Moon Business Intelligence Architect: Yue Khan Pick-up Comments: Procedure was explained to the patient who expressed understanding. Patient was instructed how to use device and informed to return completed questionnaire with device tomorrow morning...... 11/02/24 Business Intelligence Architect: Nicolle Porter CMA Drop-Off Comments: Patient returned HST device. Study data was successfully uploaded and completed questionnaire was imported to patient's chart....... 11/02/24 Resulting Physician: SANDY Patino DO Impression: Mild ANIYA may benefit from CPAP titration versus auto PAP treatment at 5-15 cm of water documented in this [facility]01-30-2025 History of Present illness Narrative* Yue Khan - 10/29/2024 3:45 PM EST Reason for Appointment: HST Patient: Jono Morales : 1955 Reason for Home Sleep Study: Sleep disturbances Ordering Physician: Dr. Nicole Moon Business Intelligence Architect: Yue Khan Pick-up Comments: Procedure was explained to the patient who expressed understanding. Patient was instructed how to use device and informed to return completed questionnaire with device tomorrow morning...... 10/29/24 Business Intelligence Architect: Chris GLEZ(Chey) Drop-Off Comments: Patient returned HST device. Study data was successfully uploaded and completed questionnaire was imported to patient's chart....... Resulting Physician: SANDY Patino DO Impression: mild ANIYA recommend Auto PAP at 5-15 cmH20 documented in this [facility]01-13-2025 History of Present illness Narrative* Nicole Moon [...] mg 3 times daily. He is on [place] which he does not feel is helping. [...] to clinic: 2 months documented in this encounterPhelps [id number] Note From: LALO MCCOY DO To: [facility] Clinical Pool ([facility]); Sent: 09/08/2024 15:11:22 EST Subject: FW: Medication Management Due Date/Time: 09/09/2024 12:59:00 EST Caller Name: JONO MORALES; Caller Number: H From: [facility] To: LALO MCCOY DO Sent: September 08, 2024 11:59:47 AM CLIENT SERVICE EXECUTIVE Subject: Medication Management Due: September 09, 2024 12:09:00 AM CLIENT SERVICE EXECUTIVE On Hold Pending Signature Drug: gabapentin (gabapentin 400 mg oral capsule), 1 cap(s) Oral TID Quantity: 120 cap(s) Days Supply: 0 Refills: 0 Substitutions Allowed Notes from Pharmacy: Dispensed Drug: gabapentin (gabapentin 400 mg oral capsule), TAKE 1 CAPSULE BY MOUTH THREE TIMES DAILY Quantity: 120 cap(s) Days Supply: 40 Refills: 0 Substitutions Allowed Notes from Pharmacy: From: Fiordaliza Cordova To: [facility] Sent: 09/09/2024 09:19:46 EST Subject: FW: Medication Management Not Approved: proposed to provider gabapentin (gabapentin 400 mg capsule) TAKE 1 CAPSULE BY MOUTH THREE TIMES DAILY Qty: 120 cap(s) Days Supply: 40 Refills: 0 Substitutions Allowed Route To Pharmacy - [facility] [facility]02-12-2024 History of Present illness Narrative* [address] [...] tablet before bedtime., Disp: , Rfl: HYDROcodone-acetaminophen ([place]) 7.5-325 MG tablet, Take 1 tablet by [...] serious comorbidity present documented in this encounter [facility] HealthcareEvaluation note* Diagnosis ANIYA (obstructive sleep apnea) Obstructive sleep apnea (adult) (pediatric) documented in this encounter [facility] HealthcareEvaluation note* Diagnosis ANIYA (obstructive sleep apnea)- Primary Obstructive sleep apnea (adult) (pediatric) Idiopathic peripheral neuropathy Unspecified hereditary and idiopathic peripheral neuropathy 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, unspecified class, unspecified whether serious comorbidity present documented in this encounter [facility] HealthcareEvaluation note* Diagnosis Coronary artery disease with history of percutaneous transluminal angioplasty (PTCA)- Primary Shortness of breath documented in this encounter [facility] SystemEvaluation note* Diagnosis ANIYA (obstructive sleep apnea)- Primary Obstructive sleep apnea (adult) (pediatric) documented in this encounter [facility] HealthcareEvaluation note* Diagnosis Melanocytic nevus of upper extremity, unspecified laterality- Primary Melanocytic nevus of trunk Benign neoplasm of skin of trunk, except scrotum Other atopic dermatitis Capillary angioma Nevus, non-neoplastic Lentigines Seborrheic keratosis Actinic keratosis documented in this encounter [facility] HealthcareEvaluation note* Diagnosis Type 2 diabetes mellitus with hyperglycemia, with long-term current use of insulin (HCC)- Primary Encounter for dietary consultation Vitamin D deficiency Hyperlipemia, mixed Mixed hyperlipidemia Insulin long-term use (HCC) Encounter for long-term (current) use of insulin Primary hypertension Unspecified essential hypertension documented in this encounter [facility] HealthcareEvaluation note* Diagnosis Coronary artery disease with history of percutaneous transluminal angioplasty (PTCA)- Primary Primary hypertension Unspecified essential hypertension documented in this encounter [facility] SystemEvaluation note* Diagnosis ETD (Eustachian tube dysfunction), left- Primary Referred otalgia of both ears documented in this encounter [facility] HealthcareInstructionsNot on filedocumented in this encounterProBryan Whitfield [facility] Health SystemInstructionsNot on filedocumented in this encounterProSelect [facility] SystemInstructionsNot on filedocumented in this encounterProBryan Whitfield [facility] [employer] System InstructionsNot on filedocumented in this encounterProSelect [facility] System InstructionsNot on filedocumented in this encounterProSelect [facility] [place] SystemReason for visit Narrative* Other Medical (Routine) - ClosedSpecialtyDiagnoses / ProceduresReferred By ContactReferred To ContactSle Medicine / Osteopathic Medicine Diagnoses ANIYA (obstructive sleep apnea) Procedures Home sleep test Nicole Moon DO [address] [place] [address] Phone: tel: fax: Referral IDStatusReasonStart DateExpiration DateVisits RequestedVisits [id number]/ [facility] Summary Purpose Family History No [...] section and content) DATE CREATED AUTHOR 09/21/2018 [facility] DATE CREATED AUTHOR AUTHOR'S ORGANIZ ATION 11/17/2022 [facility] DATE CREATED AUTHOR AUTHOR'S ORGANIZ ATION 07/09/2025 [facility] DATE CREATED AUTHOR AUTHOR'S ORGANIZ ATION 07/28/2025 [facility] DATE CREATED AUTHOR AUTHOR'S ORGANIZ ATION 08/06/2025 [facility] Reason for Visit (unrecogniz ed section [...] neurological complication (CMS/HCC) Plantar fascial fibromatosis Procedures CT NEEDLE EMG EA EXTREMTY W/PARASPINL AREA COMPLETE CT NERVE CONDUCTION STUDIES 9-10 STUDIES Cristino Maldonado MD [address] [place] [address] Phone: tel: fax: Boby Betancourt MD [address] [place] [address] Phone: tel: fax: Referral IDStatusReasonStart DateExpiration DateVisits RequestedVisits [id number] Consult and Treat /[id number] Pain/Foot PainSleep ApneaReasonComments New PatientNP REFERRAL DR BrownSpecialtyDiagnoses / ProceduresReferred By ContactReferred To ContactCardiology Diagnoses Coronary artery disease with history of percutaneous transluminal angioplasty (PTCA) Lalo Mccoy, DO [address] [place] [address] Phone: tel: fax: Bertin Srinivasan MD [address] [facility], [address] [address] Phone: tel: fax: Referral IDStatusReasonStart DateExpiration DateVisits RequestedVisits [id number] Review Specialty Services Required /[id number]TyhwfqlkXrnmesziVhimny-vbDahflz CommentsFollow-upOV F/U 6 MO ECHO, STRESS NOT DONE DT COST L/S MAS, SCHED W/PT ReasonCommentsEar ProblemBil ear pain/Lt ear worse Care Teams (unrecognized sec tion and content) Team MemberRelationshipSpecialtyStart DateEnd Lalo Mccoy MD [address] [place] [address] PCP - GeneralFamily Explhtyt80/11/23Team MemberRelationshipSpecialtyStart Date End Date Lalo Mccoy MD [address] [place] [address] PCP - GeneralFamily Iwxijmuf26/11/23Team MemberRelationshipSpecialtyStart Date End Date Lalo Mccoy MD [address] [place] [facility] [place] [place] [address] PCP - GeneralFamily Ppjzudyt05/11/23Team MemberRelationshipSpecialtyStart Date [facility] Lalo Bhagat MD [address] [place] [facility] [place] [place] [address] PCP - GeneralFamily Klarfqmr86/11/23 Nicole Moon DO [address] [place] [address] Referring PhysicianNeurolog10/13/24 Kaelyn Good NP [address] [place], [place] Nurse PractitionerNeurolog10/13/24Team MemberRelationshipSpecialtyStart DateEnd Lalo Bhagat DO PCP - GeneralFamily Medicine10/01/19Team MemberRelationshipSpecialtyStart Date[facility] Lalo [facility]agat MD [address] [place] [facility] [place] [address] PCP - GeneralFamily Kdwuqrrx04/11/23 Nicole Moon DO [address] [place] [address] Referring PhysicianNeurolog10/13/24 Kaelyn Good NP [address] [place], [place] Nurse PractitionerNeurolog10/13/24Team MemberRelationshipSpecialtyStart DateEnd Lalo Bhagat MD [address] [place] [facility] [place] [facility] [address] PCP - GeneralFamily Jsjnzqra97/11/23 Nicole Moon DO [address] [place] [address] Referring PhysicianNeurolog10/13/24 Kaelyn Good, FAUSTO [address] [place] [address] Nurse PractitionerNeurolog10/13/24Team MemberRelationshipSpecialtyStart Lalo Hughes DO PCP - GeneralFamily Medicine10/01/19Team MemberRelationshipSpecialtyStart Lalo Hughes DO PCP - GeneralFamily Medicine10/01/19Team MemberRelationshipSpecialtyStart Lalo Hughes MD [address] [place] [address] PCP - GeneralFamily Chalquwv53/11/23 Nicole Moon DO [address] [place] [address] Referring PhysicianNeurolog10/13/24 Kaelyn Good NP [address] Nurse PractitionerNeurolog10/13/24Team MemberRelationshipSpecialtyStart Lalo Hughes MD [address] [place] [address] PCP - GeneralFamily Nrdvgjeq21/11/23 Nicole Moon DO [address] [place] [address] Referring PhysicianNeurolog10/13/24 Kaelyn Good NP [address] [place], [place] Nurse PractitionerNeurolog10/13/24Team MemberRelationshipSpecialtyStart DateEnd Date Lalo Mccoy MD [address] [place] [address] PCP - GeneralFamily Boyillmi18/11/23 Nicole Moon DO [address] [place] [address] Referring PhysicianNeurolog10/13/24 Kaelyn Good NP [address] [place] [address] Nurse PractitionerNeurolog10/13/24Team MemberRelationshipSpecialtyStart DateEnd Date Lalo Mccoy DO PCP - GeneralFamily Medicine10/01/19Team MemberRelationshipSpecialtyStart DateEnd Date Lalo Mccoy MD [address] [place] [address] PCP - Generalmily Rvydhqks39/11/23 Nicole Moon DO [address] [place] [address] Referring PhysicianNeurology1 Kaelyn Good NP [address] [place] [address] Nurse PractitionerNeurolog10/13/24Team MemberRelationshipSpecialtyStart Lalo Hughes MD [address] [place] [address] PCP - GeneralFamily Mpsxznwg65/11/23 Nicole Moon DO [address] [place] [address] Referring PhysicianNeurolog10/13/24 Kaelyn Good NP [address] [place] [address] Nurse PractitionerNeurolog10/13/24Team MemberRelationshipSpecialtyStart Lalo Hughes DO PCP - GeneralFamily Medicine10/01/19Team MemberRelationshipSpecialtyStart Lalo Hughes DO PCP - GeneralFamily Medicine10/01/19Team MemberRelationshipSpecialtyStart Lalo Hughes MD [address] [place] [address] PCP - GeneralFamily Fdasscke79/22/25 Nicole Moon DO [address] [place] [address] Referring PhysicianNeurolog10/13/24 Kaelyn Good NP [address] [place] [address] Nurse PractitionerNeurolog10/13/24Team MemberRelationshipSpecialtyStart DateEnd Lalo Mccoy MD [address] [facility] [place] [address] PCP - GeneralFamily Orzszoqs80/22/25 Nicole Moon DO [address] [place] [address] Referring PhysicianNeurolog10/13/24 Kaelyn Good NP [address] [place], [place] [address] Nurse PractitionerNeurolog10/13/24 FOR RECORDS PERTAINING TO PATIENTS WHO ARE [...] BE BASED ON THE PRIMARY CLINICAL RECORDS. [facility]. provides no warranty or guarantee of the accuracy or completeness of information in this document.
--- OUTSIDE RECORDS SUMMARY | 2025-08-25 11:41 | XMS_ITS | Clinical Summary ---
Author Organization [facility] Address [address] [facility] [place] [address] Care Team Providers Care Curator Of Manuscripts Name Role Phone Carla Moon DO Unavailable [phone] Kaelyn Good DORMITORY COUNSELOR Unavailable [phone] Lalo Marshall MD Primary Care Provider [phone] Allergies Active AllergyReactionsCriticalityNoted VoltKjnlyqkdFfmtvgcpphIwez64/03/2025 Other Reaction(s): Suicidal ideation Insulin Aspart (Human Analog) (Yeast)EvzsnZktl34/17/2025 Chest pain Medications MedicationSigDispense QuantityRefillsLast FilledStart DateEnd DateStatus HYDROcodone-acetaminophen (Lodi) 7.5-325 MG tablet Take 1 tablet by [...] tablet Take 1 tablet by mouth Daily05/09/2023ctive gabapentin (Neurontin) 400 MG capsule Take 600 mg by mouth in the morning and 600 mg in the evening and 600 mg before bedtime.Active Cariprazine HCl (Vraylar) 1.5 MG capsule Take by mouthActive insulin degludec (Tresiba FlexTouch) 200 UNIT/ML injection Indications:Type 2 diabetes mellitus with other circulatory complications (HCC) Inject 50 Units under the skin at bedtime 22.5 mL 12/14/2024tive ezetimibe (Zetia) 10 MG tablet Take 10 mg by mouth in the morning.01/01/2025tive Xdemvy 0.25 % solution Administer 1 drop into affected eye(s) in the morning and 1 drop before bedtime. 12/17/2024tive potassium chloride CR (Klor-Con M20) 20 MEQ ER tablet Take 20 mEq by mouth in the morning.10/10/2024tive fluticasone (Flonase) 50 MCG/ACT nasal spray Indications:ETD (Eustachian tube dysfunction), leftAdminister 2 sprays into each nostril Daily Shake gently. Before first use, prime pump. After use, clean tip and replace cap. 48 g 310/0277386Active fluticasone (Flonase) 50 MCG/ACT nasal spray Indications:ETD (Eustachian tube dysfunction), bilateralAdminister 2 sprays into each nostril Daily Shake gently. Before first use, prime pump. After use, clean tip and replace cap. 16 g 1106/450235Discontinued Active Problems ProblemNoted DateDiagnosed DateAllergic htozhuzfmdt49/27/2661Cprpxt76/27/2025 Ggttvmihqj03/27/2025hronic serous otitis media07/26/2025oronary angioplasty nbrqil5507/26/20258237Zkbhdnhp62/27/2025Erectile yydtkvlqejk14/27/2025Hypokalemia 07/26/20251229Rutrxrnwizrbq22/27/2025Depressive gnzuhjxe93/27/2025Neuropathy 07/26/2025Second degree burn of leg07/26/2025Subungual hematoma of toenail of right foot07/26/2025Suicidal yudfyzvn04/27/2025Mixed hearing loss, bilateral 03/18/2024ETD (Eustachian tube dysfunction), xwwyvmjdd28/19/2024Foreign body of both ears4Arthritis of left hand07/10/2023arpal tunnel syndrome 07/10/2023eneralized abdominal pain1Cerumen debris on tympanic membrane of both ears07/28/2019Bilateral hearing loss01/14/2019Middle ear effusion, bpagafysl77/17/2019Mixed srxvxikgeqjuxj97/28/2015Iron deficiency anemia due to sideropenic nktvtajpx00/28/2015OSA (obstructive sleep apnea) 12/14/2013Primary zrruqykcllsw04/15/2014S/P coronary artery stent placement 07/28/2013Metabolic hetckcao00/29/2013Coronary ffcyxgswldqpuxt15/28/2013Heart bxzlduc2911/19/2012 Encounters DateTypeDepartmentCare MsugOvyabkbnhuz53/28/2025 1:40 PM EDTOffice Visit [facility] [address] [place] [phone] Claudia Ferreira MD ETD (Eustachian tube dysfunction), left (Primary Dx); Referred otalgia of both ears07/27/2025amboo flowsheet [facility] [address] [place] [address] Claudia Ferreira MD 07/27/2025Travelfrom Last 3 Months Immunizations ImmunizationAdministration DatesNext DueJanssen XXDK-HkZ-406/08/2021Pfizer Purple Cap SARS-CoV-2 Jetzvkjjzhd98/11/2022 Family History Medical HistoryRelationNameCommentsSkin cancerBrotherx 6, 1 decHeart disease FatherDiabetesMotherMelanomaNeg HxRelationNameStatusCommentsBrotherx 6, 1 dec Daughterx 1AliveFatherDeceasedMotherDeceasedSonx 1Alive Social History Tobacco UseTypesPacks/DayYears UsedDateSmoking Tobacco: FormerCigarettesQuit: 2000 Tobacco Cessation:Counseling Given: Not Answered Alcohol UseStandard Drinks/WeekCommentsNot Currently0 (1 standard drink = 0.6 oz pure alcohol)15 years cleanSex and Gender InformationValueDate RecordedSex Assigned at BirthNot on fileLegal HqvIprr8312/12/2022 7:05 PM EDTGender Identity Not on fileSexual OrientationNot on file Last Filed Vital Signs Vital SignReadingTime TakenCommentsBlood Cdanlnfg386/8710 1:42 PM EDT Xyovy094507/27/2025 1:42 PM EDTTemperature--Respiratory Vxci148804/12/2025 2:13 PM EDTOxygen Ezaafmgfmg64%04/12/2025 2:13 PM EDTInhaled Oxygen Concentration-- Qifmwk83.2 kg (190 lb)07/27/2025 1:42 PM PCDObwahf968.2 cm (5' 7 )07/27/2025 1:42 PM EDTBody Mass Index29.7607/27/2025 1:42 PM EDT Plan of Treatment DateTypeDepartmentCare Team (Latest Contact Info)Htkyjkeyfcg44/12/2026 2:00 PM ESTOffice Visit [facility] [address] [place] [address] Garo Barbour MD [address] [place] [address] 01/11/2026 2:35 PM EDTOffice Visit [facility] [address] [place] [address] Jessica Sheehan, CAN DRAGGER-LEAD DATABASE ADMINISTRATOR [address] [place] [address] Health MaintenanceDue DateLast DoneCommentsCT Lglnlysbgajj1954Colonoscopy 4Colorectal Cancer Ynjdhbrjj1954FIT-DNA1954FIT1955 FOBT1955 6633Zuqtiksfhijfs1954Pneumococcal Vaccine: 65+ Years (1 of 1 - PCV)02/14/2004COVID-19 Vaccine ( - 2024- season)5010/10/2021, 12/05/2020Influenza Vaccine (#1)2025 Medical Devices ImplantedTypeAreaManufacturerDevice IdentifierShelf Expiration DateModel / Serial / MsySqsgdh27 Implanted:Qty: 11StentN/A: Heart Insurance MemberSubscriberPlan / Payer (Effective 2019-Present)Name:Jono Morales Member ID:[id number] Relation to Subscriber:SelfName:Jono Morales Subscriber ID:[id number] Payer ID:[facility] Group ID:Not on file Type:Medicare Address: [address] Care Teams Team MemberRelationshipSpecialtyStart DateEnd Lalo Marshall MD [address] [place] [address] PCP - GeneralFamily Hubeifoq27/22/25 Carla Moon DO [address] [place] [address] Referring PhysicianNeurolog10/13/24 Kaelyn Good NP Nurse PractitionerNeurolog10/13/24
--- OUTSIDE RECORDS SUMMARY | 2025-08-25 11:41 | XMS_ITS | Clinical Summary ---
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 Name Role Phone House Sr., Lalo MOLINA Primary Care Provider + Vignesh Lemuel Correia DO Unavailable [phone] Allergies No known active allergies Medications [...] DateDiagnosed DateIron deficiency anemia due to sideropenic xjfbpwdyw62/28/2015Mixed dceyqgctkbelqa03/28/2015Coronary artery disease involving robinson coronary artery of robinson heart without angina pectoris 09/26/2015OSA (obstructive sleep apnea)12/14/20139822MNUKVTB72/15/2014 Overview (12/14/2013): 58M w/ cardiac risk factors of HLD, HTN, obesity (BMI 36), CAD (7 stents) last CHAN to mid/proximal RCA 11/2012, PVD, FHx cardiac disease (CAD, mother, and father PR age 39, sister, brother), past smoker (1ppd x10y, quit 1997), admitted 12/11/13 for chest pain similar to previous angina, HTN urgency. Rule out recurrent CAD. Primary uegrfylxekza09/15/2014HLD (hyperlipidemia)12/12/2013 Overview (12/14/2013): - continue crestor 5 mg daily (has had intolerance to higher doses in past with muscle aches/pains) CAD (coronary artery disease)07/28/2013 Overview (12/14/2013): - CAD s/p 7 stents - first stent 2008 [facility] x1, subsequent multiple repeat Cs wo intervention (OSH records pending) - 12/17/2012 ([place], [place]) had 2 RCA stents + 4 overlapping stents d/t dissection in proximal RCA ([place], [place]). S/P coronary artery stent pyzoudyqb87/29/2013Metabolic /29/2013 Resolved Problems ProblemNoted DateDiagnosed DateResolved DateUnstable ipramz73 Overview (12/14/2013): - no cardiac sx after [...] Titrate captopril for better BP control - [facility] on 12/14 DVT zalcupowrvd08 Overview (12/13/2013): - therapeutic heparin Utyoanykommg80 Family History Medical HistoryRelationCommentsCoronary Artery DiseaseBrother 6HeartBrother 7 CancerBrother 8Coronary Artery DiseaseFatherHeartFatherdied at age 39 with mi Coronary Artery DiseaseMotherstrokeDiabetesMotherStrokeMotherCoronary Artery DiseaseSister 5HeartSister 6RelationStatusCommentsBrother 1Deceased (Age 52) cancerBrother 2AliveBrother 3AliveBrother 4AliveBrother 5AliveBrother 6Brother 7 Brother 8FatherDeceased (Age 39)MIMotherDeceased (Age 76)strokesSister 1Alive Sister 2AliveSister 3AliveSister 4AliveSister 5Sister 6 Social History Tobacco UseTypesPacks/DayYears UsedDateSmoking Tobacco: RdoodoBtmzaximuc427 07/28/1972 - 07/28/1998Alcohol UseStandard Drinks/WeekCommentsNo0 (1 standard drink = 0.6 oz pure alcohol)Sex and Gender InformationValueDate RecordedSex Assigned at BirthNot on fileLegal OlbTyie4612/11/2013 12:23 PM EDTGender Identity Not on fileSexual OrientationNot on fileOccupationIndustryJob Start DateJob 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 electricianNot on fileNot on fileNot on file Last Filed Vital Signs Vital SignReadingTime TakenCommentsBlood Olqdelun596/9301/24/2016 10:40 AM EDT Lvpim632001/24/2016 10:40 AM DPRIfzotylqsph52.4 ??C (97.5 ??F)01/24/2016 10:40 AM EDTRespiratory Chtn868801/24/2016 10:40 AM EDTOxygen Rpvuqanglp21%01/24/2016 10:40 AM EDTInhaled Oxygen Concentration--Kfsuwd811.5 kg (237 lb)01/24/2016 10:40 AM UDWJvvyhm943.2 cm (5' 7 )01/24/2016 10:40 AM EDTBody Mass Index37.12001/24/2016 10:40 AM EDT Plan of Treatment Health MaintenanceDue DateLast DoneCommentsAbdominal Aortic Aneurysm Screening 4Anxiety Vmvwfgtyj01/17/1972Depression Pjuhyubhc29/17/1972Hepatitis C Zodikmzlv92/17/1972DTaP,Tdap,Td Vaccine (1 - Tdap)1973CT Colonography 1999Cologuard (FIT-DNA)02/13/19996995Mhlwsdjwcgk99/17/1999Colorectal Cancer Aaesafknn31/17/1999Fecal Occult Blood02/13/19991764Lkkmevahonwty08/17/1999 Pneumococcal Vaccine: 50+ (1 of 1 - PCV)02/14/2004Shingrix Vaccine (1 of 2) 02/14/2004Diabetes Odeihximi48, 12/13/2013, 12/12/2013, Additional history existsLipid Xitsvwigk73dvance Directive Ftaqfqxgdn29/01/2025ovid-19 Vaccine (1 - 2024- season)2025Influenza Vaccine (#1)2025RSV Vaccine (1 - 1-dose 75+ series)2029 Procedures Procedure NamePriorityDate/TimeAssociated DiagnosisCommentsBASIC METABOLIC PANEL Uxmtbfb90/ 5:04 AM EDT LIPID PANEL, CUHDHMGIejgbfy09/15/2014 5:31 AM EDT from Last 3 Months or Most Recently Relevant to Health Maintenance Results * BASIC METABOLIC PNL (12/14/2013 5:04 AM EDT)ComponentValueRef RangeTest Method Analysis TimePerformed AtPathologist CgvgahzjjTmlpuno6465 - 100 mg/dLCLEVEL[facility] JBTIENTRUASKH7809 - 25 mg/dLCLEVELAND [facility] LABORATORY Creatinine0.710.70 - 1.40 mg/dLCLEVELAND CLINIC [facility]OSPITAL UEXDESPUAHGlsrcf825981 - 146 mmol/LCFAYETTE [facility] LABORATORYPotassium3.83.5 - 5.0 mmol/L [facility] QKIQICLQLXDtiblyum58061 - 110 mmol/LCFAYET[facility] QRVYTMGMCYEC06593 - 32 mmol/LCFAYETTE [facility] LABORATORYAnion Wdy018 - 15 mmol/LCFAYETTE [facility] LABORATORYCalcium9.48.5 - 10.5 mg/dLCLEVELAND CLINIC AV[facility] HOSPITAL LABORATORYSpecimen (Source)Anatomical Location / Laterality Collection Method / VolumeCollection TimeReceived TimeBlood specimen (specimen)BLOOD SPECIMEN / Mrwlhkk4112/14/2013 5:04 AM EDT12/14/2013 5:05 AM EDT Narrative Authorizing ProviderResult TypeResult StatusRichard A KrasuskiLABORATORYFinal ResultPerforming OrganizationAddressCity/State/ZIP CodePhone Number [facility] [address] [place] [address] * (ABNORMAL) LIPID PANEL BASIC (12/12/2013 5:31 AM EDT)ComponentValueRef Range Test MethodAnalysis TimePerformed AtPathologist MlmvrkzyrQpgoizggxryk663(H)30 - 149 mg/dLCLEVELAND CLINIC [facility] LABORATORYCholesterol, Dkzsf309(H)100 - 199 mg/dLCLEVELAND CL[facility]IC [facility] LABORATORYHDL Mrdsrdsesmw99(L)>45 mg/dLCLEVELAND [facility]IC [facility] LABORATORYVLDL Exijyfjbtcg204 - 40 mg/dLCLEVELAND [facility] LABORATORYLDL Cholesterol, Vprhwjcxtb440(H)60 - 129 mg/dLCLEVELAND CLINIC [facility]PITAL LABORATORYFasting TimeUnknownhrsC[facility] LABORATORYTC:HDL Ratio 6.45(H)1.00 - 5.00[facility] LABORATORYLDL:HDL Ratio4.30(H)0.50 - 3.55[facility] LABORATORYNon HDL Ujkcwlbkqqi560(H)90 - 159 mg/dL [facility] LABORATORYSpecimen (Source)Anatomical Location / LateralityCollection Method / VolumeCollection TimeReceived Time12/12/2013 5:31 AM EDT12/12/2013 5:35 AM EDT Narrative Authorizing ProviderResult TypeResult StatusRichard A KrasuskiLABORATORYFinal ResultPerforming OrganizationAddressCity/State/ZIP CodePhone Number [facility] [address] [place] [address] from Last 3 Months or Most Recently Relevant to Health Maintenance Insurance Care Teams Team MemberRelationshipSpecialtyStart DateEnd Lalo Marshall Sr., DO PCP - GeneralFamily Uedxnwnb80/22/13 Lemuel Medellin DO Primary Staff PhysicianCardiology12/16/18
--- OUTSIDE RECORDS SUMMARY | 2025-08-25 11:41 | XMS_ITS | Clinical Summary ---
Author Organization [facility] Address [id number] [place] [address] Care Team Providers Care Meat Butcher Name Role Phone Lalo Marshall DO Primary Care Provider [phone] Allergies Active AllergyReactionsCriticalityNoted KnozLdstkgdiTvwwoofhogTixw86/03/2025 Other Reaction(s): Suicidal ideation Medications MedicationSigDispense QuantityRefillsLast [...] mouth in the morning. 90 tablet 5Active Active Problems ProblemNoted DateDiagnosed DateCoronary artery disease with history of percutaneous transluminal angioplasty (PTCA)01/01/2025Generalized abdominal pain 02/21/2021erumen debris on tympanic membrane of both ears07/28/2019Middle ear effusion, zwzvruskj86/17/2019Dysfunction of both eustachian tubes01/14/2019 Bilateral hearing loss01/14/2019 Encounters DateTypeDepartmentCare BrxnJiwvjqtkywn24/07/2025 2:00 PM EDTOffice Visit [facility] [address] [place] [phone] Roxanna Diop MD Coronary artery disease with history of percutaneous transluminal angioplasty (PTCA) (Primary Dx); Primary xphbnkidncwq50/07/9734Wsehdx42/06/2025Telephone [facility] [address] [place] [address] Sandra Langston MA from Last 3 Months Family History Medical HistoryRelationNameCommentsHeart diseaseBrotherHeart attackFatherHeart diseaseFatherStrokeMotherHeart diseaseSisterRelationNameStatusCommentsBrother AliveFatherDeceasedMotherDeceasedSisterAlive Social History Tobacco UseTypesPacks/DayYears UsedDateSmoking Tobacco: FormerSmokeless Tobacco: Never Comments:2009 quit Alcohol UseStandard Drinks/WeekCommentsNever0 (1 standard drink = 0.6 oz pure alcohol)AUDIT-CAnswerDate RecordedFrequency of Alcohol ConsumptionNever 01/14/2019Average Number of DrinksNot on file01/14/2019Frequency of Binge DrinkingNot on file01/14/2019ChildcareAnswerDate RecordedChildcareUnknown 03/11/2019EmploymentAnswerDate JbczkcphRhprbzcgozMtfdhbu00/12/2019Hunger ScreeningAnswerDate RecordedWithin the past 12 months we worried whether our food would run out before we got money to buy more.Never True07/06/2025Within the past 12 months the food we bought just didn't last and we didn't have money to get more.Never True07/06/2025Purpose - LifeAnswerDate RecordedPurpose and direction in wqdtBhtrdhe12/11/2021ex and Gender InformationValueDate Recorded Sex Assigned at BirthNot on fileLegal VnqCqxw8705/05/2015 11:51 AM EDTGender IdentityNot on fileSexual OrientationNot on file Last Filed Vital Signs Vital SignReadingTime TakenCommentsBlood Gwxbtqtf734/7980607/06/2025 1:52 PM EDT Pzopj559807/06/2025 1:52 PM WYHFblgwlcvawy96.1 ??C (97 ??F)02/21/2021 12:11 PM EDT Respiratory Hjty620702/21/2021 1:08 PM EDTOxygen Lpmxytcurm53%07/06/2025 1:52 PM EDTInhaled Oxygen Concentration--Bvyakz42 kg (194 lb)07/06/2025 1:52 PM EDT Jxnzaf928.2 cm (5' 7 )07/06/2025 1:52 PM EDTBody Mass Index30.3810 1:52 PM EDT Plan of Treatment Health MaintenanceDue DateLast DoneCommentsDiabetic Ophthalmology Exam1954 Statin Use: Gsmkvdnmbvqosf1954Statin Use: Bndgaqbz1954epression Untselixq12/17/1966Adult BMI Follow Up Plan02/14/1972Diabetic Foot Exam 02/14/1972DTaP,Tdap and Td Vaccines (1 - Tdap)1973Zoster (Shingles) Vaccine (1 of 2)02/14/2004Abdominal Aortic Aneurysm (AAA) Wmhrdt6902/13/2019Fall Risk Wtsajrwut52/17/2019COVID-19 Vaccine ( season)2025 10/10/2021, 12/05/2020Influenza Dbqilcw2605/31/2025dult BMI Sbhmgqoqh69/07/2026 07/06/2025Tobacco Kowntsewt57RSV ( or age 60+ yrs) (1 - 1-dose 75+ series)2029 Medical Devices Not on file Insurance Care Teams Team MemberRelationshipSpecialtyStart DateEnd Date Lalo Marshall DO PCP - GeneralFamily Medicine10/01/19
== END 2025-08-25 11:38 | disposition home or self-care (01) ==
LOC: MRI 11:37
PROVIDERS: PCP Family Medicine; Visit Provider Family Medicine
DX: R68.84 Jaw pain (principal); M25.50 Pain in unspecified joint; G50.0 Trigeminal neuralgia
CPT/HCPCS: 70540

== ENCOUNTER 2025-09-07 17:05 | Inpatient (IN) | payer MEDICARE, SELFPAY ==
[2025-09-07] VITALS (34 sets, daily range): BP systolic 178–202; BP diastolic 98–129; PULSE 90–117; TEMP 36.8–37; O2SAT 16–98; BMI 29.8
--- NOTE | 2025-09-07 17:09 | ECG_ITS ---
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 Measurements Intervals [place] Rate: 98 P: 21 CA: 140 QRS: -4 QRSD: 102 T: 70 QT: 352 QTc: 407 Interpretive Statements 1100 Sinus rhythm [address] depression 9130 borderline ECG Compared to ECG 09/17/2024 18:30:29 Sinus arrhythmia no longer present ST (T wave) deviation still present Electronically Signed On 09-07-2025 20:04:59 EST by DANYA FERRER M.D.
--- NOTE | 2025-09-07 17:18 | CT_ITS ---
The [address] [address] Patient Name: ESTEFANY SMALL MRN: [id number] date: 1955 Sex: M Assigned Patient Location: ED.MAIN Current Patient Location: ED.MAIN Accession/Order Number: [id number] Exam Date: 09/07/2025 17:12 Report Date: 09/07/2025 17:29 At the request of: GEM ZAMORANO MD Procedure: CT stroke head/brain wo con CT BRAIN WITHOUT CONTRAST: CLINICAL HISTORY: stroke like COMPARISON: None TECHNIQUE: Contiguous axial unenhanced images were obtained through the brain. This CT exam was performed using one or more following dose reduction techniques: Automated exposure control, adjustment of the mA and/or kV according to patient size, or use of iterative reconstruction technique. FINDINGS: There is no evidence of midline shift, intra or extra-axial fluid collection, hemorrhage or CT evidence of acute large vascular distribution stroke. Minimal central involutional changes and chronic small vessel ischemic disease. Chronic left caudate head lacunar stroke. There are intracranial vascular calcification. Visualized intraorbital contents appear unremarkable. Visualized paranasal sinuses are clear. The surrounding soft tissues are normal. CT/CT stroke head/brain wo con IMPRESSION: NO ACUTE INTRACRANIAL ABNORMALITY. CHRONIC SMALL VESSEL CHANGE. FINDINGS WERE DISCUSSED WITH THE ER PHYSICIAN JAUN TELEPHONE 1729 HOURS ON 09/07/2025 Impression dictated by: Bird Sarah M.D. 09/07/2025 5:29 PM Dictation Location: [place] [address] Electronically authenticated by: [id number] Y Date: 09/07/2025 17:29
[2025-09-07 17:25] LABS: Hematocrit 43.7 % (42.0-54.0); Hemoglobin 15.5 g/dL (14.0-18.0); Immature Granulocytes Abs Auto 0.07 10^3/uL (0.00-0.03); Immature Granulocytes Pct Auto 0.7 % (0.0-0.5); Lymphocytes Absolute Auto 2.1 10^3/uL (1.2-3.8); Mean Corpuscular HGB Conc 35.5 g/dL (29.9-35.2); Mean Corpuscular Hemoglobin 30.9 pg (25.9-34.0); Mean Corpuscular Volume 87.1 fL (80.0-94.0); Platelet Count 266 10^3/uL (150-450); Red Blood Count 5.02 10^6/uL (4.70-6.10); White Blood Count 10.6 10^3/uL (4.0-11.0)
--- NOTE | 2025-09-07 17:27 | ED.NEUROSD1 ---
HPI - Neuro Symptoms/Deficit General Chief Complaint: Neuro Symptoms/Deficit Stated Complaint: Stroke symptoms Time Seen by Provider: 09/07/25 17:08 Source: patient Mode of arrival: walk-in Limitations: no limitations History of Present Illness HPI Narrative: 70 years old male presenting to the ER concern of stroke, the patient last known well almost at 3:30 which is 1 hour and 45 minutes before arrival, the patient apparently was making a cup of coffee when he noted that his right hand is weak and he spilling the coffee, he also noted that he had his walking is different than his baseline as it was hard to walk and he is walking slowly The patient after that almost an hour after that the patient called his son and his son told him that his speech was different, the patient mentioned that he feels that his tongue is heavy and is not easy to speak The patient drove himself here to the ER he walked in here also but he mentioned that he was walking slowly Related Data Home Medications ?Medication ?Instructions ?Recorded ?Confirmed clopidogrel 75 mg tablet 75 mg PO DAILY 09/17/24 09/07/25 gabapentin 400 mg capsule 400 mg PO TID 09/17/24 09/17/24 insulin degludec 200 unit/mL (3 30 unit subcut QPM 09/17/24 09/17/24 mL) subcutaneous pen (Tresiba FlexTouch U-200 insulin) losartan 25 mg tablet 25 mg PO DAILY 09/17/24 09/07/25 Allergies Allergy/AdvReac Type Severity Reaction Status Date / Time No Known Drug Allergies Allergy Verified 09/17/24 17:49 Review of Systems ROS Status of ROS 10 or more systems reviewed and unremarkable except as noted in history and below [facility] Social History Little interest or pleasure in doing things: not at all Feeling down, depressed, or hopeless: not at all Exam Narrative Exam Narrative: Nurses notes and vital signs reviewed and patient is not hypoxic. General: Well-appearing and in no apparent distress. Skin: Warm, dry, no pallor noted. No rash. Head: Normocephalic, atraumatic. Neck: Supple, non-tender. Cardiovascular: Regular Rate and Rhythm without murmur, gallop or rub. Respiratory: No accessory muscle use or respiratory distress. Lungs are clear to auscultation, no wheezing, rales or rhonchi Chest Wall: no tenderness Back: No midline thoracic or lumbar vertebral tenderness. No CVA tenderness Musculoskeletal: normal ROM, no calf or popliteal tenderness, no lower extremity edema/swelling GI: Abdomen is soft, non-distended. Normal bowel sounds. No masses appreciated. No tenderness to palpation. No rebound, guarding, or rigidity noted. Neurological: A&O x4. 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 Normal mood and affect. Constitutional Vital Signs, click to edit/add: Last Vital Signs Temp 98.3 F 09/07/25 17:10 Pulse 91 H 09/07/25 18:20 Resp 21 H 09/07/25 18:20 BP 180/98 H 09/07/25 18:28 Pulse Ox 96 09/07/25 18:20 Course Vital Signs Vital signs: Vital Signs Temperature 98.3 F 09/07/25 17:10 Pulse Rate 98 H 09/07/25 17:10 Respiratory Rate 15 09/07/25 17:10 Blood Pressure 202/120 H 09/07/25 17:10 Pulse Oximetry 16 L 09/07/25 17:10 Temperature 98.3 F 09/07/25 17:10 Pulse Rate 91 H 09/07/25 18:20 Respiratory Rate 21 H 09/07/25 18:20 Blood Pressure 180/98 H 09/07/25 18:28 Pulse Oximetry 96 09/07/25 18:20 MDM - Neuro Symptoms/Deficit MDM Narrative Medical decision making narrative: EKG showing sinus rhythm with a heart rate of [address] elevation or depression pt blood pressure is 180/110 The patient CBC and chemistry showed no acute pathology with the troponin being negative I did discuss the case with teleneurology after the CAT scan without contrast showed no acute pathology and spoke with Dr. Allen , Patient last known well is at 3:30 PM and although the patient was within the window for tPA but he is not a tPA candidate with his low NIH score that would be exposing him to the risk of tPA for mild weakness The patient will continue the Plavix and we are getting CT angio head and neck the plan to admit him for MRI of the brain CT angio head and neck showed no large vessel occlusion and the patient will be admitted for MRI The patient care will be transferred to Dr. Houser awaiting discussion with the hospitalist Lab Data Labs: Lab Results 09/07/25 09/07/25 Range/Units 17:10 17:17 WBC 10.6 (4.0-11.0) 10^3/uL RBC 5.02 (4.70-6.10) 10^6/uL Hgb 15.5 (14.0-18.0) g/dL Hct 43.7 (42.0-54.0) % MCV 87.1 (80.0-94.0) fL MCH 30.9 (25.9-34.0) pg MCHC 35.5 H (29.9-35.2) g/dL RDW 12.3 (11.0-15.0) % Plt Count 266 (150-450) 10^3/uL MPV 8.4 L (9.5-13.5) fL Neut % (Auto) 71.4 (43.0-75.0) % Lymph % (Auto) 19.6 L (20.5-60.0) % [place] % (Auto) 5.3 (1.7-12.0) % Eos % (Auto) 2.4 (0.9-7.0) % Baso % (Auto) 0.6 (0.2-2.0) % Neut # (Auto) 7.6 H (1.4-6.5) 10^3/uL Lymph # (Auto) 2.1 (1.2-3.8) 10^3/uL [place] # (Auto) 0.6 (0.3-0.8) 10^3/uL Eos # (Auto) 0.3 (0.0-0.7) 10^3/uL Baso # (Auto) 0.1 (0.0-0.1) 10^3/uL Abs Immat Gran (auto) 0.07 H (0.00-0.03) 10^3/uL Imm/Tot Granulo (auto) 0.7 H (0.0-0.5) % Sodium 138 (136-145) mmol/L Potassium 3.7 (3.5-5.1) mmol/L Chloride 103 (98-107) mmol/L Carbon Dioxide 27.5 (21.0-32.0) mmol/L Anion Gap 11.2 BUN 10.0 (7.0-18.0) mg/dL Creatinine 0.85 (0.70-1.30) mg/dL Est GFR ( Amer) >60 (>=60 mL/min/1.73m^2) Est GFR (Non-Af Amer) >60 (>=60 mL/min/1.73m^2) BUN/Creatinine Ratio 11.8 Glucose 150 H (74-106) mg/dL Calcium 9.4 (8.5-10.1) mg/dL Total Bilirubin 0.6 (0.2-1.0) mg/dL AST 15 (15-37) U/L ALT 23 (16-63) U/L Alkaline Phosphatase 121 H (46-116) U/L Troponin I High Sens 10.5 (4.0-76.1) pg/mL Total Protein 6.8 (6.4-8.2) g/dL Albumin 3.6 (3.4-5.0) g/dL Globulin 3.2 g/dL Albumin/Globulin Ratio 1.1 Ethanol Quant <3 mg/dL POC Glucose 154 H (74-106) mg/dL Discharge Plan Discharge Chief Complaint: Neuro Symptoms/Deficit Clinical Impression: Stroke-like symptom, Hypertensive emergency Prescriptions / Home Meds: No Action clopidogrel 75 mg tablet 75 mg PO DAILY gabapentin 400 mg capsule 400 mg PO TID insulin degludec [Tresiba FlexTouch U-200] 200 unit/mL (3 mL) insulin pen 30 unit SUBCUT QPM losartan 25 mg tablet 25 mg PO DAILY Print Language: Gabonese Referrals: KALEY MCCOY [Primary Care Provider, Family Practice] - 1 week
[2025-09-07 17:40] LABS: Alanine Aminotransferase 23 U/L (16-63); Albumin Globulin Ratio 1.1; Albumin Level 3.6 g/dL (3.4-5.0); Alkaline Phosphatase 121 U/L (46-116); Anion Gap 11.2; Aspartate Amino Transferase 15 U/L (15-37); Blood Urea Nitrogen 10.0 mg/dL (7.0-18.0); Calcium 9.4 mg/dL (8.5-10.1); Carbon Dioxide 27.5 mmol/L (21.0-32.0); Chloride 103 mmol/L (98-107); Estimated GFR (African America >60 (>=60 mL/min/1.73m^2); Estimated GFR (Non-African Ame >60 (>=60 mL/min/1.73m^2); Globulin 3.2 g/dL; Glucose 150 mg/dL (74-106); Potassium 3.7 mmol/L (3.5-5.1); Sodium 138 mmol/L (136-145); Total Protein 6.8 g/dL (6.4-8.2)
--- OUTSIDE RECORDS SUMMARY | 2025-09-07 17:40 | XMS_ITS | CCD ---
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 [facility] HealthComment on above:Performed By: #### HSTROPN, CMP, LIPA #### [facility] [address] [place] [address] Dr. Ranjith StoverPotassium [Moles/Vol]3.2 mmol/LCritically low3.5-5.1The [facility] HealthComment on above:Performed By: #### HSTROPN, CMP, LIPA #### [facility] [address] [place] [address] Dr. Ranjith StoverProtein [Mass/Vol]6.5 g/dLNormal6.4-8.2The [facility] Comment on above:Performed By: #### HSTROPN, CMP, LIPA #### [facility] [address] [place] [address] Dr. Ranjith StoverSodium [Moles/Vol]140 mmol/LXeobmc380-883Tdo [facility] Comment on above:Performed By: #### HSTROPN, CMP, LIPA #### [facility] [address] [address] [address] Ranjith Romo nitrogen [Mass/Vol]22.0 mg/dLCritically high7.0-18.0The [facility]cy HealthComment on above:Performed By: #### HSTROPN, CMP, LIPA #### [facility] [address] [place] [address] Dr. Ranjith Romo nitrogen/Creatinine [Mass ratio]22.0 mg/mgNoGood Samaritan HospitalComment on above:Performed By: #### HSTROPN, CMP, LIPA #### [facility] [address] [place] [address] Dr. Ranjith StoverPROTIMEon 38-33-3822GTD Coag (PPP) [Relative time]1.08 {INR} NormalThe Mercy HealthComment on above:Performed By: #### PT, PTT #### [facility] [address] [place] [address] Dr. Ranjith Hines GUIDELINESSEE BELOWLicking Memorial HospitalComment on above:Result Comment: DESIRED INR: 2.0 - 3.0 CONDITIONS NOT LISTED BELOW 2.5 - 3.5 FOR PROSTHETIC HEART VALVE REPLACEMENT 2.5 - 3.5 RECURRENT THROMBOSIS Performed By: #### PT, PTT #### [facility] [address] [place] [address] Dr. Ranjith StoverPT Coag (PPP) [Time]11.4 sNormal9.0-11.6The [facility] Comment on above:Performed By: #### PT, PTT #### [facility] [address] [place] [address] Dr. Ranjith Claros 54-84-8294sYCN Coag (Bld) [Time]28.5 gSxpita51.3-36.2The [facility] HealthComment on above:Performed By: #### PT, PTT #### [facility] [address] [place] [address] Dr. Ranjith Robison, [facility] SENSITIVITYon 78-59-8842EZHQBB6.6 pg/mLNormal 4.0-76.1The [facility]cy HealthComment on above:Result Comment: CUT-OFF POINTS HAVE BEEN ESTABLISHED BASED ON THE FOURTH UNIVERSAL DEFINITIONS OF MYOCARDIAL INFARCTION. THE UPPER REFERENCE LIMIT (URL) OF TROPONIN, DEFINED THE 99TH PERCENTILE OF cTnI DISTRIBUTION IN A REFERENCE POPULATION, HAS BEEN CONFIRMED THE DECISION THRESHOLD FOR MO DIAGNOSIS.Performed By: #### HSTROPN, CMP, LIPA #### [facility] [address] [place] [address] Dr. Ranjith Chan AUTO DIFFon 09-16-1421QLXG #0.1 103/ulNormal0.0-0.1The [facility]cy HealthComment on above:Performed By: #### CBC #### [facility] [address] [place] [address] Dr. Ranjith StoverBasophils/100 WBC (Bld)0.6 %Normal0.2-2.0[facility] Comment on above:Performed By: #### CBC #### [facility] [address] [place] [address] Dr. Ranjith Dutta #0.4 103/ulNormal0.0-0.7The [facility]cy HealthComment on above: Performed By: #### CBC #### [facility] [address] [place] [address] Dr. Ranjith Jamesosinophils/100 WBC (Bld)3.4 %Normal0.9-7.0The [facility] Comment on above:Performed By: #### CBC #### [facility] [address] [place] [address] Dr. Ranjith Jamesrythrocyte distribution width (RBC) [Ratio]12.6 %Soclox59.0-15.0 The Mercy HealthComment on above:Performed By: #### CBC #### [facility] [address] [place] [address] Dr. Ranjith StoverHematocrit (Bld) [Volume fraction]46.7 %Ehvrcb94.0-54.0The [facility]cy HealthComment on above:Performed By: #### CBC #### [facility] [address] [address] [address] Ranjith StoverHemoglobin (Bld) [Mass/Vol]15.7 g/qTXmgzid92.0-18.0The [facility]cy HealthComment on above:Performed By: #### CBC #### [facility] [address] [address] [address] Ranjith Cardenas #0.05 10e3/ulCritically high0.00-0.03The [facility] Comment on above:Performed By: #### CBC #### [facility] [address] [place] [address] Dr. Ranjith Cardenas %0.4 %Normal0.0-0.5The [facility]cy HealthComment on above: Performed By: #### CBC #### [facility] [address] [place] [address] Dr. Ranjith López #2.6 103/ulNormal1.2-3.8The [facility]cy HealthComment on above:Performed By: #### CBC #### [facility] [address] [place] [address] Dr. Ranjith Bertrandhocytes/100 WBC (Bld)20.5 %Xdeohm44.5-60.0The [facility]cy HealthComment on above:Performed By: #### CBC #### [facility] [address] [place] [address] Dr. Ranjith HunterUAL DIFF REQNONormalThe [facility]cy HealthComment on above: Performed By: #### CBC #### [facility] [address] [place] [address] Dr. Ranjith Kilpatrick (RBC) [Entitic mass]29.3 qdMvbwtq31.9-34.0The [facility]cy HealthComment on above:Performed By: #### CBC #### [facility] [address] [place] [address] Dr. Ranjith Kilpatrick (RBC) [Mass/Vol]33.6 g/cGLtnssp70.9-35.2The [facility]cy HealthComment on above:Performed By: #### CBC #### [facility] [address] [address] [address] Ranjith KilpatrickV (RBC) [Entitic vol]87.3 eQUyeuye38.0-94.0The [facility] HealthComment on above:Performed By: #### CBC #### [facility] [address] [place] [address] Dr. Ranjith Mishra #0.5 103/ulNormal0.3-0.8The [facility] HealthComment on above:Performed By: #### CBC #### [facility] [address] [place] [address] Dr. Ranjith Taylorocytes/100 WBC (Bld)4.0 %Normal1.7-12.0[facility] Comment on above:Performed By: #### CBC #### [facility] [address] [place] [address] Dr. Ranjith Cheek #8.9 103/ulCritically high1.4-6.5[facility] Comment on above:Performed By: #### CBC #### [facility] [address] [place] [address] Dr. Ranjith Wanutrophils/100 WBC (Bld)71.1 %Yhkoiu72.0-75.0The [facility] HealthComment on above:Performed By: #### CBC #### [facility] [address] [place] [address] Dr. Ranjith Pyle mean volume (Bld) [Entitic vol]8.7 fLCritically low 9.5-13.5The [facility] HealthComment on above:Performed By: #### CBC #### [facility] [address] [place] [address] Dr. Ranjith StoverPLT256 103/jwWdheiq257-045Gui [facility] HealthComment on above: Performed By: #### CBC #### [facility] [address] [place] [address] Dr. Ranjith StoverRBC5.35 106/ulNormal4.70-6.10The [facility]cy HealthComment on above:Performed By: #### CBC #### [facility] [address] [address] [address] Ranjith StoverWBC12.6 103/ulCritically high4.0-11.0The [facility]cy HealthComment on above:Performed By: #### CBC #### [facility] [address] [address] [address] Ranjith StoverGLYCOHEMOGLOBIN A1Con 39-38-0718SWR RECOMMENDATIONADA THERAPEUTIC TARGET 6.0 - 7.0 ACTION SUGGESTED > 7.0NormCleveland Clinic Medina HospitalComment on above:Performed By: #### A1C #### [facility] [address] [address] [address] Ranjith StoverGlucose [Mass/Vol]280 mg/dLNormCleveland Clinic Medina HospitalComment on above:Performed By: #### A1C #### [facility] [address] [address] [address] Ranjith StoverHbA1c (Bld) [Mass fraction]11.4 %Critically high<=6.0The [facility] HealthComment on above:Performed By: #### A1C #### [facility] [address] [address] [address] Ranjith LozanoROALBUMIN, RAND URon 77-02-2022jVFL3.8 mg/LNormal<=30.0The [facility] HealthComment on above:Performed By: #### MALBR ####[facility] [address] [address]Dr. Ranjith StoverPROF 14(COMP METB)on 99-61-7106Yclhqzk [Mass/Vol]3.7 g/dLNormal3.4-5.0[facility] Comment on above:Performed By: #### CMP #### [facility] [address] [address] [address] Ranjith StoverAlbumin/Globulin [Mass ratio]1.0 {ratio}NormalThe Mercy HealthComment on above:Performed By: #### CMP #### [facility] [address] [address] [address] Ranjith HerreraP [Catalytic activity/Vol]167 U/LCritically qzbw28-912Kpi [facility]cy HealthComment on above:Performed By: #### CMP #### [facility] [address] [address] [address] Ranjith Alcocer [Catalytic activity/Vol]40 U/ONpmccr03-74Wcw [facility] HealthComment on above:Performed By: #### CMP #### [facility] [address] [address] [address] Ranjith Thompsonon gap [Moles/Vol]11.6 mmol/LNormalOhio State [facility] Comment on above:Performed By: #### CMP #### [facility] [address] [address] [address] Ranjith StoverAST [Catalytic activity/Vol]24 U/KWlgfle18-47Wqh [facility] HealthComment on above:Performed By: #### CMP #### [facility] [address] [address] [address] Ranjith StoverBilirubin [Mass/Vol]1.0 mg/dLNormal0.2-1.3TLake [facility] Comment on above:Performed By: #### CMP #### [facility] [address] [address] [address] Ranjith StoverCalcium [Mass/Vol]9.4 mg/dLNormal8.5-10.1[facility] Comment on above:Performed By: #### CMP #### [facility] [address] [address] [address] Ranjith StoverChloride [Moles/Vol]99 mmol/PAlqxbb34-401Ztp [facility] Comment on above:Performed By: #### CMP #### [facility] [address] [address] [address] Ranjith StoverCO2 [Moles/Vol]29.3 mmol/TLwsbve91.0-30.0[facility] Comment on above:Performed By: #### CMP #### [facility] [address] [address] [address] Ranjith StoverCreatinine [Mass/Vol]0.74 mg/dLNormal0.66-1.25The [facility] HealthComment on above:Performed By: #### CMP #### [facility] [address] [address] [address] Ranjith JamesGFR-AF MEXICAN>60Normal>=60The [facility] HealthComment on above:Performed By: #### CMP #### [facility] [address] [address] [address] Ranjith JamesGFR-NON AF MEXICAN>60Normal>=60The [facility] HealthComment on above:Performed By: #### CMP #### [facility] [address] [address] [address] Ranjith StoverGlobulin (S) [Mass/Vol]3.8 g/dLNormalThCleveland Clinic Akron GeneralComment on above:Performed By: #### CMP #### [facility] [address] [address] [address] Ranjith StoverGlucose [Mass/Vol]295 mg/dLCritically sfzv95-067Rcn [facility] on above:Performed By: #### CMP #### [facility] [address] [address] [address] Ranjith StoverPotassium [Moles/Vol]3.9 mmol/LNormal3.4-5.0[facility] Comment on above:Performed By: #### CMP #### [facility] [address] [address] [address] Ranjith StoverProtein [Mass/Vol]7.5 g/dLNormal6.1-8.2The [facility] Comment on above:Performed By: #### CMP #### [facility] [address] [address] [address] Ranjith StoverSodium [Moles/Vol]136 mmol/LCritically tso669-403Zwn [facility] on above:Performed By: #### CMP #### [facility] [address] [address] [address] Ranjith StoverUrea nitrogen [Mass/Vol]9.0 mg/dLNormal7.0-18.0The [facility] HealthComment on above:Performed By: #### CMP #### [facility] [address] [place], [place] [address] Dr. Ranjith StoverUrea nitrogen/Creatinine [Mass ratio]12.2 mg/mgLicking Memorial HospitalComment on above:Performed By: #### CMP #### [facility] [address] [place], [place] [address] Dr. Ranjith Stover Vital Signs Date TimeVital SignValuePerforming LjzqerraoBmcdmhvx37-67-2588 13:42-0400Body .2 cmUlysses Overton MD Work Phone: [phone] [place], [place] [address]2010-28-2025 13:42-0400Body mass index (BMI) [Ratio]29.76 kg/e1BtlruhUlysses Overton MD Work Phone: [phone])[address] [place], [place] [address]2010-28-2025 13:42-0400Body zepbex79.18 kgUlysses Overton MD Work Phone: [phone])[address] [place], [place] [address]2010-28-2025 13:42-0400Diastolic blood esqocnrz40 mm[Hg]Ulysses Overton MD Work Phone: [phone])[address] [place], [place] [address]2010-28-2025 13:42-0400Heart rate87 /min Ulysses Overton MD Work Phone: [phone])[address] [place], [place] [address]2010-28-2025 13:42-0400Systolic blood kcwtkekj316 mm[Hg]Ulysses Overton MD Work Phone: [phone])[address] [place], [place] [address]2010-07-2025 13:52-0400Body ehvlpk930.2 cmRoxanna Diop MD Work Phone: [phone] [place], [place] [address]7110-07-2025 13:52-0400Body mass index (BMI) [Ratio]30.38 kg/m5HgccwRoxanna Diop MD Work Phone: [phone]10-07-2025 13:52-0400Body kgRoxanna Diop MD Work Phone: [phone] [facility]als [facility]10-07-2025 13:52-0400Diastolic blood jeejcihd642 mm[Hg]Roxanna Diop MD Work Phone: 1(419)776-[address] [place], [place] [address]10-07-2025 13:52-0400Heart rate 84 /minRoxanna Diop MD Work Phone: [phone]10-07-2025 13:52-4720HtH2% (BldA) [Mass fraction]99 %Roxanna Diop MD Work Phone: 1(419)216-[address] [place], [place] [address]7110-07-2025 13:52-0400Systolic blood jqwlistb936 mm[Hg]Roxanna Diop MD Work Phone: [phone]07-14-2025 14:13-0400Body .2 Kristine Barbour MD Work Phone: [phone]07-14-2025 14:13-0400Body mass index (BMI) [Ratio]31.64 kg/q5SvjdxGaro Barbour MD Work Phone: [phone] [place], [place] [address]Plmnvrcvwc70-90-5393 14:13-0400Body pphosk74.63 kgGaro Barbour MD Work Phone: [phone] [place], [place] [address]Grjfithkkm07-38-3037 14:13-0400Diastolic blood qrerpmhb01 mm[Hg]Garo Barbour MD Work Phone: [phone] [place], [place] [address]Ggeidkirwe39-59-6350 14:13-0400Heart rate78 /min Garo Barbour MD Work Phone: [phone] [place], [place] [address]Empaqpfgcg45-09-3601 14:13-0400Respiratory rate18 /minGaro Barbour MD Work Phone: [phone] [place], [place] [address]Nacompunhc01-19-2944 14:13-4823XrO2% (BldA) [Mass fraction]99 %Garo Barbour MD Work Phone: [phone] [place], [place] [address]Clbcejxfxx98-42-7871 14:13-0400Systolic blood smwgordm720 mm[Hg]Garo Barbour MD Work Phone: NOSt. Louis Behavioral Medicine InstituteYsoxpptlsn18-85-3591 13:36-0400Body uslvsk740.2 Benji Garcia MD Work Phone: [facility]04-04-2025 13:36-0400Body mass index (BMI) [Ratio]31.95 kg/j1ZjgduzKathy Garcia MD Work Phone: [facility]04-04-2025 13:36-0400Body syvnii86.53 kgKathy Garcia MD Work Phone: [facility]04-04-2025 13:36-0400Diastolic blood xwnydvut39 mm[Hg]Kathy Garcia MD Work Phone: [facility]04-04-2025 13:36-0400Heart rate 89 /minKathy Garcia MD Work Phone: [facility]04-04-2025 13:36-0281EiK2% (BldA) [Mass fraction]97 %Kathy Garcia MD Work Phone: [facility]04-04-2025 13:36-0400Systolic blood irwzkmxo448 mm[Hg]Kathy Garcia MD Work Phone: [facility]03-03-2025 15:17-0500Body .2 cmAbeatriz Good ENERGY SALES CONSULTANT Work Phone: noSt. Louis Behavioral Medicine InstituteYlimocosne51-27-5850 15:17-0500Body mass index (BMI) [Ratio]31.95 kg/l7TjqicvKaelyn Good ENERGY SALES CONSULTANT Work Phone: NOSt. Louis Behavior[facility] Medicine InstituteZwckkcacfc36-99-3696 15:17-0500Body qaxmwv37.53 kgKaelyn Good ENERGY SALES CONSULTANT Work Phone: noSt. Louis Behavior[facility] Medicine InstitutePiyvzapwkz18-16-0029 15:17-0500Diastolic blood axouoetw41 mm[Hg]Kaelyn Good ENERGY SALES CONSULTANT Work Phone: noSt. Louis Behavioral Medicine InstituteBdlbhpjoow62-29-6327 15:17-0500Systolic blood gupoekyi268 mm[Hg]Kaelyn Good ENERGY SALES CONSULTANT Work Phone: noMS Ixqpxdnptd12-91-2352 14:56-0500Body yfyuuj119.2 cmNicole Red DO Work Phone: [facility] HospitalYdwovahudc90-74-5398 14:56-0500Body mass index (BMI) [Ratio]31.89 kg/g5Vknfsj Red DO Work Phone: [facility] HospitalOoixftoncn26-16-8980 14:56-0500Body tbpyjp41.35 kgNicole Red DO Work Phone: [facility] HospitalFdwwixwkss12-09-8520 14:56-0500Diastolic blood jjchygwe00 mm[Hg] Red DO Work Phone: [facility] HospitalOvavvvyuor08-85-1998 14:56-0500Heart rate88 /min Red DO Work Phone: [facility] HospitalQgllzubjlg49-45-8756 14:56-6339QaH7% (BldA) [Mass fraction]96 % Red DO Work Phone: [facility] HospitalJarxhgjmen74-86-2049 14:56-0500Systolic blood mm[Hg] Red DO Work Phone: noSt. Louis Behavior[facility] Medicine InstituteHttbqzxtrn56-55-4182 14:05-0500Body aumegg403.2 cmAnthony Rusher DPM Work Phone: NOSt. Louis Behavior[facility] Medicine InstitutePflllnuxbv01-72-3485 14:05-0500Body mass index (BMI) [Ratio]27.88 kg/e6Ycjzkmp Rusher DPM Work Phone: [facility] HospitalWbitpkolzl92-09-4599 14:05-0500Body lxkiib55.74 kgAnthony Rusher DPM Work Phone: [facility] Healthcare Encounters Encounter DateEncounter TypeCare ProviderFacilityStart: 08-04-2025 End: 32-14-6512qcfczftgbiHV CHARLES P HOUSEFacility:[facility] ClinicStart: 07-27-2025 End: 15-41-8836Lxytrf kevheetUlysses Overton MD Work Phone: noms [facility] OtolaryngologyStart: 07-27-2025 End: 99-16-5933Ptputc Yara Overton MD Work Phone: NOGM Joseph OtolaryngologyStart: 07-27-2025 End: 46-75-6592nxpdywwdhcSRSYUU H TIMMISNot AvailableStart: 07-27-2025 End: 87-39-4135Rnzrma outpatient visit 25 minutesUlysses Overton MD Work Phone: noms Joseph OtolaryngologyComment on above:ETD (Eustachian tube dysfunction), left (Primary Dx); Referred otalgia of both earsStart: 07-06-2025 End: 59-94-0846Yyazqg outpatient visit 25 minutesRoxanna Diop MD Work Phone: [facility] CardiologyComment on above: Coronary artery disease with history of percutaneous transluminal angioplasty (PTCA) (Primary Dx); Primary hypertensionStart: 07-06-2025 End: 41-31-8177cjtqlfezhhJILHP YANIVWORCESTER STATE HOSPITALSPSycamore Medical Centertart: 07-05-2025 End: 70-32-4589Kukydckfs encounterJematty Bernstein [facility] Physicians CardiologyStart: 03-91-4599czibfgahmdIRHAKPL P HOUSEFacility:[facility] Start: 04-12-2025 End: 49-45-1160Vxapyj Honorio Barbour MD Work Phone: noms ENDOCRINOLOGYStart: 04-12-2025 End: 01-66-2014Uialnu flowsMaryana Barbour MD Work Phone: noms ENDOCRINOLOGYStart: 04-12-2025 End: 69-08-6442orfocqclovUPLIV F SABBAGHNot AvailableStart: 04-12-2025 End: 12-92-9447Gzxqri outpatient visit 25 minutesGaro Barbour MD Work Phone: noms ENDOCRINOLOGYComment on above:Type 2 diabetes mellitus with hyperglycemia, with long-term current use of insulin (HCC) (Primary Dx); Encounter for dietary consultation; Vitamin D deficiency; Hyperlipemia, mixed ; Insulin long-term use (HCC); Primary hypertensionStart: 25-10-9323pxtxeakhywGBPOYIH P DANVILLEFacility:[facility] ClinicStart: 01-19-2025 End: 19-24-4404yoigevonbdOPCEOATemecula Valley Hospitaltart: 01-14-2025 End: 93-82-2863Qdipexrqs encounterJillian Varner [facility] Physicians CardiologyStart: 01-12-2025 End: 38-84-7580Fusrnw outpatient new 45 minutesNatalie A Felter LAUNDRY ROOM ATTENDANT-PHLEBOTOMY DIRECTOR Work Phone: noms [facility] DERMComment on above:Melanocytic nevus of upper extremity, unspecified laterality (Primary Dx); Melanocytic nevus of trunk; Other atopic dermatitis; Capillary angioma; Lentigines; Seborrheic keratosis; Actinic keratosisStart: 01-12-2025 End: 32-24-8414jlmqxcqwpnERWQJRW A FELTERNot AvailableStart: 01-12-2025 End: 47-98-4966Nhfqln flowsheetNatalie A Felter LAUNDRY ROOM ATTENDANT-PHLEBOTOMY DIRECTOR Work Phone: noms [facility] DERMStart: 01-12-2025 End: 39-11-2471Ycoyof flowsheetNatalie A Felter LAUNDRY ROOM ATTENDANT-PHLEBOTOMY DIRECTOR Work Phone: noms [facility] DERMStart: 01-01-2025 End: 30-68-1447Zirtyb outpatient new 45 minutesRobert America Garcia MD Work Phone: [facility] CardiologyComment on above: Coronary artery disease with history of percutaneous transluminal angioplasty (PTCA) (Primary Dx); Shortness of breathStart: 01-01-2025 End: 71-99-1806fqeldxtreoENGZMXTemecula Valley Hospitaltart: 12-31-2024 End: 46-55-2504Ihpoakxdv encounterSandra Delgado CMARutland Regional Medical CenterMedica Physicians CardiologyStart: 12-18-2024 End: 89-71-2446Zngpi abstractingScanning Provider ExternalProMedica Physicians CardiologyStart: 12-14-2024 End: 33-91-1253smmrsvgsldPMWSB F SABBAGHNot AvailableStart: 11-30-2024 End: 10-54-5569tsyswvxdecIWGLWH GILLMORNot AvailableStart: 11-30-2024 End: 34-82-8163Cfahob outpatient visit 25 minutesKaelyn Good ENERGY SALES CONSULTANT Work Phone: aNA BELLEVUEComment on above:ANIYA (obstructive sleep apnea) (Primary Dx); Idiopathic peripheral neuropathy; 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, unspecified class, unspecified whether serious comorbidity presentStart: 11-30-2024 End: 83-19-8574Lpdcqh Leticia Good ENERGY SALES CONSULTANT Work Phone: aNA BELLEVUEStart: 11-30-2024 End: 02-56-9039Fvktfa Leticia Good ENERGY SALES CONSULTANT Work Phone: ana BELLEVUEStart: 11-30-2024 End: 37-77-0596Lilsalxgp Result EncounterNicole Red DO Work Phone: [facility] External Department UnsolicitedStart: 11-26-2024 End: 78-43-0804Trzqlkpdg encounterGracy Davenport [facility] Card[facility] Start: 62-15-6299wfoegfltprNQ CHARLES P HOUSEFacility:[facility] ClinicStart: 11-02-2024 End: 48-15-4405euinzovyipNISOAH DANNERNot AvailableStart: 10-30-2024 End: 05-50-3527Qxbqdsu encounter procedureNicole Red DO Work Phone: aNA BELLEVUEComment on above:ANIYA (obstructive sleep apnea) (Primary Dx)Start: 10-29-2024 End: 60-61-6859Bghmcokc SupportNoms Bsr Neuro TechnicanANA BELLEVUEComment on above:ANIYA (obstructive sleep apnea)Start: 10-12-2024 End: 15-39-1417Rjcvjs outpatient new 45 minutesNicole Red DO Work Phone: aNA BELLEVUEComment on above:ANIYA (obstructive sleep apnea) (Primary Dx); Idiopathic peripheral neuropathy; Numbness and tingling; 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, unspecified class, unspecified whether serious comorbidity presentStart: 10-12-2024 End: 59-22-1298ikebmwuklfMCOQRH DANNERNot AvailableStart: 10-12-2024 End: 94-15-0901Ernbae flowsheetNicole Red DO Work Phone: aNA BELLEVUEStart: 10-12-2024 End: 59-11-0505Acvzds flowsheetNicole Red DO Work Phone: aNA BELLEVUEStart: 96-06-3414mlqmtlnsfrOGZXDWI P [place] Facility:[facility] ClinicStart: 11-11-2023 End: 72-67-9215Vybyof outpatient visit [address] Work Phone: [facility] PODIATRYComment on above:Diabetic polyneuropathy associated with type 2 diabetes mellitus (CMS/HCC) (Primary Dx); NeuritisStart: 11-14-2022 End: 17-03-2820mlqryhikrpJY CARTER RICOFacility:J4Fmkxh: 01-15-2022 End: 03-10-2606yxglmwapfjHEDawood MCCOYFacility:Q2Dlbce: 09-18-2018 End: 12-57-7839Xlwqdri encounter procedureDEFAULT PHYSICIANFacility:[facility] Procedures DateProcedureProcedure DetailPerforming ClinicianStart: 35-76-3942Kenaqr-up visitFollow-upMANEL BOUMEGOUASStart: 65-58-7009Yauc bld gluc mntr dev cleared fda spec home useGaro Barbour MD Work Phone: Start: 47-55-4648HECVAEGICEK SKIN LESIONNatalie A Felter LAUNDRY ROOM ATTENDANT-PHLEBOTOMY DIRECTOR Work Phone: Start: 89-97-5345Njg routine ecg w/least 12 lds w/i&r Kathy Garcia MD Work Phone: Start: 09-07-3873FQI THYROID STIM HORMONENicole Red DO Work Phone: Start: 87-30-9075OIS screeningDR CARTER RICO Comment on above:Performed By: #### PSAD #### [facility] [address] [place] [address] Dr. Ranjith StoverStart: 35-96-0898Bzadjvr of placement of stent for coronary artery diseaseS/P coronary artery stent placementSampson Street DPM Work Phone: Plan of Treatment DateCare ActivityDetailAuthorStart: 13-05-9547Tiwzy BMI ScreeningAdult BMI ScreeningProBryce Hospital Health SystemStart: 10-40-0575Shebhmm ScreeningTobacco ScreeningProBryce Hospital Health SystemStart: 86-79-2847Zmpxl BMI ScreeningAdult BMI ScreeningProMiddletown Hospital SystemStart: 01-11-2026 End: 48-64-8405Fyzuaxu encounter procedureNOMS SWS DERMStart: 43-03-3032Dvmab BMI ScreeningAdult BMI ScreeningProBryce Hospital Health SystemStart: 52-02-3584Rglpvkn ScreeningTobacco ScreeningProBryce Hospital Health SystemStart: 10-11-2025 End: 58-05-1672Sfrghyz encounter procedureNOMS SH ENDOCRINOLOGYStart: 07-26-2025 End: 96-31-9510Fhgdwji encounter qqgldzyfm90/27/2025 2:00 PM EDT Appointment [facility] - Cardiovascular [address] [place] [address] Kathy Garcia MD [address] [place] [address] [facility] - CardiovascularStart: 07-06-2025 End: 11-04-0448Boiqqxk encounter caslgijzp74/07/2025 2:00 PM EDT Office Visit [facility] [address] [place] [phone] Roxanna Diop MD [address] [place] [address] [facility] CardiologyStart: 97-92-7671JYYPR-19 Vaccine ( season)COVID-19 Vaccine ()[facility] SystemStart: 70-80-3647Rtrnxomfm vaccinationFulton County Health Center SystemStart: 04-12-2025 End: 087894-kblsgfgzivdnre D3 [Mass/volume] in Serum or PlasmaVitamin D 25 hydroxy Total Lab Routine Type 2 diabetes mellitus with hyperglycemia, with long-term current use of insulin (HCC) Expected: 04/12/2025 (Approximate), Expires: 04/12/2026[facility] HealthcareComment on above:Expected: 04/12/2025 (Approximate), Expires: 04/12/2026Start: 04-12-2025 End: 70-12-5477O-peptideC-peptide Lab Routine Type 2 diabetes mellitus with hyperglycemia, with long-term current use of insulin (HCC) Expected: 04/12/2025 (Approximate), Expires: 04/12/2026[facility] Work Phone: Comment on above:Expected: 04/12/2025 (Approximate), Expires: 04/12/2026Start: 04-12-2025 End: 05-99-5137Efrwl 1996 panel - Serum or PlasmaLipid panel Lab Routine Type 2 diabetes mellitus with hyperglycemia, with long-term current use of insulin (HCC) Expected: 04/12/2025 (Approximate), Expires: 04/12/2026[facility] Comment on above:Expected: 04/12/2025 (Approximate), Expires: 04/12/2026Start: 04-12-2025 End: 73-47-0728Xwbmawuntveb/Creatinine panel in random UrineMicroalbumin / creatinine urine ratio Lab Routine Type 2 diabetes mellitus with hyperglycemia, withlong-term current use of insulin (HCC) Expected: 04/12/2025 (Approximate), Expires: 04/12/2026[facility] HealthcareComment on above:Expected: 04/12/2025 (Approximate), Expires: 04/12/2026Start: 04-12-2025 End: 37-29-8645Mgmsj function panelRenal function panel Lab Routine Type 2 diabetes mellitus with hyperglycemia, with long-term current use of insulin (HCC) Expected: 04/12/2025 (Approximate), Expires: 04/12/2026[facility] Comment on above:Expected: 04/12/2025 (Approximate), Expires: 04/12/2026Start: 04-12-2025 End: 76-20-8616Pqldain encounter paxfakmvb75/14/2025 1:50 PM EDT Office Visit [facility] [address] [place] [phone] Garo Barbour MD [address] [place] [address] [facility] ENDOCRINOLOGYStart: 03-02-2025 End: 08-58-9335Pvirowv encounter mivlnupox59/03/2025 3:40 PM EDT Office Visit [facility] [address] [place] [address] Kaelyn Good NP [address] [place], [place] SIVA MABRYtart: 01-19-2025 End: 05-46-6874Yhqwtqy encounter /22/2025 11:45 AM EDT Appointment [facility] - Stress Imaging [address] [place] [phone] Kathy Garcia MD [address] [place] [address] [facility] - Stress ImagingStart: 01-19-2025 End: 01-53-2764Hjezkno encounter procedureProPromedica [facility] Hospital - Stress ImagingStart: 01-19-2025 End: 00-60-1041Zanzmwr encounter procedureProPromedica Bay Park Hospital - CardiovascularStart: 01-12-2025 End: 36-85-4487Kdjhwju encounter procedureNOSONOMA VALLEY HOSPITAL DERMComment on above:Arrived Start: 01-08-2025 End: 16-60-5921SB Heart Perfusion W stress and W radionuclide IVNuc stress Lexiscan Cardiac Services Routine Coronary Artery Disease With History Of Percutaneous Transluminal Angioplasty (Ptca) Shortness of breath Expected: 01/08/2025, Expires: 01/01/2026[facility] SystemComment on above:Expected: 01/08/2025, Expires: 01/01/2026Start: 01-01-2025 End: 83-13-3980Fvhf complete W/O contrastEcho complete W/O contrast Echocardiography Routine Coronary Artery Disease With History Of Percutaneous Transluminal Angioplasty (Ptca) Shortness of breath Expected: 01/01/2025, Expires: 01/01/2026[facility] Work Phone: Comment on above:Expected: 01/01/2025, Expires: 01/01/2026Start: 01-01-2025 End: 26-74-2005Qfzeeax encounter jixwoacgc76/04/2025 1:45 PM EDT Office Visit [facility] [address] [place] [address] Kathy Garcia MD [address] [place] [address] [facility] CardiologyStart: 11-30-2024 End: 14-07-2522Yvhnhmm encounter odfxnqqdv64/03/2025 3:00 PM EST Office Visit [facility] CHARLTON [address] [place] [phone] Kaelyn Good NP [address] [place] [address] SIVA MABRYtart: 10-29-2024 End: 25-22-8956Sypkjime Zgpkbgb4110/29/2024 3:45 PM EST Clinical Support [facility] CHARLTON [address] [place] [phone] aSAM HAINESLATESHA Start: 10-12-2024 End: 71-05-7965Zrtcnpo encounter /13/2025 3:00 PM EST Office Visit [facility] CHARL[facility] [address] [place] [phone] Nicole Moon DO [address] [place] [address] Michaelle CHARLTONComment on above:ArrivedStart: 10-12-2024 End: 77-12-2390Bfmsnlthm (Vitamin B12) [Mass/volume] in Serum or PlasmaVitamin B12 Lab Routine Idiopathic peripheral neuropathy Expected: 10/12/2024 (Approximate), Expires: 10/12/2025[facility] HealthcareComment on above:Expected: 10/12/2024 (Approximate), Expires: 10/12/2025Start: 10-12-2024 End: 96-02-6344Xknhem [Mass/volume] in Serum or PlasmaFolate Lab Routine Idiopathic peripheral neuropathy Expected: 10/12/2024 (Approximate), Expires: 10/12/2025[facility] HealthcareComment on above:Expected: 10/12/2024 (Approximate), Expires: 10/12/2025Start: 10-12-2024 End: 01-69-5134Xgtg sleep testHome sleep test Sleep Center Routine ANIYA (obstructive sleep apnea) Expected: 10/12/2024 (Approximate), Expires: 10/12/2025[facility] Work Phone: comment on above:Expected: 10/12/2024 (Approximate), Expires: 10/12/2025Start: 10-12-2024 End: 73-03-6711Aodrqed electrophoresis, serumProtein electrophoresis, serum Lab Routine Idiopathic peripheral neuropathy Expected: 10/12/2024 (Approximate), Expires: 10/12/2025[facility] HealthcareComment on above:Expected: 10/12/2024 (Approximate), Expires: 10/12/2025Start: 10-12-2024 End: 96-75-5536Yntkxyjjucl [Units/volume] in Serum or PlasmaTSH Lab Routine Idiopathic peripheral neuropathy Expected: 10/12/2024 (Approximate), Expires: 10/12/2025[facility] HealthcareComment on above:Expected: 10/12/2024 (Approximate), Expires: 10/12/2025Start: 51-25-1016Revphoeuf vaccinationInfluenza Vaccine [facility] SystemStart: 49-54-4472Eczoedfrw aortic aneurysm screening Abdominal Aortic Aneurysm (AAA) ScreenAtrium Health Kannapolistart: 2019 Fall Risk ScreeningFall Risk ScreeningAtrium Health Kannapolistart: 02-14-2004 Administration of varicella zoster vaccineZoster (Shingles) Vaccine (1 of 2) [facility] SystemStart: 55-12-7555Eyxvvjwocmhd Vaccine: 65+ Years (1 of 1 - PCV)Pneumococcal Vaccine: 65+ Years (1 of 1 - PCV)[facility] HealthcareStart: 01-29-5632RYjK,Tdap and Td Vaccines (1 - Tdap)DTaP,Tdap and Td Vaccines (1 - Tdap)[facility] Kannapolistart: 06-47-7423Ytimk BMI Follow Up PlanAdult BMI Follow Up PlanFulton County Health Center SystemStart: 11-84-8771Kdwna BMI ScreeningAdult BMI ScreeningFulton County Health Center SystemStart: 63-50-6326Nqhyzprdfc Screening Depression ScreeningAtrium Health Kannapolistart: 75-03-7609Lcnrpsz Screening Tobacco ScreeningAtrium Health Kannapolistart: 48-86-4026JXeD/Tdap/Td Vaccines (1 - Tdap)DTaP/Tdap/Td Vaccines (1 - Tdap)[facility] HealthcareStart: 1955 Screening for malignant neoplasm of colonINTERMOUNTAIN HEALTHCARE HealthcareStart: 30-33-2490Gfdlaf Use: CardiovascularStatin Use: CardiovascularOhioHealth sleep testPal[place] sleep test Sleep Center Routine ANIYA (obstructive sleep apnea) 11/05/2024 3:40 PM [facility] Healthcare Work Phone: [facility] sleep testPalmdale sleep test Sleep Center Routine ANIYA (obstructive sleep apnea) Ordered: 01/05/2025[facility] Work Phone: comment on above:Ordered: 01/05/2025 Immunizations Immunization DateImmunizationNotesCare OvgvuhjnOafkjirl08-55-9261Gmfqhw Purple Cap SARS-CoV-2 VaccinationGaro Barbour MD Work Phone: [facility] HospitalAdacswcuvm16-75-8545Qkxgxyr AQUD-PgP-7Rwqbw Sabbagh MD Work Phone: [facility] Healthcare Payers DatePayer CategoryPayerPolicy [id number] IndemnityMEDICAL MUTUAL Member Subscriber Plan / Payer (Effective 2019-Present) Name: Jono Morales LMember ID: [id number] Relation to Subscriber: Self Name: Jono Morales Payer ID: Not on file Type: Not on file Address: [place] [id number] 2019Medicare [id number] [id number] 1961 [id number] 2.0.1.616296.3.579.2.647 [id number] 2.0.1.221551.3.57[id number] 2.0.1.174262.3.57[id number] 2.840.1.491766.3.57[id number] 2.0.1.162512.3.57[id number] 2.840.1.848591.3.57[id number] 2.840.1.581956.3.57[id number] 2.16.840.1.953279.3.57[id number] 2.16.840.1.234772.3.57[id number] 2.16.840.1.056760.3.57[id number] 2.16.840.1.683302.3.57[id number] 2..840.1.402910.3.57[id number] 2..840.1.834846.3.57[id number] 2.840.1.081498.3.57[id number] 2..840.1.671082.3.57[id number] 2..840.1.139249.3.57[id number] 2.840.1.519504.3.57[id number] 2.840.1.551889.3.579.[id number] 2.840.1.125159.3.579.2.718Unknown Social History DateTypeDetailFacilityStart: 07-10-2023 End: 82-94-1312Cijcjxe smoking status NHISEx-smokerSaint Luke's Hospital End: 47-69-2459Bdagihs of tobacco useCurrent smokerSaint Luke's Hospital End: 59-44-6065Nxcxefn of tobacco useCigarette SmokerNOMS HealthcareStart: 11-11-2023 End: 86-62-0074Vwhgnsk intakeLifetime non-drinker (finding)[facility] HealthcareStart: 11-11-2023 End: 89-43-2202Kkvvear of Social functionNOMS HealthcareStart: 11-11-2023 End: 17-91-4804Utddusa use panelNOPR HealthcareStart: 51-26-5732Nmj Assigned At BirthNot on fileNOPR HealthcareStart: 04-28-2024 End: 53-20-5172Kztwbdaoh beverage intakeEx-drinker (finding)[facility] Healthcare Start: 98-01-3207Dfkbija Jysnytu20 years cleanINTER[facility]OUNTAIN [facility]ALTH[facility]ARE HealthcareStart: 02-21-2021 Tobacco use and exposureSmokeless tobacco non-userFulton County Health Center SystemStart: 72-35-1648Hdaovkinn of Alcohol ConsumptionNeverFulton County Health Center SystemStart: 48-76-0943Vzprgur Adqwgfv9064 quitFulton County Health Center SystemStart: 00-67-5421Uyi Male (finding)[facility] Clinical Notes 11-11-2023 to 08-02-2025 Note Date & MnkhWqnvVwaffvvm64-75-4296 NoteEntered by LALO MCCOY DO on August 02, 2025 12:41:24 EST From: LALO MCCOY DO To: [employer] [facility] Sent: 08/02/2025 12:41:24 EST Subject: Medication Management Submitted: Complete:ibuprofen (ibuprofen 800 mg oral tablet) Signed by LALO MCCOY DO 08/02/2025 12:41:00 EST Approved with modifications: ibuprofen (ibuprofen 800 mg tablet) TAKE 1 TABLET BY MOUTH THREE TIMES DAILY Qty: 90 tab(s) Days Supply: 30 Refills: 1 Substitutions Allowed Route To Pharmacy - [employer] [facility] From: [employer] [facility] To: LALO MCCOY DO Sent: August 02, 2025 11:29:25 AM INTEGRATED MARKETING SPECIALIST Subject: Medication Management Due: August 03, 2025 12:03:05 AM INTEGRATED MARKETING SPECIALIST On Hold Pending Signature Drug: ibuprofen (ibuprofen 800 mg oral tablet), TAKE 1 TABLET BY MOUTH THREE TIMES DAILY Quantity: 90 tab(s) Days Supply: 30 Refills: 1 Substitutions Allowed Notes from Pharmacy: Dispensed Drug: ibuprofen (ibuprofen 800 mg oral tablet), TAKE 1 TABLET BY MOUTH THREE TIMES DAILY Quantity: 90 tab(s) Days Supply: 30 Refills: 1 Substitutions [facility] History of Present illness Narrative* Ulysses Overton [...] Ear problems Essential (primary) hypertension Hyperlipidemia Hypertension 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 documented in this [facility]10-20-2025 Note From: LALO MCCOY DO To: [facility] Clinical Pool ([facility]); Sent: 07/19/2025 07:31:50 EDT Subject: FW: Medication Management Due Date/Time: 07/19/2025 10:30:00 EDT Caller Name: JONO MORALES; Caller Number: H From: [employer] [facility] To: LALO MCCOY DO Sent: July [...] Notes from Pharmacy: From: Fiordaliza Blankenship To: [employer] [facility] Sent: 07/19/2025 08:27:27 EDT Subject: FW: Medication Management Not Approved: proposed to provider gabapentin (gabapentin 100 mg capsule) TAKE 2 CAPSULES BY MOUTH DAILY Qty: 60 cap(s) Days Supply: 30 Refills: 0 Substitutions Allowed Route To Pharmacy - [employer] [facility] Signed by Pattie [facility]10-07-2025 History of Present illness Narrative* Manel [...] upper and lower dentures Depression Diabetes mellitus ([facility]) Diabetes mellitus type 2, controlled ([facility]) GERD (gastroesophageal reflux disease) Hypertension Obesity Shortness of breath Visual impairment glasses No data recorded No data recorded No data recorded Past Surgical History: Procedure Laterality Date CARDIAC SURGERY 11 stents COLONOSCOPY N/A 02/21/2021 Performed by Abraham Pedersen MD at [facility] HEMORROIDECTOMY HERNIA REPAIR RELEASE CARPAL TUNNEL Left 10/07/2019 Performed by Olu Yen DO at [facility] SKIN SURGERY Family History Problem Relation Age [...] 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 Prior LAD stents. [facility] 12/14/13 with nonobstructiveresidual disease. 11 total stents. [...] DO Referring Physician: Lalo Mccoy DO [address] [place] [address] documented in this encounterUniversity Hospitals [facility]10-06-2025 Miscellaneous Notes* Telephone Encounter - Sandra Langston MA - 07/05/2025 10:59 AM EDT Left message for patient to remind them to bring their most current medication list with them to their appointment. documented in this encounterUniversity Hospitals Lake West Medical Center10-06-2025 Telephone encounter Note* Telephone Encounter - Sandra Langston MA - 07/05/2025 10:59 AM EDT Left message for patient to remind them to bring their most current medication list with them to their appointment. [facility]09-15-2025 NoteEntered by LALO MCCOY DO on June 14, 2025 13:51:53 EDT From: LALO MCCOY DO To: [employer] [facility] Sent: 06/14/2025 13:51:53 EDT Subject: Medication Management Approved Order:gabapentin (gabapentin 100 mg oral capsule) TAKE 2 CAPSULES BY MOUTH DAILY Qty: 60 EA Days Supply: 0 Refills: 0 Substitutions Allowed Route To Pharmacy - [employer] [facility] Signed by LALO MCCOY DO Cancelled: Discontinue:gabapentin (gabapentin 100 mg oral tablet) Signed by LALO MCCOY DO From: [employer] [facility] To: LALO MCCOY DO Sent: June [...] 0 Refills: 0 Substitutions Allowed [id number] NoteEntered by LALO MCCOY DO on April 19, 2025 13:17:26 EDT From: LALO MCCOY DO To: [employer] [facility] Sent: 04/19/2025 13:17:26 EDT Subject: Medication Management Submitted: Complete:ibuprofen (ibuprofen 800 mg oral tablet) Signed by LALO MCCOY DO 04/19/2025 13:17:00 EDT Approved with modifications: ibuprofen (ibuprofen 800 mg tablet) TAKE 1 TABLET BY MOUTH THREE TIMES DAILY Qty: 90 tab(s) Days Supply: 30 Refills: 1 Substitutions Allowed Route To Pharmacy - [employer] [facility] From: [employer] [facility] To: LALO MCCOY DO Sent: April [...] Refills: 1 Substitutions Allowed [facility]cfoajvb31-38-8311 History of Present illness Narrative* Garo Barbour [...] twice a day. 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 documented in this encounterSaint Luke's HospitalAlvhwhgzlr32-10-1454 NoteEntered by LALO MCCOY DO on January 18, 2025 07:36:06 EDT From: LALO MCCOY DO To: [employer] [facility] Sent: 01/18/2025 07:36:06 EDT Subject: Medication Management Submitted: Complete:clopidogrel (clopidogrel 75 mg oral tablet) Signed by LALO MCCOY DO 01/18/2025 07:36:00 EDT Approved with modifications: clopidogrel (clopidogrel 75 mg tablet) TAKE 1 TABLET BY MOUTH DAILY Qty: 90 tab(s) Days Supply: 90 Refills: 1 Substitutions Allowed Route To Pharmacy - [employer] [facility] From: [facility] [employer] #72 To: NADINELALO Jo MOLINA Sent: [...] Refills: 1 Substitutions Allowed Notes from Pharmacy[facility]Rcqvbkxr51-70-3069 Miscellaneous Notes* Telephone Encounter - Jillian Varner [...] number to change times documented in this encounterUniversity Hospitals Lake [facility] Center04-17-2025 Telephone encounter Note* Telephone Encounter - Jillian [...] central scheduling phone number to change times [facility] CohBar [phone] History of Present illness Narrative* Shivam Sheehan, LAUNDRY ROOM ATTENDANT-PHLEBOTOMY DIRECTOR - 01/12/2025 2:40 PM EDT Skin Check Location: Patient requests a skin examination from the waist up Dermatologic history: history of Actinic Keratosis Last visit: 6 months ago New patient Rash Location: hands Duration: 8 years Severity: mild Quality: itchy Modifying Factors: none Associated symptoms: dry skin, rash is not present today Treatments tried: topical steriods (unable to tell this pattern chart writer the names of topicals) and patient reports steroid shots work(last shot 6 months ago) Current treatments: Patient was seen at [facility]. Medical release form signed by patient. [...] treatment is necessary. 5. LENTIGINES Generalized Scattered rbiggs macules in sun-exposed areas. The patient was [...] cosmetic reasons. 7. ACTINIC KERATOSIS (3) Left Sikhism, Right Forehead, Right Zygomatic Area Erythematous scaly [...] limited to risks of scarring, darker or order editor pigmentary changes, recurrence, incomplete removal and infection. 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 Dizziness History of Present [...] upper and lower dentures Depression Diabetes mellitus ([facility]) Diabetes mellitus type 2, controlled ([facility]) GERD (gastroesophageal reflux disease) Hypertension Obesity Shortness of breath Visual impairment glasses No data recorded No data recorded No data recorded Past Surgical History: Procedure Laterality Date CARDIAC SURGERY 11 stents COLONOSCOPY N/A 02/21/2021 Performed by Abraham Pedersen MD at [facility] HEMORROIDECTOMY HERNIA REPAIR RELEASE CARPAL TUNNEL Left 10/07/2019 Performed by Olu Yen DO at [facility] SKIN SURGERY Family History Problem Relation Age [...] 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 Prior LAD stents. [facility] 12/14/13 with nonobstructiveresidual disease. 11 total stents. [...] MCCOY DO Referring Physician: Lalo Mccoy DO [address] [place] [address] documented in this encounterUniversity Hospitals Lake West Medical Center04-03-2025 Miscellaneous Notes* Telephone Encounter - Sandra Delgado CMA - 12/31/2024 11:09 AM EDT Called patient to remind them to bring their most current copy of their medication list with them to their appt. Patient verbalizes understanding. documented in this encounterUniversity Hospitals Lake West Medical Center04-03-2025 Telephone encounter Note* Telephone Encounter - Sandra Delgado CMA - 12/31/2024 11:09 AM EDT Called patient to remind them to bring their most current copy of their medication list with them to their appt. Patient verbalizes understanding. [facility] SystemUp[facility] Chromatography [id number] Note From: Sandra Orozco LPN ([facility] Clinical Pool ([facility])) To: LALO MCCOY DO; Sent: 12/02/2024 08:18:30 EST Subject: Med change Caller Name: JONO MORALES; Caller Number: H Pt called lvm stating that he did see Neurology and was suggested to increase his Gabapentin to help with his Neuropathy, was told by Neurology to contact PCP to have medication increased From: LALO MCCOY DO To: [facility] Clinical [place] ([facility]); Sent: 12/02/2024 09:11:29 EST Subject: RE: Med change Caller Name: JONO MORALES; Caller Number: H on 400 tid now. so i guess we go to 600mg po tid #90 NR proposal sent to Dr Mccoy, pt made aware new rx will be [facility] 11-26-2024 Miscellaneous Notes* Telephone Encounter - Gracy Villa - 11/26/2024 12:55 PM EST 11/26 LMOM TO SCHEDULE NEW PATIENT APPT documented in this encounterSt. Mary's Medical CenterMegvii Inc [facility]la[facility] HospitalJvnkzj05-01-2843 Telephone encounter Note* Telephone Encounter - Gracy Villa - 11/26/2024 12:55 PM EST 11/26 LMOM TO SCHEDULE NEW PATIENT [facility]PT [facility] [id number] History of Present illness Narrative* Nicole Moon DO - 10/30/2024 10:30 AM EST Images from the original note were not included. Reason for Appointment: HST Patient: Jono Morales : 1955 Reason for Home Sleep Study: Sleep disturbances Ordering Physician: Dr. Nicole Moon Systems Project Manager: Yue Khan Pick-up Comments: Procedure was explained to the patient who expressed understanding. Patient was instructed how to use device and informed to return completed questionnaire with device tomorrow morning...... 11/02/24 Systems Project Manager: Nicolle Porter CMA Drop-Off Comments: Patient returned HST device. Study data was successfully uploaded and completed questionnaire was imported to patient's chart....... 11/02/24 Resulting Physician: SANDY Patino DO Impression: Mild ANIYA may benefit from CPAP titration versus auto PAP treatment at 5-15 cm of water documented in this [facility]01-30-2025 History of Present illness Narrative* Yue Khan - 10/29/2024 3:45 PM EST Reason for Appointment: HST Patient: Jono Morales : 1955 Reason for Home Sleep Study: Sleep disturbances Ordering Physician: Dr. Nicole Moon Systems Project Manager: Yue Khan Pick-up Comments: Procedure was explained to the patient who expressed understanding. Patient was instructed how to use device and informed to return completed questionnaire with device tomorrow morning...... 10/29/24 Systems Project Manager: Chris GLEZ(Chey) Drop-Off Comments: Patient returned HST device. Study data was successfully uploaded and completed questionnaire was imported to patient's chart....... Resulting Physician: SANDY Patino DO Impression: mild ANIYA recommend Auto PAP at 5-15 cmH20 documented in this [facility]01-13-2025 History of Present illness Narrative* Nicole Moon DO - 10/12/2024 3:00 PM EST Images from the original note were not included. Chief Complaint Patient presents with hand and foot pain Subjective Joon Morales, 69 y.o., male new patient for [...] mg 3 times daily. He is on [place] which he does not feel is helping. [...] was counseled on the risks of stroke, [place], and sudden with ANIYA, along with the [...] to clinic: 2 months documented in [facility] encounter[facility] [id number] Note From: LALO MCCOY DO To: [facility] Clinical Pool ([facility]); Sent: 09/08/2024 15:11:22 EST Subject: FW: Medication Management Due Date/Time: 09/09/2024 12:59:00 EST Caller Name: JONO MORALES; Caller Number: H From: [employer] [id number] To: LALO MCCOY DO Sent: September 08, 2024 11:59:47 AM [employer]TEGRATED MARKETING SPECIALIST Subject: Medication Management Due: September 09, 2024 12:09:00 AM [employer]TEGRATED MARKETING SPECIALIST On Hold Pending Signature Drug: gabapentin (gabapentin 400 mg oral capsule), 1 cap(s) Oral TID Quantity: 120 cap(s) Days Supply: 0 Refills: 0 Substitutions Allowed Notes from Pharmacy: Dispensed Drug: gabapentin (gabapentin 400 mg oral capsule), TAKE 1 CAPSULE BY MOUTH THREE TIMES DAILY Quantity: 120 cap(s) Days Supply: 40 Refills: 0 Substitutions Allowed Notes from Pharmacy: From: Fiordaliza Cordova To: [employer] [id number] Sent: 09/09/2024 09:19:46 EST Subject: FW: Medication Management Not Approved: proposed to provider gabapentin (gabapentin 400 mg capsule) TAKE 1 CAPSULE BY MOUTH THREE TIMES DAILY Qty: 120 cap(s) Days Supply: 40 Refills: 0 Substitutions Allowed Route To Pharmacy - [employer] [id number] Signed by Tasha [facility]02-12-2024 History of Present illness Narrative* Sampson [...] tablet before bedtime., Disp: , Rfl: HYDROcodone-acetaminophen ([place]) 7.5-325 MG tablet, Take 1 tablet by [...] serious comorbidity present documented in this encounter [facility]Evaluation [facility]* Diagnosis ANIYA (obstructive sleep apnea) Obstructive sleep apnea (adult) (pediatric) documented in this encounter [facility]Evaluation note* Diagnosis ANIYA (obstructive sleep apnea)- Primary Obstructive sleep apnea (adult) (pediatric) Idiopathic peripheral neuropathy Unspecified hereditary and idiopathic peripheral neuropathy 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, unspecified class, unspecified whether serious comorbidity present documented in this encounter [facility] HealthcareEvaluation note* Diagnosis Coronary artery disease with history of percutaneous transluminal angioplasty (PTCA)- Primary Shortness of breath documented in this encounter [facility]* Diagnosis ANIYA (obstructive sleep apnea)- Primary Obstructive sleep apnea (adult) (pediatric) documented in this encounter [facility] HealthcareEvaluation note* Diagnosis Melanocytic nevus of upper extremity, unspecified laterality- Primary Melanocytic nevus of trunk Benign neoplasm of skin of trunk, except scrotum Other atopic dermatitis Capillary angioma Nevus, non-neoplastic Lentigines Seborrheic keratosis Actinic keratosis documented in this encounter [facility] HealthcareEvaluation note* Diagnosis Type 2 diabetes mellitus with hyperglycemia, with long-term current use of insulin (HCC)- Primary Encounter for dietary consultation Vitamin D deficiency Hyperlipemia, mixed Mixed hyperlipidemia Insulin long-term use (HCC) Encounter for long-term (current) use of insulin Primary hypertension Unspecified essential hypertension documented in this encounter [facility] note* Diagnosis Coronary artery disease with history of percutaneous transluminal angioplasty (PTCA)- Primary Primary hypertension Unspecified essential hypertension documented in this encounter [facility]* Diagnosis ETD (Eustachian tube dysfunction), left- Primary Referred otalgia of both ears documented in this encounter [facility] HealthcareInstructionsNot on filedocumented in this encounterProBryce Hospital Health SystemInstructionsNot on filedocumented in this encounterProMiddlet[facility] SystemInstructionsNot on filedocumented in this encounterProBryce Hospital CohBar System InstructionsNot on filedocumented in this encounterProMiddletown Hospital System InstructionsNot on filedocumented in this encounterProMiddletown Hospital SystemReason for visit Narrative* Other Medical (Routine) - ClosedSpecialtyDiagnoses / ProceduresReferred By ContactReferred To ContactSle Medicine / Osteopathic Medicine Diagnoses ANIYA (obstructive sleep apnea) Procedures Home sleep test Nicole Moon DO [address] [place] [address] Phone: tel: fax: Referral IDStatusReasonStart DateExpiration DateVisits RequestedVisits [id number]/[id number]/ [facility] Summary Purpose Family History No [...] section and content) DATE CREATED AUTHOR 09/21/2018 [facility] DATE CREATED AUTHOR AUTHOR'S ORGANIZ ATION 11/17/2022 [facility] DATE CREATED AUTHOR AUTHOR'S ORGANIZ ATION 07/09/2025 [facility] DATE CREATED AUTHOR AUTHOR'S ORGANIZ ATION 07/28/2025 [facility] DATE CREATED AUTHOR AUTHOR'S ORGANIZ ATION 08/06/2025 [facility] Reason for Visit (unrecogniz ed section [...] neurological complication (CMS/HCC) Plantar fascial fibromatosis Procedures VA NEEDLE EMG EA EXTREMTY W/PARASPINL AREA COMPLETE VA NERVE CONDUCTION STUDIES 9-10 STUDIES Cristino Maldonado MD [address] [facility] [place] [address] Phone: tel: fax: Boby Betancourt MD [address] [place] [address] Phone: tel: fax: Referral IDStatusReasonStart DateExpiration DateVisits RequestedVisits [id number] Consult and Treat /[id number] Pain/Foot PainSleep ApneaReasonComments New PatientNP REFERRAL DR BrownSpecialtyDiagnoses / ProceduresReferred By ContactReferred To ContactCardiology Diagnoses Coronary artery disease with history of percutaneous transluminal angioplasty (PTCA) Lalo Mccoy, DO [address] [place] [address] Phone: tel: fax: Bertin Srinivasan MD [address] [facility], [address] [address] Phone: tel: fax: Referral IDStatusReasonStart DateExpiration DateVisits RequestedVisits [id number] Review Specialty Services Required /[id number]-vtEvmain CommentsFollow-upOV F/U 6 MO ECHO, STRESS NOT DONE DT COST L/S MAS, SCHED W/PT ReasonCommentsEar ProblemBil ear pain/Lt ear worse Care Teams (unrecognized sec tion and content) Team MemberRelationshipSpecialtyStart DateEnd Lalo Mccoy MD [address] [place] [address] PCP - GeneralFamily Jxuueflh87/11/23Team MemberRelationshipSpecialtyStart Date End Date Lalo Mccoy MD [address] [place] [address] PCP - GeneralFamily Uzolzhkt41/11/23Team MemberRelationshipSpecialtyStart Date End Date Lalo Mccoy MD [address] [place] [facility] [address] PCP - GeneralFamily Monupzem25/11/23Team MemberRelationshipSpecialtyStart Date [facility] Lalo Bhagat MD [address] [place] [facility] [place] [address] PCP - GeneralFamily Lnstfcho49/11/23 Nicole Moon DO [address] [place] [address] Referring PhysicianNeurolog10/13/24 Kaelyn Good NP [address] [place], [place] Nurse PractitionerNeurolog10/13/24Team MemberRelationshipSpecialtyStart DateEnd Lalo Bhagat DO PCP - GeneralFamily Medicine10/01/19Team MemberRelationshipSpecialtyStart Date[facility] Lalo [facility]agat MD [address] [place] [facility] [address] PCP - GeneralFamily Wrjlsyyr03/11/23 Nicole Moon DO [address] [place] [address] Referring PhysicianNeurolog10/13/24 Kaelyn Good NP [address] [place], [place] Nurse PractitionerNeurolog10/13/24Team MemberRelationshipSpecialtyStart DateEnd Lalo Bhagat MD [address] [place] [facility] [place] [address] PCP - GeneralFamily Gzfduqsd10/11/23 Nicole Moon DO [address] [place] [address] Referring PhysicianNeurolog10/13/24 Kaelyn Good, FAUSTO [address] [place] [address] Nurse PractitionerNeurolog10/13/24Team MemberRelationshipSpecialtyStart Lalo Hughes DO PCP - GeneralFamily Medicine10/01/19Team MemberRelationshipSpecialtyStart Lalo Hughes DO PCP - GeneralFamily Medicine10/01/19Team MemberRelationshipSpecialtyStart Lalo Hughes MD [address] [place] [address] PCP - GeneralFamily Xnkgxcwk29/11/23 Nicole Moon DO [address] [place] [address] Referring PhysicianNeurolog10/13/24 Kaelyn Good NP [address] Nurse PractitionerNeurolog10/13/24Team MemberRelationshipSpecialtyStart Lalo Hughes MD [address] [place] [address] PCP - GeneralFamily Aybvmmad84/11/23 Nicole Moon DO [address] [place] [address] Referring PhysicianNeurolog10/13/24 Kaelyn Good NP [address] [place], [place] Nurse PractitionerNeurolog10/13/24Team MemberRelationshipSpecialtyStart DateEnd Date Lalo Mccoy MD [address] [place] [address] PCP - GeneralFamily Tfzndkiw40/11/23 Nicole Moon DO [address] [place] [address] Referring PhysicianNeurolog10/13/24 Kaelyn Good NP [address] [place] [address] Nurse PractitionerNeurolog10/13/24Team MemberRelationshipSpecialtyStart DateEnd Date Lalo Mccoy DO PCP - GeneralFamily Medicine10/01/19Team MemberRelationshipSpecialtyStart DateEnd Date Lalo Mccoy MD [address] [place] [address] PCP - Generalmily Ifiolkcg30/11/23 Nicole Moon DO [address] [place] [address] Referring PhysicianNeurology1 Kaelyn Good NP [address] [place] [address] Nurse PractitionerNeurolog10/13/24Team MemberRelationshipSpecialtyStart Lalo Hughes MD [address] [place] [address] PCP - GeneralFamily Dizsglzo62/11/23 Nicole Moon DO [address] [place] [address] Referring PhysicianNeurolog10/13/24 Kaelyn Good NP [address] [place] [address] Nurse PractitionerNeurolog10/13/24Team MemberRelationshipSpecialtyStart Lalo Hughes DO PCP - GeneralFamily Medicine10/01/19Team MemberRelationshipSpecialtyStart Lalo Hughes DO PCP - GeneralFamily Medicine10/01/19Team MemberRelationshipSpecialtyStart Lalo Hughes MD [address] [place] [address] PCP - GeneralFamily Rwgyfkae99/22/25 Nicole Moon DO [address] [place] [address] Referring PhysicianNeurolog10/13/24 Kaelyn Good NP [address] [place] [address] Nurse PractitionerNeurolog10/13/24Team MemberRelationshipSpecialtyStart DateEnd Lalo Mccoy MD [address] [facility] [place] [address] PCP - GeneralFamily Sddaikls11/22/25 Nicole Moon DO [address] [place] [address] Referring PhysicianNeurolog10/13/24 Kaelyn Good NP [address] [place], [place] [id number] Nurse PractitionerNeurolog10/13/24 FOR RECORDS PERTAINING TO PATIENTS [...] BE BASED ON THE PRIMARY CLINICAL RECORDS. [facility] [employer] [facility]. provides no warranty or guarantee of the accuracy or completeness of information in this document.
--- NOTE | 2025-09-07 18:00 | CT_ITS ---
The [address] [address] Patient Name: ESTEFANY SMALL MRN: [id number] date: 1955 Sex: M Assigned Patient Location: ER Current Patient Location: ER Accession/Order Number: [id number] Exam Date: 09/07/2025 17:50 Report Date: 09/07/2025 18:35 At the request of: GEM ZAMORANO MD Procedure: CT angio head CT BRAIN WITHOUT CONTRAST: CLINICAL HISTORY: stroke like COMPARISON: None TECHNIQUE: CT angiogram images obtained through the head and neck with coronal and sagittal reformats. 3-D reconstructions of the cervical and intracranial arterial vessels were performed. ICA narrowing was performed utilizing NASCET criteria. This CT exam was performed using one or more following dose reduction techniques: Automated exposure control, adjustment of the mA and/or kV according to patient size, or use of iterative reconstruction technique. FINDINGS: Bovine arch. Mild plaque. Common carotid arteries are patent. Carotid bifurcation are patent. There is whty-hi-dgmbwyon plaque identified both ICAs cervical course. No hemodynamically significant stenosis involving the proximal ICAs. Left dominant vertebral artery. Hypoplastic right vertebral artery. There is mild plaque left vertebral artery ostium. Otherwise vertebral vertebral arteries are patent throughout their course.. There is moderate disease identified involving the intracranial ICAs. There is moderate narrowing left petrous segment ICA. Suspect 50% narrowing. Right petrous ICA grossly patent. There is mild mural plaque identified involving the cavernous internal supraclinoid ICAs with mild narrowing. Anterior cerebral arteries are are patent. Middle cerebral arteries are patent. There is moderate narrowing involving the right MCA inferior division best seen on the sagittal images. Vertebral arteries, basilar artery, basilar tip and posterior cerebral arteries are patent. Moderate short segment narrowing right P1 P2 junction. Otherwise no large vessel occlusion. No saccular aneurysm identified. Heterogeneous appearance of thyroid gland with multifocal nodularity and calcifications identified. Lung apices are grossly clear. CT/CT angio head IMPRESSION: Negative for large vessel occlusion or hemodynamically significant stenosis. Moderate scattered areas of narrowing notably left petrous segment ICA, right M2 inferior division. Moderate short segment narrowing left cavernous ICA and right P1 P2 segment. Impression dictated by: Bird Sarah M.D. 09/07/2025 6:35 PM Dictation Location: [place] [address] Electronically authenticated by: [id number] Y Date: 09/07/2025 18:35
--- NOTE | 2025-09-07 18:00 | CT_ITS ---
The [address] [address] Patient Name: ESTEFANY SMALL MRN: [id number] date: 1955 Sex: M Assigned Patient Location: ER Current Patient Location: ER Accession/Order Number: [id number] Exam Date: 09/07/2025 17:50 Report Date: 09/07/2025 18:35 At the request of: GEM ZAMORANO MD Procedure: CT angio head CT BRAIN WITHOUT CONTRAST: CLINICAL HISTORY: stroke like COMPARISON: None TECHNIQUE: CT angiogram images obtained through the head and neck with coronal and sagittal reformats. 3-D reconstructions of the cervical and intracranial arterial vessels were performed. ICA narrowing was performed utilizing NASCET criteria. This CT exam was performed using one or more following dose reduction techniques: Automated exposure control, adjustment of the mA and/or kV according to patient size, or use of iterative reconstruction technique. FINDINGS: Bovine arch. Mild plaque. Common carotid arteries are patent. Carotid bifurcation are patent. There is hfxb-le-crwavecg plaque identified both ICAs cervical course. No hemodynamically significant stenosis involving the proximal ICAs. Left dominant vertebral artery. Hypoplastic right vertebral artery. There is mild plaque left vertebral artery ostium. Otherwise vertebral vertebral arteries are patent throughout their course.. There is moderate disease identified involving the intracranial ICAs. There is moderate narrowing left petrous segment ICA. Suspect 50% narrowing. Right petrous ICA grossly patent. There is mild mural plaque identified involving the cavernous internal supraclinoid ICAs with mild narrowing. Anterior cerebral arteries are are patent. Middle cerebral arteries are patent. There is moderate narrowing involving the right MCA inferior division best seen on the sagittal images. Vertebral arteries, basilar artery, basilar tip and posterior cerebral arteries are patent. Moderate short segment narrowing right P1 P2 junction. Otherwise no large vessel occlusion. No saccular aneurysm identified. Heterogeneous appearance of thyroid gland with multifocal nodularity and calcifications identified. Lung apices are grossly clear. CT/CT angio neck IMPRESSION: Negative for large vessel occlusion or hemodynamically significant stenosis. Moderate scattered areas of narrowing notably left petrous segment ICA, right M2 inferior division. Moderate short segment narrowing left cavernous ICA and right P1 P2 segment. Impression dictated by: Bird Sarah M.D. 09/07/2025 6:35 PM Dictation Location: [place] [address] Electronically authenticated by: [id number] Y Date: 09/07/2025 18:35
--- OUTSIDE RECORDS SUMMARY | 2025-09-07 21:13 | XMS_ITS | CCD ---
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 StoverGlucose [Mass/Vol]154 mg/dLCritically uzli96-698Pwj [facility] HospitalComment on above:Performed By: #### HSTROPN, CMP, LIPA #### [facility] [address] [place] [address] Dr. Ranjith StoverPotassium [Moles/Vol]3.2 mmol/LCritically low3.5-5.1The [facility] HospitalComment on above:Performed By: #### HSTROPN, CMP, LIPA #### [facility] [address] [place] [address] Dr. Ranjith StoverProtein [Mass/Vol]6.5 g/dLNormal6.4-8.2The [facility] Comment on above:Performed By: #### HSTROPN, CMP, LIPA #### [facility] [address] [place] [address] Dr. Ranjith StoverSodium [Moles/Vol]140 mmol/HDmqnly155-799Wtu [facility] Comment on above:Performed By: #### HSTROPN, CMP, LIPA #### [facility] [address] [address] [address] Ranjith Romo nitrogen [Mass/Vol]22.0 mg/dLCritically high7.0-18.0The [facility] HospitalComment on above:Performed By: #### HSTROPN, CMP, LIPA #### [facility] [address] [place] [address] Dr. Ranjith Romo nitrogen/Creatinine [Mass ratio]22.0 mg/mgNoParkview HealthComment on above:Performed By: #### HSTROPN, CMP, LIPA #### [facility] [address] [place] [address] Dr. Ranjith StoverPROTIMEon 10-64-2048YTH Coag (PPP) [Relative time]1.08 {INR} NormalThe [facility] HospitalComment on above:Performed By: #### PT, PTT #### [facility] [address] [place] [address] Dr. Ranjith Hines GUIDELINESSEE BELOWCleveland Clinic Marymount HospitalComment on above:Result Comment: DESIRED INR: 2.0 - 3.0 CONDITIONS NOT LISTED BELOW 2.5 - 3.5 FOR PROSTHETIC HEART VALVE REPLACEMENT 2.5 - 3.5 RECURRENT THROMBOSIS Performed By: #### PT, PTT #### [facility] [address] [place] [address] Dr. Ranjith StoverPT Coag (PPP) [Time]11.4 sNormal9.0-11.6The [facility] Comment on above:Performed By: #### PT, PTT #### [facility] [address] [place] [address] Dr. Ranjith Claros 43-66-1926dEOV Coag (Bld) [Time]28.5 oCexbdn60.3-36.2The [facility] HospitalComment on above:Performed By: #### PT, PTT #### [facility] [address] [place] [address] Dr. Ranjith Robison, [facility] SENSITIVITYon 78-03-8920WKXPLE7.6 pg/mLNormal 4.0-76.1The [facility] HospitalComment on above:Result Comment: CUT-OFF POINTS HAVE BEEN ESTABLISHED BASED ON THE FOURTH UNIVERSAL DEFINITIONS OF MYOCARDIAL INFARCTION. THE UPPER REFERENCE LIMIT (URL) OF TROPONIN, DEFINED THE 99TH PERCENTILE OF cTnI DISTRIBUTION IN A REFERENCE POPULATION, HAS BEEN CONFIRMED THE DECISION THRESHOLD FOR [place] DIAGNOSIS.Performed By: #### HSTROPN, CMP, LIPA #### [facility] [address] [place] [address] Dr. Ranjith Chan AUTO DIFFon 99-16-1364BIFK #0.1 103/ulNormal0.0-0.1The [facility] HospitalComment on above:Performed By: #### CBC #### [facility] [address] [place] [address] Dr. Ranjith StoverBasophils/100 WBC (Bld)0.6 %Normal0.2-2.0[facility] Comment on above:Performed By: #### CBC #### [facility] [address] [place] [address] Dr. Ranjith Dutta #0.4 103/ulNormal0.0-0.7The [facility] HospitalComment on above: Performed By: #### CBC #### [facility] [address] [place] [address] Dr. Ranjith Jamesosinophils/100 WBC (Bld)3.4 %Normal0.9-7.0The [facility] Comment on above:Performed By: #### CBC #### [facility] [address] [place] [address] Dr. Ranjith Jamesrythrocyte distribution width (RBC) [Ratio]12.6 %Sfarqq52.0-15.0 The [facility] HospitalComment on above:Performed By: #### CBC #### [facility] [address] [place] [address] Dr. Ranjith StoverHematocrit (Bld) [Volume fraction]46.7 %Vsrgfz72.0-54.0The [facility] HospitalComment on above:Performed By: #### CBC #### [facility] [address] [address] [address] Ranjith StoverHemoglobin (Bld) [Mass/Vol]15.7 g/tKSkpwtq22.0-18.0The [facility] HospitalComment on above:Performed By: #### CBC #### [facility] [address] [address] [address] Ranjith Cardenas #0.05 10e3/ulCritically high0.00-0.03The [facility] Comment on above:Performed By: #### CBC #### [facility] [address] [place] [address] Dr. Ranjith Cardenas %0.4 %Normal0.0-0.5The [facility] HospitalComment on above: Performed By: #### CBC #### [facility] [address] [place] [address] Dr. Ranjith López #2.6 103/ulNormal1.2-3.8The [facility] HospitalComment on above:Performed By: #### CBC #### [facility] [address] [place] [address] Dr. Ranjith Bertrandhocytes/100 WBC (Bld)20.5 %Viebxr82.5-60.0The [facility] HospitalComment on above:Performed By: #### CBC #### [facility] [address] [place] [address] Dr. Ranjith HunterUAL DIFF REQNONormalThe [facility] HospitalComment on above: Performed By: #### CBC #### [facility] [address] [place] [address] Dr. Ranjith Kilpatrick (RBC) [Entitic mass]29.3 vwUihwnz09.9-34.0The [facility] HospitalComment on above:Performed By: #### CBC #### [facility] [address] [place] [address] Dr. Ranjith Kilpatrick (RBC) [Mass/Vol]33.6 g/iQRzqyzp99.9-35.2The [facility] HospitalComment on above:Performed By: #### CBC #### [facility] [address] [address] [address] Ranjith KilpatrickV (RBC) [Entitic vol]87.3 uOFspfvl93.0-94.0The [facility] HospitalComment on above:Performed By: #### CBC #### [facility] [address] [place] [address] Dr. Ranjith Mishra #0.5 103/ulNormal0.3-0.8The [facility] HospitalComment on above:Performed By: #### CBC #### [facility] [address] [place] [address] Dr. Ranjith Taylorocytes/100 WBC (Bld)4.0 %Normal1.7-12.0[facility] Comment on above:Performed By: #### CBC #### [facility] [address] [place] [address] Dr. Ranjith Cheek #8.9 103/ulCritically high1.4-6.5The [facility] Comment on above:Performed By: #### CBC #### [facility] [address] [place] [address] Dr. Ranjith Wanutrophils/100 WBC (Bld)71.1 %Heitgk41.0-75.0The [facility] HospitalComment on above:Performed By: #### CBC #### [facility] [address] [place] [address] Dr. Ranjith Pyle mean volume (Bld) [Entitic vol]8.7 fLCritically low 9.5-13.5The [facility] HospitalComment on above:Performed By: #### CBC #### [facility] [address] [place] [address] Dr. Ranjith StoverPLT256 103/pdZxkgjg352-790Ifi [facility] HospitalComment on above: Performed By: #### CBC #### [facility] [address] [place] [address] Dr. Ranjith StoverRBC5.35 106/ulNormal4.70-6.10The [facility] HospitalComment on above:Performed By: #### CBC #### [facility] [address] [address] [address] Ranjith StoverWBC12.6 103/ulCritically high4.0-11.0The [facility] HospitalComment on above:Performed By: #### CBC #### [facility] [address] [address] [address] Ranjith StoverGLYCOHEMOGLOBIN A1Con 56-71-8650KFM RECOMMENDATIONADA THERAPEUTIC TARGET 6.0 - 7.0 ACTION SUGGESTED > 7.0NormHighland District HospitalComment on above:Performed By: #### A1C #### [facility] [address] [address] [address] Ranjith StoverGlucose [Mass/Vol]280 mg/dLNormHighland District HospitalComment on above:Performed By: #### A1C #### [facility] [address] [address] [address] Ranjith StoverHbA1c (Bld) [Mass fraction]11.4 %Critically high<=6.0The [facility] HospitalComment on above:Performed By: #### A1C #### [facility] [address] [address] [address] Ranjith LozanoROALBUMIN, RAND URon 18-87-4627qGRL7.8 mg/LNormal<=30.0The [facility] HospitalComment on above:Performed By: #### MALBR ####[facility] [address] [address]Dr. Ranjith StoverPROF 14(COMP METB)on 32-31-6100Sypaumc [Mass/Vol]3.7 g/dLNormal3.4-5.0The [facility] Comment on above:Performed By: #### CMP #### [facility] [address] [address] [address] Ranjith StoverAlbumin/Globulin [Mass ratio]1.0 {ratio}NormalThe [facility] HospitalComment on above:Performed By: #### CMP #### [facility] [address] [address] [address] Ranjith HerreraP [Catalytic activity/Vol]167 U/LCritically pjjd89-455Bti [facility] HospitalComment on above:Performed By: #### CMP #### [facility] [address] [address] [address] Ranjith Alcocer [Catalytic activity/Vol]40 U/QBarxqi51-47Rsp [facility] HospitalComment on above:Performed By: #### CMP #### [facility] [address] [address] [address] Ranjith Thompsonon gap [Moles/Vol]11.6 mmol/LNormalPark[facility] Comment on above:Performed By: #### CMP #### [facility] [address] [address] [address] Ranjith StoverAST [Catalytic activity/Vol]24 U/CIoyuoo47-20Nqa [facility] HospitalComment on above:Performed By: #### CMP #### [facility] [address] [address] [address] Ranjith StoverBilirubin [Mass/Vol]1.0 mg/dLNormal0.2-1.3TAdena Health System Comment on above:Performed By: #### CMP #### [facility] [address] [address] [address] Ranjith StoverCalcium [Mass/Vol]9.4 mg/dLNormal8.5-10.1[facility] Comment on above:Performed By: #### CMP #### [facility] [address] [address] [address] Ranjith StoverChloride [Moles/Vol]99 mmol/TCltllx23-427Otv [facility] Comment on above:Performed By: #### CMP #### [facility] [address] [address] [address] Ranjith StoverCO2 [Moles/Vol]29.3 mmol/KFbvdog58.0-30.0[facility] Comment on above:Performed By: #### CMP #### [facility] [address] [address] [address] Ranjith StoverCreatinine [Mass/Vol]0.74 mg/dLNormal0.66-1.25The [facility] HospitalComment on above:Performed By: #### CMP #### [facility] [address] [address] [address] Ranjith JamesGFR-AF CAMBODIAN>60Normal>=60The [facility] HospitalComment on above:Performed By: #### CMP #### [facility] [address] [address] [address] Ranjith JamesGFR-NON AF CAMBODIAN>60Normal>=60The [facility] HospitalComment on above:Performed By: #### CMP #### [facility] [address] [address] [address] Ranjith StoverGlobulin (S) [Mass/Vol]3.8 g/dLNormalThChillicothe VA Medical CenterComment on above:Performed By: #### CMP #### [facility] [address] [address] [address] Ranjith StoverGlucose [Mass/Vol]295 mg/dLCritically hddz22-013Hhe [facility] on above:Performed By: #### CMP #### [facility] [address] [address] [address] Ranjith StoverPotassium [Moles/Vol]3.9 mmol/LNormal3.4-5.0The [facility] Comment on above:Performed By: #### CMP #### [facility] [address] [address] [address] Ranjith StoverProtein [Mass/Vol]7.5 g/dLNormal6.1-8.2The [facility] Comment on above:Performed By: #### CMP #### [facility] [address] [address] [address] Ranjith StoverSodium [Moles/Vol]136 mmol/LCritically aij330-661Lfi [facility] on above:Performed By: #### CMP #### [facility] [address] [address] [address] Ranjith StoverUrea nitrogen [Mass/Vol]9.0 mg/dLNormal7.0-18.0The [facility] HospitalComment on above:Performed By: #### CMP #### [facility] [address] [place], [place] [address] Dr. Ranjith StoverUrea nitrogen/Creatinine [Mass ratio]12.2 mg/mgCleveland Clinic Marymount HospitalComment on above:Performed By: #### CMP #### [facility] [address] [place], [place] [address] Dr. Ranjith Stover Vital Signs Date TimeVital SignValuePerforming FpzszbgwgBsggubxq76-10-1503 13:42-0400Body kzvqot528.2 cmUlysses Overton MD Work Phone: [phone] [place], [place] 026[address]10-28-2025 13:42-0400Body mass index (BMI) [Ratio]29.76 kg/h1XjpuqgUlysses Overton MD Work Phone: [phone] [place], [place] 0266310-28-2025 13:42-0400Body qrqyik73.18 kgUlysses Overton MD Work Phone: [phone] [place], [place] [address]10-28-2025 13:42-0400Diastolic blood qegcjthf29 mm[Hg]Ulysses Overton MD Work Phone: [phone] [place], [place] [address]10-28-2025 13:42-0400Heart rate87 /min Ulysses Overton MD Work Phone: [phone] [place], [place] [address]10-28-2025 13:42-0400Systolic blood xlcjkuap472 mm[Hg]Ulysses Overton MD Work Phone: [phone] [place], [place] [address]26[address]10-07-2025 13:52-0400Body sojhvb810.2 cmRoxanna Diop MD Work Phone: [phone] [place], [place] [address]10-07-2025 13:52-0400Body mass index (BMI) [Ratio]30.38 kg/m3VmjoaRoxanna Diop MD Work Phone: [phone]10-07-2025 13:52-0400Body sqadvq19 kgRoxanna Diop MD Work Phone: [phone]10-07-2025 13:52-0400Diastolic blood nvugdkiq505 mm[Hg]Roxanna Diop MD Work Phone: [phone] [place], [place] [address]10-07-2025 13:52-0400Heart rate 84 /minRoxanna Diop MD Work Phone: [phone]10-07-2025 13:52-7660OvH1% (BldA) [Mass fraction]99 %Roxanna Diop MD Work Phone: [phone] [place], [place] [address]10-07-2025 13:52-0400Systolic blood azyindjc875 mm[Hg]Roxanna Diop MD Work Phone: [phone]07-14-2025 14:13-0400Body moexjc233.2 Kristine Barbour MD Work Phone: [phone]07-14-2025 14:13-0400Body mass index (BMI) [Ratio]31.64 kg/f2KrgwdGaro Barbour MD Work Phone: [phone] [place], [place] [address]Irzyaueavj64-48-5211 14:13-0400Body nyzslb07.63 kgGaro Barbour MD Work Phone: [phone] [place], [place] [address]Zkqbijpxlt76-05-3475 14:13-0400Diastolic blood yrlcllxm05 mm[Hg]Garo Barbour MD Work Phone: [phone] [place], [place] [address]Awxwwwhyga73-16-4849 14:13-0400Heart rate78 /min Garo Barbour MD Work Phone: [phone] [place], [place] [address]Ybmigidohs47-68-8363 14:13-0400Respiratory rate18 /minGaro Barbour MD Work Phone: [phone] [place], [place] [address]Klzwtyncor88-24-1243 14:13-5741IyY6% (BldA) [Mass fraction]99 %Garo Barbour MD Work Phone: [phone] [place], [place] [address]Uknudwtxlq44-99-0026 14:13-0400Systolic blood bcrukwvs543 mm[Hg]Garo Barbour MD Work Phone: NOUniversity Health Truman Medical CenterMhkzccfcmo47-52-5221 13:36-0400Body thzlwa721.2 Benji Garcia MD Work Phone: [facility]04-04-2025 13:36-0400Body mass index (BMI) [Ratio]31.95 kg/h5PwexbeKathy Garcia MD Work Phone: [facility]04-04-2025 13:36-0400Body nwybro50.53 kgKathy Garcia MD Work Phone: [facility]04-04-2025 13:36-0400Diastolic blood hlmrwugq67 mm[Hg]Kathy Garcia MD Work Phone: [facility]04-04-2025 13:36-0400Heart rate 89 /minKathy Garcia MD Work Phone: [facility]04-04-2025 13:36-7536CgA0% (BldA) [Mass fraction]97 %Kathy Garcia MD Work Phone: [facility]04-04-2025 13:36-0400Systolic blood vjgodbdy035 mm[Hg]Kathy Garcia MD Work Phone: [facility]03-03-2025 15:17-0500Body iornsh130.2 cmAbeatriz Good CUSTOMS COLLECTOR Work Phone: noUniversity [facility] Medical CenterLdkgrnennl19-96-1294 15:17-0500Body mass index (BMI) [Ratio]31.95 kg/w5RiscueKaelyn Good CUSTOMS COLLECTOR Work Phone: NOUniversity Health [facility] Medical CenterYrjeahmsfb87-00-2716 15:17-0500Body lodpek92.53 kgKaelyn Good CUSTOMS COLLECTOR Work Phone: noUniversity [facility] CenterXobzdgfisv34-03-3157 15:17-0500Diastolic blood ctxfnucr04 mm[Hg]Kaelyn Good CUSTOMS COLLECTOR Work Phone: noUniversity Health [facility] Medical CenterFqfkojlbbu62-60-8061 15:17-0500Systolic blood auhntmfa672 mm[Hg]Kaelyn Good CUSTOMS COLLECTOR Work Phone: noMS Ktofturnav40-66-6641 14:56-0500Body wudvhh243.2 cmNicole Red DO Work Phone: [facility] HospitalHwksvywbco64-26-7620 14:56-0500Body mass index (BMI) [Ratio]31.89 kg/x9Wdstun Red DO Work Phone: [facility] HospitalGlctsmpafy34-11-2197 14:56-0500Body tcpojy83.35 kgNicole Red DO Work Phone: [facility] HospitalZxzceypysd79-24-6129 14:56-0500Diastolic blood mm[Hg] Red DO Work Phone: [facility] HospitalSgvfqcgpjx79-72-8210 14:56-0500Heart rate88 /min Red DO Work Phone: [facility] HospitalTwrfqneiep53-44-6249 14:56-9668UeZ7% (BldA) [Mass fraction]96 % Red DO Work Phone: [facility] HospitalKtthvdwsfi82-38-1662 14:56-0500Systolic blood kywevidf502 mm[Hg] Red DO Work Phone: noUniversity Health [facility] Medical CenterNxkopsuino50-62-8241 14:05-0500Body uwydov788.2 cmAnthony Rusher DPM Work Phone: NOUniversity Health Truman Medical CenterAswmjttcsh95-72-3787 14:05-0500Body mass index (BMI) [Ratio]27.88 kg/y1Fbhbcvb Rusher DPM Work Phone: [facility] HospitalAbgcrqworj44-20-7884 14:05-0500Body .74 kgAnthony Rusher DPM Work Phone: [facility] Healthcare Encounters Encounter DateEncounter TypeCare ProviderFacilityStart: 08-04-2025 End: 08-12-2622sacgzoqsqmIK CHARLES P HOUSEFacility:[facility] ClinicStart: 07-27-2025 End: 08-21-3641Pxdenc kevheetUlysses Overton MD Work Phone: noms [facility] OtolaryngologyStart: 07-27-2025 End: 57-04-3663Wizamr Yara Overton MD Work Phone: NOEB [facility] OtolaryngologyStart: 07-27-2025 End: 92-88-2155zigldlgosbFAQQCP H TIMMISNot AvailableStart: 07-27-2025 End: 15-18-8380Lmuuuy outpatient visit 25 minutesUlysses Overton MD Work Phone: [facility] Joseph OtolaryngologyComment on above:ETD (Eustachian tube dysfunction), left (Primary Dx); Referred otalgia of both earsStart: 07-06-2025 End: 97-61-7573Ablckk outpatient visit 25 minutesRoxanna Diop MD Work Phone: [facility] CardiologyComment on above: Coronary artery disease with history of percutaneous transluminal angioplasty (PTCA) (Primary Dx); Primary hypertensionStart: 07-06-2025 End: 59-52-9863kcjtgunxdbSHXJH YANIVBOSTON DISPENSARYSPSelect Medical [facility]ty [facility] Northtart: 07-05-2025 End: 67-16-2021Dxvaeoeya encounterJematty Bernstein [facility] Physicians CardiologyStart: 76-39-4743iysywjbczjRDAUDBP P HOUSEFacility:[facility] Clinic Start: 04-12-2025 End: 18-97-5409Zweoeo Honorio Barbour MD Work Phone: noms ENDOCRINOLOGYStart: 04-12-2025 End: 82-67-6776Eqlqhb flowsMaryana Barbour MD Work Phone: noms ENDOCRINOLOGYStart: 04-12-2025 End: 82-32-2634iksjfdfvrmEXKFU F SABBAGHNot AvailableStart: 04-12-2025 End: 63-36-6692Hwvrei outpatient visit 25 minutesGaro Barbour MD Work Phone: noms ENDOCRINOLOGYComment on above:Type 2 diabetes mellitus with hyperglycemia, with long-term current use of insulin (HCC) (Primary Dx); Encounter for dietary consultation; Vitamin D deficiency; Hyperlipemia, mixed ; Insulin long-term use (HCC); Primary hypertensionStart: 53-55-7955thyzwwwcijJKGNXJK P ARGYLEFacility:[facility] ClinicStart: 01-19-2025 End: 32-60-7071mgbmrdjxslUENPFKEisenhower Medical Centertart: 01-14-2025 End: 40-56-2820Wstqpuzxc encounterJillian Varner [facility] Physicians CardiologyStart: 01-12-2025 End: 37-59-0625Aeonik outpatient new 45 minutesNatalie A Felter ADVANCED MANUFACTURING TECHNICIAN-POKER IN Work Phone: noms [facility] DERMComment on above:Melanocytic nevus of upper extremity, unspecified laterality (Primary Dx); Melanocytic nevus of trunk; Other atopic dermatitis; Capillary angioma; Lentigines; Seborrheic keratosis; Actinic keratosisStart: 01-12-2025 End: 31-44-0893faxlzzddgjYZNCKIW A FELTERNot AvailableStart: 01-12-2025 End: 67-00-0845Aygysf flowsheetNatalie A Felter ADVANCED MANUFACTURING TECHNICIAN-POKER IN Work Phone: noms [facility] DERMStart: 01-12-2025 End: 72-46-3547Unuiai flowsheetNatalie A Felter ADVANCED MANUFACTURING TECHNICIAN-POKER IN Work Phone: noms [facility] DERMStart: 01-01-2025 End: 00-91-8887Ndifae outpatient new 45 minutesRobert America Garcia MD Work Phone: [facility] CardiologyComment on above: Coronary artery disease with history of percutaneous transluminal angioplasty (PTCA) (Primary Dx); Shortness of breathStart: 01-01-2025 End: 90-21-7481wiunbitjbzNGNDVIEisenhower Medical Centertart: 12-31-2024 End: 15-17-6684Ydhwexxvn encounterSandra Delgado CMAGrace Cottage HospitalMedica Physicians CardiologyStart: 12-18-2024 End: 90-65-2090Yyoyv abstractingScanning Provider ExternalProMedica Physicians CardiologyStart: 12-14-2024 End: 79-88-6702ihiybqtdgwHKWRM F SABBAGHNot AvailableStart: 11-30-2024 End: 94-44-7516udhyroklebDYOSJR GILLMORNot AvailableStart: 11-30-2024 End: 43-97-3365Qhxfdl outpatient visit 25 minutesKaelyn Good CUSTOMS COLLECTOR Work Phone: aNA BELLEVUEComment on above:ANIYA (obstructive sleep apnea) (Primary Dx); Idiopathic peripheral neuropathy; 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, unspecified class, unspecified whether serious comorbidity presentStart: 11-30-2024 End: 77-07-8196Xvlbom Leticia Good CUSTOMS COLLECTOR Work Phone: aNA BELLEVUEStart: 11-30-2024 End: 36-68-9371Nrbqoy Leticia Good CUSTOMS COLLECTOR Work Phone: ana BELLEVUEStart: 11-30-2024 End: 31-21-0451Luabyocld Result EncounterNicole Red DO Work Phone: [facility] External Department UnsolicitedStart: 11-26-2024 End: 44-91-2640Lbpqdtvcu encounterGracy Daven[facility] Start: 82-98-4437muklgpclnvHM CHARLES P HOUSEFacility:[facility] ClinicStart: 11-02-2024 End: 01-82-1880ctknwmuwqeGLXDUG DANNERNot AvailableStart: 10-30-2024 End: 88-35-9166Pevocng encounter procedureNicole Red DO Work Phone: aNA BELLEVUEComment on above:ANIYA (obstructive sleep apnea) (Primary Dx)Start: 10-29-2024 End: 78-02-6837Jpeuwuyp SupportNoms Bsr Neuro TechnicanANA BELLEVUEComment on above:ANIYA (obstructive sleep apnea)Start: 10-12-2024 End: 61-26-8669Hhwhjg outpatient new 45 minutesNicole Red DO Work Phone: aNA BELLEVUEComment on above:ANIYA (obstructive sleep apnea) (Primary Dx); Idiopathic peripheral neuropathy; Numbness and tingling; 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, unspecified class, unspecified whether serious comorbidity presentStart: 10-12-2024 End: 80-03-8229lvomwwrskyLMCFPQ DANNERNot AvailableStart: 10-12-2024 End: 38-39-8290Wqtxqq flowsheetNicole Red DO Work Phone: aNA BELLEVUEStart: 10-12-2024 End: 90-48-9045Dulhbj flowsheetNicole Red DO Work Phone: aNA BELLEVUEStart: 62-76-8802erkxjopjpcBUQIAVZ P ARGYLE Facility:[facility] ClinicStart: 11-11-2023 End: 42-39-9216Wrptow outpatient visit [address] Work Phone: N[facility]S PODIATRYComment on above:Diabetic polyneuropathy associated with type 2 diabetes mellitus (CMS/HCC) (Primary Dx); NeuritisStart: 11-14-2022 End: 03-63-1837icgypchcdqWY CARTER RICOFacility:F4Xbwll: 01-15-2022 End: 36-42-4509woshdmwbuqUYDawood MCCOYFacility:L7Cydfg: 09-18-2018 End: 08-63-5328Syeokym encounter procedureDEFAULT PHYSICIANFacility:[facility] Procedures DateProcedureProcedure DetailPerforming ClinicianStart: 81-43-9844Tvinqm-up visitFollow-upMANEL BOUMEGOUASStart: 02-02-7477Drlj bld gluc mntr dev cleared fda spec home useGaro Barbour MD Work Phone: Start: 05-61-9684TJCYQENMBSM SKIN LESIONNatalie A Felter ADVANCED MANUFACTURING TECHNICIAN-POKER IN Work Phone: Start: 13-15-3724Qzv routine ecg w/least 12 lds w/i&r Kathy Garcia MD Work Phone: Start: 04-01-7022ZQC THYROID STIM HORMONENicole Red DO Work Phone: Start: 96-42-0249KXB screeningDR CARTER RICO Comment on above:Performed By: #### PSAD #### [facility] [address] [place] [address] Dr. Ranjith StoverStart: 56-07-6535Eyfomog of placement of stent for coronary artery diseaseS/P coronary artery stent placementSampson Street DPM Work Phone: Plan of Treatment DateCare ActivityDetailAuthorStart: 05-63-0322Yrmfa BMI ScreeningAdult BMI ScreeningProEncompass Health [facility] Health SystemStart: 96-52-9370Almrijm ScreeningTobacco ScreeningProEncompass Health [facility] Health SystemStart: 73-75-9524Ybbit BMI ScreeningAdult BMI ScreeningProMer[facility] SystemStart: 01-11-2026 End: 77-34-7127Jgsdvza encounter procedureNOMS SWS DERMStart: 44-80-3478Xgujj BMI ScreeningAdult BMI ScreeningProEncompass Health [facility] Health SystemStart: 34-45-4001Qcylyzc ScreeningTobacco ScreeningProEncompass [facility] Health SystemStart: 10-11-2025 End: 01-03-8731Qvcjabn encounter procedureNOMS SH ENDOCRINOLOGYStart: 07-26-2025 End: 78-16-4469Xwozrhb encounter tpahrhres04/27/2025 2:00 PM EDT Appointment [facility] - Cardiovascular [address] [place] [address] Kathy Garcia MD [address] [place] [address] [facility] - CardiovascularStart: 07-06-2025 End: 99-99-2522Opybloy encounter pcoacfegb95/07/2025 2:00 PM EDT Office Visit [facility] [address] [place] [phone] Roxanna Diop MD [address] [place] [address] [facility] CardiologyStart: 63-78-1667OHJFN-19 Vaccine ( season)COVID-19 Vaccine ()[facility] SystemStart: 38-18-9969Zupkqufar vaccinationAultman Orrville Hospital SystemStart: 04-12-2025 End: 763227-drbvubuzwvjbbr D3 [Mass/volume] in Serum or PlasmaVitamin D 25 hydroxy Total Lab Routine Type 2 diabetes mellitus with hyperglycemia, with long-term current use of insulin (HCC) Expected: 04/12/2025 (Approximate), Expires: 04/12/2026[facility] HealthcareComment on above:Expected: 04/12/2025 (Approximate), Expires: 04/12/2026Start: 04-12-2025 End: 19-82-0379C-peptideC-peptide Lab Routine Type 2 diabetes mellitus with hyperglycemia, with long-term current use of insulin (HCC) Expected: 04/12/2025 (Approximate), Expires: 04/12/2026[facility] Work Phone: Comment on above:Expected: 04/12/2025 (Approximate), Expires: 04/12/2026Start: 04-12-2025 End: 18-26-9044Rbgjj 1996 panel - Serum or PlasmaLipid panel Lab Routine Type 2 diabetes mellitus with hyperglycemia, with long-term current use of insulin (HCC) Expected: 04/12/2025 (Approximate), Expires: 04/12/2026[facility] Comment on above:Expected: 04/12/2025 (Approximate), Expires: 04/12/2026Start: 04-12-2025 End: 67-73-3411Bzbtriepkkvc/Creatinine panel in random UrineMicroalbumin / creatinine urine ratio Lab Routine Type 2 diabetes mellitus with hyperglycemia, withlong-term current use of insulin (HCC) Expected: 04/12/2025 (Approximate), Expires: 04/12/2026[facility] HealthcareComment on above:Expected: 04/12/2025 (Approximate), Expires: 04/12/2026Start: 04-12-2025 End: 02-56-6318Swaeo function panelRenal function panel Lab Routine Type 2 diabetes mellitus with hyperglycemia, with long-term current use of insulin (HCC) Expected: 04/12/2025 (Approximate), Expires: 04/12/2026[facility] Comment on above:Expected: 04/12/2025 (Approximate), Expires: 04/12/2026Start: 04-12-2025 End: 54-48-2964Smtggdf encounter nretgyayz11/14/2025 1:50 PM EDT Office Visit [facility] ENDOCRINOLOGY [address] [place] [phone] Garo Barbour MD [address] [place] [address] [facility] ENDOCRINOLOGYStart: 03-02-2025 End: 89-13-1274Aaoxfjy encounter awtnzshmo64/03/2025 3:40 PM EDT Office Visit [facility] [address] [place] [address] Kaelyn Good NP [address] [place], [place] SIVA MABRYtart: 01-19-2025 End: 19-04-9800Pvxqiio encounter gfjvxieuy44/22/2025 11:45 AM EDT Appointment [facility] - Stress Imaging [address] [place] [phone] Kathy Garcia MD [address] [place] [address] [facility] - Stress ImagingStart: 01-19-2025 End: 19-76-2687Llgzpmx encounter procedureProAdena Health System - Stress ImagingStart: 01-19-2025 End: 91-00-5919Pelkpmc encounter procedureProAdena Health System - CardiovascularStart: 01-12-2025 End: 63-82-7254Bpfcquu encounter procedureNOMISSION HOSPITAL OF [facility]ARK DERMComment on above:Arrived Start: 01-08-2025 End: 78-96-0908CI Heart Perfusion W stress and W radionuclide IVNuc stress Lexiscan Cardiac Services Routine Coronary Artery Disease With History Of Percutaneous Transluminal Angioplasty (Ptca) Shortness of breath Expected: 01/08/2025, Expires: 01/01/2026[facility] SystemComment on above:Expected: 01/08/2025, Expires: 01/01/2026Start: 01-01-2025 End: 34-86-0787Ckuw complete W/O contrastEcho complete W/O contrast Echocardiography Routine Coronary Artery Disease With History Of Percutaneous Transluminal Angioplasty (Ptca) Shortness of breath Expected: 01/01/2025, Expires: 01/01/2026ProEn[facility] Work Phone: Comment on above:Expected: 01/01/2025, Expires: 01/01/2026Start: 01-01-2025 End: 81-04-2127Vggevrd encounter ebapofpiy86/04/2025 1:45 PM EDT Office Visit [facility] [address] [place] [address] Kathy Garcia MD [address] [place] [address] [facility] CardiologyStart: 11-30-2024 End: 79-60-8896Ulsuawp encounter bvohkejch17/03/2025 3:00 PM EST Office Visit [facility] [address] [place] [phone] Kaelyn Good NP [address] [place] [address] SIVA MABRYtart: 10-29-2024 End: 87-26-7897Jivcmmqp Fxxapwb2410/29/2024 3:45 PM EST Clinical Support [facility] [address] [place] [phone] aSAM HAINESLATESHA Start: 10-12-2024 End: 98-83-5368Xmeoxyy encounter aehzjrada78/13/2025 3:00 PM EST Office Visit [facility] [address] [place] [phone] Nicole Moon DO [address] [place] [address] Michaelle CHARLTONComment on above:ArrivedStart: 10-12-2024 End: 69-65-2241Lociycvrw (Vitamin B12) [Mass/volume] in Serum or PlasmaVitamin B12 Lab Routine Idiopathic peripheral neuropathy Expected: 10/12/2024 (Approximate), Expires: 10/12/2025[facility] HealthcareComment on above:Expected: 10/12/2024 (Approximate), Expires: 10/12/2025Start: 10-12-2024 End: 72-73-5529Kssntf [Mass/volume] in Serum or PlasmaFolate Lab Routine Idiopathic peripheral neuropathy Expected: 10/12/2024 (Approximate), Expires: 10/12/2025N[facility] HealthcareComment on above:Expected: 10/12/2024 (Approximate), Expires: 10/12/2025Start: 10-12-2024 End: 56-53-9149Rfya sleep testHome sleep test Sleep Center Routine ANIYA (obstructive sleep apnea) Expected: 10/12/2024 (Approximate), Expires: 10/12/2025[facility] Work Phone: comment on above:Expected: 10/12/2024 (Approximate), Expires: 10/12/2025Start: 10-12-2024 End: 65-26-8382Txucpsx electrophoresis, serumProtein electrophoresis, serum Lab Routine Idiopathic peripheral neuropathy Expected: 10/12/2024 (Approximate), Expires: 10/12/2025N[facility] HealthcareComment on above:Expected: 10/12/2024 (Approximate), Expires: 10/12/2025Start: 10-12-2024 End: 06-94-0347Ginuegamjft [Units/volume] in Serum or PlasmaTSH Lab Routine Idiopathic peripheral neuropathy Expected: 10/12/2024 (Approximate), Expires: 10/12/2025N[facility] HealthcareComment on above:Expected: 10/12/2024 (Approximate), Expires: 10/12/2025Start: 32-79-3371Ghculjgck vaccinationInfluenza Vaccine [facility] SystemStart: 74-62-3057Tflyyhiax aortic aneurysm screening Abdominal Aortic Aneurysm (AAA) ScreenScionHealthtart: 2019 Fall Risk ScreeningFall Risk ScreeningScionHealthtart: 02-14-2004 Administration of varicella zoster vaccineZoster (Shingles) Vaccine (1 of 2) [facility] SystemStart: 61-68-7457Tnhlbfynecjz Vaccine: 65+ Years (1 of 1 - PCV)Pneumococcal Vaccine: 65+ Years (1 of 1 - PCV)[facility] HealthcareStart: 26-50-9346RMwE,Tdap and Td Vaccines (1 - Tdap)DTaP,Tdap and Td Vaccines (1 - Tdap)[facility]: 26-16-7832Yisoi BMI Follow Up PlanAdult BMI Follow Up PlanAultman Orrville Hospital SystemStart: 62-89-5036Vtocg BMI ScreeningAdult BMI ScreeningAultman Orrville Hospital SystemStart: 11-36-0076Mokppafmnp Screening Depression ScreeningScionHealthtart: 46-42-0961Svnixce Screening Tobacco ScreeningScionHealthtart: 34-98-1908GPyL/Tdap/Td Vaccines (1 - Tdap)DTaP/Tdap/Td Vaccines (1 - Tdap)[facility] HealthcareStart: 1954 Screening for malignant neoplasm of colonSPANISH FORK HOSPITAL HealthcareStart: 63-70-7871Njhxwu Use: CardiovascularStatin Use: [facility] testKen[facility] sleep test [facility] Routine ANIYA (obstructive sleep apnea) 11/05/2024 3:40 PM [facility] Healthcare Work Phone: [facility] testKen[facility] test [facility] Routine ANIYA (obstructive sleep apnea) Ordered: 01/05/2025[facility] Work Phone: comment on above:Ordered: 01/05/2025 Immunizations Immunization DateImmunizationNotesCare UigpafvfCbikutdu29-67-7105Yltxap Purple Cap SARS-CoV-2 VaccinationGaro Barbour MD Work Phone: [facility] HospitalVioqxgyuqw67-56-7312Pahbwqm TZJI-HyI-8Ftrlh Sabbagh MD Work Phone: [facility] Healthcare Payers DatePayer CategoryPayerPolicy [id number] IndemnityMEDICAL MUTUAL Member Subscriber Plan / Payer (Effective 2019-Present) Name: Jono Morales LMember ID: [id number] Relation to Subscriber: Self Name: Jono Morales Payer ID: Not on file Type: Not on file Address: [place] [id number] 2019Medicare [id number] [id number] 1960 [id number] 2.0.1.395580.3.579.2.647 [id number] 2.0.1.937817.3.57[id number] 2.0.1.148802.3.57[id number] 2.840.1.711016.3.57[id number] 2.0.1.814234.3.57[id number] 2.840.1.390612.3.57[id number] 2.840.1.609893.3.57[id number] 2.16.840.1.175738.3.57[id number] 2.16.840.1.949952.3.57[id number] 2.16.840.1.899375.3.57[id number] 2.16.840.1.365305.3.57[id number] 2..840.1.217903.3.57[id number] 2..840.1.387790.3.57[id number] 2.840.1.112071.3.57[id number] 2..840.1.140533.3.57[id number] 2..840.1.490057.3.57[id number] 2.840.1.179534.3.57[id number] 2.840.1.683907.3.57[id number] 2.840.1.908484.3.579.2.718Unknown Social History DateTypeDetailFacilityStart: 07-10-2023 End: 14-87-2980Ifwldzb smoking status NHISEx-smokerFre[facility]osho Hospital End: 45-47-4953Cknxvyv of tobacco useCurrent smokerFreeman Neosho Hospital End: 38-93-7476Fwnczsl of tobacco useCigarette SmokerNOMS HealthcareStart: 11-11-2023 End: 27-94-6166Gdrathf intakeLifetime non-drinker (finding)[facility] HealthcareStart: 11-11-2023 End: 55-47-8803Ulzqaiq of Social functionNOMS HealthcareStart: 11-11-2023 End: 33-96-9538Zohqbvs use panelNOVT HealthcareStart: 05-83-7284Gfj Assigned At BirthNot on fileNOVT HealthcareStart: 04-28-2024 End: 97-14-3470Ihcjrbqzz beverage intakeEx-drinker (finding)[facility] Healthcare Start: 53-45-4009Vdlevbj Sxzexqp88 years cleanSPANISH FORK HOSPITAL HealthcareStart: 02-21-2021 Tobacco use and exposureSmokeless tobacco non-userAultman Orrville Hospital SystemStart: 01-76-8828Kzqebvvsc of Alcohol ConsumptionNeverA[facility]man [facility] Hospital SystemStart: 03-96-9702Obowbou Hbbkwrb7684 quitAultman Orrville Hospital SystemStart: 18-85-3537Qfj Male (finding)[facility] Clinical Notes 11-11-2023 to 08-02-2025 Note Date & YmbdPpajQrxzufwp21-77-0072 NoteEntered by LALO MCCOY DO on August 02, 2025 12:41:24 EST From: LALO MCCOY DO To: [facility] Sent: 08/02/2025 12:41:24 EST Subject: Medication Management Submitted: Complete:ibuprofen (ibuprofen 800 mg oral tablet) Signed by LALO MCCOY DO 08/02/2025 12:41:00 EST Approved with modifications: ibuprofen (ibuprofen 800 mg tablet) TAKE 1 TABLET BY MOUTH THREE TIMES DAILY Qty: 90 tab(s) Days Supply: 30 Refills: 1 Substitutions Allowed Route To Pharmacy - [facility] From: [facility] To: LALO MCCOY DO Sent: August 02, 2025 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: Medication Management Due: August 03, 2025 12:03:05 AM 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 On 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 Pending Signature Drug: ibuprofen (ibuprofen 800 mg oral tablet), TAKE 1 TABLET BY MOUTH THREE TIMES DAILY Quantity: 90 tab(s) Days Supply: 30 Refills: 1 Substitutions Allowed Notes from Pharmacy: Dispensed Drug: ibuprofen (ibuprofen 800 mg oral tablet), TAKE 1 TABLET BY MOUTH THREE TIMES DAILY Quantity: 90 tab(s) Days Supply: 30 Refills: 1 Substitutions [facility]owed [facility]33[facility] History of Present illness Narrative* Ulysses Overton [...] Ear problems Essential (primary) hypertension Hyperlipidemia Hypertension 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 documented in this [facility]10-20-2025 Note From: LALO MCCOY DO To: [facility] Clinical Pool ([place]); Sent: 07/19/2025 07:31:50 EDT Subject: FW: Medication Management Due Date/Time: 07/19/2025 10:30:00 EDT Caller Name: JONO MORALES; Caller Number: H From: [facility] To: LALO MCCOY DO Sent: July [...] Notes from Pharmacy: From: Fiordaliza Blankenship To: [facility] Sent: 07/19/2025 08:27:27 EDT Subject: FW: Medication Management Not Approved: proposed to provider gabapentin (gabapentin 100 mg capsule) TAKE 2 CAPSULES BY MOUTH DAILY Qty: 60 cap(s) Days Supply: 30 Refills: 0 Substitutions Allowed Route To Pharmacy - [facility] Signed by Pattie [facility]10-07-2025 History of Present illness Narrative* Manel [...] upper and lower dentures Depression Diabetes mellitus ([facility]) Diabetes mellitus type 2, controlled ([facility]) GERD (gastroesophageal reflux disease) Hypertension Obesity Shortness of breath Visual impairment glasses No data recorded No data recorded No data recorded Past Surgical History: Procedure Laterality Date CARDIAC SURGERY 11 stents COLONOSCOPY N/A 02/21/2021 Performed by Abraham Pedersen MD at [facility] HEMORROIDECTOMY HERNIA REPAIR RELEASE CARPAL TUNNEL Left 10/07/2019 Performed by Olu Yen DO at [facility] SKIN SURGERY Family History Problem Relation [...] RCA 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 Prior LAD stents. [facility] 12/14/13 with nonobstructiveresidual disease. 11 total stents. [...] DO Referring Physician: Lalo Mccoy DO [address] [place] [address] documented in this encounterM[facility]10-[facility]-2025 Miscellaneous Notes* Telephone Encounter - Sandra Langston MA - 07/05/2025 10:59 AM EDT Left message for patient to remind them to bring their most current medication list with them to their appointment. documented in this encounterMiddletown Hospital10-06-2025 Telephone encounter Note* Telephone Encounter - Sandra Langston MA - 07/05/2025 10:59 AM EDT Left message for patient to remind them to bring their most current medication list with them to their appointment. [facility]09-15-2025 NoteEntered by LALO MCCOY DO on June 14, 2025 13:51:53 EDT From: LALO MCCOY DO To: [facility] Sent: 06/14/2025 13:51:53 EDT Subject: Medication Management Approved Order:gabapentin (gabapentin 100 mg oral capsule) TAKE 2 CAPSULES BY MOUTH DAILY Qty: 60 EA Days Supply: 0 Refills: 0 Substitutions Allowed Route To Pharmacy - [facility] Signed by LALO MCCOY DO Cancelled: Discontinue:gabapentin (gabapentin 100 mg oral tablet) Signed by LALO MCCOY DO From: [facility] To: LALO MCCOY DO Sent: June [...] 0 Refills: 0 Substitutions Allowed [facility]ckhtcon01-28-1234 NoteEntered by LALO MCCOY DO on April 19, 2025 13:17:26 EDT From: LALO MCCOY DO To: [facility] Sent: 04/19/2025 13:17:26 EDT Subject: Medication Management Submitted: Complete:ibuprofen (ibuprofen 800 mg oral tablet) Signed by LALO MCCOY DO 04/19/2025 13:17:00 EDT Approved with modifications: ibuprofen (ibuprofen 800 mg tablet) TAKE 1 TABLET BY MOUTH THREE TIMES DAILY Qty: 90 tab(s) Days Supply: 30 Refills: 1 Substitutions Allowed Route To Pharmacy - [facility] From: [facility] To: LALO MCCOY DO Sent: April [...] Refills: 1 Substitutions Allowed [facility]Cnpyizoq79-70-0039 History of Present illness Narrative* Garo Barbour [...] twice a day. [facility], and I will send prescription for him. 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 documented in this encounterFreeman Neosho HospitalNiurbaeqaq00-92-4348 NoteEntered by LALO MCCOY DO on January 18, 2025 07:36:06 EDT From: LALO MCCOY DO To: [facility] Sent: 01/18/2025 07:36:06 EDT Subject: Medication Management Submitted: Complete:clopidogrel (clopidogrel 75 mg oral tablet) Signed by LALO MCCOY DO 01/18/2025 07:36:00 EDT Approved with modifications: clopidogrel (clopidogrel 75 mg tablet) TAKE 1 TABLET BY MOUTH DAILY Qty: 90 tab(s) Days Supply: 90 Refills: 1 Substitutions Allowed Route To Pharmacy - [facility] To: NADINELALO Jo MOLINA Sent: [...] Refills: 1 Substitutions Allowed [facility]Bvgqlndm34-56-3395 Miscellaneous Notes* Telephone Encounter - Jillian Varner [...] number to change times documented in this encounterMiddletown Hospital04-17-2025 Telephone encounter Note* Telephone Encounter - [...] central scheduling phone number to change times [facility] PeopleGoal [id number] History of Present illness Narrative* Shivam Sheehan, ADVANCED MANUFACTURING TECHNICIAN-POKER IN - 01/12/2025 2:40 PM EDT Skin Check Location: Patient requests a skin examination from the waist up Dermatologic history: history of Actinic Keratosis Last visit: 6 months ago New patient Rash Location: hands Duration: 8 years Severity: mild Quality: itchy Modifying Factors: none Associated symptoms: dry skin, rash is not present today Treatments tried: topical steriods (unable to tell this brief writer the names of topicals) and patient reports steroid shots work(last shot 6 months ago) Current treatments: [facility]. Medical release form signed [...] cosmetic reasons. 7. ACTINIC KERATOSIS (3) Left Islam, Right Forehead, Right Zygomatic Area Erythematous scaly [...] limited to risks of scarring, darker or intervention analyst pigmentary changes, recurrence, incomplete removal and infection. 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 Dizziness History of Present [...] upper and lower dentures Depression Diabetes mellitus ([facility]) Diabetes mellitus type 2, controlled ([facility]) GERD (gastroesophageal reflux disease) Hypertension Obesity Shortness of breath Visual impairment glasses No data recorded No data recorded No data recorded Past Surgical History: Procedure Laterality Date CARDIAC SURGERY 11 stents COLONOSCOPY N/A 02/21/2021 Performed by Abraham Pedersen MD at [facility] HEMORROIDECTOMY HERNIA REPAIR RELEASE CARPAL TUNNEL Left 10/07/2019 Performed by Olu Yen DO at [facility] SKIN SURGERY Family History Problem Relation [...] RCA 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 Prior LAD stents. [facility] 12/14/13 with nonobstructiveresidual disease. 11 total stents. [...] DO Referring Physician: Lalo Mccoy DO [address] [place] [address] documented in this encounterMiddletown Hospital04-03-2025 Miscellaneous Notes* Telephone Encounter - Sandra Delgado CMA - 12/31/2024 11:09 AM EDT Called patient to remind them to bring their most current copy of their medication list with them to their appt. Patient verbalizes understanding. documented in this encounterMiddletown Hospital04-03-2025 Telephone encounter Note* Telephone Encounter - Sandra Delgado CMA - 12/31/2024 11:09 AM EDT Called patient to remind them to bring their most current copy of their medication list with them to their appt. Patient verbalizes understanding. [facility] [id number] Note From: Sandra Orozco LPN ([facility] Clinical Pool ([facility] To: LALO MCCOY DO; Sent: 12/02/2024 08:18:30 EST Subject: Med change Caller Name: JONO MORALES; Caller Number: H Pt called lvm stating that he did see Neurology and was suggested to increase his Gabapentin to help with his Neuropathy, was told by Neurology to contact PCP to have medication increased From: LALO MCCOY DO To: [facility] Clinical [place] ([facility]); Sent: 12/02/2024 09:11:29 EST Subject: RE: Med change Caller Name: JONO MORALES; Caller Number: H on 400 tid now. so i guess we go to 600mg po tid #90 NR proposal sent to Dr Mccoy, pt made aware new rx will be [facility] 11-26-2024 Miscellaneous Notes* Telephone Encounter - Gracy Villa - 11/26/2024 12:55 PM EST 11/26 LMOM TO SCHEDULE NEW PATIENT APPT documented in this encounterCleveland Clinic FoundationSupplyHog [facility] [id number] Telephone encounter Note* Telephone Encounter - Gracy Villa - 11/26/2024 12:55 PM EST 11/26 LMOM TO SCHEDULE NEW PATIENT [facility]PT [facility] [id number] History of Present illness Narrative* Nicole Moon DO - 10/30/2024 10:30 AM EST Images from the original note were not included. Reason for Appointment: HST Patient: Jono Morales : 1955 Reason for Home Sleep Study: Sleep disturbances Ordering Physician: Dr. Nicole Moon Computed Tomography Technologist: Yue Khan Pick-up Comments: Procedure was explained to the patient who expressed understanding. Patient was instructed how to use device and informed to return completed questionnaire with device tomorrow morning...... 11/02/24 Computed Tomography Technologist: Nicolle Porter CMA Drop-Off Comments: Patient returned HST device. Study data was successfully uploaded and completed questionnaire was imported to patient's chart....... 11/02/24 Resulting Physician: SANDY Patino DO Impression: Mild ANIYA may benefit from CPAP titration versus auto PAP treatment at 5-15 cm of water documented in this [facility]01-30-2025 History of Present illness Narrative* Yue Khan - 10/29/2024 3:45 PM EST Reason for Appointment: HST Patient: Jono Morales : 1955 Reason for Home Sleep Study: Sleep disturbances Ordering Physician: Dr. Nicole Moon Computed Tomography Technologist: Yue Khan Pick-up Comments: Procedure was explained to the patient who expressed understanding. Patient was instructed how to use device and informed to return completed questionnaire with device tomorrow morning...... 10/29/24 Computed Tomography Technologist: Chris GLEZ(Chey) Drop-Off Comments: Patient returned HST device. Study data was successfully uploaded and completed questionnaire was imported to patient's chart....... Resulting Physician: SANDY Patino DO Impression: mild ANIYA recommend Auto PAP at 5-15 cmH20 documented in this [facility]01-13-2025 History of Present illness Narrative* Nicole Moon [...] mg 3 times daily. He is on [place] which he does not feel is helping. [...] was counseled on the risks of stroke, [place], and sudden with ANIYA, along with the [...] to clinic: 2 months documented in this encounterFreeman Neosho [id number] Note From: LALO MCCOY DO To: [facility] Clinical Pool ([facility]); Sent: 09/08/2024 15:11:22 EST Subject: FW: Medication Management Due Date/Time: 09/09/2024 12:59:00 EST Caller Name: JONO MORALES; Caller Number: H From: [id number] To: LALO MCCOY DO Sent: September 08, 2024 11:59:47 AM 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 Subject: Medication Management Due: September 09, 2024 12:09:00 AM 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 On Hold Pending Signature Drug: gabapentin (gabapentin 400 mg oral capsule), 1 cap(s) Oral TID Quantity: 120 cap(s) Days Supply: 0 Refills: 0 Substitutions Allowed Notes from Pharmacy: Dispensed Drug: gabapentin (gabapentin 400 mg oral capsule), TAKE 1 CAPSULE BY MOUTH THREE TIMES DAILY Quantity: 120 cap(s) Days Supply: 40 Refills: 0 Substitutions Allowed Notes from Pharmacy: From: Fiordaliza Cordova To: [id number] Sent: 09/09/2024 09:19:46 EST Subject: FW: Medication Management Not Approved: proposed to provider gabapentin (gabapentin 400 mg capsule) TAKE 1 CAPSULE BY MOUTH THREE TIMES DAILY Qty: 120 cap(s) Days Supply: 40 Refills: 0 Substitutions Allowed Route To Pharmacy - [id number] Signed by Tasha [facility]02-12-2024 History of Present illness Narrative* Sampson [...] tablet before bedtime., Disp: , Rfl: HYDROcodone-acetaminophen ([place]) 7.5-325 MG tablet, Take 1 tablet by [...] serious comorbidity present documented in this encounter [facility] HealthcareEvaluation note* Diagnosis ANIYA (obstructive sleep apnea) Obstructive sleep apnea (adult) (pediatric) documented in this encounter [facility] HealthcareEvaluation note* Diagnosis ANIYA (obstructive sleep apnea)- Primary Obstructive sleep apnea (adult) (pediatric) Idiopathic peripheral neuropathy Unspecified hereditary and idiopathic peripheral neuropathy 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, unspecified class, unspecified whether serious comorbidity present documented in this encounter [facility] HealthcareEvaluation note* Diagnosis Coronary artery disease with history of percutaneous transluminal angioplasty (PTCA)- Primary Shortness of breath [facility]* Diagnosis ANIYA (obstructive sleep apnea)- Primary Obstructive sleep apnea (adult) (pediatric) documented in this encounter [facility] HealthcareEvaluation note* Diagnosis Melanocytic nevus of upper extremity, unspecified laterality- Primary Melanocytic nevus of trunk Benign neoplasm of skin of trunk, except scrotum Other atopic dermatitis Capillary angioma Nevus, non-neoplastic Lentigines Seborrheic keratosis Actinic keratosis documented in this encounter [facility] HealthcareEvaluation note* Diagnosis Type 2 diabetes mellitus with hyperglycemia, with long-term current use of insulin (HCC)- Primary Encounter for dietary consultation Vitamin D deficiency Hyperlipemia, mixed Mixed hyperlipidemia Insulin long-term use (HCC) Encounter for long-term (current) use of insulin Primary hypertension Unspecified essential hypertension documented in this encounter [facility] HealthcareEvaluation note* Diagnosis Coronary artery disease with history of percutaneous transluminal angioplasty (PTCA)- Primary Primary hypertension Unspecified essential hypertension documented in this encounter [facility]* Diagnosis ETD (Eustachian tube dysfunction), left- Primary Referred otalgia of both ears documented in this encounter [facility] HealthcareInstructionsNot on filedocumented in this encounterProEncompass Health [facility] SystemInstructionsNot on filedocumented in this encounterProMercy [facility] SystemInstructionsNot on filedocumented in this encounterProEncompass [facility] PeopleGoal System InstructionsNot on filedocumented in this encounterProMercy [facility] System InstructionsNot on filedocumented in this encounterProMercy Health [facility] Hospital SystemReason for visit Narrative* Other Medical (Routine) - ClosedSpecialtyDiagnoses / ProceduresReferred By ContactReferred To ContactSle Medicine / Osteopathic Medicine Diagnoses ANIYA (obstructive sleep apnea) Procedures Home sleep test Nicole Moon DO [address] [place] [address] Phone: tel: fax: Referral IDStatusReasonStart DateExpiration DateVisits RequestedVisits [id number]/ [facility] Summary Purpose Family History No [...] and content) DATE CREATED AUTHOR 09/21/2018 [facility] DATE CREATED AUTHOR AUTHOR'S ORGANIZ ATION 11/17/2022 [facility] DATE CREATED AUTHOR AUTHOR'S ORGANIZ ATION 07/09/2025 [facility] DATE CREATED AUTHOR AUTHOR'S ORGANIZ ATION 07/28/2025 [facility] DATE CREATED AUTHOR AUTHOR'S ORGANIZ ATION 08/06/2025 [facility] Reason for Visit (unrecogniz ed section and [...] neurological complication (CMS/HCC) Plantar fascial fibromatosis Procedures MO NEEDLE EMG EA EXTREMTY W/PARASPINL AREA COMPLETE MO NERVE CONDUCTION STUDIES 9-10 STUDIES Cristino Maldonado MD [address] [facility] [place] [address] Phone: tel: fax: Boby Betancourt MD [address] [place] [address] Phone: tel: fax: Referral IDStatusReasonStart DateExpiration DateVisits RequestedVisits [id number] Consult and Treat /[id number] Pain/Foot PainSleep ApneaReasonComments New PatientNP REFERRAL DR BrownSpecialtyDiagnoses / ProceduresReferred By ContactReferred To ContactCardiology Diagnoses Coronary artery disease with history of percutaneous transluminal angioplasty (PTCA) Lalo Mccoy, DO [address] [place] [address] Phone: tel: fax: Bertin Srinivasan MD [address] [facility], [address] [address] Phone: tel: fax: Referral IDStatusReasonStart DateExpiration DateVisits RequestedVisits [id number] Review Specialty Services Required /[id number]yhoauCpkeqb-[id number] CommentsFollow-upOV F/U 6 MO ECHO, STRESS NOT DONE DT COST L/S MAS, SCHED W/PT ReasonCommentsEar ProblemBil ear pain/Lt ear worse Care Teams (unrecognized sec tion and content) Team MemberRelationshipSpecialtyStart DateEnd Lalo Mccoy MD [address] [place] [address] PCP - GeneralFamily Nooykuci67/11/23Team MemberRelationshipSpecialtyStart Date End Date Lalo Mccoy MD [address] [place] [address] PCP - GeneralFamily Klzbdrvx22/11/23Team MemberRelationshipSpecialtyStart Date End Date Lalo Mccoy MD [address] [place] [facility] [place] [address] PCP - GeneralFamily Pqkvfrik00/11/23Team MemberRelationshipSpecialtyStart Date [facility] Lalo Bhagat MD [address] [place] [facility] [place] [address] PCP - GeneralFamily Eyspoynk31/11/23 Nicole Moon DO [address] [place] [address] Referring PhysicianNeurolog10/13/24 Kaelyn Good NP [address] [place], [place] Nurse PractitionerNeurolog10/13/24Team MemberRelationshipSpecialtyStart DateEnd Lalo Bhagat DO PCP - GeneralFamily Medicine10/01/19Team MemberRelationshipSpecialtyStart Date[facility] L[facility]ag[facility] MD [address] [place] [facility] [place] [address] PCP - GeneralFamily Thbnsems45/11/23 Nicole Moon DO [address] [place] [address] Referring PhysicianNeurolog10/13/24 Kaelyn Good NP [address] [place], [place] Nurse PractitionerNeurolog10/13/24Team MemberRelationshipSpecialtyStart DateEnd Lalo Bhagat MD [address] [place] [facility] [place] [address] PCP - GeneralFamily Zrpbwkkx52/11/23 Nicole Moon DO [address] [place] [address] Referring PhysicianNeurolog10/13/24 Kaelyn Good, FAUSTO [address] [place] [address] Nurse PractitionerNeurolog10/13/24Team MemberRelationshipSpecialtyStart Lalo Hughes DO PCP - GeneralFamily Medicine10/01/19Team MemberRelationshipSpecialtyStart Lalo Hughes DO PCP - GeneralFamily Medicine10/01/19Team MemberRelationshipSpecialtyStart Lalo Hughes MD [address] [place] [address] PCP - GeneralFamily Miwjehvr06/11/23 Nicole Moon DO [address] [place] [address] Referring PhysicianNeurolog10/13/24 Kaelyn Good NP [address] Nurse PractitionerNeurolog10/13/24Team MemberRelationshipSpecialtyStart Lalo Hughes MD [address] [place] [address] PCP - GeneralFamily Gzbvpgef00/11/23 Nicole Moon DO [address] [place] [address] Referring PhysicianNeurolog10/13/24 Kaelyn Good NP [address] [place], [place] Nurse PractitionerNeurolog10/13/24Team MemberRelationshipSpecialtyStart DateEnd Date Lalo Mccoy MD [address] [place] [address] PCP - GeneralFamily Ywgmrrdt93/11/23 Nicole Moon DO [address] [place] [address] Referring PhysicianNeurolog10/13/24 Kaelyn Good NP [address] [place] [address] Nurse PractitionerNeurolog10/13/24Team MemberRelationshipSpecialtyStart DateEnd Date Lalo Mccoy DO PCP - GeneralFamily Medicine10/01/19Team MemberRelationshipSpecialtyStart DateEnd Date Lalo Mccoy MD [address] [place] [address] PCP - Generalmily Nivstxtr71/11/23 Nicole Moon DO [address] [place] [address] Referring PhysicianNeurology1 Kaelyn Good NP [address] [place] [address] Nurse PractitionerNeurolog10/13/24Team MemberRelationshipSpecialtyStart Lalo Hughes MD [address] [place] [address] PCP - GeneralFamily Itadjcus09/11/23 Nicole Moon DO [address] [place] [address] Referring PhysicianNeurolog10/13/24 Kaelyn Good NP [address] [place] [address] Nurse PractitionerNeurolog10/13/24Team MemberRelationshipSpecialtyStart Lalo Hughes DO PCP - GeneralFamily Medicine10/01/19Team MemberRelationshipSpecialtyStart Lalo Hughes DO PCP - GeneralFamily Medicine10/01/19Team MemberRelationshipSpecialtyStart Lalo Hughes MD [address] [place] [address] PCP - GeneralFamily Ibhlfaic20/22/25 Nicole Moon DO [address] [place] [address] Referring PhysicianNeurolog10/13/24 Kaelyn Good NP [address] [place] [address] Nurse PractitionerNeurolog10/13/24Team MemberRelationshipSpecialtyStart DateEnd Lalo Mccoy MD [address] [facility] [place] [address] PCP - GeneralFamily Cdxfgvih91/22/25 Nicole Moon DO [address] [place] [address] Referring PhysicianNeurolog10/13/24 Kaelyn Good NP [address] [place], [place] [address] Nurse PractitionerNeurolog10/13/24 FOR RECORDS PERTAINING TO PATIENTS [...] BE BASED ON THE PRIMARY CLINICAL RECORDS. [facility] [facility]. provides no warranty or guarantee of the accuracy or completeness of information in this document.
[2025-09-07] MEDS: METOPROLOL TARTRATE 25 MG TABLET 12.5 MG PO (21:51)
[2025-09-07] MEDS: ASPIRIN 81 MG TAB.CHEW 324 MG PO (21:51)
[2025-09-07] MEDS: HYDRALAZINE HCL 20 MG/ML VIAL 10 MG IVP (23:27)
[2025-09-08] VITALS (21 sets, daily range): BP systolic 102–190; BP diastolic 71–105; PULSE 63–92; TEMP 36.7–36.9; O2SAT 94–96
--- NOTE | 2025-09-08 | MR_ITS ---
[address] [address] Patient Name: ESTEFANY MSALL MRN: [id number] date: 1955 Sex: M Assigned Patient Location: [place] Current Patient Location: [place] Accession/Order Number: [id number] Exam Date: 09/08/2025 10:50 Report Date: 09/08/2025 11:37 At the request of: SARAH GARRETT MD Procedure: MR head/brain wo con MR head/brain wo con 09/08/2025 11:28 AM SIGN AND SYMPTOMS: Expressive aphasia PROTOCOL: Multiplanar multisequence MR images of the brain without IV contrast COMPARISON: 09/07/2025 FINDINGS: Extra axial spaces: Age appropriate. Hemorrhage: None. Ventricular system: Within normal limits. Basal cisterns: Within normal limits and not effaced. Cerebral parenchyma: Focal diffusion restriction is noted in the left frontal periventricular white matter and subinsular white matter consistent with acute to subacute ischemia. T2 and FLAIR hyperintense signal is noted in the periventricular and subcortical white matter consistent with chronic microvascular ischemic change. There is a remote lacunar infarct in the right centrum semiovale. Midline shift: None.. Cerebellum: Within normal limits. Brainstem: Within normal limits. OTHER: Calvarium: Normal marrow signal. Vascular system: Satisfactory flow voids within the anterior and posterior circulation. Visualized Paranasal sinuses: Mucosal thickening is noted in the right maxillary sinus. Visualized Orbits: Within normal limits. Visualized upper cervical spine: Within normal limits. Sella and skull base: Within normal limits. MR/MR head/brain wo con IMPRESSION: Focal diffusion restriction is noted in the left frontal periventricular white matter and subinsular white matter consistent with acute to subacute ischemia. Additional chronic findings are noted as above. Impression dictated by: Mika Matthew M.D. 09/08/2025 11:37 AM Dictation Location: [place] [address] Electronically authenticated by: [id number] Y Date: 09/08/2025 11:37
[2025-09-08] MEDS: HYDROCODONE/ACET 5-325 MG TABLET 1 TAB PO ×3 (00:12→21:21)
[2025-09-08] MEDS: GABAPENTIN 400 MG CAPSULE PO ×2 (00:12→05:48)
[2025-09-08] MEDS: LOSARTAN POTASSIUM 25 MG TABLET PO ×2 (01:11→09:28)
[2025-09-08] MEDS: LABETALOL HCL 100 MG/20 ML MDV IVP (01:12)
[2025-09-08 05:17] LABS: Hematocrit 41.5 % (42.0-54.0); Hemoglobin 14.5 g/dL (14.0-18.0); Immature Granulocytes Abs Auto 0.04 10^3/uL (0.00-0.03); Immature Granulocytes Pct Auto 0.3 % (0.0-0.5); Lymphocytes Absolute Auto 2.0 10^3/uL (1.2-3.8); Mean Corpuscular HGB Conc 34.9 g/dL (29.9-35.2); Mean Corpuscular Hemoglobin 30.1 pg (25.9-34.0); Mean Corpuscular Volume 86.3 fL (80.0-94.0); Platelet Count 261 10^3/uL (150-450); Red Blood Count 4.81 10^6/uL (4.70-6.10); White Blood Count 11.7 10^3/uL (4.0-11.0)
[2025-09-08 05:39] LABS: Alanine Aminotransferase 21 U/L (16-63); Albumin Globulin Ratio 1.1; Albumin Level 3.3 g/dL (3.4-5.0); Alkaline Phosphatase 109 U/L (46-116); Anion Gap 10.1; Aspartate Amino Transferase 13 U/L (15-37); Blood Urea Nitrogen 9.0 mg/dL (7.0-18.0); Calcium 9.2 mg/dL (8.5-10.1); Carbon Dioxide 28.2 mmol/L (21.0-32.0); Chloride 103 mmol/L (98-107); Cholesterol 178 mg/dL (<=200); Estimated GFR (African America >60 (>=60 mL/min/1.73m^2); Estimated GFR (Non-African Ame >60 (>=60 mL/min/1.73m^2); Globulin 2.9 g/dL; Glucose 135 mg/dL (74-106); HDL Cholesterol 45 mg/dL (40-60); Magnesium 2.0 mg/dL (1.8-2.4); Potassium 3.3 mmol/L (3.5-5.1); Sodium 138 mmol/L (136-145); Total Protein 6.2 g/dL (6.4-8.2); Triglycerides 113 mg/dL (<=150); VLDL CHOLESTEROL 22.6 mg/dL
--- NOTE | 2025-09-08 08:00 | ECG_ITS ---
[facility] Test Date: 2025-09-08 Pat Name: ESTEFANY SMALL Department: Room: [facility] Gender: Male Manager Benefit: : 1955 Requested By: [id number] Order Number: [id number] Reading MD: DANYA FERRER M.D. Measurements Intervals [place] Rate: 78 P: 38 RI: 146 QRS: 0 QRSD: 117 T: 68 QT: 386 QTc: 441 Interpretive Statements SINUS RHYTHM MODERATE INTRAVENTRICULAR CONDUCTION DELAY [110+ ms QRS DURATION] 9130 borderline ECG Compared to ECG 09/07/2025 17:12:39 Intraventricular conduction delay now present ST (T wave) deviation no longer present Electronically Signed On 09-08-2025 14:17:19 EST by DANYA FERRER M.D.
[2025-09-08] MEDS: ENOXAPARIN SODIUM 40 MG/0.4 ML SYRINGE SUBQ (09:27)
[2025-09-08] MEDS: METOPROLOL TARTRATE 25 MG TABLET 12.5 MG PO ×2 (09:27→21:21)
[2025-09-08] MEDS: CLOPIDOGREL BISULFATE 75 MG TABLET PO (09:27)
--- NOTE | 2025-09-08 09:40 | CM.NOTE ---
Rounds made with Dr. Otto, pt will have MRI this am. PT, OT will evaluate pt today for discharge planning.
[2025-09-08] MEDS: LORAZEPAM 0.5 MG TABLET PO ×2 (10:15→10:20)
--- NOTE | 2025-09-08 10:42 | SWNOTE1 ---
ABIMAEL met with pt to discuss dc need. Pt lives at home alone. He does have family/friends that will check on him now. He stated he has been alone for 2 years now, his . He was doing well at home. Pt still drives. 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 Pt does have a cane at home, but does not really use it. SW did let pt know that home health is being recommended for a short time for the transition back home. Pt voiced his had home health nurses coming in and out of the home. He does not remember the company. Pt is agreeable to home health services. SW provided pt with list from Medicare.gov with star ratings. Pt is getting ready to go down for an MRI. SW to come back later today to discuss HH companies and to address the ABIMAEL consult for financial concerns.
--- NOTE | 2025-09-08 12:07 | PM.IMHP1 ---
Internal Medicine - H&P: HPI History of Present Illness Chief complaint: CVA Narrative: This is a 70-year-old male with past medical history of CVA, type 2 diabetes, COPD, here for sudden weakness in his right arm/hand while he was trying to make a cup of coffee and noticed that his right hand is weak and he was spilling the milk along with difference in his speech where he was having slurred speech along with gait abnormality and headache. He did call his son and his son told him to come to the ED to rule out stroke. He drove himself to the ER as per the ER documentation. Patient was seen by my colleague overnight. When I saw the patient today he states that he still has some weakness in his right hand however on my exam hands were both same strength. He did walk with physical therapy and Occupational Therapy when I happened to walk in the hallway and he does have some weakness with walking which appears to be his baseline as per the patient. Back to the ED course, his CBC and CMP were both negative for normal troponin as well. His EKG showed sinus rhythm with no ischemic changes. Given that his last known well was at 3:30 PM yesterday and patient was within the window for tPA, stroke alert was called in the ED, CT head without contrast showed no acute pathology. The ED staff reach out to telestroke team in [facility] who recommended CT angio of the head and neck that showed no large vessel occlusion or hemodynamically significant stenosis recommended against tPA given his low NIH score. Patient was admitted for further workup and management for observation under hospitalist service. Review of Systems ROS Status of ROS 10 or more systems reviewed and unremarkable except as noted in history and below [facility] Medical History (Updated 09/08/25 @ 12:12 by Franco Otto MD) Diabetes ?E11.9 - Type 2 diabetes mellitus without complications (ICD-10) Surgical History (Updated 09/07/25 @ 22:51 by Kati Bradford, PURA) H/O heart artery stent ?Z95.5 - Presence of coronary angioplasty implant and graft (ICD-10) Family History (Updated 09/07/25 @ 21:25 by Kati Bradfrod, PURA) Other Coronary artery disease Family history of CHF (congestive heart failure) Family history of hypertension Family history of myocardial infarction Family history of stroke Social History (Updated 12/09/25 @ 21:27 by Kati Bradford RN) Within the past year, how often did you have a drink containing alcohol: 4 or more times a week Within the past year, how many standard drinks containing alcohol did you have on a typical day: 3 or 4 Within the past year, how often did you have six or more drinks on one occasion: monthly Total score: 4 Score interpretation: A score of 4 or more indicates drinking is likely to affect patient's safety. Smoking status: Former smoker Non-prescribed substance use: cannabis (any form) Highest level of school completed/degree received: some college, no degree Are you now , , , , never or living with a partner: Little interest or pleasure in doing things: not at all Feeling down, depressed, or hopeless: not at all Do you think of yourself as: straight/heterosexual Gender Identity: male Meds Home Medications and Allergies Home Medications ?Medication ?Instructions ?Recorded ?Confirmed ?Type clopidogrel 75 mg tablet 75 mg PO DAILY 09/17/24 09/07/25 History insulin degludec 200 unit/mL (3 50 unit subcut QPM 09/17/24 09/08/25 History mL) subcutaneous pen (Tresiba FlexTouch U-200 insulin) losartan 25 mg tablet 25 mg PO .QHS 09/17/24 09/08/25 History aspirin 81 mg tablet 81 mg PO DAILY 09/07/25 09/07/25 History fluticasone propionate 50 2 spray intranasal DAILY 09/07/25 09/07/25 History mcg/actuation nasal spray,suspension hydrocodone 7.5 mg-acetaminophen 1 tab PO TID 09/07/25 09/07/25 History 325 mg tablet ibuprofen 800 mg tablet 800 mg PO TID 09/07/25 09/07/25 History magnesium oxide 400 mg PO .QHS 09/08/25 09/08/25 History oxcarbazepine 150 mg tablet 150 mg PO BID 09/08/25 09/08/25 History tolterodine 4 mg capsule,extended 4 mg PO DAILY 09/08/25 09/08/25 History release 24 hr Allergies Allergy/AdvReac Type Severity Reaction Status Date / Time No Known Drug Allergies Allergy Verified 09/17/24 17:49 Exam Narrative Exam Narrative: General: Well-appearing and in no apparent distress. Pleasant and cooperative sitting up in chair. Skin: Warm, dry, no pallor noted. No rash. Head: Normocephalic, atraumatic. Neck: Supple, non-tender. Cardiovascular: Regular Rate and Rhythm without murmur, gallop or rub. Respiratory: No accessory muscle use or respiratory distress. Lungs are clear to auscultation, no wheezing, rales or rhonchi Chest Wall: no tenderness Back: No midline thoracic or lumbar vertebral tenderness. No CVA tenderness Musculoskeletal: normal ROM, no calf or popliteal tenderness, no lower extremity edema/swelling GI: Abdomen is soft, non-distended. Normal bowel sounds. No masses appreciated. No tenderness to palpation. No rebound, guarding, or rigidity noted. Neurological: A&O x4. 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 Cranial nerves II to XII are intact. No dysarthria on my examination Constitutional Vital Signs, click to edit/add: Last Vital Signs Temp 98.5 F 09/08/25 07:39 Pulse 92 H 09/08/25 09:55 Resp 16 09/08/25 07:39 BP 165/87 H 09/08/25 07:39 Pulse Ox 94 L 09/08/25 07:39 O2 Del Method Room Air 09/08/25 07:39 Internal Medicine - H&P: Reslt Labs Labs: Short CBC 09/07/25 09/08/25 Range/Units 17:17 05:05 WBC 10.6 11.7 H (4.0-11.0) 10^3/uL Hgb 15.5 14.5 (14.0-18.0) g/dL Hct 43.7 41.5 L (42.0-54.0) % Plt Count 266 261 (150-450) 10^3/uL BMP 09/07/25 09/08/25 17:17 05:05 Sodium 138 138 Potassium 3.7 3.3 L Chloride 103 103 Carbon Dioxide 27.5 28.2 BUN 10.0 9.0 Creatinine 0.85 0.68 L Glucose 150 H 135 H Calcium 9.4 9.2 Liver Function 09/07/25 09/08/25 Range/Units 17:17 05:05 Total Bilirubin 0.6 0.7 (0.2-1.0) mg/dL AST 15 13 L (15-37) U/L ALT 23 21 (16-63) U/L Alkaline Phosphatase 121 H 109 (46-116) U/L Albumin 3.6 3.3 L (3.4-5.0) g/dL Assessment and Plan Assessment and Plan (1) Hypertensive emergency: Plan Acute CVA Hypertensive emergency in the setting of acute CVA Type 2 diabetes -MRI brain without contrast reviewed and showed focal diffusion restriction in the left frontal periventricular white matter and subinsular white matter consist with acute to subacute ischemia -His A1c was 6.3, lipid panel showed LDL of 110 and cholesterol of 178 - In the ED, patient said 1 dose of aspirin 324 mg p.o. once, also patient was continued on his home Plavix 75 mg p.o. daily -Continue with atorvastatin 80 mg nightly -Obtain echo - His almost 24 hours since the CVA happened, after 24 hours we will be more aggressive with hypertension management - I will increase his losartan to 25 mg p.o. daily - Telestroke team already consulted, will wait for the recommendations - Further recommendations to be followed after speak to the stroke team and primary care - Full code, discussed that with the patient - Continue with DVT and GI prophylax - PT/OT evaluation - Patient passed bedside swallow evaluation - Answered all the patient's questions
--- NOTE | 2025-09-08 14:14 | SWNOTE1 ---
SW attempted to see pt 2x, but pt has several family members/friends in the room. SW to stop back later to discuss financial concerns and home health.
--- NOTE | 2025-09-08 14:29 | CM.NOTE ---
Important Message From Medicare discussed with pt, pt verbalizes understanding and signs paper. Original given to pt and copy placed on pt's chart.
--- NOTE | 2025-09-08 15:21 | SWNOTE1 ---
SW stopped back in and spoke with pt about home health and financial concerns. Pt voiced he has medical bills that he has been paying on. He did make a payment plan with one of the facilities for $25.00 per month. SW offered to help in any way. Pt voiced there is nothing SW can do and he will continue to make payments. At this time teleneuro was on computer to complete consult. SW to stop back in tomorrow to discuss home health services.
[2025-09-08] MEDS: ACETAMINOPHEN 325 MG TABLET 650 MG PO (15:29)
--- NOTE | 2025-09-08 20:35 | CA_ITS ---
Patient Name: ESTEFANY SMALL MR#: [id number] : 1955 Exam Date: 09/08/2025 Ordering Doctor: SARAH GARRETT ECHOCARDIOGRAM REPORT PROCEDURE: CA ECHO DOPPLER COMPLETE INDICATIONS: TIA, h/o CVA, cardiac stents, hypertension, diabetes COMPARISON: None. DESCRIPTION: COMPLETE ECHOCARDIOGRAM Real-time transthoracic echocardiography with 2D, M-mode, spectral and color flow Doppler performed. QUALITY: Technical quality was good. LEFT VENTRICLE: Normal chamber size. Moderate concentric left ventricular hypertrophy. LV EF: Global left ventricular systolic function is normal; visually estimated ejection fraction is 55 to 60%. No significant wall motion abnormalities. DIASTOLIC: Normal diastolic function. ATRIAL SEPTUM: Agitated saline contrast does not reveal an intra-cardiac shunt. LEFT ATRIUM: Normal chamber size. RIGHT ATRIUM: Mild dilatation. RIGHT VENTRICLE: Normal chamber size. Decreased right ventricular systolic function. TRICUSPID VALVE: Normal mobility and thickness. No stenosis with trivial regurgitation. No evidence of pulmonary hypertension. RVSP 34 mmHg MITRAL VALVE: Normal mobility and thickness. No evidence of mitral valve stenosis. Mild mitral annular calcification. No mitral regurgitation. AORTIC VALVE: Normal trileaflet appearance. Thickened aortic valve. Normal leaflet mobility. No evidence of aortic valve stenosis. No aortic regurgitation. AORTIC ROOT: Normal diameter and appearance. Ascending aorta is mildly dilated (3.8 cm). PULMONIC VALVE: Normal thickness and mobility. No stenosis. Trivial regurgitation. PERICARDIUM: Anterior free space; trivial effusion versus fat pad. IVC: IVC is normal in size, does not collapse. CONCLUSION: 1. Normal left ventricular systolic function is normal; visually estimated ejection fraction is 55 to 60% 2. The right ventricle appears normal in size with reduced systolic function 3. The right atrium is mildly dilated 4. Moderate left ventricular hypertrophy 5. Normal diastolic function 6. No significant valvular abnormalities 7. Anterior free space; trivial effusion versus fat pad 8. Agitated saline contrast study does not reveal an intracardiac shunt Adult Echocardiography Procedure Report Left Ventricle LVEDD (3.7 - 5.6 cm): 4.57 cm LVESD (2.2 - 4.0 cm): 2.66 cm LVIVS thickness (0.6 - 1.2 cm): 1.73 cm LVPW thickness (0.5 - 1.0 cm): 1.29 cm e': 0.10 m/s E - e': 6.04 LVOT Max Gradient: 3.54 mm[Hg] LVOT Area (cm2): 0.94 m/s Peak Velocity (LVOT): 0.94 m/s Mean Velocity (LVOT): 0.66 m/s LVOT Diameter 2.13 cm Left Ventricular Ejection Fraction: 54.76 % Left Atrium LA Volume Index (2D A2C): 22.14 ml/m2 Left Atrium Systolic Dimension: 3.22 cm Mitral Valve MV E to A Ratio: 0.71 Mitral Valve A-Wave Peak Velocity: 0.84 m/s Mitral Valve E-Wave Peak Velocity: 0.60 m/s Right Ventricle Aorta AO Root Diam: 3.68 cm Ascending Ao Diam: 3.79 cm Aortic Valve AoV Area (Peak Giovany): 3.18 cm2, 3.18 cm2 AoV Area (VTI): 3.29 cm2, 3.29 cm2 Peak Velocity(Antegrade Flow): 1.05 m/s Peak Gradient(Antegrade Flow): 4.42 mm[Hg] Mean Velocity(Antegrade Flow): 0.75 m/s Mean Gradient(Antegrade Flow): 2.54 mm[Hg] Velocity Time Integral: 23.70 cm Tricuspid Valve Peak Velocity (Regurgitant Flow): 2.57 m/s Pulmonic Valve Mean Gradient: 0.63 mm[Hg] Mean Velocity: 0.37 m/s Peak Velocity: 0.56 m/s Peak Gradient: 1.25 mm[Hg] Right Atrium Right Atrium Systolic Pressure: 59.70 ml, 59.70 ml Dictated by: Belia Jarrell M.D. on 09/08/2025 at 16:18 Approved by: Belia Jarrell M.D. on 09/08/2025 at 16:25
[2025-09-08] MEDS: SOLIFENACIN SUCCINATE 10 MG TABLET 5 MG PO (21:21)
[2025-09-08] MEDS: INSULIN GLARGINE 300 UNIT/3 ML INSULN.PEN 15 UNIT SQ (21:23)
[2025-09-09] VITALS (19 sets, daily range): BP systolic 138–202; BP diastolic 72–120; PULSE 68–99; TEMP 36.6–36.9; O2SAT 90–97
[2025-09-09] MEDS: HYDRALAZINE HCL 20 MG/ML VIAL 10 MG IVP (00:19)
[2025-09-09] MEDS: ENALAPRILAT DIHYDRATE 1.25 MG/ML VIAL IV ×2 (04:35→22:09)
[2025-09-09] MEDS: ACETAMINOPHEN 325 MG TABLET 650 MG PO ×2 (04:40→15:10)
[2025-09-09 05:37] LABS: Hematocrit 43.6 % (42.0-54.0); Hemoglobin 15.5 g/dL (14.0-18.0); Immature Granulocytes Abs Auto 0.05 10^3/uL (0.00-0.03); Immature Granulocytes Pct Auto 0.4 % (0.0-0.5); Lymphocytes Absolute Auto 1.4 10^3/uL (1.2-3.8); Mean Corpuscular HGB Conc 35.6 g/dL (29.9-35.2); Mean Corpuscular Hemoglobin 30.6 pg (25.9-34.0); Mean Corpuscular Volume 86.0 fL (80.0-94.0); Platelet Count 251 10^3/uL (150-450); Red Blood Count 5.07 10^6/uL (4.70-6.10); White Blood Count 12.4 10^3/uL (4.0-11.0)
[2025-09-09 05:59] LABS: Alanine Aminotransferase 18 U/L (16-63); Albumin Globulin Ratio 1.0; Albumin Level 3.3 g/dL (3.4-5.0); Alkaline Phosphatase 106 U/L (46-116); Anion Gap 10.8; Aspartate Amino Transferase 14 U/L (15-37); Blood Urea Nitrogen 10.0 mg/dL (7.0-18.0); Calcium 8.9 mg/dL (8.5-10.1); Carbon Dioxide 26.4 mmol/L (21.0-32.0); Chloride 100 mmol/L (98-107); Estimated GFR (African America >60 (>=60 mL/min/1.73m^2); Estimated GFR (Non-African Ame >60 (>=60 mL/min/1.73m^2); Globulin 3.2 g/dL; Glucose 138 mg/dL (74-106); Magnesium 1.9 mg/dL (1.8-2.4); Potassium 3.2 mmol/L (3.5-5.1); Sodium 134 mmol/L (136-145); Total Protein 6.5 g/dL (6.4-8.2)
[2025-09-09] MEDS: METOPROLOL TARTRATE 25 MG TABLET 12.5 MG PO (08:36)
[2025-09-09] MEDS: LOSARTAN POTASSIUM 25 MG TABLET PO ×2 (08:37→09:32)
[2025-09-09] MEDS: CLOPIDOGREL BISULFATE 75 MG TABLET PO (08:37)
--- NOTE | 2025-09-09 09:40 | CM.NOTE ---
Rounds made with Dr. Otto, pt will discharge to home today. Pt will have cardiology consult prior to discharge. Pt will f/u with PCP and neurology. Pt is open to services at discharge, updated SW.
--- NOTE | 2025-09-09 10:31 | SWNOTE1 ---
SW stopped in to speak with pt about HH services. Pt is being discharged today. Pt voiced he did not sleep at all last night. Pt voiced he is ready to go home. Pt did provide pt with list from Medicare.gov with star ratings. Pt reviewed and he does not have a preference on company. Pt voiced to use someone close. SW to send referral to [facility]. Pt is in agreement. Pt will need PT/OT and a nurse. SW did explain HH to pt yesterday and pt is familiar with HH services from his having them in the past. Referral sent to [facility]. Referral included face sheet, ED note, H&P, provider notes, case management report, and PT/OT notes.
--- NOTE | 2025-09-09 10:56 | PM.DS1 ---
DS: Providers Provider Date of admission: 09/07/25 21:07 Primary care physician: KALEY MCCOY Consults: 09/07/25 Consult to Dietitian Routine Reason for consultation: weight loss Has provider been notified: No Consult to Programmable Logic Controller Assembler Routine Reason for consult:: Financial Concerns Other reason:: pt states he has trouble paying medical bills 09/07/25 17:34 Consult to Telestroke Routine Reason for consultation: stroke like 09/07/25 20:35 Consult to TeleNeurology Routine Reason for consultation: TIA Occupational Therapy Eval and Treat Routine Reason for consultation: TIA Physical Therapy Eval and Treat Routine Reason for consultation: TIA 09/09/25 09:35 Consult to Cardiology Routine Reason for consultation: CVA Anticipated date of discharge: 09/09/25 DS: Diagnosis Discharge Diagnosis (1) Hypertensive emergency: Plan As above DS: Summary Hospital Course Hospital Course: This is a 70-year-old male with past medical history of CVA, type 2 diabetes, COPD, here for sudden weakness in his right arm/hand while he was trying to make a cup of coffee and noticed that his right hand is weak and he was spilling the milk along with difference in his speech where he was having slurred speech along with gait abnormality and headache. He did call his son and his son told him to come to the ED to rule out stroke. He drove himself to the ER as per the ER documentation. Patient was seen by my colleague overnight. When I saw the patient today he states that he still has some weakness in his right hand however on my exam hands were both same strength. He did walk with physical therapy and Occupational Therapy when I happened to walk in the hallway and he does have some weakness with walking which appears to be his baseline as per the patient. Back to the ED course, his CBC and CMP were both negative for normal troponin as well. His EKG showed sinus rhythm with no ischemic changes. Given that his last known well was at 3:30 PM yesterday and patient was within the window for tPA, stroke alert was called in the ED, CT head without contrast showed no acute pathology. The ED staff reach out to telestroke team in [facility] who recommended CT angio of the head and neck that showed no large vessel occlusion or hemodynamically significant stenosis recommended against tPA given his low NIH score. Patient was admitted for further workup and management for observation under hospitalist service. Acute CVA Hypertensive emergency in the setting of acute CVA Type 2 diabetes -MRI brain without contrast reviewed and showed focal diffusion restriction in the left frontal periventricular white matter and subinsular white matter consist with acute to subacute ischemia -His A1c was 6.3, lipid panel showed LDL of 110 and cholesterol of 178 - In the ED, patient said 1 dose of aspirin 324 mg p.o. once, also patient was continued on his home Plavix 75 mg p.o. daily -Continue with atorvastatin 80 mg nightly -Obtain echo - His almost 24 hours since the CVA happened, after 24 hours we will be more aggressive with hypertension management - I will increase his losartan to 25 mg p.o. daily - Telestroke team already consulted, will wait for the recommendations - Further recommendations to be followed after speak to the stroke team and primary care - Full code, discussed that with the patient - Continue with DVT and GI prophylax - PT/OT evaluation - Patient passed bedside swallow evaluation - Answered all the patient's questions 09/09/2025 patient with no new neurologic deficits today. Blood pressure improved with adding losartan 50 mg to the 25 mg p.o. daily. Echo showed EF of 55 to 60%. Right ventricular size was normal. He did have reduced systolic function the right ventricle. Right atrium is not dilated. Moderate LVH. Normal diastolic function. No intracardiac shunt on bubble study. A1c came back 6.3. I discussed the plan with the patient in details. Patient to be discharged on DAPT along with atorvastatin 80 mg nightly. Consult cardiology for further recommendations. Discussed with him the need to follow-up with neurology and the doctor first to see local neurologist which my wrapper caser will set him up with. PT/OT recommended home with home health. Status at Discharge Overall status at discharge: patient is progressing back to baseline Time Spent with Patient Time attestation: Total time spent providing and/or coordinating discharge services: Time spent: greater than 30 minutes Exam Narrative Exam Narrative: General: Well-appearing and in no apparent distress. Pleasant and cooperative sitting up in chair. Skin: Warm, dry, no pallor noted. No rash. Head: Normocephalic, atraumatic. Neck: Supple, non-tender. Cardiovascular: Regular Rate and Rhythm without murmur, gallop or rub. Respiratory: No accessory muscle use or respiratory distress. Lungs are clear to auscultation, no wheezing, rales or rhonchi Chest Wall: no tenderness Back: No midline thoracic or lumbar vertebral tenderness. No CVA tenderness Musculoskeletal: normal ROM, no calf or popliteal tenderness, no lower extremity edema/swelling GI: Abdomen is soft, non-distended. Normal bowel sounds. No masses appreciated. No tenderness to palpation. No rebound, guarding, or rigidity noted. Neurological: A&O x4. 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 Cranial nerves II to XII are intact. No dysarthria on my examination Constitutional Vital Signs, click to edit/add: Last Vital Signs Temp 98.3 F 09/09/25 07:35 Pulse 91 H 09/09/25 08:00 Resp 18 09/09/25 04:00 BP 145/83 H 09/09/25 09:31 Pulse Ox 94 L 09/09/25 07:35 O2 Del Method Room Air 09/09/25 07:35 DS: Data Data Completed and Pending Labs on day of discharge: Labs from last 24 hours 09/09/25 09/09/25 09/08/25 07:48 05:25 21:15 WBC 12.4 H RBC 5.07 Hgb 15.5 Hct 43.6 MCV 86.0 MCH 30.6 MCHC 35.6 H RDW 12.2 Plt Count 251 MPV 8.4 L Neut % (Auto) 83.5 H Lymph % (Auto) 11.3 L Coles % (Auto) 3.7 Eos % (Auto) 0.6 L Baso % (Auto) 0.5 Neut # (Auto) 10.4 H Lymph # (Auto) 1.4 Coles # (Auto) 0.5 Eos # (Auto) 0.1 Baso # (Auto) 0.1 Abs Immat Gran (auto) 0.05 H Imm/Tot Granulo (auto) 0.4 Sodium 134 L Potassium 3.2 L Chloride 100 Carbon Dioxide 26.4 Anion Gap 10.8 BUN 10.0 Creatinine 0.68 L Est GFR ( Amer) >60 Est GFR (Non-Af Amer) >60 BUN/Creatinine Ratio 14.7 Glucose 138 H Calcium 8.9 Magnesium 1.9 Total Bilirubin 0.9 AST 14 L ALT 18 Alkaline Phosphatase 106 Total Protein 6.5 Albumin 3.3 L Globulin 3.2 Albumin/Globulin Ratio 1.0 POC Glucose 124 H 140 H 09/08/25 09/08/25 16:06 11:31 WBC RBC Hgb Hct MCV MCH MCHC RDW Plt Count MPV Neut % (Auto) Lymph % (Auto) Coles % (Auto) Eos % (Auto) Baso % (Auto) Neut # (Auto) Lymph # (Auto) Coles # (Auto) Eos # (Auto) Baso # (Auto) Abs Immat Gran (auto) Imm/Tot Granulo (auto) Sodium Potassium Chloride Carbon Dioxide Anion Gap BUN Creatinine Est GFR ( Amer) Est GFR (Non-Af Amer) BUN/Creatinine Ratio Glucose Calcium Magnesium Total Bilirubin AST ALT Alkaline Phosphatase Total Protein Albumin Globulin Albumin/Globulin Ratio POC Glucose 134 H 129 H Discharge Plan Discharge Disposition: Home Health Service Discharge Medications: New losartan 50 mg Tablet 50 mg PO DAILY 30 Days Qty: 30 0RF atorvastatin 40 mg Tablet 80 mg PO QHS 30 Days Qty: 60 0RF metoprolol tartrate 25 mg Tablet 12.5 mg PO BID 15 Days Qty: 15 0RF Continued clopidogrel 75 mg tablet 75 mg PO DAILY insulin degludec [Tresiba FlexTouch U-200] 200 unit/mL (3 mL) insulin pen 50 unit SUBCUT QPM aspirin 81 mg tablet 81 mg PO DAILY fluticasone propionate 50 mcg/actuation spray,suspension 2 spray INTRANASAL DAILY hydrocodone-acetaminophen 7.5-325 mg tablet 1 tab PO TID oxcarbazepine 150 mg tablet 150 mg PO BID tolterodine 4 mg capsule,extended release 24hr 4 mg PO DAILY magnesium oxide 400 mg magnesium tablet 400 mg PO .QHS Discontinued losartan 25 mg tablet 25 mg PO .QHS ibuprofen 800 mg tablet 800 mg PO TID Print Language: Divehi Forms: Portal Instructions
[2025-09-09] MEDS: AMLODIPINE BESYLATE 5 MG TABLET 2.5 MG PO (12:52)
--- NOTE | 2025-09-09 13:06 | NUTR.NU ---
Dietary consult completed this date. Jono passes bedside swallow eval. Brochure planning healthy meals given. Discharge planned for today.
--- NOTE | 2025-09-09 13:09 | CM.NOTE ---
CM in to speak with pt about scheduling sleep study, pt verbalizes he has had sleep study in the past. Pt states he has a machine at home but refuses to wear. Discussed with pt risks of undiagnosed sleep apnea, HTN, heart attack, stroke,& irregular heart beat. Pt verbalizes understanding and continues to refuse sleep study. Updated Dr. Otto of pt's refusal.
--- NOTE | 2025-09-09 13:26 | CM.NOTE ---
CM updated RN about no discharge at this time, Dr. Otto spoke with pt's daughter for update.
--- NOTE | 2025-09-09 13:36 | CM.NOTE ---
Dr. Otto tigeloy txt CM that he spoke with son, believes pt is comprehending everything and is ready for discharge. RN will check BP in about an hour and message Dr. Otto. IF BP safe for discharge, Dr. Otto will discharge to home. Updated Ali on new message.
--- NOTE | 2025-09-09 13:38 | SWNOTE1 ---
ABIMAEL called and spoke to Chantell at [facility]. They did receive the referral and can accept, but they are waiting for PCP call back to confirm they will follow and for the dc orders. ABIMAEL advised that SW will send orders once they are complete.
--- NOTE | 2025-09-09 15:13 | PC.NURSE ---
Tele was taken off patient this am due to Doctor Fam giving the okay for the heart monitor to be taken off. Field Research Assistant tried putting tele back on because stated that the patient is unstable and said he can't leave like the way he is . stated this via tiger text.
[2025-09-09] MEDS: LABETALOL HCL 20 MG/4 ML SYRINGE 5 MG IV (15:34)
--- NOTE | 2025-09-09 16:00 | SWNOTE1 ---
Dipti from [facility] called and requested discharge information. informed Dipti that is unsure if pt is discharging today. SW to let Dipti know and once dc information is in to send.
--- NOTE | 2025-09-09 18:51 | PM.IMPN1 ---
Progress Note: A&P Assessment and Plan (1) Hypertensive emergency: (2) CVA (cerebral vascular accident): Plan Acute CVA Hypertensive emergency in the setting of acute CVA Type 2 diabetes -MRI brain without contrast reviewed and showed focal diffusion restriction in the left frontal periventricular white matter and subinsular white matter consist with acute to subacute ischemia -His A1c was 6.3, lipid panel showed LDL of 110 and cholesterol of 178 - In the ED, patient said 1 dose of aspirin 324 mg p.o. once, also patient was continued on his home Plavix 75 mg p.o. daily -Continue with atorvastatin 80 mg nightly -Obtain echo - His almost 24 hours since the CVA happened, after 24 hours we will be more aggressive with hypertension management - I will increase his losartan to 25 mg p.o. daily - Telestroke team already consulted, will wait for the recommendations - Further recommendations to be followed after speak to the stroke team and primary care - Full code, discussed that with the patient - Continue with DVT and GI prophylax - PT/OT evaluation - Patient passed bedside swallow evaluation - Answered all the patient's questions 09/09/2025 my plan originally was to discharge this patient today however his blood pressure has been very high despite increasing his losartan to 25 mg p.o. as well as adding metoprolol 12.5 mg twice daily and amlodipine 1 dose 2.5 mg p.o. daily. Also night team already added in the [facility] however patient blood pressure continues to be elevated now in the 200s systolic. I will order renal ultrasound Doppler to make sure patient is not having other stenosis. I replaced his metoprolol by carvedilol 6.25 mg p.o. twice daily and we will see how the numbers are. I discussed the plan with him and he originally told me that he wants to leave even AMA. I discussed the case with his daughter and son over the phone explained to them the importance of him staying the hospital until we get his blood pressure under control. Finally patient changes mind. I will continue with aspirin and Plavix after discussing that with the neurology. Also will continue with atorvastatin 80 mg nightly. Internal Medicine - PN: Subj Subjective Interval history: Patient was seen and examined at bedside today. States that he did not sleep well patient was very agitated because of that unfortunately explained to him that in the hospital stay entails frequent blood pressure monitoring as well as blood draws. Patient blood pressure has been very high with systolic in the 200s range. Still with right sided deficits as yesterday. With no changes in neurologic exam Exam Narrative Exam Narrative: General: Well-appearing and in no apparent distress. Pleasant and cooperative sitting up in chair. Skin: Warm, dry, no pallor noted. No rash. Head: Normocephalic, atraumatic. Neck: Supple, non-tender. Cardiovascular: Regular Rate and Rhythm without murmur, gallop or rub. Respiratory: No accessory muscle use or respiratory distress. Lungs are clear to auscultation, no wheezing, rales or rhonchi Chest Wall: no tenderness Back: No midline thoracic or lumbar vertebral tenderness. No CVA tenderness Musculoskeletal: normal ROM, no calf or popliteal tenderness, no lower extremity edema/swelling GI: Abdomen is soft, non-distended. Normal bowel sounds. No masses appreciated. No tenderness to palpation. No rebound, guarding, or rigidity noted. Neurological: A&O x4. 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 Cranial nerves II to XII are intact. No dysarthria on my examination 09/09/2025 his neurologic exam has not changed compared to yesterday with a similar right-sided neurologic deficit Constitutional Vital Signs, click to edit/add: Last Vital Signs Temp 98.5 F 09/09/25 16:37 Pulse 93 H 09/09/25 16:37 Resp 18 09/09/25 04:00 BP 186/99 H 09/09/25 16:37 Pulse Ox 94 L 09/09/25 16:37 O2 Del Method Room Air 09/09/25 16:37 Internal Medicine - PN: Obj Da Labs Labs: Laboratory Results - last 24 hr 09/08/25 09/09/25 09/09/25 21:15 05:25 07:48 WBC 12.4 H RBC 5.07 Hgb 15.5 Hct 43.6 MCV 86.0 MCH 30.6 MCHC 35.6 H RDW 12.2 Plt Count 251 MPV 8.4 L Neut % (Auto) 83.5 H Lymph % (Auto) 11.3 L Bledsoe % (Auto) 3.7 Eos % (Auto) 0.6 L Baso % (Auto) 0.5 Neut # (Auto) 10.4 H Lymph # (Auto) 1.4 Bledsoe # (Auto) 0.5 Eos # (Auto) 0.1 Baso # (Auto) 0.1 Abs Immat Gran (auto) 0.05 H Imm/Tot Granulo (auto) 0.4 Sodium 134 L Potassium 3.2 L Chloride 100 Carbon Dioxide 26.4 Anion Gap 10.8 BUN 10.0 Creatinine 0.68 L Est GFR ( Amer) >60 Est GFR (Non-Af Amer) >60 BUN/Creatinine Ratio 14.7 Glucose 138 H Calcium 8.9 Magnesium 1.9 Total Bilirubin 0.9 AST 14 L ALT 18 Alkaline Phosphatase 106 Total Protein 6.5 Albumin 3.3 L Globulin 3.2 Albumin/Globulin Ratio 1.0 POC Glucose 140 H 124 H 09/09/25 09/09/25 11:54 16:39 WBC RBC Hgb Hct MCV MCH MCHC RDW Plt Count MPV Neut % (Auto) Lymph % (Auto) Bledsoe % (Auto) Eos % (Auto) Baso % (Auto) Neut # (Auto) Lymph # (Auto) Bledsoe # (Auto) Eos # (Auto) Baso # (Auto) Abs Immat Gran (auto) Imm/Tot Granulo (auto) Sodium Potassium Chloride Carbon Dioxide Anion Gap BUN Creatinine Est GFR ( Amer) Est GFR (Non-Af Amer) BUN/Creatinine Ratio Glucose Calcium Magnesium Total Bilirubin AST ALT Alkaline Phosphatase Total Protein Albumin Globulin Albumin/Globulin Ratio POC Glucose 143 H 120 H
[2025-09-09] MEDS: AMLODIPINE BESYLATE 5 MG TABLET PO (22:08)
[2025-09-09] MEDS: CARVEDILOL 6.25 MG TABLET 12.5 MG PO (22:08)
[2025-09-09] MEDS: ALPRAZOLAM 0.5 MG TABLET PO (22:08)
[2025-09-09] MEDS: ATORVASTATIN CALCIUM 40 MG TABLET 80 MG PO (22:09)
[2025-09-09] MEDS: SOLIFENACIN SUCCINATE 10 MG TABLET 5 MG PO (22:09)
[2025-09-09] MEDS: INSULIN GLARGINE 300 UNIT/3 ML INSULN.PEN 15 UNIT SQ (22:15)
[2025-09-10] VITALS (7 sets, daily range): BP systolic 136–165; BP diastolic 82–94; PULSE 74–92; TEMP 36.6–36.9; O2SAT 91–96
[2025-09-10 05:37] LABS: Hematocrit 45.4 % (42.0-54.0); Hemoglobin 16.0 g/dL (14.0-18.0); Immature Granulocytes Abs Auto 0.06 10^3/uL (0.00-0.03); Immature Granulocytes Pct Auto 0.5 % (0.0-0.5); Lymphocytes Absolute Auto 2.3 10^3/uL (1.2-3.8); Mean Corpuscular HGB Conc 35.2 g/dL (29.9-35.2); Mean Corpuscular Hemoglobin 30.6 pg (25.9-34.0); Mean Corpuscular Volume 86.8 fL (80.0-94.0); Platelet Count 255 10^3/uL (150-450); Red Blood Count 5.23 10^6/uL (4.70-6.10); White Blood Count 13.3 10^3/uL (4.0-11.0)
[2025-09-10 06:13] LABS: Alanine Aminotransferase 15 U/L (16-63); Albumin Globulin Ratio 1.1; Albumin Level 3.5 g/dL (3.4-5.0); Alkaline Phosphatase 108 U/L (46-116); Anion Gap 12.4; Aspartate Amino Transferase 11 U/L (15-37); Blood Urea Nitrogen 20.0 mg/dL (7.0-18.0); Calcium 9.5 mg/dL (8.5-10.1); Carbon Dioxide 25.7 mmol/L (21.0-32.0); Chloride 105 mmol/L (98-107); Estimated GFR (African America >60 (>=60 mL/min/1.73m^2); Estimated GFR (Non-African Ame >60 (>=60 mL/min/1.73m^2); Globulin 3.2 g/dL; Glucose 119 mg/dL (74-106); Magnesium 2.4 mg/dL (1.8-2.4); Potassium 3.1 mmol/L (3.5-5.1); Sodium 140 mmol/L (136-145); Total Protein 6.7 g/dL (6.4-8.2)
[2025-09-10] MEDS: ASPIRIN 81 MG TAB.CHEW PO (09:38)
[2025-09-10] MEDS: HYDROCODONE/ACET 5-325 MG TABLET 1 TAB PO (09:38)
[2025-09-10] MEDS: CARVEDILOL 6.25 MG TABLET 12.5 MG PO (09:38)
[2025-09-10] MEDS: CLOPIDOGREL BISULFATE 75 MG TABLET PO (09:39)
--- NOTE | 2025-09-10 09:40 | CM.NOTE ---
Rounds made with Dr. Otto, pt will discharge to home today. Pt will f/u with neurology and PCP. Pt will also discharge with [facility] services.
[2025-09-10] MEDS: ALPRAZOLAM 0.5 MG TABLET PO (09:41)
[2025-09-10] MEDS: AMLODIPINE BESYLATE 5 MG TABLET PO (09:41)
[2025-09-10] MEDS: ENOXAPARIN SODIUM 40 MG/0.4 ML SYRINGE SUBQ (09:41)
[2025-09-10] MEDS: POTASSIUM CHLORIDE 10 MEQ ER TABLET 20 MEQ PO (10:05)
--- NOTE | 2025-09-10 10:30 | CM.NOTE ---
CRF completed for HH services at discharge and signed by Dr. Otto. Pt at this time continues to refuse sleep study.
[2025-09-10] MEDS: INSULIN ASPART 300 UNIT/3 ML PEN SUBQ (12:40)
[2025-09-10] MEDS: LOSARTAN POTASSIUM 25 MG TABLET PO (12:41)
--- NOTE | 2025-09-10 14:53 | CT_ITS ---
The [address] [address] Patient Name: ESTEFANY SMALL MRN: [id number] date: 1955 Sex: M Assigned Patient Location: [place] Current Patient Location: [place] Accession/Order Number: [id number] Exam Date: 09/10/2025 15:05 Report Date: 09/10/2025 16:13 At the request of: HELDER SMITH MD Procedure: CT head/brain wo con CT BRAIN WITHOUT CONTRAST: CLINICAL HISTORY: severe right sided weakness, recent CVA COMPARISON: MRI brain 09/08/2025 TECHNIQUE: Contiguous axial unenhanced images were obtained through the brain. This CT exam was performed using one or more following dose reduction techniques: Automated exposure control, adjustment of the mA and/or kV according to patient size, or use of iterative reconstruction technique. FINDINGS: There is no evidence of midline shift, intra or extra-axial fluid collection, hemorrhage or CT evidence of acute large vascular distribution stroke. Hypoattenuation left frontal deep white matter likely corresponds to the focus of stroke on recent MRI. This appears slightly larger than the finding on MRI. Otherwise mild to moderate chronic small vessel changes. Scattered foci of chronic lacunar type stroke identified. There are vascular calcifications identified. Visualized intraorbital contents appear unremarkable. Visualized paranasal sinuses are clear. The surrounding soft tissues are normal. CT/CT head/brain wo con IMPRESSION: HYPOATTENUATION CORRESPONDING TO THE STROKE ON RECENT MRI APPEARS SLIGHTLY LARGER WHICH MAY SUGGEST PROGRESSION/EVOLUTION OF THE LEFT SUBACUTE STROKE. OTHERWISE [id number] CHRONIC MICROVASCULAR DISEASE AND SCATTERED AREAS OF LACUNAR STROKE. NO EVIDENCE OF ACUTE BLEED OR MIDLINE SHIFT. Impression dictated by: Bird Sarah M.D. 09/10/2025 4:13 PM Dictation Location: [place] [address] Electronically authenticated by: [id number] Y Date: 09/10/2025 16:13
--- NOTE | 2025-09-10 14:59 | SWNOTE1 ---
ABIMAEL faxed dc med rec, CRF, and therapy from today to [facility].
--- NOTE | 2025-09-10 15:36 | PM.EN ---
Event Note Event Note: I was notified by the nursing team that the patient is not able to move his right arm or leg. I immediately went to bedside, patient's last neurocheck was at 11:30 AM, however he had a nap and when he woke up at around 3 PM the nurse noticed that the patient's not able to move his right arm or leg. She marked the NIH as 7. I was notified of those findings, I immediately called the neuroteam at [facility], spoke to Dr. Robbins, explained to him situation and asking if he wants me to call a stroke alert given that the patient did have a stroke/CVA on his MRI on 09/08/2025. His blood pressure was in the 140s to 160s systolic today. [facility] recommended CT head without contrast stat for now and no need for CT angio as per neurointerventional there. Pt did have a documented CVA around 48-72 hours ago. I also examined the patient at bedside, patient does have flat sit right arm however he can still move his right leg of gravity will given 2+ motor strength which is less than before that was 3+ on my morning exam. Patient's speech is still the same. My NIHSS was 7 on my exam as well. Patient was appropriately treated on aspirin and Plavix as well as atorvastatin high-dose. Blood pressure was never less than 130-140 systolic and that was more than 72 hours after his stroke symptoms so hypotension is unlikely. I also asked the nursing team to contact [facility] as we needed a video consult to the neurointerventional team as well to take a look at the patient and follow further recommendations. I did try to call and speak with his daughter Marva over the phone, updated her on Mr. Morales's clinical status and plan of management, could not get a hold of her. I will try again at a later time as soon as possible.
[2025-09-10] MEDS: ATORVASTATIN CALCIUM 40 MG TABLET 80 MG PO (22:10)
[2025-09-10] MEDS: TICAGRELOR 90 MG TABLET PO (22:11)
[2025-09-10] MEDS: SOLIFENACIN SUCCINATE 10 MG TABLET 5 MG PO (22:11)
[2025-09-10] MEDS: INSULIN GLARGINE 300 UNIT/3 ML INSULN.PEN 15 UNIT SQ (22:15)
[2025-09-11] VITALS (7 sets, daily range): BP systolic 156–170; BP diastolic 88–110; PULSE 82–95; TEMP 36.4–36.7; O2SAT 93–95
[2025-09-11] MEDS: ACETAMINOPHEN 325 MG TABLET 650 MG PO (02:35)
[2025-09-11] MEDS: LOSARTAN POTASSIUM 50 MG TABLET 100 MG PO (09:17)
[2025-09-11] MEDS: SENNOSIDES/DOCUSATE SODIUM 1 TAB TABLET PO (09:17)
[2025-09-11] MEDS: ASPIRIN 81 MG TAB.CHEW PO (09:17)
[2025-09-11] MEDS: ENOXAPARIN SODIUM 40 MG/0.4 ML SYRINGE SUBQ (09:18)
[2025-09-11] MEDS: TICAGRELOR 90 MG TABLET PO ×2 (09:18→21:59)
[2025-09-11] MEDS: AMLODIPINE BESYLATE 5 MG TABLET PO (09:18)
--- NOTE | 2025-09-11 09:36 | PM.IMPN1 ---
Progress Note: A&P Assessment and Plan (1) Hypertensive emergency: (2) CVA (cerebral vascular accident): Plan Acute CVA Hypertensive emergency in the setting of acute CVA Type 2 diabetes -MRI brain without contrast reviewed and showed focal diffusion restriction in the left frontal periventricular white matter and subinsular white matter consist with acute to subacute ischemia -His A1c was 6.3, lipid panel showed LDL of 110 and cholesterol of 178 - In the ED, patient said 1 dose of aspirin 324 mg p.o. once, also patient was continued on his home Plavix 75 mg p.o. daily -Continue with atorvastatin 80 mg nightly -Obtain echo - His almost 24 hours since the CVA happened, after 24 hours we will be more aggressive with hypertension management - I will increase his losartan to 25 mg p.o. daily - Telestroke team already consulted, will wait for the recommendations - Further recommendations to be followed after speak to the stroke team and primary care - Full code, discussed that with the patient - Continue with DVT and GI prophylax - PT/OT evaluation - Patient passed bedside swallow evaluation - Answered all the patient's questions 09/09/2025 my plan originally was to discharge this patient today however his blood pressure has been very high despite increasing his losartan to 25 mg p.o. as well as adding metoprolol 12.5 mg twice daily and amlodipine 1 dose 2.5 mg p.o. daily. Also night team already added in the [facility] however patient blood pressure continues to be elevated now in the 200s systolic. I will order renal ultrasound Doppler to make sure patient is not having other stenosis. I replaced his metoprolol by carvedilol 6.25 mg p.o. twice daily and we will see how the numbers are. I discussed the plan with him and he originally told me that he wants to leave even AMA. I discussed the case with his daughter and son over the phone explained to them the importance of him staying the hospital until we get his blood pressure under control. Finally patient changes mind. I will continue with aspirin and Plavix after discussing that with the neurology. Also will continue with atorvastatin 80 mg nightly. 09/10/2025 I was notified by the nursing team that the patient is not able to move his right arm or leg. I immediately went to bedside, patient's last neurocheck was at 11:30 AM, however he had a nap and when he woke up at around 3 PM the nurse noticed that the patient's not able to move his right arm or leg. She marked the NIH as 7. I was notified of those findings, I immediately called the neuroteam at [facility], spoke to Dr. Robbins, explained to him situation and asking if he wants me to call a stroke alert given that the patient did have a stroke/CVA on his MRI on 09/08/2025. His blood pressure was in the 140s to 160s systolic today. [facility] recommended CT head without contrast stat for now and no need for CT angio as per neurointerventional there. Pt did have a documented CVA around 48-72 hours ago. I also examined the patient at bedside, patient does have flat sit right arm however he can still move his right leg of gravity will given 2+ motor strength which is less than before that was 3+ on my morning exam. Patient's speech is still the same. My NIHSS was 7 on my exam as well. Patient was appropriately treated on aspirin and Plavix as well as atorvastatin high-dose. Blood pressure was never less than 130-140 systolic and that was more than 72 hours after his stroke symptoms so hypotension is unlikely. I also asked the nursing team to contact [facility] as we needed a video consult to the neurointerventional team as well to take a look at the patient and follow further recommendations. I did try to call and speak with his daughter Marva over the phone, updated her on Mr. Morales's clinical status and plan of management, could not get a hold of her. I will try again at a later time as soon as possible. Addendum: I was able to speak with Marva, updated her on the plan of management. Answered her questions Also spoke to CT scan team to expedite the read of Mr. Lynn CT head w/o contrast Addendum: I was able to speak with Marva, updated her on the plan of management. Answered her questions Also spoke to CT scan team to expedite the read of Mr. 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 He does have much more strength in his right lower extremity. Otherwise his exam was unremarkable for new changes. I reviewed the events overnight as well as reviewed the nursing team recommendation for neurology yesterday. His blood pressure to 150 and 180 which will be kept like that as recommended by the [facility] team. 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 Answered all his questions in agreement with the plan. Will continue him on aspirin 81 mg p.o. daily as well as Brilinta 90 mg p.o. twice daily. Also he is on atorvastatin 80 mg nightly. He is on Xanax 0.5 mg p.o. twice daily as needed for anxiety and to help him sleep. Internal Medicine - PN: Subj Subjective Interval history: Patient was seen and examined at bedside today. Still not sleeping well today. He was very emotional about what happened last afternoon. Overnight, there was concern for speech changes, overnight physician ordered CT head without contrast that was not revealing for any acute change. He still with right arm weakness which is severe however his right leg appears to be much better today Exam Narrative Exam Narrative: General: Well-appearing and in no apparent distress. Pleasant and cooperative sitting up in chair. Skin: Warm, dry, no pallor noted. No rash. Head: Normocephalic, atraumatic. Neck: Supple, non-tender. Cardiovascular: Regular Rate and Rhythm without murmur, gallop or rub. Respiratory: No accessory muscle use or respiratory distress. Lungs are clear to auscultation, no wheezing, rales or rhonchi Chest Wall: no tenderness Back: No midline thoracic or lumbar vertebral tenderness. No CVA tenderness Musculoskeletal: normal ROM, no calf or popliteal tenderness, no lower extremity edema/swelling GI: Abdomen is soft, non-distended. Normal bowel sounds. No masses appreciated. No tenderness to palpation. No rebound, guarding, or rigidity noted. Neurological: A&O x4. Emotional, does not have severe right arm weakness with no ability to lift it off to gravity. He does have right lower extremity weakness. His NIH is 5 today. Speech is at baseline especially when he does not have dentures but I did not appreciate any new aphasia. Flaccid right arm no hyperreflexia Constitutional Vital Signs, click to edit/add: Last Vital Signs Temp 98.0 F 09/11/25 07:55 Pulse 82 09/11/25 07:55 Resp 16 09/11/25 07:55 BP 164/89 H 09/11/25 07:55 Pulse Ox 94 L 09/11/25 07:55 O2 Del Method Room Air 09/11/25 07:55 Internal Medicine - PN: Obj Da Labs Labs: Laboratory Results - last 24 hr 09/10/25 09/10/25 09/10/25 11:03 11:58 15:46 POC Glucose 205 H 220 H 123 H 09/10/25 09/10/25 09/11/25 17:16 22:13 07:22 POC Glucose 102 137 H 120 H
[2025-09-11 10:11] LABS: Hematocrit 45.6 % (42.0-54.0); Hemoglobin 16.4 g/dL (14.0-18.0); Immature Granulocytes Abs Auto 0.05 10^3/uL (0.00-0.03); Immature Granulocytes Pct Auto 0.4 % (0.0-0.5); Lymphocytes Absolute Auto 2.3 10^3/uL (1.2-3.8); Mean Corpuscular HGB Conc 36.0 g/dL (29.9-35.2); Mean Corpuscular Hemoglobin 31.4 pg (25.9-34.0); Mean Corpuscular Volume 87.2 fL (80.0-94.0); Platelet Count 264 10^3/uL (150-450); Red Blood Count 5.23 10^6/uL (4.70-6.10); White Blood Count 12.8 10^3/uL (4.0-11.0)
[2025-09-11 10:22] LABS: Alanine Aminotransferase 22 U/L (16-63); Albumin Globulin Ratio 1.1; Albumin Level 3.5 g/dL (3.4-5.0); Alkaline Phosphatase 116 U/L (46-116); Anion Gap 14.8; Aspartate Amino Transferase 16 U/L (15-37); Blood Urea Nitrogen 22.0 mg/dL (7.0-18.0); Calcium 9.1 mg/dL (8.5-10.1); Carbon Dioxide 24.6 mmol/L (21.0-32.0); Chloride 107 mmol/L (98-107); Estimated GFR (African America >60 (>=60 mL/min/1.73m^2); Estimated GFR (Non-African Ame >60 (>=60 mL/min/1.73m^2); Globulin 3.3 g/dL; Glucose 194 mg/dL (74-106); Magnesium 2.1 mg/dL (1.8-2.4); Potassium 3.4 mmol/L (3.5-5.1); Sodium 143 mmol/L (136-145); Total Protein 6.8 g/dL (6.4-8.2)
[2025-09-11] MEDS: INSULIN ASPART 300 UNIT/3 ML PEN SUBQ ×2 (13:40→18:18)
[2025-09-11] MEDS: ALPRAZOLAM 0.5 MG TABLET PO ×2 (19:44→21:59)
[2025-09-11] MEDS: ATORVASTATIN CALCIUM 40 MG TABLET 80 MG PO (21:59)
[2025-09-11] MEDS: SOLIFENACIN SUCCINATE 10 MG TABLET 5 MG PO (21:59)
[2025-09-11] MEDS: INSULIN GLARGINE 300 UNIT/3 ML INSULN.PEN 15 UNIT SQ (22:01)
[2025-09-12] VITALS (7 sets, daily range): BP systolic 136–193; BP diastolic 81–121; PULSE 88–108; TEMP 36.6–36.9; O2SAT 93–105
[2025-09-12 06:21] LABS: Hematocrit 46.9 % (42.0-54.0); Hemoglobin 16.3 g/dL (14.0-18.0); Immature Granulocytes Abs Auto 0.07 10^3/uL (0.00-0.03); Immature Granulocytes Pct Auto 0.5 % (0.0-0.5); Lymphocytes Absolute Auto 2.3 10^3/uL (1.2-3.8); Mean Corpuscular HGB Conc 34.8 g/dL (29.9-35.2); Mean Corpuscular Hemoglobin 30.2 pg (25.9-34.0); Mean Corpuscular Volume 87.0 fL (80.0-94.0); Platelet Count 275 10^3/uL (150-450); Red Blood Count 5.39 10^6/uL (4.70-6.10); White Blood Count 14.3 10^3/uL (4.0-11.0)
[2025-09-12 06:35] LABS: Alanine Aminotransferase 20 U/L (16-63); Albumin Globulin Ratio 1.1; Albumin Level 3.5 g/dL (3.4-5.0); Alkaline Phosphatase 120 U/L (46-116); Anion Gap 12.8; Aspartate Amino Transferase 16 U/L (15-37); Blood Urea Nitrogen 18.0 mg/dL (7.0-18.0); Calcium 9.1 mg/dL (8.5-10.1); Carbon Dioxide 25.2 mmol/L (21.0-32.0); Chloride 108 mmol/L (98-107); Estimated GFR (African America >60 (>=60 mL/min/1.73m^2); Estimated GFR (Non-African Ame >60 (>=60 mL/min/1.73m^2); Globulin 3.3 g/dL; Glucose 134 mg/dL (74-106); Magnesium 2.2 mg/dL (1.8-2.4); Potassium 3.0 mmol/L (3.5-5.1); Sodium 143 mmol/L (136-145); Total Protein 6.8 g/dL (6.4-8.2)
[2025-09-12] MEDS: ENOXAPARIN SODIUM 40 MG/0.4 ML SYRINGE SUBQ (09:09)
[2025-09-12] MEDS: LOSARTAN POTASSIUM 50 MG TABLET 100 MG PO (09:10)
[2025-09-12] MEDS: SENNOSIDES/DOCUSATE SODIUM 1 TAB TABLET PO (09:10)
[2025-09-12] MEDS: ASPIRIN 81 MG TAB.CHEW PO (09:10)
[2025-09-12] MEDS: AMLODIPINE BESYLATE 5 MG TABLET PO (09:10)
[2025-09-12] MEDS: TICAGRELOR 90 MG TABLET PO ×2 (09:10→21:27)
--- NOTE | 2025-09-12 13:32 | PM.IMPN1 ---
Progress Note: A&P Assessment and Plan (1) Hypertensive emergency: (2) CVA (cerebral vascular accident): (3) Diabetes mellitus with hyperglycemia: (4) Essential hypertension: (5) Mixed hyperlipidemia: (6) ASHD (arteriosclerotic heart disease): (7) Right hemiparesis: Plan Assessment: Acute ischemic stroke. Acute hypertensive emergency, present on admission. Extension of the stroke about 48 hours later. [facility] interventional stroke neurologist recommending permissive hypertension with systolic blood pressures 150-180. Diabetes mellitus type 2, with hyperglycemia in the hospital, on long-term insulin. Essential hypertension. Mixed hyperlipidemia. Long history of coronary artery atherosclerotic disease with 11 stents placed in [place]. MRI of the brain showing focal diffusion restriction in the left frontal periventricular white matter and subinsular white matter. Hypokalemia. Constipation. Plan: Replace potassium today. I defer to my hospitalist colleague tomorrow about adding a medication, such as spironolactone, with caution so that his blood pressure does not drop precipitously, as he seems to be persistently hypokalemic. Continue insulin adjustment for diabetes management. Continue to work with physical therapy and Occupational Therapy. Continue to monitor blood pressure closely. This patient requires the acute inpatient rehabilitation unit. He does not have the ability to even stand up at the bedside to void urine or pivot to get on bedpan. The case management team can start working on referral to an acute inpatient rehabilitation unit first thing tomorrow morning on Saturday. This stroke has been deemed a failure of Plavix by the interventional stroke neurology team [facility] Therefore the patient will be on lifelong aspirin 81 mg daily with Brilinta 90 mg twice daily. In the long run I wonder if cardiology would be able to get him an infusion of PCSK9 (Repatha.) Internal Medicine - PN: Subj Subjective Interval history: The patient reports that he is able to wiggle his fingers a little bit with his right hand, and he can wiggle his toes on his right foot a little bit more. He is right-hand dominant. The stroke has affected the right side of his body so much that he is not able to stand up out of bed to void urine or have a bowel movement. Nursing have affixed a pure wick collection system. Review of systems is positive for constipation. He says he has not had a bowel movement since coming into the hospital. He takes a pill that he does not know what the name is or the milligram dosage is at home every other day to have bowel movements. He denies cough. Denies expectorate sputum. No fevers chills. No chest pain. No nausea. No upset stomach. He reports, with some tears in his eyes, that he has 11 stents and the last 5 stents were put in by a mobile ui developer in [place] who is wearing cowboy boots during the heart cath procedure. He followed with Dr. Crouch here in [place] for cardiology for a long time until he moved away and since then he has bounced around between different mobile ui developer. The patient has 2 friends at the bedside. One of them is advocating strongly for the acute inpatient rehabilitation unit on the fifth floor at [facility]. I agree wholeheartedly with this. This is been a severe stroke. He has basically hemiplegia and hemiparesis on the right side. And so I told the patient and his friends at the bedside that on Saturday case management can work on acute inpatient rehabilitation. Exam Narrative Exam Narrative: General: Sitting up in bed. Watching [employer] football on TV. Feeding himself a late lunch. Pulmonary: Clear to auscultation anteriorly. No wheezing. Cardiac: No murmurs to auscultation. Heart sounds are somewhat distant but they are regular to auscultation. GI: Slightly hypoactive bowel sounds. No acute pain to palpation. Lower extremities: No edema in ankles bilaterally. Right arm: This lays flaccid on the bed. He has to pick it up with his left hand. He can wiggle his fingers a tiny little bit but it is very slow. Right leg: He can wiggle his toes but this is also very slow. He can drag his ankle up and down the bed just a little bit and this is also very slow. Constitutional Vital Signs, click to edit/add: Last Vital Signs Temp 98.4 F 09/12/25 11:27 Pulse 98 H 09/12/25 11:27 Resp 16 09/12/25 11:27 BP 161/91 H 09/12/25 11:27 Pulse Ox 94 L 09/12/25 11:27 O2 Del Method Room Air 09/12/25 11:27 Internal Medicine - PN: Obj Da Labs Labs: Laboratory Results - last 24 hr 09/11/25 09/11/25 09/12/25 16:31 19:14 06:04 WBC 14.3 H RBC 5.39 Hgb 16.3 Hct 46.9 MCV 87.0 MCH 30.2 MCHC 34.8 RDW 12.4 Plt Count 275 MPV 8.8 L Neut % (Auto) 75.0 Lymph % (Auto) 15.8 L Hitchcock % (Auto) 5.9 Eos % (Auto) 2.0 Baso % (Auto) 0.8 Neut # (Auto) 10.8 H Lymph # (Auto) 2.3 Hitchcock # (Auto) 0.8 Eos # (Auto) 0.3 Baso # (Auto) 0.1 Abs Immat Gran (auto) 0.07 H Imm/Tot Granulo (auto) 0.5 Sodium 143 Potassium 3.0 L Chloride 108 H Carbon Dioxide 25.2 Anion Gap 12.8 BUN 18.0 Creatinine 0.83 Est GFR ( Amer) >60 Est GFR (Non-Af Amer) >60 BUN/Creatinine Ratio 21.7 Glucose 134 H Calcium 9.1 Magnesium 2.2 Total Bilirubin 1.9 H AST 16 ALT 20 Alkaline Phosphatase 120 H Total Protein 6.8 Albumin 3.5 Globulin 3.3 Albumin/Globulin Ratio 1.1 POC Glucose 219 H 118 H 09/12/25 11:25 WBC RBC Hgb Hct MCV MCH MCHC RDW Plt Count MPV Neut % (Auto) Lymph % (Auto) Hitchcock % (Auto) Eos % (Auto) Baso % (Auto) Neut # (Auto) Lymph # (Auto) Hitchcock # (Auto) Eos # (Auto) Baso # (Auto) Abs Immat Gran (auto) Imm/Tot Granulo (auto) Sodium Potassium Chloride Carbon Dioxide Anion Gap BUN Creatinine Est GFR ( Amer) Est GFR (Non-Af Amer) BUN/Creatinine Ratio Glucose Calcium Magnesium Total Bilirubin AST ALT Alkaline Phosphatase Total Protein Albumin Globulin Albumin/Globulin Ratio POC Glucose 245 H Urinary Catheter Management Urinary Catheter Management Pure Wick: Cath placed during this visit: yes Urethral indwelling: No Insertion date: 09/12/25 Insertion time: 08:00
[2025-09-12] MEDS: INSULIN ASPART 300 UNIT/3 ML PEN SUBQ ×2 (13:36→21:27)
[2025-09-12] MEDS: SENNOSIDES 8.6 MG TABLET 17.2 MG PO (15:18)
[2025-09-12] MEDS: PSYLLIUM SUGAR FREE 5.8 GM POWDER PACKET PO (15:19)
[2025-09-12] MEDS: ACETAMINOPHEN 325 MG TABLET 650 MG PO ×2 (15:19→23:52)
[2025-09-12] MEDS: POTASSIUM CHLORIDE 10 MEQ ER TABLET 50 MEQ PO (16:32)
[2025-09-12] MEDS: ATORVASTATIN CALCIUM 40 MG TABLET 80 MG PO (21:27)
[2025-09-12] MEDS: ALPRAZOLAM 0.5 MG TABLET PO ×2 (21:27→23:52)
[2025-09-12] MEDS: SOLIFENACIN SUCCINATE 10 MG TABLET 5 MG PO (21:27)
[2025-09-12] MEDS: INSULIN GLARGINE 300 UNIT/3 ML INSULN.PEN 15 UNIT SQ (21:28)
[2025-09-13 04:00] VITALS: BP 149/83; PULSE 88; TEMP 36.8; O2SAT 92
[2025-09-13 05:29] LABS: Hematocrit 46.6 % (42.0-54.0); Hemoglobin 16.3 g/dL (14.0-18.0); Immature Granulocytes Abs Auto 0.06 10^3/uL (0.00-0.03); Immature Granulocytes Pct Auto 0.5 % (0.0-0.5); Lymphocytes Absolute Auto 2.9 10^3/uL (1.2-3.8); Mean Corpuscular HGB Conc 35.0 g/dL (29.9-35.2); Mean Corpuscular Hemoglobin 30.7 pg (25.9-34.0); Mean Corpuscular Volume 87.8 fL (80.0-94.0); Platelet Count 243 10^3/uL (150-450); Red Blood Count 5.31 10^6/uL (4.70-6.10); White Blood Count 12.6 10^3/uL (4.0-11.0)
[2025-09-13 05:53] LABS: Anion Gap 13.6; Blood Urea Nitrogen 17.0 mg/dL (7.0-18.0); Calcium 9.7 mg/dL (8.5-10.1); Carbon Dioxide 25.1 mmol/L (21.0-32.0); Chloride 109 mmol/L (98-107); Estimated GFR (African America >60 (>=60 mL/min/1.73m^2); Estimated GFR (Non-African Ame >60 (>=60 mL/min/1.73m^2); Glucose 138 mg/dL (74-106); Magnesium 2.2 mg/dL (1.8-2.4); Potassium 3.7 mmol/L (3.5-5.1); Sodium 144 mmol/L (136-145)
[2025-09-13 07:59] VITALS: BP 178/98; PULSE 97; TEMP 36.4; O2SAT 93
[2025-09-13] MEDS: LOSARTAN POTASSIUM 50 MG TABLET 100 MG PO (08:53)
[2025-09-13] MEDS: ASPIRIN 81 MG TAB.CHEW PO (08:53)
[2025-09-13] MEDS: AMLODIPINE BESYLATE 5 MG TABLET PO (08:53)
[2025-09-13] MEDS: PSYLLIUM SUGAR FREE 5.8 GM POWDER PACKET PO (08:54)
[2025-09-13] MEDS: ENOXAPARIN SODIUM 40 MG/0.4 ML SYRINGE SUBQ (08:54)
[2025-09-13] MEDS: TICAGRELOR 90 MG TABLET PO (08:54)
--- NOTE | 2025-09-13 09:43 | P.IMPN_ITS ---
Progress Note: A&P Assessment and Plan (1) Hypertensive emergency: (2) CVA (cerebral vascular accident): (3) Diabetes mellitus with hyperglycemia: (4) Essential hypertension: (5) Mixed hyperlipidemia: (6) ASHD (arteriosclerotic heart disease): (7) Right hemiparesis: Exam Narrative Exam Narrative: General: cooperative and tired appearing Orientation: alert, awake and oriented x3 Head: normal to inspection Neck: normal visual inspection Cardio: no JVD, regular rate, regular rhythm Chest palpation & inspection: normal inspection of the chest Resp Effort & Inspection: normal respiratory effort Abd: soft, non-tender, non-distended Extremities: Warm well perfused, no edema Neuro: Constitutional Vital Signs, click to edit/add: Last Vital Signs Temp 97.6 F 09/13/25 07:59 Pulse 97 H 09/13/25 07:59 Resp 24 H 09/13/25 07:59 BP 178/98 H 09/13/25 07:59 Pulse Ox 93 L 09/13/25 07:59 O2 Del Method Room Air 09/13/25 07:59 Internal Medicine - PN: Obj Da Labs Labs: Laboratory Results - last 24 hr 09/12/25 09/12/25 09/12/25 11:25 16:26 19:51 WBC RBC Hgb Hct MCV MCH MCHC RDW Plt Count MPV Neut % (Auto) Lymph % (Auto) [place] % (Auto) Eos % (Auto) Baso % (Auto) Neut # (Auto) Lymph # (Auto) [place] # (Auto) Eos # (Auto) Baso # (Auto) Abs Immat Gran (auto) Imm/Tot Granulo (auto) Sodium Potassium Chloride Carbon Dioxide Anion Gap BUN Creatinine Est GFR ( Amer) Est GFR (Non-Af Amer) BUN/Creatinine Ratio Glucose Calcium Magnesium POC Glucose 245 H 117 H 192 H 09/13/25 05:20 WBC 12.6 H RBC 5.31 Hgb 16.3 Hct 46.6 MCV 87.8 MCH 30.7 MCHC 35.0 RDW 12.3 Plt Count 243 MPV 8.6 L Neut % (Auto) 66.2 Lymph % (Auto) 23.3 [place] % (Auto) 6.7 Eos % (Auto) 2.7 Baso % (Auto) 0.6 Neut # (Auto) 8.3 H Lymph # (Auto) 2.9 [place] # (Auto) 0.8 Eos # (Auto) 0.3 Baso # (Auto) 0.1 Abs Immat Gran (auto) 0.06 H Imm/Tot Granulo (auto) 0.5 Sodium 144 Potassium 3.7 Chloride 109 H Carbon Dioxide 25.1 Anion Gap 13.6 BUN 17.0 Creatinine 0.93 Est GFR ( Amer) >60 Est GFR (Non-Af Amer) >60 BUN/Creatinine Ratio 18.3 Glucose 138 H Calcium 9.7 Magnesium 2.2 POC Glucose Urinary Catheter Management Urinary Catheter Management Pure Wick: Cath placed during this visit: yes Urethral indwelling: No Insertion date: 09/12/25 Insertion time: 08:00
--- NOTE | 2025-09-13 09:47 | CM.NOTE ---
2nd Important Message From Medicare discussed with pt, pt denies questions or concerns.
[2025-09-13] MEDS: SPIRONOLACTONE 25 MG TABLET PO (10:11)
--- NOTE | 2025-09-13 10:20 | CM.NOTE ---
Rounds made with Dr. Olivera, pt will discharge to acute rehab today. Pt will have swallow evaluation prior to discharge.
--- NOTE | 2025-09-13 10:55 | SWNOTE1 ---
Pt will need rehab and it is recommended to try the [facility] acute rehab. SW reviewed documentation from the weekend and pt/family/friends are hopeful to get pt in to [facility] acute rehab. Referral sent to [facility] acute rehab. Referral included face sheet, ED note, H&P, provider notes, case management report, nursing notes, diagnostic imaging, med list, and PT/OT/ST notes.
--- NOTE | 2025-09-13 10:57 | SWNOTE1 ---
SW also faxed teleneuro consults and notes as well.
--- NOTE | 2025-09-13 11:38 | P.DS_ITS ---
DS: Providers Provider Date of admission: 09/08/25 14:09 Primary care physician: KALEY MCCOY Admitting clinician: Franco Otto Attending physician on admission: Franco Otto Consults: 09/07/25 Consult to Dietitian Routine Reason for consultation: weight loss Has provider been notified: No Consult to Radiological Engineer Routine Reason for consult:: Financial Concerns Other reason:: pt states he has trouble paying medical bills 09/07/25 17:34 Consult to Telestroke Routine Reason for consultation: stroke like 09/07/25 20:35 Consult to TeleNeurology Routine Reason for consultation: TIA Occupational Therapy Eval and Treat Routine Reason for consultation: TIA Physical Therapy Eval and Treat Routine Reason for consultation: TIA 09/09/25 09:35 Consult to Cardiology Routine Reason for consultation: CVA 09/10/25 Consult to TeleNeurology Routine Reason for consultation: Rt side Weakness. Has provider been notified: Yes 09/10/25 16:23 Speech Therapy Eval and Treat Routine Reason for consultation: patient support assistant eval, cva 09/10/25 16:31 Occupational Therapy Eval and Treat Routine Reason for consultation: worsening CVA Physical Therapy Eval and Treat Routine Reason for consultation: worsening cva Attending physician on discharge: LAM DELVALLE Discharging clinician: LAM DELVALLE DS: Diagnosis Discharge Diagnosis (1) Hypertensive emergency: (2) CVA (cerebral vascular accident): (3) Diabetes mellitus with hyperglycemia: (4) Essential hypertension: (5) Mixed hyperlipidemia: (6) ASHD (arteriosclerotic heart disease): (7) Right hemiparesis: DS: Summary Hospital Course Hospital Course: 70-year-old male with past medical history of CVA, type 2 diabetes, COPD, here for sudden weakness in his right arm/hand while he was trying to make a cup of coffee and noticed that his right hand is weak and he was spilling the milk along with difference in his speech where he was having slurred speech along with gait abnormality and headache. He did call his son and his son told him to come to the ED to rule out stroke. He drove himself to the ER as per the ER documentation. Patient was seen by my colleague overnight. When I saw the patient today he states that he still has some weakness in his right hand however on my exam hands were both same strength. He did walk with physical therapy and Occupational Therapy when I happened to walk in the hallway and he does have some weakness with walking which appears to be his baseline as per the patient. Back to the ED course, his CBC and CMP were both negative for normal troponin as well. His EKG showed sinus rhythm with no ischemic changes. Given that his last known well was at 3:30 PM yesterday and patient was within the window for tPA, stroke alert was called in the ED, CT head without contrast showed no acute pathology. The ED staff reach out to telestroke team in [facility] who recommended CT angio of the head and neck that showed no large vessel occlusion or hemodynamically significant stenosis recommended against tPA given his low NIH score. Patient was admitted for further workup and management for observation under hospitalist service. He was started on aspirin and plavix, MRI showed focal diffusion restriction in the left frontal periventricular white matter and subinsular white matter consist with acute to subacute ischemia. On 09/10/25 he had symptomatic worsen ing, progression of his symptoms in the absence of hypotension, CT brain showed suspected progression/evolution of L subacute stroke in same territory. His antiplatelet therapy was switched from plavix to brillinta at the recommendation of [facility] stroke service. He was evaluated by PT/OT and recommended discharge to inpatient rehab and was accepted at [facility]. Spironolactone was added for blood pressure control. Speech therapy recommended mechanical soft diet, chopped meat with thin liquids. He was discharged to [facility] Inpatient rehab unit on 09/13/25, persistent R facial droop, unable to flex arm but hand mobile marketing specialist intact, persistent weakness in RLE. Time Spent with Patient Time attestation: Total time spent providing and/or coordinating discharge services: Exam Constitutional Vital Signs, click to edit/add: Last Vital Signs Temp 97.6 F 09/13/25 07:59 Pulse 97 H 09/13/25 07:59 Resp 24 H 09/13/25 07:59 BP 178/98 H 09/13/25 07:59 Pulse Ox 93 L 09/13/25 07:59 O2 Del Method Room Air 09/13/25 07:59 DS: Data Data Completed and Pending Labs on day of discharge: Labs from last 24 hours 09/13/25 09/12/25 09/12/25 05:20 19:51 16:26 WBC 12.6 H RBC 5.31 Hgb 16.3 Hct 46.6 MCV 87.8 MCH 30.7 MCHC 35.0 RDW 12.3 Plt Count 243 MPV 8.6 L Neut % (Auto) 66.2 Lymph % (Auto) 23.3 [place] % (Auto) 6.7 Eos % (Auto) 2.7 Baso % (Auto) 0.6 Neut # (Auto) 8.3 H Lymph # (Auto) 2.9 [place] # (Auto) 0.8 Eos # (Auto) 0.3 Baso # (Auto) 0.1 Abs Immat Gran (auto) 0.06 H Imm/Tot Granulo (auto) 0.5 Sodium 144 Potassium 3.7 Chloride 109 H Carbon Dioxide 25.1 Anion Gap 13.6 BUN 17.0 Creatinine 0.93 Est GFR ( Amer) >60 Est GFR (Non-Af Amer) >60 BUN/Creatinine Ratio 18.3 Glucose 138 H Calcium 9.7 Magnesium 2.2 POC Glucose 192 H 117 H Discharge Plan Discharge Disposition: Xfer Inpatient Rehab Fac Discharge Medications: New atorvastatin 40 mg Tablet 80 mg PO QHS 30 Days Qty: 60 0RF metoprolol tartrate 25 mg Tablet 12.5 mg PO BID 15 Days Qty: 15 0RF carvedilol 6.25 mg Tablet 12.5 mg PO BID 30 Days Qty: 120 0RF amlodipine 5 mg Tablet 5 mg PO QD 30 Days Qty: 30 0RF losartan 25 mg tablet 25 mg PO DAILY 30 Days Qty: 30 0RF spironolactone 25 mg Tablet 25 mg PO QD 30 Days Qty: 30 0RF ticagrelor [Brilinta] 90 mg Tablet 90 mg PO BID 90 Days Qty: 180 0RF psyllium husk (bulk) 100 % Powder 1 ea PO QD 30 Days Qty: 30 0RF Continued insulin degludec [Tresiba FlexTouch U-200] 200 unit/mL (3 mL) insulin pen 50 unit SUBCUT QPM aspirin 81 mg tablet 81 mg PO DAILY fluticasone propionate 50 mcg/actuation spray,suspension 2 spray INTRANASAL DAILY hydrocodone-acetaminophen 7.5-325 mg tablet 1 tab PO TID oxcarbazepine 150 mg tablet 150 mg PO BID tolterodine 4 mg capsule,extended release 24hr 4 mg PO DAILY magnesium oxide 400 mg magnesium tablet 400 mg PO .QHS Discontinued clopidogrel 75 mg tablet 75 mg PO DAILY losartan 25 mg tablet 25 mg PO .QHS ibuprofen 800 mg tablet 800 mg PO TID Print Language: Slovenian Vice President Consulting Services/S[employer] Instructions: Discharge to [facility] Acute rehab Forms: Portal Instructions Follow Up Appointments: Dr Mccoy Aug @3:00 [id number] [facility] [phone] [facility] Neurology @1:00 [id number] [facility] [address] [facility] [address] [facility] 10/12/2025 @ 11:00 [place] [phone]
[2025-09-13 12:07] VITALS: BP 154/100; PULSE 96; TEMP 36.6; O2SAT 93
--- NOTE | 2025-09-13 12:12 | PT.DAILY ---
Physical Therapy Daily Note PT Daily Note/Assess Start: 09/08/25 10:11 Freq: Status: Active Protocol: Document 09/13/25 12:08 EFREN (Rec[facility] 09[facility]13[facility]25 12:[id number] Physical Therapy Daily Note/Assessment Time In/Time Out Time In 12:15 Time Out 12:25 Pain In Pain N/A Pain Out Pain N/A Subjective Subjective Pt initially refused session but with motivation becomes agreeable to bed level ex. Pt claims he just got back to bed from sitting in chair for a few hours. Just getting warm and comfortable. Therapeutic Exercise Time Therapeutic Exercise 8 Minutes (minutes) Therapeutic Exercise 1 Units Therapeutic Exercise Treatment Therapeutic Exercise Instructed to complete supine bilat LE strengthening ex Treatment while in supine - in all planes 10x ea. Pt requires AA on R side for SLR, abduction slides and SAQ. remains supine with call light within reach and nursing present ordering lunch. Total Physical Therapy Time Total Therapy 8 Minutes Total Physical 1 Therapy Units Summary Daily Note Summary Limited session as pt only agreeable to bed level ex this morning. AA for 3x ther ex with little muscle activation noticed working against gravity.
[2025-09-13] MEDS: INSULIN ASPART 300 UNIT/3 ML PEN SUBQ (12:50)
--- NOTE | 2025-09-13 13:03 | SWNOTE1 ---
Muna at [facility] acute rehab called back and they can accept. Pt is ready for discharge today. SW to send orders once complete. CM did go speak with pt and he is comfortable going in wheelchair. ABIMAEL called and set up trips for 4-4:30. ABIMAEL let nurse and pt know.
--- NOTE | 2025-09-13 13:03 | CM.NOTE ---
I spoke with the patients nurse in regards to transportation and she felt the patient would be fine for transfer in a wheelchair with 2 assist. SW notified and will set up transportation for this afternoon.
--- NOTE | 2025-09-13 15:10 | SWNOTE1 ---
ABIMAEL spoke to pt's daughter on the phone to let her know time of discharge. ABIMAEL faxed michel ferreral, dc med rec, and dc summary to Muna at [facility] in rehab. ABIMAEL let her know time of discharge as well.
--- NOTE | 2025-09-13 15:15 | NUTR.NU ---
Diet changed to [facility] soft diet texture chopped meat no straw meds in pureed texture food per COACH MECHANIC
--- NOTE | 2025-09-13 15:18 | DIETREC ---
Dietary consult completed 09/09/25 re: weight loss. Discussed diet and weight loss with Jono at bedside. Brochure given Planning healthy meals
== END 2025-09-13 16:40 | DRG 65 ==
LOC: ER 20:40 → MS 21:10
PROVIDERS: Emergency Medicine; Hospitalist; Internal Medicine; Admitting Provider Student in an Organized Health Care Education/Training Program; Emergency Provider Internal Medicine; PCP Family Medicine; Visit Provider Student in an Organized Health Care Education/Training Program
DX: I63.9 Cerebral infarction, unspecified (principal); G81.04 Flaccid hemiplegia affecting left nondominant side; I16.1 Hypertensive emergency; E11.65 Type 2 diabetes mellitus with hyperglycemia; Z87.891 Personal history of nicotine dependence; Z79.4 Long term (current) use of insulin; Z79.82 Long term (current) use of aspirin; J44.9 Chronic obstructive pulmonary disease, unspecified; Z95.5 Presence of coronary angioplasty implant and graft; Z59.868 Other specified financial insecurity; I10 Essential (primary) hypertension; E78.2 Mixed hyperlipidemia; E87.6 Hypokalemia; K59.00 Constipation, unspecified; Z86.73 Personal history of transient ischemic attack (TIA), and cerebral infarction without residual deficits; G47.33 Obstructive sleep apnea (adult) (pediatric); R29.707 NIHSS score 7; R29.703 NIHSS score 3
CPT/HCPCS: 36415; 70450; 70496; 70498; 70551; 76775; 80048; 80053; 80061; 80320; 82948; 83036; 83735; 84484; 85025; 92523; 92610; 93005; 93306; 93975; 96374; 97110; 97162; 97164; 97165; 97530; 97535; 99285; G0378; J0360; J1290; J1650; J1920; J2405; Q9967